=== PATIENT | female | born 1940 | race Caucasian/White ===

== ENCOUNTER → 2016-08-17 | Outpatient (REF) | payer MEDICARE, MEDICAID ==
[~2016-08-17] MED LIST: /ADVA50050 IN; /CLON1TA PO; /MOM400 PO; /PANT40TA PO; /PROC10TA PO; /WARF25TA PO; /WARF5TA PO; ACET500T37 PO; ACET65TA PO; ADV250INH INH; ALAV10TA PO; ALBU83IN INH; ALEN10TA2 PO; ALLO300T PO; AMLO10TA2 PO; AMLO5TAB2 PO; ANALCR EXT; ARTIOIN OU; ASPI81TA45 PO; ATOR1TAB21 PO; BACT800T OR; BACT800T5 PO; BACTROBAN TOP; BISA10SU30 PR; BISAC5TA PO; CELE20TA OR; CLAR5CHW PO; CLOBETASOL TOP; COLA100C2 OR; COUM6TAB PO; CYMB1CAP PO; D-10TAB PO; D31000TA PO; DICL13PA TD; DICL500C PO; Deltasone PO; ECONAZOLE NITRATE TOP; ENEMENE6 PR; EXEMESTANE PO; FLAG500T OR; FLEXERIL PO; FLUC10TA OR; FOLI1TAB PO; GLIM2TAB PO; GLUC1000 PO; HUMA100I SC; HYDR1CR EXT; ICYCRE TOP; INSULANT SC; KEFL500C7 PO; LASI40TA PO; LEVA500T OR; LEVA500T PO; LEVO500T PO; LIQUSOL OU; LISI40TA PO; LOPR50TA PO; MAALSUS PO; MECL25TA2 PO; METF500T4 OR; METO25TAB PO; MICONAZOLE TOP; MILKSUS OR; MINOCIN PO; MIRA255PW PO; MIRA3350 PO; MORP-38 PO; MORP30TA4 PO; MS C200T PO; MUPI2OI TOP; MYLASSUD PO; NEUR300C PO; NEUR800T PO; NORC5TAB PO; NYAM10003 EXT; NYAM10003 TOP; OMEG100011 PO; OMEP20CA3 PO; OXYC10TA57 PO; OXYC30TA4 PO; OYST500T50 PO; OYST500T58 PO; OYST500T76 OR; PAIN325T OR; PARO10TA10 PO; PERC5TAB6 PO; PERC5TAB8 OR; PERC7.5T8 OR; PERCOCET PO; POTA20TA PO; PRED10TA2 OR; PRED10TA2 PO; PRED20TA PO; PRED5TAB PO; PRESCAP6 PO; REST0.05 OU; ROBISYP3 PO; SENO8.6T10 PO; SIMV40TA2 OR; SOMA350T PO; SYSTANE OU; THERA GESIC TOP; TRIA0.1C60 TOP; TUSS100S3 PO; ULTR50TA PO; VENTOLIN NEB INH; VIST25CA PO; VITA-121 PO; VITAMIN D50000 UNT PO; VOLT1GEL2 TD; XANA0.25 PO; XANA0.5T PO; ZANT150T PO; ZOCO40TA PO; [UNRECOGNIZED DRUG - OTHER] PO; [UNRECOGNIZED DRUG - OTHER] TOP; [UNRECOGNIZED DRUG - OTHER] TOP; immodium PO; oxygen INH; robitussin dm PO
== END ==
PROVIDERS: ATTEND Internal Medicine
DX: M35.3 Polymyalgia rheumatica (principal)

== ENCOUNTER → 2016-08-30 | Outpatient (CLI) | payer MEDICARE, MEDICAID ==
--- NOTE | 2016-08-30 14:31 | REP ---
LEFT LOWER EXTREMITY VENOUS DOPPLER: 08/30/2016 INDICATION: Left leg pain and swelling, possible DVT. COMPARISON: Left lower extremity venous Doppler 02/13/2015. TECHNIQUE: Color-flow Doppler spectral wave and mercado-scale imaging were used to evaluate the deep lower extremity veins at common femoral, superficial femoral, and popliteal venous levels. FINDINGS: There is normal compressibility of veins at the above-stated levels. There is normal response to augmentation of flow. The profunda femoris vein is also patent. IMPRESSION: No evidence of DVT in the left lower extremity. MTDD
== END ==
LOC: M RAD 13:17
PROVIDERS: ATTEND Nurse Practitioner Adult Health
DX: M79.89 Other specified soft tissue disorders (principal)

== ENCOUNTER → 2016-09-01 | Outpatient (REF) | payer MEDICARE, MEDICAID | LOC: M LAB REF 15:34 | PROVIDERS: ATTEND Nurse Practitioner Family | DX: L08.9 Local infection of the skin and subcutaneous tissue, unspecified (principal) ==

== ENCOUNTER → 2016-09-02 | Outpatient (CLI) | payer MEDICARE, MEDICAID ==
--- NOTE | 2016-09-02 12:43 | REPMRS ---
Patient History The patient states she had a clinical breast exam in 06/2016. Patient is postmenopausal, has history of cancer in the right breast at age 68, had previous chest radiation therapy at age 68, and had previous chemotherapy at age 68. Family history of colorectal cancer in brother. Malignant lumpectomy of the right breast, 2008. Chemotherapy, 2008. Radiation therapy of the right breast, 2008. Digital Woman Screen Mammo: September 02, 2016 - Exam #: [id number] Bilateral CC and MLO view(s) were taken. Technologist: Lyn Parekh, Technologist Prior study comparison: August 31, 2015, digital woman screen mammo performed at [facility]. August 28, 2014, digital woman screen mammo performed at [facility]. February 26, 2013, digital woman screen mammo performed at [facility]. FINDINGS: There are scattered fibroglandular densities. There has been no change in the appearance of the mammogram from the prior studies. There are stable post treatment changes in the right breast. There is a mild amount of scattered fibroglandular density which is fairly symmetric. There is no interval development of dominant mass, architectural distortion, or clustered microcalcification suggestive of malignancy. ASSESSMENT: BI-RADS/ACR category 1 mammogram. Negative. Recommendation Routine screening mammogram in 1 year (for women over age 40). This mammogram was interpreted with the aid of an FDA-approved computer-aided dectection system. Electronically Signed By: Gordy Ward MD 09/02/16 [id number]
== END ==
LOC: M WHC 10:41
PROVIDERS: ATTEND Nurse Practitioner Family
DX: Z12.31 Encounter for screening mammogram for malignant neoplasm of breast (principal); Z85.3 Personal history of malignant neoplasm of breast

== ENCOUNTER → 2016-09-07 | Outpatient (REF) | payer MEDICARE, MEDICAID | PROVIDERS: ATTEND Internal Medicine | DX: E03.9 Hypothyroidism, unspecified (principal) ==

== ENCOUNTER → 2016-09-16 | Outpatient (REF) | payer MEDICARE, MEDICAID ==
[2016-09-16 08:33] LABS: BASO % 0.2 % (0.0-1.0); EOS % 0.4 % (0.0-3.0); LARGE UNSTAINED CELL # 0.2 K/mm3 (0.0-0.4); LARGE UNSTAINED CELL % 2.3 % (0.0-4.0); LYMPH # 1.6 K/mm3 (1.5-4.5); LYMPH % 14.6 % (24.0-44.0); MEAN CORPUSCULAR HEMOGLOBIN 28.4 pg (27.0-33.0); MEAN CORPUSCULAR HGB CONC 31.8 g/dl (32.0-36.5); MEAN CORPUSCULAR VOLUME 89.4 fl (80.0-96.0); MONO # 0.4 K/mm3 (0.0-0.8); NEUTROPHILS # 8.3 K/mm3 (1.8-7.7); NEUTROPHILS % 78.4 % (36.0-66.0); PLATELET COUNT, AUTOMATED 283 k/mm3 (150-450); RED CELL DISTRIBUTION WIDTH 14.8 % (11.5-14.5); WHITE BLOOD COUNT 10.6 K/mm3 (4.0-10.0)
[2016-09-16 08:40] LABS: ANION GAP 9 MEQ/L (8-16); BLOOD UREA NITROGEN 10 MG/DL (7-18); CALCIUM LEVEL 8.5 MG/DL (8.8-10.2); CARBON DIOXIDE LEVEL 29 MEQ/L (21-32); CHLORIDE LEVEL 100 MEQ/L (98-107); CREATININE FOR GFR 0.86 MG/DL (0.55-1.02); GLOMERULAR FILTRATION RATE > 60.0 (>39); GLUCOSE, FASTING 175 MG/DL (83-110); POTASSIUM SERUM 4.3 MEQ/L (3.5-5.1); SODIUM LEVEL 138 MEQ/L (136-145)
== END ==
PROVIDERS: ATTEND Internal Medicine
DX: R50.9 Fever, unspecified (principal)

== ENCOUNTER → 2016-09-23 | Outpatient (REF) | payer MEDICARE, MEDICAID ==
[2016-09-23 12:07] LABS: ANION GAP 13 MEQ/L (8-16); BLOOD UREA NITROGEN 13 MG/DL (7-18); CALCIUM LEVEL 8.6 MG/DL (8.8-10.2); CARBON DIOXIDE LEVEL 31 MEQ/L (21-32); CHLORIDE LEVEL 92 MEQ/L (98-107); CREATININE FOR GFR 0.83 MG/DL (0.55-1.02); GLOMERULAR FILTRATION RATE > 60.0 (>39); GLUCOSE, FASTING 278 MG/DL (83-110); POTASSIUM SERUM 3.7 MEQ/L (3.5-5.1); SODIUM LEVEL 136 MEQ/L (136-145)
== END ==
PROVIDERS: ATTEND Internal Medicine
DX: I50.9 Heart failure, unspecified (principal)

== ENCOUNTER → 2016-10-05 | Outpatient (REF) | payer MEDICARE, MEDICAID ==
--- NOTE | 2016-10-05 11:43 | REP ---
Clinical: Pain. Technique: AP and frog lateral views of the right hip. Findings: Age-related degenerative changes include joint space narrowing with subtle spurring along the acetabular roof. No acute fracture dislocation. Impression: Age-related degenerative changes. Signed by Drew Cunha MD 10/05/2016 11:35 A
--- NOTE | 2016-10-05 11:45 | REP ---
Clinical: Pain. Technique: AP, lateral, bilateral oblique and sunrise views. Comparison: 05/18/2012. Findings: Marked, advanced and progressive tricompartmental osteoarthritic degenerative changes are appreciated. Findings include diffuse osteophytosis, significant joint space narrowing and chondrocalcinosis as well as subchondral heterogeneity and cystic changes and suspected small loose bodies. No obvious effusion. No acute fracture or dislocation. Impression: Marked advanced tricompartmental degenerative changes. Signed by Drew Cunha MD 10/05/2016 11:37 A
== END ==
PROVIDERS: ATTEND Internal Medicine
DX: M25.551 Pain in right hip (principal)

== ENCOUNTER → 2016-10-20 | Outpatient (REF) | payer MEDICARE, MEDICAID | LOC: M LAB REF 15:13 | PROVIDERS: ATTEND Nurse Practitioner Family | DX: L08.9 Local infection of the skin and subcutaneous tissue, unspecified (principal) ==

== ENCOUNTER → 2016-12-13 | Outpatient (REF) | payer MEDICARE, MEDICAID | LOC: M LAB REF 11:08 | PROVIDERS: ATTEND Nurse Practitioner Family | DX: L08.9 Local infection of the skin and subcutaneous tissue, unspecified (principal) ==

== ENCOUNTER → 2016-12-29 | Outpatient (CLI) | payer MEDICARE ==
--- NOTE | 2016-12-29 12:59 | REP ---
Clinical: Left upper extremity mass. Technique: Real time mercado scale and color evaluation using linear high frequency transducer. Findings: Directed ultrasound examination at the site of mass lesion demonstrates a 5.7 x 2.1 x 4.8 cm benign appearing lipoma. Surrounding soft tissues are unremarkable. Impression: Mass by physical examination corresponds to lipoma. Signed by Drew Cunha MD 12/29/2016 12:50 P
== END ==
LOC: M RAD 10:49
PROVIDERS: ATTEND Nurse Practitioner Adult Health
DX: D17.22 Benign lipomatous neoplasm of skin and subcutaneous tissue of left arm (principal)

== ENCOUNTER → 2017-01-03 | Outpatient (REF) | payer MEDICARE ==
[2017-01-03 10:12] LABS: MEAN CORPUSCULAR HEMOGLOBIN 26.8 pg (27.0-33.0); MEAN CORPUSCULAR VOLUME 83.7 fl (80.0-96.0); RED CELL DISTRIBUTION WIDTH 14.7 % (11.5-14.5); WHITE BLOOD COUNT 7.9 K/mm3 (4.0-10.0)
== END ==
PROVIDERS: ATTEND Internal Medicine
DX: M81.0 Age-related osteoporosis without current pathological fracture (principal); Z79.899 Other long term (current) drug therapy

== ENCOUNTER → 2017-01-06 | Outpatient (CLI) | payer MEDICARE ==
[~2017-01-06] MED LIST changes: +ARTI99.0 OU; +ASPI1TAB PO; +BISA10SU4 PR; +CYMB1CAP5 PO; +DUONSOL INH; +FENT100D25 TD; +FURO40TA2 PO; +GABA800T PO; +GLUC1INJ11 IM; +INSUDET SC; +INSUHUMDS SC; +LIDO1OIN2 TOP; +LISI40TAB PO; +METO37.5 PO; +MILKSUS PO; +MILKSUS5 PO; +MOM30SS PO; +PROT20TA11 PO; +SYMB16INH INH; +TUSSLIQ3 PO; +TYLE325T5 PO
--- NOTE | 2017-01-06 12:38 | REP ---
Clinical: Right lower extremity pain and edema . Technique: Aggarwal scale and color Doppler evaluation using linear high frequency transducer. Findings: Ultrasound examination of the right lower extremity deep venous structures from the common femoral vein to the popliteal vein demonstrates normal compressibility flow and wave patterns in response to respiration and augmentation. There is no evidence for deep venous thrombosis. Impression: No evidence for deep venous thrombosis. Signed by Drew Cunha MD 01/06/2017 12:30 P
== END ==
LOC: M RAD 11:39
PROVIDERS: ATTEND Internal Medicine
DX: M79.604 Pain in right leg (principal); R50.9 Fever, unspecified

== ENCOUNTER → 2017-01-11 | Outpatient (REF) | payer MEDICARE ==
[2017-01-11 10:46] LABS: BASO % 0.7 % (0.0-1.0); EOS # 0.2 K/mm3 (0.0-0.50); EOS % 4.2 % (0.0-3.0); LARGE UNSTAINED CELL # 0.1 K/mm3 (0.0-0.4); LARGE UNSTAINED CELL % 1.1 % (0.0-4.0); LYMPH # 1.3 K/mm3 (1.5-4.5); LYMPH % 23.5 % (24.0-44.0); MEAN CORPUSCULAR HEMOGLOBIN 27.1 pg (27.0-33.0); MEAN CORPUSCULAR HGB CONC 32.3 g/dl (32.0-36.5); MEAN CORPUSCULAR VOLUME 83.8 fl (80.0-96.0); MONO # 0.4 K/mm3 (0.0-0.8); MONO % 6.3 % (0.0-5.0); NEUTROPHILS # 3.6 K/mm3 (1.8-7.7); NEUTROPHILS % 64.2 % (36.0-66.0); PLATELET COUNT, AUTOMATED 223 k/mm3 (150-450); RED CELL DISTRIBUTION WIDTH 14.6 % (11.5-14.5); WHITE BLOOD COUNT 5.6 K/mm3 (4.0-10.0)
[2017-01-11 10:56] LABS: INR 1.02
[2017-01-11 11:03] LABS: ALBUMIN 3.1 GM/DL (3.2-5.2); ALBUMIN/GLOBULIN RATIO 0.79 (1.00-1.93); ALKALINE PHOSPHATASE 131 U/L (45-117); ALT/SGPT 13 U/L (12-78); ANION GAP 8 MEQ/L (8-16); AST/SGOT 9 U/L (15-37); BILIRUBIN,TOTAL 0.5 MG/DL (0.2-1.0); BLOOD UREA NITROGEN 11 MG/DL (7-18); CALCIUM LEVEL 8.6 MG/DL (8.8-10.2); CARBON DIOXIDE LEVEL 32 MEQ/L (21-32); CHLORIDE LEVEL 98 MEQ/L (98-107); CREATININE FOR GFR 0.59 MG/DL (0.55-1.02); GLOMERULAR FILTRATION RATE > 60.0 (>39); GLUCOSE, FASTING 193 MG/DL (83-110); POTASSIUM SERUM 3.7 MEQ/L (3.5-5.1); SODIUM LEVEL 138 MEQ/L (136-145)
== END ==
PROVIDERS: ATTEND Internal Medicine
DX: Z01.818 Encounter for other preprocedural examination (principal)

== ENCOUNTER → 2017-01-27 | Outpatient (CLI) | payer MEDICARE ==
--- NOTE | 2017-01-27 23:52 | ECWPNPC ---
PATIENT NAME: SARIKA SALAZAR : 1940 GENDER: FEMALE VISIT DATE: 01/27/2017 DISCHARGE DATE: 01/27/17 1335 VISIT LOCKED DATE TIME: PHYSICIAN: PORFIRIO HERRERA RESOURCE: PORFIRIO HERRERA REASON FOR APPOINTMENT 1. CHRONIC PAIN HISTORY OF PRESENT ILLNESS NEW PATIENT CONSULT: WHEN DID YOUR PAIN FIRST START? . BRIEFLY DESCRIBE HOW YOUR PAIN STARTED? . HOW DOES YOUR PAIN CHANGE WITH TIME? . DOES YOUR PAIN AWAKEN YOU FROM SLEEP? . HOW MANY HOURS OF SLEEP DO YOU NORMALLY GET? . ANY DIAGNOSTIC TESTING? . FACILITY WHERE TESTS WERE DONE? ____. PAIN TREATMENT TREATMENT YES CANCER HAVE YOU EVER HAD ANY TYPE OF CANCER?NO NO. PAIN SCREENING: PATIENT HAS A COMPLAINT OF ACUTE OR CHRONIC PAIN :YES FALL RISK SCREENING: SCREENING :NO FALLS IN THE PAST YEAR NAVA INVENTORY: QUESTIONNAIRE ASSESSEDYES SCORE VALUE CALCULATED NO PT WAS ASSISTED BY TRANSPORT AID TO COMPLETE THE PACKET AND THE QUESTIONAIRE - NOT ALL QUESTIONS WERE ANSWERED. DENIES SUICIDAL OR HOMICAIDAL IDEATION. QUESTIONARE INDICATED WORRY REGARDING PAIN TODAY'S VISIT: NOTES: REFERRED BY [facility] FOR CHRONIC GENERALIZED PAIN. PREVIOUSLY WAS A RESIDENT AT [facility] AND IS NOW A RESIDENT AT [facility] UNDER THE CARE OF THE [facility] PROVIDER GROUP. PT HAS LONG STANDING HISTORY OF PAIN AND MANY DIAGNOSIS INCLUDING POLYMYALGIA RHEUMATICA , FIBROMYALGIA, DIABETIC PERIPHERAL NEUROPATHY. . STATES SHE GOING TO THE HOSPITAL 02/08 FOR SURGERY TO LEFT DELTOID AREA. HAS BEEN ON PAIN MEDS FOR MANY YEARS. REPORTS TODAY PAIN IS CONCENTRATED IN LEGS AND IN BOTH KNEES. HAS ALSO COMPLAINTS OF PAIN IN LOW BACK. HAS SORES ON ABDOMEN AND ARMS WHICH ARE BEING TREATED BY THE [facility] IN [facility]. APPARENTLY HAS MEDICAL ORDERS THAT SHE IS TO BE SEATED WITH LEGS ELEVATED DUE TO LOWER EXTREMITY EDEMA.- DOES VERY LIMITED WALKING. CHART AND ISOP REVIEWD HAS BEEN ON MANY DIFFERENT PAIN MEDS AND REPORTS SHE HAS NOT HAD SIGNIFICANT RELIEF WITH ANYTHING INCLUDING HER CURRENT FENTANYL PATCH - IS ASKING IF THE DOSE CAN BE RAISED. DOES NOT RECALL IF SHE HAS HAD ANY RECENT PHYSICAL THERAPY.. CURRENT MEDICATIONS TAKING ASPIRIN EC 81 MG TABLET DELAYED RELEASE 1 TABLET ORALLY ONCE A DAY TAKING MILK OF MAGNESIA 400 MG/5ML SUSPENSION 15 ML AT BEDTIME NEEDED FOR CONSTIPATION ORALLY ONCE A DAY TAKING HUMALOG 100 UNIT/ML SOLUTION 6 UNITS SUBCUTANEOUS DAILY TAKING ACETAMINOPHEN 650 MG TABLET 1 SUPPOSITORY NEEDED ORALLY EVERY 6 HRS TAKING ARTIFICIAL TEAR SOLUTION 0.1 SOLUTION 1 DROP PER EYE OPHTHALMIC QID TAKING SYMBICORT 160-4.5 MCG/ACT AEROSOL 2 PUFFS INHALATION TWICE A DAY TAKING OYSTER SHELL CALCIUM + D 500-400 MG-UNIT TABLET ORALLY TAKING DULCOLAX 10 MG SUPPOSITORY 1 SUPPOSITORY NEEDED RECTAL ONCE A DAY TAKING ENEMA 7-19 GM/118ML ENEMA 1 ENEMA RECTAL PRN TAKING TUSSIN DM 100-10 MG/5ML SYRUP 10 ML NEEDED ORALLY EVERY 4 HRS TAKING ACETAMINOPHEN EXTRA STRENGTH 500 MG TABLET 1 TABLET NEEDED ORALLY EVERY 8 HRS TAKING ICY HOT NATURALS 7.5 % CREAM APPLY MODESTA. KNEE EXTERNALLY BID PRN TAKING ATORVASTATIN CALCIUM 20 MG TABLET 1 TABLET ORALLY ONCE A DAY TAKING ALBUTEROL SULFATE (2.5 MG/3ML) 0.083% NEBULIZATION SOLUTION 3 ML INHALATION EVERY 2 HOURS NEEDED TAKING MYLANTA 400 MG SUSPENSION 10 ML NEEDED ORALLY TID TAKING NORVASC 10 MG TABLET 1 TABLET ORALLY ONCE A DAY TAKING METOPROLOL TARTRATE 37.5 MG TABLET 1 TABLET ORALLY TWICE A DAY TAKING LANTUS 100 UNIT/ML SOLUTION 18 UNITS SUBCUTANEOUS DAILY TAKING LISINOPRIL 40 MG TABLET 1 TABLET ORALLY ONCE A DAY TAKING VITAMIN D 1000 UNIT TABLET 1 TABLET ORALLY ONCE A DAY TAKING NEURONTIN 800 MG TABLET 1 TABLET ORALLY TWO TIMES A DAY TAKING OMEGA-3 1000 MG CAPSULE 1 CAPSULE ORALLY ONCE A DAY TAKING POTASSIUM CHLORIDE 20 MEQ TABLET EXTENDED RELEASE 1 TAB(S) ORALLY TWICE A DAY TAKING PRESERVISION AREDS 2 CAPSULE 1 CAP(S) ORALLY BID TAKING RESTASIS 0.05 % EMULSION 1 INTO AFFECTED EYE OPHTHALMIC TWICE A DAY TAKING SYSTANE 0.4-0.3 % GEL 1 APPLICATION NEEDED OPHTHALMIC TWICE A DAY TAKING AQUAPHOR OINTMENT APPLY FOR CRACKED LIPS EXTERNALLY QID PRN TAKING HYDROXYZINE HCL 10 MG TABLET ORALLY DAILY TAKING LEVEMIR FLEXPEN 100 UNIT/ML SOLUTION 24 UNITS SUBCUTANEOUS TWICE DAILY TAKING FUROSEMIDE 40 MG TABLET 60 MG ORALLY ONCE A DAY TAKING CYMBALTA 30 MG CAPSULE DELAYED RELEASE PARTICLES 1 CAPSULE ORALLY TWICE A DAY TAKING FENTANYL 100 MCG/HR PATCH 72 HOUR 1 PATCH TO SKIN TRANSDERMAL TAKING PROTONIX 20 MG TABLET DELAYED RELEASE 2 TABLETS ORALLY ONCE A DAY TAKING TRAMADOL HCL 50 MG TABLET 1 TAB ORALLY EVERY 6 HOURS NEEDED/MMD#4 TAKING LIDOCAINE 5 % OINTMENT 1 APPLICATION TO AFFECTED AREA NEEDED EXTERNALLY THREE TIMES A DAY TAKING LIPITOR 10 MG TABLET 1 TABLET ORALLY ONCE A DAY DISCONTINUED MORPHINE SULFATE 15 MG TABLET 1 TABLET NEEDED ORALLY BID DISCONTINUED PERCOCET 5-325 MG TABLET 1 TABLET ORALLY TWICE A DAY NEEDED DISCONTINUED XANAX 0.125 MG TABLET 1 TABLET ORALLY BID PRN DISCONTINUED MINOCIN 100 MG CAPSULE 1 CAP(S) ORALLY BID DISCONTINUED VOLTAREN 1 % GEL APPLY TO MODESTA KNEES TRANSDERMAL QID PRN DISCONTINUED CYMBALTA 60 MG CAPSULE DELAYED RELEASE PARTICLES 1 CAPSULE ORALLY ONCE A DAY DISCONTINUED LASIX 40 MG TABLET 1 TABLET ORALLY ONCE A DAY MEDICATION LIST REVIEWED AND RECONCILED WITH THE PATIENT PAST MEDICAL HISTORY HYPERTENSION HYPERLIPIDEMIA DIABETES WITH DIABETIC NEUROPATHY COPD HISTORY OF CORONARY ARTERY DISEASE/ANGINA HISTORY OF RIGHT BREAST CANCER IN 2008 GOUT OSTEOPOROSIS PSORIASIS PSORIATIC ARTHRITIS NEURODERMATITIS OBSTRUCTIVE SLEEP APNEA BILATERAL KIDNEY ATROPHY CYST ON KIDNEY HYPOTONIC BLADDER ALLERGIES N.K.D.A. SURGICAL HISTORY RIGHT BREAST LUMPECTOMY WITH SENTINEL NODE BIOPSY IN RIGHT AXILLA 2008 HYSTERECTOMY ANKLE FX/REPAIR MODESTA. KNEE ARTHROSCOPY I&D LEFT KNEE DUE TO INFECTION BLADDER MESH D&C FAMILY HISTORY FATHER: 95 YRS, OLD AGE MOTHER: 80 YRS, OLD AGE 2 BROTHER(S) , 1 SISTER(S) . 4 SON(S) , 3 DAUGHTER(S) . SISTER OF STOKEBROTHER OF COLON CANCEROLDEST SON HAS CANCER, DOESN'T REMEMBER KIND PASSED AWAY1 SON HAS CONVULSIONS1 DAUGHTER CANCER OVARIAN. SOCIAL HISTORY GENERAL: TOBACCO USE ARE YOU A:NEVER SMOKER ALCOHOL SCREENING DID YOU HAVE A DRINK CONTAINING ALCOHOL IN THE PAST YEAR?NO POINTS0 INTERPRETATIONNEGATIVE RECREATIONAL DRUG USE DENIES. CAFFEINE 1 CUP COFFEE. DIET: LOW FAT, LOW CHOLESTEROL. EXERCISE: UNABLE. MARITAL STATUS: . PETS: NONE. TAOIST NO YARSANI BELIEFS THAT WOULD IMPACT HEALTH CARE. LANGUAGE GREENLANDIC. LEARNING BARRIERS / SPECIAL NEEDS BARRIERS TO LEARNING?NO HEARING IMPAIRED?NO VISION IMPAIRED?YES :CORRECTIVE LENSES LEARNING PREFERENCES?NO SPECIAL DEVICES?YES :WALKER, WHEELCHAIR IS IN A WHEEL CHAIR MOST OF THE TIME, BUT CAN AMBULATE NEEDED TO . PAIN CLINIC PFS, CLERGY, PUBLIC HEALTH REFERRALS CLERGY REFERRAL NEEDED?NO WAS THE PROVIDER NOTIFIED OF ANY PERTINENT INFO?NO PFS REFERRAL NEEDED?NO PUBLIC HEALTH REFERRAL NEEDED?NO PATIENT: ____. ADVANCE DIRECTIVES HEALTH CARE PROXY?YES NAME OF HCP SONYA GONZALES CONTACT # FOR HCP [phone] DO YOU HAVE A COPY WITH YOU?NO POWER OF CAST IRON DIPPER?YES NAME OF POA? SONYA GONZALES DO YOU HAVE A COPY WITH YOU?NO RETIRED: YES. HOUSING: ADULT HOME. HOSPITALIZATION/MAJOR DIAGNOSTIC PROCEDURE SURGERY ABOVE 2008 METABOLIC ENCEPHALOPATHY, ASPIRATION PNEUMONIA, PAIN MANAGEMENT February, RELATED TO SURGERY REVIEW OF SYSTEMS CONSTITUTIONAL: ANY CHANGE IN YOUR MEDICAL CONDITION? NO . CHILLS NO . FEVER NO . INFECTION: DO YOU HAVE NEW INFECTIONS? NO . DO YOU HAVE HISTORY OF MRSA? YES ON HER STOMACH SEES DR MADRID . MUSCULOSKELETAL: ANY NEW PATTERNS OF PAIN OR NUMBNESS? YES HURTS ALL OVER. . SYTEMIC LUPUS NO . GASTROENTEROLOGY: ANY NEW CHANGE IN BOWEL CONTROL? NO . BARRETTS ESOPHAGUS NO . CIRRHOSIS NO . HEPATITIS NO . LIVER FAILURE NO . PATIENT COMPLAINING OF FREQUENT LOOSE BOWEL MOVEMNTS -5-7 TIMES PER DAY . ACID REFLUX NO . UNEXPLAINED WEIGHT LOSS NO . GENITOURINARY: ANY NEW CHANGE IN BLADDER CONTROL? NO . IS THERE A CHANCE YOU COULD BE ? NO . HEMATOLOGY/LYMPH: DO YOU TAKE ANY BLOOD THINNERS? (FOR EXAMPLE- COUMADIN, PLAVIX, AGGRENOX, PLATEL, PRADAXA, OR XARELTO) NO . WHEN WAS YOUR LAST DOSE? DATE: TIME: . LOW PLATELET COUNT NO . SICKLE CELL DISEASE NO . VON WILLIEBRANDS NO . FACTOR V LEIDEN NO . THALLASEMIA NO . ANEMIA NO . EASY BRUISING NO . NEUROLOGY: HAVE YOU FALLEN IN THE PAST 6 MONTHS? NO . ANY NEW EXTREMITY NUMBNESS OR WEAKNESS? NO . HEAD INJURY NO . DEMENTIA NO . CEREBRAL PALSY NO . MULTIPLE SCLEROSIS NO . DIZZINESS NO . HEADACHE NO . STROKES NO . VERTIGO NO . CARDIOLOGY: DO YOU HAVE A PACEMAKER OR DEFIBRILLATOR? NO . ANGINA YES - PER PATIENT . HEART ATTACK NO . HEART SURGERY NO . CONGESTIVE HEART FAILURE/FLUID OVERLOAD NO . CHEST PAIN NO . HIGH BLOOD PRESSURE ON MEDICATION(S) . IRREGULAR HEART BEAT NO . RESPIRATORY: HAVE YOU BEEN SICK IN THE PAST WEEK? NO . FEVER NO . FLU LIKE SYMPTOMS? NO . CPAP NO HAS JOHN BUT DOES NOT WEAR HER CPAP . BYPAP NO . ASTHMA NO . EMPHYSEMA YES, . CHRONIC LUNG DISEASES NO . SHORTNESS OF BREATH ON EXERTION NO . DO YOU USE ANY TYPE OF TOBACCO (SMOKE, SMOKELESS, CHEW)? NO . COUGH NO . SNORING NO . INTEGUMENTARY: DO YOU HAVE ANY RASHES OR OPEN SORES? YES, STOMACH, ARMS . ALLERGIC/IMMUNO: ARE YOU ALLERGIC TO SHELLFISH OR IV DYE? NO . ANY NEW ALLERGIES? NO . PSYCHIATRIC: DO YOU HAVE THOUGHTS OF HURTING YOURSELF OR SOMEONE ELSE? NO . ARE YOU ABUSED, NEGLECTED, OR IN AN UNSAFE ENVIRONMENT? NO . ENDOCRINOLOGY: ARE YOU DIABETIC? YES ON INSULIN . THYROID DISORDER NO . OTHER: DO YOU NEED ANY PRESCRIPTIONS? NO . IF YES, PLEASE LIST: ____ . ANY NEW PROBLEMS WITH YOUR MEDICATIONS? NO . WHEN DID YOU LAST EAT? ____ . WHEN DID YOU LAST DRINK? ____ . WHAT DID YOU LAST DRINK? ____ . NAME OF PERSON DRIVING YOU HOME? ____ . DO YOU HAVE ANY OTHER QUESTIONS OR CONCERNS NO . UROLOGY: [facility] STATES HAS USED DEPEND FOR URIANY LEAKAGE FOR YEARS . REVIEWED BY: PROVIDER: PORFIRIO TRAN . VITAL SIGNS WT 220 LBS, HT 67 IN, BMI 34.45 INDEX, BP 152/88 MM HG, HR 70 /MIN, RR 18 /MIN, TEMP 97.0 F, OXYGEN SAT % 95, NA INITIALS AW 1208, REVIEWED BY: CM. EXAMINATION GENERAL EXAMINATION: GENERAL APPEARANCE:COLOR PALE TALKATIVE. PSYCHALERT , ORIENTED X 3 , APPROPRIATE MOOD AND AFFECT , FAIR HISTORIAN, COOPERATIVE AND PLEASANT TO INTERACT WITH. HEENT:WRITING MOVEMENTS NOTED OF FACE/MOUTH AREA, NORMOCEPHALIC, NO LYMPHADENOPATHY, NO THYROMEGLY. LUNGS:CLEAR TO AUSCULTATION BILATERALLY, NO RALES, NO RHOCHI - FEW SCATTERED WHEEZES. HEART:HEART RATE IR-REGULAR, NORMAL S1S2, NO MURMURS, CLICK OR RUBS. ABDOMEN:SOFT, ROUNDD, BOWEL SOUNDS ACTIVE. MULTIPLE OPEN RED DRAINING LESIONS OVER ABDOMENAL SURFACE. . MUSCULOSKELETAL:SIGNIFICANT WEAKNESS NOT WITH BILATERAL QUADRICEPS. , MUSCLE STRENGTH TESTING 5/5 UPPER EXTREMITIES AND DISTAL LOWER EXTREMITIES. TENDER POINTS ABOVE AND BELOW THE WAIST PALPATED AND ONLY AREAS AT THE NEES ARE NOTED TO BE TENDER TO THE TOUCH. , TRIGGER POINTS: AND TIGHT FIBROUS BANDS ARE IDENTIIFED OVER THE LUMBOSACRAL AXIS. ABLE TO PUSH SELF TO STANDING POSITION NOT SEVERE PAIN AT MEDIAL RIGHT KNEE AREA. POSTURE STOOPED. GAIT SLOW/SHUFFLING. EXTREMITIES:LARGE 4 CM X 2 CM FIRM LESION WITH OPEN WOUND IN CENTER NOTED OVER LEFT DELTOID. DELTOID TENDER TO LIGHT TOUCH. NO UPPER EXTREMITY EDEMA. FREDERICK WRAPS TO BILATERAL LOWER EXTREMITIES. 1+ EDEMA NOTED TO LOWER EXTREMITIES. . JOINTS:BILATERAL, PAIN , SWELLING AT RIGHT> LEFT DIP AND MIP JOINTS BOTH HANDS. SIGNIFICANT LOSS OF RANGE OF MOTION IN FEXION /EXTENSION AND GRASP. NEUROLOGIC EXAM:DECREASED SENSATION NOTED IN STOCKING/GLOVE FASHION OVER BILATERAL LOWER EXTREMITIES TO THE MID CALF. DTR'S TRACE TO ABSENT IN BILATERAL LOWER EXTREMITIES.. ASSESSMENTS ARTHRALGIA, UNSPECIFIED JOINT - M25.50 CHRONIC PAIN DISORDER - G89.4 TREATMENT ARTHRALGIA, UNSPECIFIED JOINT NOTES: FALLS CARE PLAN: 1. RECOMMEND REMOVING ALL THROW RUGS. 2. RECOMMEND NIGHT LIGHTS 3. RECOMMEND WEARING RUBBER SOLED SHOES AND TO NOT GO BAREFOOT. 4.. ADVISED TO CHANGE POSITION SLOWLY FROM SUPINE TO STANDING TO AVOID DIZZINESS. 5. ADVISED TO USE ASSISTIVE DEVICE SUCH CANE OR WALKER 6. NEED SPHYSICAL THERAPY TO IMPROVE BALANCE AND STRENGTH, #128 - SCREENING BMI AND F/U PLAN IN : BMI ABOVE NORMAL TODAY. DISCUSSED WITH PATIENT NUTRITIONAL FOOD CHOICES TO ASSIST WITH WEIGHT LOSS. RECCOMMENDED REDUCING SALT, SUGAR, SODA INTAKE. RECOMMEND INCREASE ACTIVITY TO INCLUDE WALKING ON A REGULAR BASIS. PROFESSIONAL NUTRITIONAL NUTRITIONAL GUIDANCE IS PART OF SERVICE AT [facility] AND WEIGHT IS BEING CLOSELY MONITOERED. CLINICAL NOTES: TENDER POINTS WHICH PRODUCE PAIN IN FIBROMYALGIA WERE ASSESSED - SARIKA ASKED ME TO "TOUCH THAT AGAIN - NOT SURE" ONLY PALPATED AREAS WHICH PRODUCED PAIN WERE AT THE KNEES, LEFT GREATER THAN RIGHT. I CAN NOT IDENTIFY FIBROMYALGIA AN ETIOLOGY FOR HER PAIN TODAY. ON REVIEW OF THE RECORDS I SEE A DIAGNOSIS OF PSORIATIC ARTHRITIS. SHE HAS JOINT PAIN AND SWELLING AT HER HANDS AT THE DIP AND PIP JOINTS BILATERALLY, WELL AT THE LEFT WRIST AND BOTH KNEES. SHE GUPTA ALSO BEEN DEALING WITH SKIN LESIONS WHICH HAVE DEVELOPED MRSA. SHE HAS BEEN ON NARCOTICS FOR MANY YEARS. I HAVE SEEN SIMILIAR LESIONS WITH ALLERGY TO OPIATES. HER PAIN HAS NOT IMPROVED WITH VERY HIGH DOSE FENTANYL. RECOMMENDATIOS JACKIE BE: 1. REFER TO RHEUMATOLOGY FOR COORDINATED PLQN TO DEAL WITH PSORIATIC ARTHRITS/DEGENERATIVE JOINT DISEASE2. REFER TO ORTHOPEDICS REGARDING RIGHT KNEE SWELLING AND PAIN3. WEAN FENTANYL - USE CLONIDINE 0.1 MG PRN FOR WITHDRAWAL SYMPTOMS - I SUSPECT SHE WILL HAVE LITTLE PROBLEMS WITH THIS4. TRIAL OF NUCYNTA 50 MG IR Q 4-6 HRS PRN PAIN NOT CONTROLLED BY TYLENOL AND DISTRACTION TECHNIQUES - HAS DIFFERENT BIOCHEMISRTY AND FREQUENTLY WORKS WELL WITH NEUROPATHIC PAIN5. EXERCISE/WALKING PROGRAM TO BUILD STAMINA AND STRENGTHEN QUADRICEP MUSCLES AND ASSIST WITH KNEE AND BACK PAIN6. WOULD CONSIDER LOW BACK INJECTINS HERE AT THE PAIN CLINIC IN SEVERAL MONTHS AFTER SKIN LESIONS HEAL. OTHERS NOTES: SEE WRITTEN NOTES. PROCEDURE CODES FA211 ESTABILISHED PATIENT [facility] FACILITY CHARGE G8783 BP SCR PRFRM RCMDD DEFIND SCR INTVL G8730 PAIN ASSESS POS TOOL F/U PLAN DOC 3016F PT SCRND [place]HL[place] USE 1123F ACP DISCUSS/DSCN MKR DOCD 1036F TOBACCO NON-USER 0518F FALL PLAN OF CARE DOCD G8427 DOC MEDS VERIFIED W/PT OR RE G8417 BMI >=30 CALCUATE W/FOLLOWUP 3288F FALL RISK ASSESSMENT DOCD DISPOSITION & COMMUNICATION FOLLOW UP 3 MONTHS (REASON: CHRONIC GENERIZED PAIN/JOINT PAIN) ELECTRONICALLY SIGNED BY PAM SOLORIO ON 01/27/2017 AT 07:09 PM EDT DISCLAIMER : THIS IS A VISIT SUMMARY EXTRACTED FROM THE [employer] CHART. IT IS NOT A COPY OF THE [employer] PROGRESS NOTE. MTDD
== END ==
LOC: M PAIN 11:20
PROVIDERS: ATTEND Nurse Practitioner Family
DX: M25.50 Pain in unspecified joint (principal); G89.4 Chronic pain syndrome; Z79.82 Long term (current) use of aspirin; Z79.4 Long term (current) use of insulin; Z79.891 Long term (current) use of opiate analgesic; Z79.899 Other long term (current) drug therapy

== ENCOUNTER → 2017-01-30 | Outpatient (REF) | payer MEDICARE ==
--- NOTE | 2017-01-30 16:47 | REP ---
HISTORY: Preoperative. COMPARISON: 07/19/2016 Only a frontal view is obtained. There is cardiomegaly. There is mild interstitial fibrotic change, status quo. No acute patchy parenchymal opacities or pleural effusions seem to have developed in this limited single view exam when compared to the prior exam. There is no significant change in the appearance of the osseous structures. IMPRESSION: Cardiomegaly and mild chronic change without plain radiographic evidence of acute cardiopulmonary disease on this limited exam. Signed by Kaden Wellington DO 01/30/2017 05:04 P
== END ==
PROVIDERS: ATTEND Internal Medicine
DX: Z01.818 Encounter for other preprocedural examination (principal)

== ENCOUNTER → 2017-01-31 | Day surgery (SDC) | payer MEDICARE, MEDICAID ==
[~2017-01-31] VITALS: Ht 162.6 cm; Wt 101.2 kg
[~2017-01-31] MED LIST changes: +BUPIVACAINE/EPIN 0.25% 30 ML VIAL As Ordered ONE; +LIDOCAINE 1% SDV INJ 30 ML VIAL As Ordered ONE; +LIDOCAINE 2% INJ 100 MG/5 ML SDV (FOR ANES.) As Ordered ONE; +LR 1,000 ML IV SCH; +MIDAZOLAM INJ 2 MG/2 ML VIAL (J2250) As Ordered ONE; +ONDANSETRON 4MG/2ML VIAL (J2405) As Ordered ONE; +PROPOFOL 200 MG/20 ML VIAL As Ordered ONE; +fentaNYL 100 MCG/2 ML INJECTION (J3010) As Ordered ONE
--- NOTE | 2017-01-31 08:38 | RO ---
DATE OF PROCEDURE: 01/31/2017 PREOPERATIVE DIAGNOSIS: Left arm lipoma. POSTOPERATIVE DIAGNOSIS: Left arm lipoma, 4 x 6 cm. PROCEDURE: Excision of left upper arm lipoma. SURGEON: Dean Tapia MD COMPUTER TYPESETTER: ANESTHESIA: IV sedation, plus local. ESTIMATED BLOOD LOSS: Minimal. FLUIDS: Crystalloid. DESCRIPTION OF PROCEDURE: The patient was brought to the operating room, was given IV sedation, was prepped and draped in the usual sterile fashion. Local lidocaine mixed with epinephrine was infiltrated into skin, subcutaneous tissue and the area of the lipoma in the upper arm after this had been previously marked and identified. The transverse incision was made over the site of the lipoma and a combination of blunt and sharp dissection was used to remove the lipoma in its entirety. Hemostasis was achieved with electrocautery. There was some minimal oozing along the dermis, but otherwise the skin was approximated with #2-0 Vicryl deep layer, #3-0 Vicryl subcuticular. Steri-Strips and dry sterile dressing was applied. The patient was awakened from her anesthesia/sedation and brought to the recovery room awake, alert and hemodynamically stable.
== END | disposition home or self-care (01) ==
LOC: M SDC 05:53
PROVIDERS: ATTEND Surgery
DX: D17.22 Benign lipomatous neoplasm of skin and subcutaneous tissue of left arm (principal); I12.9 Hypertensive chronic kidney disease with stage 1 through stage 4 chronic kidney disease, or unspecified chronic kidney disease; E78.00 Pure hypercholesterolemia, unspecified; R13.10 Dysphagia, unspecified; J44.9 Chronic obstructive pulmonary disease, unspecified; F41.9 Anxiety disorder, unspecified; I50.9 Heart failure, unspecified; I73.9 Peripheral vascular disease, unspecified; K21.9 Gastro-esophageal reflux disease without esophagitis; D64.9 Anemia, unspecified; Z86.14 Personal history of Methicillin resistant Staphylococcus aureus infection; R29.898 Other symptoms and signs involving the musculoskeletal system; M12.9 Arthropathy, unspecified; M54.2 Cervicalgia; Z87.81 Personal history of (healed) traumatic fracture; L40.9 Psoriasis, unspecified; F32.9 Major depressive disorder, single episode, unspecified; E11.40 Type 2 diabetes mellitus with diabetic neuropathy, unspecified; R41.0 Disorientation, unspecified; R41.3 Other amnesia; Z86.73 Personal history of transient ischemic attack (TIA), and cerebral infarction without residual deficits; Z90.710 Acquired absence of both cervix and uterus; Z96.1 Presence of intraocular lens; Z79.899 Other long term (current) drug therapy; Z79.82 Long term (current) use of aspirin; R06.02 Shortness of breath; G47.33 Obstructive sleep apnea (adult) (pediatric); Z85.3 Personal history of malignant neoplasm of breast; N18.3 Chronic kidney disease, stage 3 (moderate); R32 Unspecified urinary incontinence; Z79.3 Long term (current) use of hormonal contraceptives
CPT/HCPCS: 24071; 88304; J2250; J3010

== ENCOUNTER → 2017-02-07 | Outpatient (REF) ==
[~2017-02-07] MED LIST changes: -BUPIVACAINE/EPIN 0.25% 30 ML VIAL As Ordered ONE; -LIDOCAINE 1% SDV INJ 30 ML VIAL As Ordered ONE; -LIDOCAINE 2% INJ 100 MG/5 ML SDV (FOR ANES.) As Ordered ONE; -LR 1,000 ML IV SCH; -MIDAZOLAM INJ 2 MG/2 ML VIAL (J2250) As Ordered ONE; -ONDANSETRON 4MG/2ML VIAL (J2405) As Ordered ONE; -PROPOFOL 200 MG/20 ML VIAL As Ordered ONE; -fentaNYL 100 MCG/2 ML INJECTION (J3010) As Ordered ONE
[2017-02-07 11:03] LABS: ALBUMIN 3.5 GM/DL (3.2-5.2); ALKALINE PHOSPHATASE 145 U/L (45-117); ALT/SGPT 17 U/L (12-78); ANION GAP 6 MEQ/L (8-16); AST/SGOT 9 U/L (15-37); BILIRUBIN,TOTAL 0.4 MG/DL (0.2-1.0); BLOOD UREA NITROGEN 10 MG/DL (7-18); CALCIUM LEVEL 8.7 MG/DL (8.8-10.2); CARBON DIOXIDE LEVEL 34 MEQ/L (21-32); CHLORIDE LEVEL 96 MEQ/L (98-107); CREATININE FOR GFR 0.61 MG/DL (0.55-1.02); GLOMERULAR FILTRATION RATE > 60.0 (>39); GLUCOSE, FASTING 130 MG/DL (83-110); POTASSIUM SERUM 3.8 MEQ/L (3.5-5.1); SODIUM LEVEL 136 MEQ/L (136-145); TOTAL PROTEIN 7.4 GM/DL (6.4-8.2)
== END ==
PROVIDERS: ATTEND Internal Medicine
DX: I10 Essential (primary) hypertension (principal); E11.21 Type 2 diabetes mellitus with diabetic nephropathy; D55.9 Anemia due to enzyme disorder, unspecified

== ENCOUNTER → 2017-03-08 | Outpatient (REF) | payer MEDICARE, MEDICAID ==
[~2017-03-08] MED LIST changes: +ACET-683 PO; -ACET500T37 PO; +KEFL500C17 PO; -KEFL500C7 PO; +PERC5TAB12 PO; -PERC5TAB6 PO
== END ==
PROVIDERS: ATTEND Internal Medicine
DX: E78.5 Hyperlipidemia, unspecified (principal)

== ENCOUNTER → 2017-05-02 | Outpatient (CLI) | payer MEDICARE, MEDICAID ==
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
== END ==
LOC: M PAIN 09:45
PROVIDERS: ATTEND Nurse Practitioner Family
DX: M25.561 Pain in right knee (principal); G89.4 Chronic pain syndrome; G89.29 Other chronic pain; I10 Essential (primary) hypertension; E78.5 Hyperlipidemia, unspecified; E11.9 Type 2 diabetes mellitus without complications; Z79.82 Long term (current) use of aspirin; Z79.4 Long term (current) use of insulin; Z79.891 Long term (current) use of opiate analgesic; Z79.899 Other long term (current) drug therapy

== ENCOUNTER → 2017-07-18 | Outpatient (REF) | payer MEDICARE, MEDICAID, OTHER | LOC: M LAB REF 14:04 | PROVIDERS: ATTEND Internal Medicine Medical Oncology | DX: C50.919 Malignant neoplasm of unspecified site of unspecified female breast (principal) ==

== ENCOUNTER → 2017-08-09 | Outpatient (REF) | payer MEDICARE, MEDICAID, OTHER ==
[2017-08-09 10:34] LABS: MEAN CORPUSCULAR HEMOGLOBIN 28.3 pg (27.0-33.0); MEAN CORPUSCULAR HGB CONC 32.8 g/dl (32.0-36.5); MEAN CORPUSCULAR VOLUME 86.3 fl (80.0-96.0); PLATELET COUNT, AUTOMATED 231 10^3/uL (150-450); RED CELL DISTRIBUTION WIDTH 13.3 % (11.5-14.5); WHITE BLOOD COUNT 7.1 10^3/uL (4.0-10.0)
[2017-08-09 11:18] LABS: ALBUMIN 3.5 GM/DL (3.2-5.2); ALBUMIN/GLOBULIN RATIO 1.06 (1.00-1.93); ALKALINE PHOSPHATASE 89 U/L (45-117); ALT/SGPT 16 U/L (12-78); ANION GAP 7 MEQ/L (8-16); AST/SGOT 8 U/L (7-37); BILIRUBIN,TOTAL 0.3 MG/DL (0.2-1.0); BLOOD UREA NITROGEN 11 MG/DL (7-18); CALCIUM LEVEL 8.2 MG/DL (8.8-10.2); CARBON DIOXIDE LEVEL 33 MEQ/L (21-32); CHLORIDE LEVEL 100 MEQ/L (98-107); CREATININE FOR GFR 0.61 MG/DL (0.55-1.02); GLOMERULAR FILTRATION RATE > 60.0 (>39); GLUCOSE, FASTING 217 MG/DL (83-110); POTASSIUM SERUM 3.8 MEQ/L (3.5-5.1); SODIUM LEVEL 140 MEQ/L (136-145); TOTAL PROTEIN 6.8 GM/DL (6.4-8.2)
[2017-08-09 11:20] LABS: CHOLESTEROL LEVEL 138 MG/DL (<200); TRIGLYCERIDES LEVEL 345 MG/DL (<150)
[2017-08-09 13:16] LABS: ESTIMATED AVERAGE GLUCOSE 157 MG/DL (60-110)
== END ==
DX: E11.9 Type 2 diabetes mellitus without complications (principal); E78.5 Hyperlipidemia, unspecified; E55.9 Vitamin D deficiency, unspecified
CPT/HCPCS: 80053

== ENCOUNTER → 2017-09-07 | Outpatient (CLI) | payer MEDICARE, MEDICAID | LOC: M RAD 10:53 | DX: Z12.31 Encounter for screening mammogram for malignant neoplasm of breast (principal); R92.8 Other abnormal and inconclusive findings on diagnostic imaging of breast; Z85.3 Personal history of malignant neoplasm of breast | CPT/HCPCS: 77067 ==

== ENCOUNTER → 2017-09-28 | Outpatient (REF) | payer MEDICARE, MEDICAID | DX: J84.9 Interstitial pulmonary disease, unspecified (principal); I51.7 Cardiomegaly; R07.9 Chest pain, unspecified | CPT/HCPCS: 71046 ==

== ENCOUNTER → 2017-09-28 | Outpatient (CLI) | payer MEDICARE, MEDICAID | LOC: M RAD 11:36 | DX: R10.11 Right upper quadrant pain (principal); R07.81 Pleurodynia ==

== ENCOUNTER → 2018-01-23 | Outpatient (CLI) | payer MEDICARE, MEDICAID | LOC: M SLEEP 19:51 | DX: G47.30 Sleep apnea, unspecified (principal) | CPT/HCPCS: 95810 ==

== ENCOUNTER → 2018-01-26 | Outpatient (REF) | payer MEDICARE, MEDICAID ==
[2018-01-26 14:37] LABS: CA15-3 ANTIGEN 19.5 U/ML (<32.4)
== END ==
LOC: M LAB REF 13:06
DX: Z85.3 Personal history of malignant neoplasm of breast (principal)
CPT/HCPCS: 86300

== ENCOUNTER → 2018-02-01 | Outpatient (REF) | payer MEDICARE, MEDICAID | DX: R07.81 Pleurodynia (principal) | CPT/HCPCS: 71046 ==

== ENCOUNTER → 2018-02-01 | Outpatient (CLI) | payer MEDICARE, MEDICAID | LOC: M RAD 10:21 | DX: R05 Cough (principal) ==

== ENCOUNTER → 2018-02-06 | Outpatient (REF) ==
[2018-02-06 12:06] LABS: HEMATOCRIT 40.1 % (36.0-47.0); MEAN CORPUSCULAR HEMOGLOBIN 28.1 pg (27.0-33.0); MEAN CORPUSCULAR HGB CONC 32.4 g/dl (32.0-36.5); MEAN CORPUSCULAR VOLUME 86.6 fl (80.0-96.0); PLATELET COUNT, AUTOMATED 195 10^3/uL (150-450); RED BLOOD COUNT 4.63 10^6/uL (4.00-5.40); RED CELL DISTRIBUTION WIDTH 13.6 % (11.5-14.5); WHITE BLOOD COUNT 8.8 10^3/uL (4.0-10.0)
[2018-02-06 12:38] LABS: ESTIMATED AVERAGE GLUCOSE 171 MG/DL (60-110); HEMOGLOBIN A1c 7.6 %
[2018-02-06 12:39] LABS: TOTAL 25(OH) VITAMIN D 46.5 NG/ML (30.0-100.0)
[2018-02-06 12:52] LABS: ALBUMIN 3.4 GM/DL (3.2-5.2); ALBUMIN/GLOBULIN RATIO 0.89 (1.00-1.93); ALKALINE PHOSPHATASE 86 U/L (45-117); ALT/SGPT 16 U/L (12-78); ANION GAP 9 MEQ/L (8-16); AST/SGOT 8 U/L (7-37); BILIRUBIN,TOTAL 0.4 MG/DL (0.2-1.0); BLOOD UREA NITROGEN 13 MG/DL (7-18); CALCIUM LEVEL 8.2 MG/DL (8.8-10.2); CARBON DIOXIDE LEVEL 30 MEQ/L (21-32); CHLORIDE LEVEL 101 MEQ/L (98-107); CHOLESTEROL LEVEL 149 MG/DL (<200); CHOLESTEROL RISK RATIO 3.239 (<5); CREATININE FOR GFR 0.77 MG/DL (0.55-1.30); GLOMERULAR FILTRATION RATE > 60.0 (>39); GLUCOSE, FASTING 239 MG/DL (70-100); HDL CHOLESTEROL 46 MG/DL (>40); LDL CHOLESTEROL 70.4 MG/DL (<100); NON-HDL-C 103 MG/DL; POTASSIUM SERUM 4.3 MEQ/L (3.5-5.1); SODIUM LEVEL 140 MEQ/L (136-145); TOTAL PROTEIN 7.2 GM/DL (6.4-8.2); TRIGLYCERIDES LEVEL 163 MG/DL (<150)
[2018-02-06 13:08] LABS: CA 125 8.5 U/ML (<30.2)
== END ==
DX: E78.5 Hyperlipidemia, unspecified (principal); E11.9 Type 2 diabetes mellitus without complications; E55.9 Vitamin D deficiency, unspecified; Z85.3 Personal history of malignant neoplasm of breast

== ENCOUNTER → 2018-02-20 | Outpatient (CLI) | payer MEDICARE, MEDICAID | LOC: M SLEEP 19:40 | DX: G47.33 Obstructive sleep apnea (adult) (pediatric) (principal) | CPT/HCPCS: 95811 ==

== ENCOUNTER → 2018-03-23 | Outpatient (REF) | payer MEDICARE, MEDICAID ==
[2018-03-23 09:44] LABS: BASO % 0.4 % (0.0-1.0); EOS # 0.2 10^3/uL (0.0-0.50); EOS % 2.3 % (0.0-3.0); HEMATOCRIT 40.8 % (36.0-47.0); HEMOGLOBIN 12.9 g/dl (12.0-15.5); IMMATURE GRANULOCYTE % 0.6 % (0-3.0); LYMPH # 2.4 10^3/uL (1.5-4.5); LYMPH % 32.6 % (24.0-44.0); MEAN CORPUSCULAR HEMOGLOBIN 27.9 pg (27.0-33.0); MEAN CORPUSCULAR HGB CONC 31.6 g/dl (32.0-36.5); MEAN CORPUSCULAR VOLUME 88.3 fl (80.0-96.0); MONO # 0.6 10^3/uL (0.0-0.8); MONO % 8.1 % (0.0-5.0); NEUTROPHILS # 4.1 10^3/uL (1.8-7.7); PLATELET COUNT, AUTOMATED 225 10^3/uL (150-450); RED BLOOD COUNT 4.62 10^6/uL (4.00-5.40); RED CELL DISTRIBUTION WIDTH 13.6 % (11.5-14.5); WHITE BLOOD COUNT 7.3 10^3/uL (4.0-10.0)
[2018-03-23 10:10] LABS: ALBUMIN 3.3 GM/DL (3.2-5.2); ALT/SGPT 18 U/L (12-78); C REACTIVE PROTEIN QUANTITATIV < 0.30 MG/DL (0.00-0.30)
[2018-03-23 10:10] LABS: AST/SGOT 9 U/L (7-37)
[2018-03-23 10:23] LABS: ERYTHROCYTE SEDIMENTATION RATE 16 mm/hr (0-30)
== END ==
DX: M79.7 Fibromyalgia (principal)
CPT/HCPCS: 84460

== ENCOUNTER → 2018-04-27 | Outpatient (REF) | payer MEDICARE, MEDICAID ==
[2018-04-27 11:05] LABS: ANION GAP 10 MEQ/L (8-16); BLOOD UREA NITROGEN 10 MG/DL (7-18); CALCIUM LEVEL 8.7 MG/DL (8.8-10.2); CARBON DIOXIDE LEVEL 26 MEQ/L (21-32); CHLORIDE LEVEL 94 MEQ/L (98-107); CREATININE FOR GFR 0.67 MG/DL (0.55-1.30); GLOMERULAR FILTRATION RATE > 60.0 (>39); GLUCOSE, FASTING 196 MG/DL (70-100); POTASSIUM SERUM 3.9 MEQ/L (3.5-5.1); SODIUM LEVEL 130 MEQ/L (136-145)
[2018-04-27 15:17] LABS: BASO % 0.3 % (0.0-1.0); EOS % 0.3 % (0.0-3.0); HEMATOCRIT 40.9 % (36.0-47.0); HEMOGLOBIN 13.8 g/dl (12.0-15.5); IMMATURE GRANULOCYTE % 0.4 % (0-3.0); LYMPH # 2.3 10^3/uL (1.5-4.5); LYMPH % 22.7 % (24.0-44.0); MEAN CORPUSCULAR HEMOGLOBIN 28.5 pg (27.0-33.0); MEAN CORPUSCULAR HGB CONC 33.7 g/dl (32.0-36.5); MEAN CORPUSCULAR VOLUME 84.3 fl (80.0-96.0); MONO # 1.1 10^3/uL (0.0-0.8); MONO % 10.7 % (0.0-5.0); NEUTROPHILS # 6.6 10^3/uL (1.8-7.7); NEUTROPHILS % 65.6 % (36.0-66.0); PLATELET COUNT, AUTOMATED 221 10^3/uL (150-450); RED BLOOD COUNT 4.85 10^6/uL (4.00-5.40); RED CELL DISTRIBUTION WIDTH 13.6 % (11.5-14.5); WHITE BLOOD COUNT 10.1 10^3/uL (4.0-10.0)
== END ==
DX: I50.9 Heart failure, unspecified (principal); I11.0 Hypertensive heart disease with heart failure
CPT/HCPCS: 80048

== ENCOUNTER 2018-05-02 22:57 | Inpatient (IN) | payer MEDICARE, MEDICAID ==
[2018-05-02] MEDS: NS 500 ML IV (23:45)
[2018-05-02 23:52] LABS: INR 0.93; PARTIAL THROMBOPLASTIN TIME 28.7 SECONDS (25.4-37.6); PROTHROMBIN TIME 12.6 SECONDS (12.1-14.4)
[2018-05-03 00:10] LABS: BASO % 0.5 % (0.0-1.0); EOS # 0.2 10^3/uL (0.0-0.50); EOS % 2.5 % (0.0-3.0); HEMATOCRIT 38.9 % (36.0-47.0); HEMOGLOBIN 12.7 g/dl (12.0-15.5); IMMATURE GRANULOCYTE % 0.5 % (0-3.0); LYMPH % 23.2 % (24.0-44.0); MEAN CORPUSCULAR HEMOGLOBIN 28.2 pg (27.0-33.0); MEAN CORPUSCULAR HGB CONC 32.6 g/dl (32.0-36.5); MEAN CORPUSCULAR VOLUME 86.4 fl (80.0-96.0); MONO # 0.8 10^3/uL (0.0-0.8); MONO % 9.3 % (0.0-5.0); NEUTROPHILS # 5.4 10^3/uL (1.8-7.7); PLATELET COUNT, AUTOMATED 215 10^3/uL (150-450); RED CELL DISTRIBUTION WIDTH 13.9 % (11.5-14.5); WHITE BLOOD COUNT 8.5 10^3/uL (4.0-10.0)
[2018-05-03 00:57] LABS: ALBUMIN 2.6 GM/DL (3.2-5.2); ALKALINE PHOSPHATASE 90 U/L (45-117); ALT/SGPT 15 U/L (12-78); ANION GAP 9 MEQ/L (8-16); AST/SGOT 9 U/L (7-37); BILIRUBIN,DIRECT < 0.1 MG/DL (0.0-0.2); BILIRUBIN,TOTAL 0.2 MG/DL (0.2-1.0); BLOOD UREA NITROGEN 30 MG/DL (7-18); CALCIUM LEVEL 6.7 MG/DL (8.8-10.2); CARBON DIOXIDE LEVEL 22 MEQ/L (21-32); CHLORIDE LEVEL 105 MEQ/L (98-107); CPK CREATINE PHOSPHOKINASE 77 U/L (26-192); CREATININE FOR GFR 1.07 MG/DL (0.55-1.30); FREE T4 1.23 NG/DL (0.76-1.46); GLOMERULAR FILTRATION RATE 52.7 (>39); GLUCOSE, FASTING 145 MG/DL (70-100); MAGNESIUM LEVEL 1.6 MG/DL (1.8-2.4); MB/CK RELATIVE INDEX 3.38 (< OR =4); PHOSPHORUS LEVEL 4.7 MG/DL (2.5-4.9); POTASSIUM SERUM 4.7 MEQ/L (3.5-5.1); SODIUM LEVEL 136 MEQ/L (136-145); TOTAL PROTEIN 6.9 GM/DL (6.4-8.2); TROPONIN I < 0.02 NG/ML (< 0.10)
[2018-05-03] MEDS ORDERED: NS 1,000 ML IV (03:05)
[2018-05-03] MEDS: MAG SULF 1GM/100ML (MAG RUN) 1 GM in APPROPRIATE DILUENT 1 EA IV (03:15)
[2018-05-03] MEDS ORDERED: BISACODYL 10 MG SUPP PR (04:00)
[2018-05-03] MEDS ORDERED: GLUCOSE 4 GM CHEW TABLET PO (04:15)
[2018-05-03] MEDS ORDERED: DEXTROSE 50% 50 ML SYRINGE IV (04:15)
[2018-05-03] MEDS ORDERED: GLUCAGON FOR INJ 1 MG VIAL (J1610) SC (04:15)
[2018-05-03] MEDS: NS 1,000 ML IV ×2 (05:10→14:15)
[2018-05-03] MEDS: ALBUTEROL SULFATE 2.5 MG/0.5 ML INH NEB SOLN NEB (05:27)
[2018-05-03] MEDS: GABAPENTIN 300 MG CAP PO ×3 (05:48→20:32)
[2018-05-03] MEDS: ACETAMINOPHEN TAB 650MG DOSE (2X325MG) PO (05:48)
[2018-05-03] MEDS: SYMBICORT 160/4.5MCG INHALER 6GM INH ×2 (07:21→21:49)
[2018-05-03] MEDS: TIOTROPIUM INHALER/CAPSULE (SPIRIVA) INH (07:21)
[2018-05-03 07:30] LABS: BEDSIDE GLUCOSE 170 MG/DL (83-110)
[2018-05-03] MEDS: ERYTHROMYCIN OPHTH OINT OS ×3 (08:16→22:37)
[2018-05-03] MEDS: ACETAMINOPHEN 650MG ER TAB (TYLENOL ARTHRITIS) PO ×3 (08:16→22:37)
[2018-05-03] MEDS: POLYVINYL ALCOHOL OPHTH SOLN 15 ML(LIQUITEARS) OU ×4 (08:16→20:32)
[2018-05-03] MEDS: guaiFENesin ER 600 MG TAB PO ×2 (08:16→20:32)
[2018-05-03] MEDS: DULoxetine 30 MG CAP (CYMBALTA) PO ×2 (08:16→20:32)
[2018-05-03] MEDS: CALCIUM/VITAMIN D 500 MG TAB PO ×4 (08:17→20:31)
[2018-05-03] MEDS: HYDROXYCHLOROQUINE 200 MG TAB PO ×2 (08:17→22:37)
[2018-05-03] MEDS: HumaLOG INSULIN (NovoLOG) PER UNIT SC ×3 (08:18→18:25)
[2018-05-03] MEDS: LEVEMIR (INSULIN DETEMIR) 1 UNITS/0.01ML SC ×2 (08:18→20:33)
[2018-05-03] MEDS: fentaNYL 50 MCG/HR PATCH TOP (10:54)
[2018-05-03 13:28] LABS: BEDSIDE GLUCOSE 119 MG/DL (83-110)
[2018-05-03 18:25] LABS: BEDSIDE GLUCOSE 107 MG/DL (83-110)
[2018-05-03] MEDS: ATORVASTATIN 10 MG TAB PO (20:31)
[2018-05-03 20:32] LABS: BEDSIDE GLUCOSE 157 MG/DL (83-110)
[2018-05-03] MEDS ORDERED: LEVEMIR (INSULIN DETEMIR) 1 UNITS/0.01ML SC (21:00)
[2018-05-03] MEDS: AMITRIPTYLINE 25 MG TAB PO (22:37)
[2018-05-04] MEDS: NS 1,000 ML IV ×2 (00:15→08:04)
[2018-05-04 05:23] LABS: BASO % 0.6 % (0.0-1.0); EOS # 0.1 10^3/uL (0.0-0.50); EOS % 1.1 % (0.0-3.0); HEMATOCRIT 38.5 % (36.0-47.0); HEMOGLOBIN 12.6 g/dl (12.0-15.5); IMMATURE GRANULOCYTE % 0.3 % (0-3.0); LYMPH # 1.6 10^3/uL (1.5-4.5); LYMPH % 24.5 % (24.0-44.0); MEAN CORPUSCULAR HEMOGLOBIN 28.1 pg (27.0-33.0); MEAN CORPUSCULAR HGB CONC 32.7 g/dl (32.0-36.5); MEAN CORPUSCULAR VOLUME 85.7 fl (80.0-96.0); MONO # 0.6 10^3/uL (0.0-0.8); MONO % 8.7 % (0.0-5.0); NEUTROPHILS # 4.2 10^3/uL (1.8-7.7); NEUTROPHILS % 64.8 % (36.0-66.0); PLATELET COUNT, AUTOMATED 191 10^3/uL (150-450); RED BLOOD COUNT 4.49 10^6/uL (4.00-5.40); RED CELL DISTRIBUTION WIDTH 13.8 % (11.5-14.5); WHITE BLOOD COUNT 6.5 10^3/uL (4.0-10.0)
[2018-05-04 05:50] LABS: ANION GAP 8 MEQ/L (8-16); BLOOD UREA NITROGEN 14 MG/DL (7-18); CALCIUM LEVEL 8.2 MG/DL (8.8-10.2); CARBON DIOXIDE LEVEL 26 MEQ/L (21-32); CHLORIDE LEVEL 104 MEQ/L (98-107); CREATININE FOR GFR 0.52 MG/DL (0.55-1.30); GLOMERULAR FILTRATION RATE > 60.0 (>39); GLUCOSE, FASTING 134 MG/DL (70-100); POTASSIUM SERUM 4.6 MEQ/L (3.5-5.1); SODIUM LEVEL 138 MEQ/L (136-145)
[2018-05-04] MEDS: GABAPENTIN 300 MG CAP PO ×3 (06:33→21:44)
[2018-05-04] MEDS: TIOTROPIUM INHALER/CAPSULE (SPIRIVA) INH (07:41)
[2018-05-04] MEDS: SYMBICORT 160/4.5MCG INHALER 6GM INH ×2 (07:41→19:47)
[2018-05-04] MEDS: INFLUENZA VIRUS VACCINE HIGH DOSE 0.5 ML SYRINGE (90662) IM (09:00)
[2018-05-04] MEDS: LISINOPRIL 40 MG TAB PO (09:11)
[2018-05-04] MEDS: LEVEMIR (INSULIN DETEMIR) 1 UNITS/0.01ML SC ×2 (09:11→21:47)
[2018-05-04] MEDS: DULoxetine 30 MG CAP (CYMBALTA) PO ×2 (09:11→21:45)
[2018-05-04] MEDS: guaiFENesin ER 600 MG TAB PO ×2 (09:11→21:45)
[2018-05-04] MEDS: HumaLOG INSULIN (NovoLOG) PER UNIT SC ×3 (09:11→18:39)
[2018-05-04] MEDS: ERYTHROMYCIN OPHTH OINT OS ×3 (09:12→21:46)
[2018-05-04] MEDS: POLYVINYL ALCOHOL OPHTH SOLN 15 ML(LIQUITEARS) OU ×4 (09:12→21:45)
[2018-05-04] MEDS: ACETAMINOPHEN 650MG ER TAB (TYLENOL ARTHRITIS) PO ×3 (10:13→21:45)
[2018-05-04] MEDS: HYDROXYCHLOROQUINE 200 MG TAB PO ×2 (10:14→21:45)
[2018-05-04 11:28] LABS: BEDSIDE GLUCOSE 184 MG/DL (83-110)
[2018-05-04] MEDS: CALCIUM/VITAMIN D 500 MG TAB PO ×2 (12:10→18:39)
[2018-05-04] MEDS ORDERED: METOPROLOL TART 25 MG TABLET PO (12:30)
[2018-05-04] MEDS: METOPROLOL TART 25 MG TABLET PO ×2 (13:44→21:45)
[2018-05-04] MEDS: SLF 3 ML SYR IV ×2 (14:00→22:00)
[2018-05-04] MEDS ORDERED: SLF 3 ML SYR IV (14:00)
[2018-05-04 16:33] LABS: BEDSIDE GLUCOSE 121 MG/DL (83-110)
[2018-05-04 21:43] LABS: BEDSIDE GLUCOSE 168 MG/DL (83-110)
[2018-05-04] MEDS: ATORVASTATIN 10 MG TAB PO (21:44)
[2018-05-04] MEDS: AMITRIPTYLINE 25 MG TAB PO (21:44)
[2018-05-05] MEDS: ACETAMINOPHEN TAB 650MG DOSE (2X325MG) PO (01:08)
[2018-05-05 05:31] LABS: BASO % 0.3 % (0.0-1.0); EOS # 0.1 10^3/uL (0.0-0.50); EOS % 1.6 % (0.0-3.0); HEMATOCRIT 38.5 % (36.0-47.0); HEMOGLOBIN 12.4 g/dl (12.0-15.5); IMMATURE GRANULOCYTE % 0.3 % (0-3.0); LYMPH # 1.6 10^3/uL (1.5-4.5); LYMPH % 26.5 % (24.0-44.0); MEAN CORPUSCULAR HEMOGLOBIN 28.2 pg (27.0-33.0); MEAN CORPUSCULAR HGB CONC 32.2 g/dl (32.0-36.5); MEAN CORPUSCULAR VOLUME 87.5 fl (80.0-96.0); MONO # 0.6 10^3/uL (0.0-0.8); MONO % 9.8 % (0.0-5.0); NEUTROPHILS # 3.8 10^3/uL (1.8-7.7); NEUTROPHILS % 61.5 % (36.0-66.0); PLATELET COUNT, AUTOMATED 189 10^3/uL (150-450); RED CELL DISTRIBUTION WIDTH 13.6 % (11.5-14.5); WHITE BLOOD COUNT 6.1 10^3/uL (4.0-10.0)
[2018-05-05 05:49] LABS: ANION GAP 6 MEQ/L (8-16); BLOOD UREA NITROGEN 9 MG/DL (7-18); CALCIUM LEVEL 8.5 MG/DL (8.8-10.2); CARBON DIOXIDE LEVEL 29 MEQ/L (21-32); CHLORIDE LEVEL 100 MEQ/L (98-107); CREATININE FOR GFR 0.55 MG/DL (0.55-1.30); GLOMERULAR FILTRATION RATE > 60.0 (>39); GLUCOSE, FASTING 133 MG/DL (70-100); MAGNESIUM LEVEL 1.9 MG/DL (1.8-2.4); POTASSIUM SERUM 4.5 MEQ/L (3.5-5.1); SODIUM LEVEL 135 MEQ/L (136-145)
[2018-05-05] MEDS: GABAPENTIN 300 MG CAP PO ×3 (06:27→21:25)
[2018-05-05] MEDS: SLF 3 ML SYR IV ×3 (06:27→21:26)
[2018-05-05] MEDS: TIOTROPIUM INHALER/CAPSULE (SPIRIVA) INH (07:41)
[2018-05-05] MEDS: SYMBICORT 160/4.5MCG INHALER 6GM INH ×2 (07:41→19:57)
[2018-05-05] MEDS: HumaLOG INSULIN (NovoLOG) PER UNIT SC ×3 (08:59→18:20)
[2018-05-05] MEDS: LEVEMIR (INSULIN DETEMIR) 1 UNITS/0.01ML SC ×2 (09:02→20:43)
[2018-05-05] MEDS: FUROSEMIDE 20 MG TAB PO (09:03)
[2018-05-05] MEDS: CALCIUM/VITAMIN D 500 MG TAB PO ×3 (09:03→18:20)
[2018-05-05] MEDS: HYDROXYCHLOROQUINE 200 MG TAB PO ×2 (09:03→20:43)
[2018-05-05] MEDS: DULoxetine 30 MG CAP (CYMBALTA) PO ×2 (09:03→21:25)
[2018-05-05] MEDS: ACETAMINOPHEN 650MG ER TAB (TYLENOL ARTHRITIS) PO ×3 (09:03→20:43)
[2018-05-05] MEDS: guaiFENesin ER 600 MG TAB PO ×2 (09:03→20:43)
[2018-05-05] MEDS: LISINOPRIL 40 MG TAB PO (09:03)
[2018-05-05] MEDS: POLYVINYL ALCOHOL OPHTH SOLN 15 ML(LIQUITEARS) OU ×4 (09:04→21:25)
[2018-05-05] MEDS: ERYTHROMYCIN OPHTH OINT OS ×3 (09:04→21:25)
[2018-05-05] MEDS: METOPROLOL TART 25 MG TABLET PO ×2 (09:04→20:43)
[2018-05-05 11:29] LABS: BEDSIDE GLUCOSE 248 MG/DL (83-110)
[2018-05-05] MEDS: NS 1,000 ML IV (14:51)
[2018-05-05 16:54] LABS: BEDSIDE GLUCOSE 109 MG/DL (83-110)
[2018-05-05] MEDS: ATORVASTATIN 10 MG TAB PO (20:43)
[2018-05-05] MEDS: AMITRIPTYLINE 25 MG TAB PO (20:43)
[2018-05-05 21:45] LABS: BEDSIDE GLUCOSE 207 MG/DL (83-110)
[2018-05-06] MEDS: NS 1,000 ML IV (03:33)
[2018-05-06] MEDS: ACETAMINOPHEN TAB 650MG DOSE (2X325MG) PO ×2 (04:04→13:17)
[2018-05-06] MEDS: GABAPENTIN 300 MG CAP PO ×3 (05:30→21:02)
[2018-05-06] MEDS: SLF 3 ML SYR IV ×3 (06:00→21:02)
[2018-05-06 06:44] LABS: BASO % 0.5 % (0.0-1.0); EOS # 0.1 10^3/uL (0.0-0.50); EOS % 1.8 % (0.0-3.0); HEMATOCRIT 37.1 % (36.0-47.0); HEMOGLOBIN 12.2 g/dl (12.0-15.5); IMMATURE GRANULOCYTE % 0.2 % (0-3.0); LYMPH # 1.7 10^3/uL (1.5-4.5); LYMPH % 30.2 % (24.0-44.0); MEAN CORPUSCULAR HEMOGLOBIN 28.2 pg (27.0-33.0); MEAN CORPUSCULAR HGB CONC 32.9 g/dl (32.0-36.5); MEAN CORPUSCULAR VOLUME 85.7 fl (80.0-96.0); MONO # 0.5 10^3/uL (0.0-0.8); NEUTROPHILS # 3.3 10^3/uL (1.8-7.7); NEUTROPHILS % 58.3 % (36.0-66.0); PLATELET COUNT, AUTOMATED 193 10^3/uL (150-450); RED BLOOD COUNT 4.33 10^6/uL (4.00-5.40); RED CELL DISTRIBUTION WIDTH 13.5 % (11.5-14.5); WHITE BLOOD COUNT 5.7 10^3/uL (4.0-10.0)
[2018-05-06 07:01] LABS: ANION GAP 9 MEQ/L (8-16); BLOOD UREA NITROGEN 9 MG/DL (7-18); CALCIUM LEVEL 8.6 MG/DL (8.8-10.2); CARBON DIOXIDE LEVEL 29 MEQ/L (21-32); CHLORIDE LEVEL 100 MEQ/L (98-107); CREATININE FOR GFR 0.61 MG/DL (0.55-1.30); GLOMERULAR FILTRATION RATE > 60.0 (>39); GLUCOSE, FASTING 98 MG/DL (70-100); MAGNESIUM LEVEL 1.6 MG/DL (1.8-2.4); POTASSIUM SERUM 3.7 MEQ/L (3.5-5.1); SODIUM LEVEL 138 MEQ/L (136-145)
[2018-05-06] MEDS: TIOTROPIUM INHALER/CAPSULE (SPIRIVA) INH (07:10)
[2018-05-06] MEDS: SYMBICORT 160/4.5MCG INHALER 6GM INH ×2 (07:11→21:15)
[2018-05-06] MEDS: HumaLOG INSULIN (NovoLOG) PER UNIT SC ×3 (07:26→17:39)
[2018-05-06] MEDS: MAG SULF 1GM/100ML (MAG RUN) 1 GM in APPROPRIATE DILUENT 1 EA IV ×2 (07:53→09:14)
[2018-05-06] MEDS: fentaNYL 50 MCG/HR PATCH TOP (07:54)
[2018-05-06] MEDS: FENTANYL REMOVAL DOCUMENTATION MISC XX (07:54)
[2018-05-06] MEDS: DULoxetine 30 MG CAP (CYMBALTA) PO ×2 (07:55→21:02)
[2018-05-06] MEDS: LISINOPRIL 40 MG TAB PO (07:55)
[2018-05-06] MEDS: guaiFENesin ER 600 MG TAB PO ×2 (07:55→21:03)
[2018-05-06] MEDS: METOPROLOL TART 25 MG TABLET PO ×2 (07:55→21:02)
[2018-05-06] MEDS: HYDROXYCHLOROQUINE 200 MG TAB PO ×2 (07:55→21:03)
[2018-05-06] MEDS: CALCIUM/VITAMIN D 500 MG TAB PO ×3 (07:55→17:38)
[2018-05-06] MEDS: ERYTHROMYCIN OPHTH OINT OS ×3 (07:55→23:03)
[2018-05-06] MEDS: ACETAMINOPHEN 650MG ER TAB (TYLENOL ARTHRITIS) PO ×3 (07:55→21:02)
[2018-05-06] MEDS: LEVEMIR (INSULIN DETEMIR) 1 UNITS/0.01ML SC ×2 (07:56→21:03)
[2018-05-06] MEDS: FUROSEMIDE 20 MG TAB PO (07:56)
[2018-05-06] MEDS: POLYVINYL ALCOHOL OPHTH SOLN 15 ML(LIQUITEARS) OU ×4 (09:14→21:01)
[2018-05-06 11:57] LABS: BEDSIDE GLUCOSE 201 MG/DL (83-110)
[2018-05-06] MEDS: ONDANSETRON 4 MG TAB (S0181) PO (14:11)
[2018-05-06] MEDS: MECLIZINE 12.5 MG TAB PO (15:14)
[2018-05-06 17:23] LABS: BEDSIDE GLUCOSE 141 MG/DL (83-110)
[2018-05-06 20:36] LABS: BEDSIDE GLUCOSE 188 MG/DL (83-110)
[2018-05-06] MEDS: ATORVASTATIN 10 MG TAB PO (21:02)
[2018-05-06] MEDS: AMITRIPTYLINE 25 MG TAB PO (21:03)
[2018-05-07] MEDS: MECLIZINE 12.5 MG TAB PO (00:09)
[2018-05-07] MEDS: GABAPENTIN 300 MG CAP PO (05:50)
[2018-05-07] MEDS: SLF 3 ML SYR IV (05:50)
[2018-05-07 06:23] LABS: BASO % 0.5 % (0.0-1.0); EOS # 0.4 10^3/uL (0.0-0.50); EOS % 4.7 % (0.0-3.0); HEMATOCRIT 37.7 % (36.0-47.0); HEMOGLOBIN 12.4 g/dl (12.0-15.5); IMMATURE GRANULOCYTE % 0.4 % (0-3.0); LYMPH # 1.9 10^3/uL (1.5-4.5); LYMPH % 23.1 % (24.0-44.0); MEAN CORPUSCULAR HEMOGLOBIN 28.4 pg (27.0-33.0); MEAN CORPUSCULAR HGB CONC 32.9 g/dl (32.0-36.5); MEAN CORPUSCULAR VOLUME 86.5 fl (80.0-96.0); MONO # 0.6 10^3/uL (0.0-0.8); MONO % 7.5 % (0.0-5.0); NEUTROPHILS # 5.2 10^3/uL (1.8-7.7); NEUTROPHILS % 63.8 % (36.0-66.0); PLATELET COUNT, AUTOMATED 209 10^3/uL (150-450); RED BLOOD COUNT 4.36 10^6/uL (4.00-5.40); RED CELL DISTRIBUTION WIDTH 13.6 % (11.5-14.5); WHITE BLOOD COUNT 8.1 10^3/uL (4.0-10.0)
[2018-05-07 06:43] LABS: ANION GAP 8 MEQ/L (8-16); BLOOD UREA NITROGEN 11 MG/DL (7-18); CALCIUM LEVEL 8.7 MG/DL (8.8-10.2); CARBON DIOXIDE LEVEL 30 MEQ/L (21-32); CHLORIDE LEVEL 98 MEQ/L (98-107); CREATININE FOR GFR 0.63 MG/DL (0.55-1.30); GLOMERULAR FILTRATION RATE > 60.0 (>39); GLUCOSE, FASTING 138 MG/DL (70-100); SODIUM LEVEL 136 MEQ/L (136-145)
[2018-05-07] MEDS: TIOTROPIUM INHALER/CAPSULE (SPIRIVA) INH (07:50)
[2018-05-07] MEDS: SYMBICORT 160/4.5MCG INHALER 6GM INH (07:50)
[2018-05-07] MEDS: guaiFENesin ER 600 MG TAB PO (08:21)
[2018-05-07] MEDS: CALCIUM/VITAMIN D 500 MG TAB PO (08:21)
[2018-05-07] MEDS: DULoxetine 30 MG CAP (CYMBALTA) PO (08:21)
[2018-05-07] MEDS: METOPROLOL TART 25 MG TABLET PO (08:21)
[2018-05-07] MEDS: HYDROXYCHLOROQUINE 200 MG TAB PO (08:22)
[2018-05-07] MEDS: ACETAMINOPHEN 650MG ER TAB (TYLENOL ARTHRITIS) PO (08:22)
[2018-05-07] MEDS: FUROSEMIDE 20 MG TAB PO (08:22)
[2018-05-07] MEDS: LISINOPRIL 40 MG TAB PO (08:22)
[2018-05-07] MEDS: ERYTHROMYCIN OPHTH OINT OS (08:23)
[2018-05-07] MEDS: HumaLOG INSULIN (NovoLOG) PER UNIT SC (08:23)
[2018-05-07] MEDS: LEVEMIR (INSULIN DETEMIR) 1 UNITS/0.01ML SC (08:23)
[2018-05-07] MEDS: POLYVINYL ALCOHOL OPHTH SOLN 15 ML(LIQUITEARS) OU (08:24)
[2018-05-07] MEDS: INFLUENZA VIRUS VACCINE HIGH DOSE 0.5 ML SYRINGE (90662) IM (11:02)
[2018-05-07 11:37] LABS: BEDSIDE GLUCOSE 162 MG/DL (83-110)
== END 2018-05-07 11:27 | DRG 641 ==
LOC: M ED 22:57 → M MSPAV 05-05 12:28 → M ED INP 05-03 03:05 → M PCU 05-03 17:45
DX: E86.0 Dehydration (principal); R00.1 Bradycardia, unspecified; I95.9 Hypotension, unspecified; Z66 Do not resuscitate; B02.9 Zoster without complications; I12.9 Hypertensive chronic kidney disease with stage 1 through stage 4 chronic kidney disease, or unspecified chronic kidney disease; G89.29 Other chronic pain; F41.9 Anxiety disorder, unspecified; E78.5 Hyperlipidemia, unspecified; E11.22 Type 2 diabetes mellitus with diabetic chronic kidney disease; M06.9 Rheumatoid arthritis, unspecified; N18.3 Chronic kidney disease, stage 3 (moderate); L40.50 Arthropathic psoriasis, unspecified; E11.40 Type 2 diabetes mellitus with diabetic neuropathy, unspecified; L28.0 Lichen simplex chronicus; J44.9 Chronic obstructive pulmonary disease, unspecified; I25.10 Atherosclerotic heart disease of native coronary artery without angina pectoris; M10.9 Gout, unspecified; M81.0 Age-related osteoporosis without current pathological fracture; G47.33 Obstructive sleep apnea (adult) (pediatric); Z90.710 Acquired absence of both cervix and uterus; Z90.49 Acquired absence of other specified parts of digestive tract; Z79.4 Long term (current) use of insulin; Z79.51 Long term (current) use of inhaled steroids; Z86.14 Personal history of Methicillin resistant Staphylococcus aureus infection; Z85.3 Personal history of malignant neoplasm of breast; Z79.891 Long term (current) use of opiate analgesic; Z79.899 Other long term (current) drug therapy

== ENCOUNTER → 2018-05-10 | Outpatient (REF) ==
[2018-05-10 12:54] LABS: HEMATOCRIT 37.1 % (36.0-47.0); HEMOGLOBIN 12.1 g/dl (12.0-15.5); MEAN CORPUSCULAR HEMOGLOBIN 28.4 pg (27.0-33.0); MEAN CORPUSCULAR HGB CONC 32.6 g/dl (32.0-36.5); MEAN CORPUSCULAR VOLUME 87.1 fl (80.0-96.0); PLATELET COUNT, AUTOMATED 226 10^3/uL (150-450); RED BLOOD COUNT 4.26 10^6/uL (4.00-5.40); RED CELL DISTRIBUTION WIDTH 14.1 % (11.5-14.5); WHITE BLOOD COUNT 9.3 10^3/uL (4.0-10.0)
[2018-05-10 13:22] LABS: ANION GAP 10 MEQ/L (8-16); BLOOD UREA NITROGEN 13 MG/DL (7-18); CALCIUM LEVEL 8.5 MG/DL (8.8-10.2); CARBON DIOXIDE LEVEL 30 MEQ/L (21-32); CHLORIDE LEVEL 97 MEQ/L (98-107); CREATININE FOR GFR 0.61 MG/DL (0.55-1.30); GLOMERULAR FILTRATION RATE > 60.0 (>39); GLUCOSE, FASTING 143 MG/DL (70-100); POTASSIUM SERUM 4.3 MEQ/L (3.5-5.1); SODIUM LEVEL 137 MEQ/L (136-145)
== END ==
DX: I10 Essential (primary) hypertension (principal); E11.9 Type 2 diabetes mellitus without complications

== ENCOUNTER → 2018-05-16 | Outpatient (REF) | payer MEDICARE, MEDICAID | LOC: M SFHCLERA 13:02 | DX: R23.4 Changes in skin texture (principal); L83 Acanthosis nigricans; L56.8 Other specified acute skin changes due to ultraviolet radiation | CPT/HCPCS: 88305 ==

== ENCOUNTER → 2018-05-16 | Outpatient (REF) | payer MEDICARE, MEDICAID ==
[2018-05-16 10:25] LABS: HEMATOCRIT 37.4 % (36.0-47.0); HEMOGLOBIN 11.9 g/dl (12.0-15.5); MEAN CORPUSCULAR HEMOGLOBIN 28.6 pg (27.0-33.0); MEAN CORPUSCULAR HGB CONC 31.8 g/dl (32.0-36.5); MEAN CORPUSCULAR VOLUME 89.9 fl (80.0-96.0); PLATELET COUNT, AUTOMATED 155 10^3/uL (150-450); RED BLOOD COUNT 4.16 10^6/uL (4.00-5.40); RED CELL DISTRIBUTION WIDTH 14.1 % (11.5-14.5); WHITE BLOOD COUNT 7.3 10^3/uL (4.0-10.0)
[2018-05-16 11:42] LABS: ANION GAP 8 MEQ/L (8-16); BLOOD UREA NITROGEN 11 MG/DL (7-18); CARBON DIOXIDE LEVEL 31 MEQ/L (21-32); CHLORIDE LEVEL 98 MEQ/L (98-107); CREATININE FOR GFR 0.54 MG/DL (0.55-1.30); GLOMERULAR FILTRATION RATE > 60.0 (>39); GLUCOSE, FASTING 157 MG/DL (70-100); POTASSIUM SERUM 4.7 MEQ/L (3.5-5.1); SODIUM LEVEL 137 MEQ/L (136-145)
== END ==
DX: I10 Essential (primary) hypertension (principal); E11.9 Type 2 diabetes mellitus without complications
CPT/HCPCS: 80048

== ENCOUNTER → 2018-05-29 | Outpatient (REF) | payer MEDICARE, MEDICAID ==
[2018-05-30 02:50] LABS: APPEARANCE, URINE CLOUDY (CLEAR); BACTERIA, URINE AUTO 3+ (NEGATIVE); BILIRUBIN, URINE AUTO NEGATIVE (NEGATIVE); BLOOD, URINE BLOOD 1+ (NEGATIVE); COLOR, URINE YELLOW (YELLOW); GLUCOSE, URINE (UA) AUTO NEGATIVE (NEGATIVE); KETONE, URINE AUTO NEGATIVE (NEGATIVE); LEUKOCYTE ESTERASE, URINE AUTO 3+ (NEGATIVE); MUCUS, URINE SMALL (NEGATIVE); NITRITE, URINE AUTO POSITIVE (NEGATIVE); PROTEIN, URINE AUTO NEGATIVE (NEGATIVE); RBC, URINE AUTO 8 /HPF (0-3); SPECIFIC GRAVITY URINE AUTO 1.012 (1.002-1.035); SQUAMOUS EPITHELIAL CELL UR AU 1 /HPF (0-6); UROBILINOGEN, URINE AUTO 0.2 mg/dL (0.0-2.0); WBC, URINE AUTO TNTC /HPF (0-3)
== END ==
DX: N39.0 Urinary tract infection, site not specified (principal)
CPT/HCPCS: 81001

== ENCOUNTER → 2018-06-05 | Outpatient (REF) | payer MEDICARE, MEDICAID ==
[2018-06-05 10:23] LABS: HEMATOCRIT 42.5 % (36.0-47.0); HEMOGLOBIN 13.6 g/dl (12.0-15.5); MEAN CORPUSCULAR HEMOGLOBIN 28.2 pg (27.0-33.0); MEAN CORPUSCULAR VOLUME 88.2 fl (80.0-96.0); PLATELET COUNT, AUTOMATED 241 10^3/uL (150-450); RED BLOOD COUNT 4.82 10^6/uL (4.00-5.40); RED CELL DISTRIBUTION WIDTH 13.7 % (11.5-14.5)
[2018-06-05 10:30] LABS: ESTIMATED AVERAGE GLUCOSE 163 MG/DL (60-110); HEMOGLOBIN A1c 7.3 %
[2018-06-05 10:36] LABS: ALBUMIN 3.6 GM/DL (3.2-5.2); ALBUMIN/GLOBULIN RATIO 0.95 (1.00-1.93); ALKALINE PHOSPHATASE 88 U/L (45-117); ALT/SGPT 17 U/L (12-78); ANION GAP 9 MEQ/L (8-16); AST/SGOT 9 U/L (7-37); BILIRUBIN,TOTAL 0.4 MG/DL (0.2-1.0); BLOOD UREA NITROGEN 11 MG/DL (7-18); CALCIUM LEVEL 9.3 MG/DL (8.8-10.2); CARBON DIOXIDE LEVEL 29 MEQ/L (21-32); CHLORIDE LEVEL 101 MEQ/L (98-107); CHOLESTEROL LEVEL 155 MG/DL (<200); CREATININE FOR GFR 0.61 MG/DL (0.55-1.30); GLOMERULAR FILTRATION RATE > 60.0 (>39); GLUCOSE, FASTING 104 MG/DL (70-100); HDL CHOLESTEROL 52 MG/DL (>40); LDL CHOLESTEROL 68 MG/DL (<100); NON-HDL-C 103 MG/DL; POTASSIUM SERUM 3.9 MEQ/L (3.5-5.1); SODIUM LEVEL 139 MEQ/L (136-145); TOTAL PROTEIN 7.4 GM/DL (6.4-8.2); TRIGLYCERIDES LEVEL 176 MG/DL (<150)
== END ==
DX: E11.9 Type 2 diabetes mellitus without complications (principal); I10 Essential (primary) hypertension
CPT/HCPCS: 80053

== ENCOUNTER → 2018-06-12 | Outpatient (REF) | payer MEDICARE, MEDICAID ==
[2018-06-12 10:44] LABS: HEMATOCRIT 42.6 % (36.0-47.0); HEMOGLOBIN 13.7 g/dl (12.0-15.5); MEAN CORPUSCULAR HEMOGLOBIN 28.4 pg (27.0-33.0); MEAN CORPUSCULAR HGB CONC 32.2 g/dl (32.0-36.5); MEAN CORPUSCULAR VOLUME 88.2 fl (80.0-96.0); PLATELET COUNT, AUTOMATED 197 10^3/uL (150-450); RED BLOOD COUNT 4.83 10^6/uL (4.00-5.40); RED CELL DISTRIBUTION WIDTH 13.6 % (11.5-14.5); WHITE BLOOD COUNT 9.2 10^3/uL (4.0-10.0)
[2018-06-12 11:06] LABS: ALBUMIN 3.4 GM/DL (3.2-5.2); ALBUMIN/GLOBULIN RATIO 0.94 (1.00-1.93); ALKALINE PHOSPHATASE 87 U/L (45-117); ALT/SGPT 16 U/L (12-78); ANION GAP 8 MEQ/L (8-16); AST/SGOT 7 U/L (7-37); BILIRUBIN,TOTAL 0.4 MG/DL (0.2-1.0); BLOOD UREA NITROGEN 13 MG/DL (7-18); CALCIUM LEVEL 8.5 MG/DL (8.8-10.2); CARBON DIOXIDE LEVEL 29 MEQ/L (21-32); CHLORIDE LEVEL 100 MEQ/L (98-107); CHOLESTEROL LEVEL 181 MG/DL (<200); CHOLESTEROL RISK RATIO 3.549 (<5); CREATININE FOR GFR 0.63 MG/DL (0.55-1.30); GLOMERULAR FILTRATION RATE > 60.0 (>39); GLUCOSE, FASTING 229 MG/DL (70-100); HDL CHOLESTEROL 51 MG/DL (>40); LDL CHOLESTEROL 95 MG/DL (<100); NON-HDL-C 130 MG/DL; POTASSIUM SERUM 3.7 MEQ/L (3.5-5.1); SODIUM LEVEL 137 MEQ/L (136-145); TRIGLYCERIDES LEVEL 177 MG/DL (<150)
[2018-06-12 11:41] LABS: ESTIMATED AVERAGE GLUCOSE 166 MG/DL (60-110); HEMOGLOBIN A1c 7.4 %
== END ==
DX: I10 Essential (primary) hypertension (principal); E11.9 Type 2 diabetes mellitus without complications
CPT/HCPCS: 80053

== ENCOUNTER → 2018-09-10 | Outpatient (CLI) | payer MEDICARE, MEDICAID ==
[~2018-09-10] MED LIST changes: +ACE65ERTAB PO; +ACEP650S PR; +ALBU83IN NEB; +AMIT25TA PO; -AMLO10TA2 PO; +AMLO10TA5 PO; -AMLO5TAB2 PO; +AMLO5TAB6 PO; +BACT2CRE TOP; +BIOTLIQ9 PO; +CLON-412 PO; +CUTI0.053 TOP; +DULC10SU2 PR; +DURA50DI2 TOP; +ENEMENE4 PR; +ERYTOIN8 OS; +GABA600T4 PO; -GABA800T PO; +GABA800T4 PO; +HUMA100I5 SC; +HYDR200T3 PO; +KLOR20TA42 PO; +LEVE1INJ5 SC; +LIDO1CRE2 TOP; +LIDO5CRE6 TOP; +LIPI10TA PO; -LISI40TAB PO; +MECL12.575 PO; +METO1TAB87 PO; +MILK120011 PO; -MILKSUS PO; +MUCI600T31 PO; +SARN1LOT3 TOP; +SPIR-10 PO; +TIOT18INH INH; +VALT1TAB PO; +VITA100066 PO
--- NOTE | 2018-09-10 12:50 | REPMRS ---
Patient History The patient states she has not had a clinical breast exam in over a year. Family history of colorectal cancer in brother. Malignant lumpectomy of the right breast, 2009. Chemotherapy, 2009. Radiation therapy of the right breast, 2008. Digital Woman Screen Mammo: September 10, 2018 - Exam #: [id number] Bilateral CC and MLO view(s) were taken. Technologist: Evelia Jain Technologist Prior study comparison: September 07, 2017, bilateral digital mammo screening bilat, performed at [facility]. September 02, 2016, digital woman screen mammo performed at [facility]. FINDINGS: There are scattered fibroglandular densities. There is a fairly symmetric fibroglandular pattern in both breasts. There has been no interval development of masses, areas of architectural distortion or clusters of microcalcifications typical of malignancy. Assessment: BI-RADS/ACR category 2 mammogram. Benign Findings. Recommendation Routine screening mammogram of both breasts in 1 year (for women over age 40). This mammogram was interpreted with the aid of an FDA-approved computer-aided dectection system. Electronically Signed By: Fuad Aggarwal MD 09/10/18 0642
== END ==
LOC: M WHC 10:58
PROVIDERS: ATTEND Nurse Practitioner Adult Health
DX: Z12.31 Encounter for screening mammogram for malignant neoplasm of breast (principal); Z80.0 Family history of malignant neoplasm of digestive organs; Z85.3 Personal history of malignant neoplasm of breast; Z92.3 Personal history of irradiation; Z92.21 Personal history of antineoplastic chemotherapy

== ENCOUNTER → 2018-09-11 | Outpatient (REF) | payer MEDICARE, MEDICAID ==
--- NOTE | 2018-09-11 12:48 | REP ---
Clinical: Neck pain Technique: AP, lateral, flexion/extension, swimmer's, open-mouth, and bilateral oblique views. Findings: Advanced multilevel degenerative changes include osteopenia, osteophytosis, endplate sclerosis with disc space narrowing and uncovertebral hypertrophy. Alignment is maintained. There is no evidence for acute fracture / compression injury or subluxation. C1-C2 articulation and odontoid process appear normal. Oblique views suggest narrowing to the left neural foramen and correlation is recommended. Impression: Advanced multilevel degenerative spondylosis. Electronically Signed by Drew Cunha MD 09/11/2018 12:40 P
== END ==
PROVIDERS: ATTEND Internal Medicine
DX: M54.2 Cervicalgia (principal)

== ENCOUNTER → 2018-10-05 | Outpatient (REF) | payer MEDICARE, MEDICAID ==
[2018-10-05 14:35] LABS: HEMATOCRIT 40.5 % (36.0-47.0); HEMOGLOBIN 12.9 g/dl (12.0-15.5); MEAN CORPUSCULAR HEMOGLOBIN 28.2 pg (27.0-33.0); MEAN CORPUSCULAR HGB CONC 31.9 g/dl (32.0-36.5); MEAN CORPUSCULAR VOLUME 88.6 fl (80.0-96.0); PLATELET COUNT, AUTOMATED 239 10^3/uL (150-450); RED BLOOD COUNT 4.57 10^6/uL (4.00-5.40); WHITE BLOOD COUNT 7.1 10^3/uL (4.0-10.0)
[2018-10-05 14:52] LABS: HEMOGLOBIN A1c 8.4 %
[2018-10-05 15:06] LABS: ALBUMIN 3.3 GM/DL (3.2-5.2); ALT/SGPT 16 U/L (12-78); BILIRUBIN,TOTAL 0.3 MG/DL (0.2-1.0); BLOOD UREA NITROGEN 8 MG/DL (7-18); C REACTIVE PROTEIN QUANTITATIV 1.33 MG/DL (0.00-0.30); CALCIUM LEVEL 8.5 MG/DL (8.8-10.2); CARBON DIOXIDE LEVEL 31 MEQ/L (21-32); CHLORIDE LEVEL 102 MEQ/L (98-107); CREATININE FOR GFR 0.59 MG/DL (0.55-1.30); GLOMERULAR FILTRATION RATE > 60.0 (>39); GLUCOSE, FASTING 110 MG/DL (70-100); NT-PRO BNP 313 PG/ML (<450); POTASSIUM SERUM 3.8 MEQ/L (3.5-5.1); SODIUM LEVEL 141 MEQ/L (136-145)
[2018-10-05 15:18] LABS: ERYTHROCYTE SEDIMENTATION RATE 37 mm/hr (0-30)
== END ==
PROVIDERS: ATTEND Internal Medicine
DX: M79.2 Neuralgia and neuritis, unspecified (principal); M19.90 Unspecified osteoarthritis, unspecified site; Z79.899 Other long term (current) drug therapy

== ENCOUNTER → 2018-10-16 | Outpatient (REF) | payer MEDICARE, MEDICAID ==
[2018-10-16 11:22] LABS: BLOOD UREA NITROGEN 13 MG/DL (7-18); C REACTIVE PROTEIN QUANTITATIV 0.47 MG/DL (0.00-0.30); CALCIUM LEVEL 9.1 MG/DL (8.8-10.2); CARBON DIOXIDE LEVEL 29 MEQ/L (21-32); CHLORIDE LEVEL 96 MEQ/L (98-107); CREATININE FOR GFR 0.65 MG/DL (0.55-1.30); GLOMERULAR FILTRATION RATE > 60.0 (>39); GLUCOSE, FASTING 258 MG/DL (70-100); POTASSIUM SERUM 4.5 MEQ/L (3.5-5.1); SODIUM LEVEL 136 MEQ/L (136-145)
== END ==
PROVIDERS: ATTEND Nurse Practitioner Adult Health
DX: L29.8 Other pruritus (principal)

== ENCOUNTER → 2018-10-18 | Outpatient (REF) | payer MEDICARE, MEDICAID | PROVIDERS: ATTEND Internal Medicine | DX: R05 Cough (principal) ==

== ENCOUNTER → 2018-10-18 | Outpatient (CLI) | payer MEDICARE, MEDICAID ==
--- NOTE | 2018-10-18 12:11 | REP ---
CT brain without contrast: History: Slurred speech with headache. Question TIA. Comparison head CT study is from August 18, 2014. 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 The patient is edentulous. Bone window settings demonstrate an intact bony calvarium. Visualized paranasal sinuses are clear. There is heavy vascular calcification involving the distal vertebral and distal carotid arteries as before. No intraorbital abnormality is seen. On soft tissue window settings, there is moderate to advanced diffuse cerebral and some cerebellar atrophy. There is concordant ventriculomegaly. There are small vessel atherosclerotic changes. There is no evidence of intracranial hemorrhage. No mass, extra-axial fluid collection or midline shift is seen. Impression: Moderate to marked diffuse atrophy. Small vessel changes. Vascular calcification. No acute intracranial abnormality. Electronically Signed by Olaf Ward MD 10/18/2018 12:02 P
--- NOTE | 2018-10-18 12:12 | REP ---
CHEST X-RAY: Two views. HISTORY: Dizziness. Comparison study May 02, 2018. FINDINGS: Moderate cardiomegaly is observed. Cardiothoracic ratio today measures 58.1%. Pulmonary vasculature is slightly cephalized. No pleural effusion or pulmonary edema seen. No focal infiltrate. There are degenerative changes in the thoracic spine. IMPRESSION: Cardiomegaly and cephalization. No focal infiltrate. Electronically Signed by Olaf Ward MD 10/18/2018 01:39 P
== END ==
LOC: M RAD 10:01
PROVIDERS: ATTEND Nurse Practitioner Adult Health
DX: R51 Headache (principal); R47.81 Slurred speech; G31.9 Degenerative disease of nervous system, unspecified; I67.2 Cerebral atherosclerosis; I51.7 Cardiomegaly; M51.34 Other intervertebral disc degeneration, thoracic region

== ENCOUNTER → 2018-10-30 | Outpatient (REF) | payer MEDICARE, MEDICAID | PROVIDERS: ATTEND Nurse Practitioner Adult Health | DX: M19.90 Unspecified osteoarthritis, unspecified site (principal) ==

== ENCOUNTER → 2018-12-05 | Outpatient (REF) | payer MEDICARE, MEDICAID ==
[~2018-12-05] MED LIST changes: -/ADVA50050 IN; -/CLON1TA PO; -/MOM400 PO; -/PANT40TA PO; -/PROC10TA PO; -/WARF25TA PO; -/WARF5TA PO; +ADVA1AER2 IN; -ASPI1TAB PO; +ASPI81TA26 PO; +COUM1TAB17 PO; +COUM1TAB18 PO; -HYDR1CR EXT; +HYDR1CRE93 EXT; +METO1TAB63 PO; -METO25TAB PO; +MILK10SU PO; -MIRA255PW PO; +MUPI1OIN2 TOP; -MUPI2OI TOP; +OXYC1TAB23 PO; -PERCOCET PO; +POLY1POW4 PO; +PROC1TAB3 PO; +PROT1TAB2 PO
[2018-12-05 10:40] LABS: HEMATOCRIT 38.9 % (36.0-47.0); HEMOGLOBIN 12.6 g/dl (12.0-15.5); MEAN CORPUSCULAR HEMOGLOBIN 28.1 pg (27.0-33.0); MEAN CORPUSCULAR HGB CONC 32.4 g/dl (32.0-36.5); MEAN CORPUSCULAR VOLUME 86.6 fl (80.0-96.0); PLATELET COUNT, AUTOMATED 234 10^3/uL (150-450); RED BLOOD COUNT 4.49 10^6/uL (4.00-5.40); WHITE BLOOD COUNT 9.5 10^3/uL (4.0-10.0)
[2018-12-05 11:02] LABS: HEMOGLOBIN A1c 8.4 %
[2018-12-05 11:12] LABS: ALBUMIN 3.6 GM/DL (3.2-5.2); ALT/SGPT 16 U/L (12-78); BILIRUBIN,TOTAL 0.3 MG/DL (0.2-1.0); BLOOD UREA NITROGEN 11 MG/DL (7-18); CALCIUM LEVEL 8.8 MG/DL (8.8-10.2); CARBON DIOXIDE LEVEL 29 MEQ/L (21-32); CHLORIDE LEVEL 98 MEQ/L (98-107); CHOLESTEROL LEVEL 170 MG/DL (<200); CHOLESTEROL RISK RATIO 3.617 (<5); CREATININE FOR GFR 0.76 MG/DL (0.55-1.30); GLOMERULAR FILTRATION RATE > 60.0 (>39); GLUCOSE, FASTING 278 MG/DL (70-100); HDL CHOLESTEROL 47 MG/DL (>40); LDL CHOLESTEROL 64 MG/DL (<100); NON-HDL-C 123 MG/DL; SODIUM LEVEL 136 MEQ/L (136-145); TOTAL PROTEIN 6.9 GM/DL (6.4-8.2); TRIGLYCERIDES LEVEL 293 MG/DL (<150)
== END ==
PROVIDERS: ATTEND Nurse Practitioner Adult Health
DX: E11.9 Type 2 diabetes mellitus without complications (principal); I10 Essential (primary) hypertension

== ENCOUNTER → 2019-01-10 | Outpatient (CLI) | payer MEDICARE, MEDICAID ==
[~2019-01-10] MED LIST changes: +E-Z-GAS II EFFERVESCENT PACKET (SODIUM BICARB./CITRIC ACID/SIMETHICONE) As Ordered ONE; +E-Z-HD 98% w/w 340GM SUSP BTL As Ordered ONE; +E-Z-PAQUE 96% w/w SUSP 176GM BTL As Ordered ONE
--- NOTE | 2019-01-10 17:00 | REP ---
Examination Requested: Esophagram Barium Swallow Reason For Exam/Comment: Dysphasia, vomiting Esophagram: The procedure was performed DANNY Frederick, under the direct supervision of Dr. Aggarwal. The images were reviewed with Dr. Aggarwal. A single PA chest x-ray is submitted as a director of income tax film. The superior mediastinal structures are midline. The heart size is within normal limits. The lungs are clear. Liquid barium was given in the prone oblique position, in order to perform a single contrast esophagram examination, due to the patient's limited mobility. Flash penetration was noted, otherwise the oral and pharyngeal stages of the examination were unremarkable. Esophageal transport is efficient and there is no esophagitis, stricture, or mucosal ring noted. Tertiary contractions were noted during the course of the examination. There is a hiatal hernia noted. Gastroesophageal reflux was not appreciated throughout the course of the exam. Impression: 1. Flash penetration. 2. Tertiary contractions. 3. Hiatal hernia. 0.6 minutes of fluoroscopy time was utilized for this procedure. Reviewed by DANNY Cartagena 01/10/2019 04:36 P Electronically Signed by Fuad Aggarwal MD 01/10/2019 04:52 P
== END ==
LOC: M RAD 10:36
PROVIDERS: ATTEND Nurse Practitioner Adult Health
DX: R11.10 Vomiting, unspecified (principal); K44.9 Diaphragmatic hernia without obstruction or gangrene

== ENCOUNTER → 2019-02-01 | Outpatient (REF) | payer MEDICARE, MEDICAID ==
[~2019-02-01] MED LIST changes: -E-Z-GAS II EFFERVESCENT PACKET (SODIUM BICARB./CITRIC ACID/SIMETHICONE) As Ordered ONE; -E-Z-HD 98% w/w 340GM SUSP BTL As Ordered ONE; -E-Z-PAQUE 96% w/w SUSP 176GM BTL As Ordered ONE
== END ==
PROVIDERS: ATTEND Internal Medicine
DX: Z11.2 Encounter for screening for other bacterial diseases (principal)

== ENCOUNTER → 2019-02-08 | Outpatient (REF) | payer MEDICARE, MEDICAID | PROVIDERS: ATTEND Internal Medicine | DX: M12.9 Arthropathy, unspecified (principal) ==

== ENCOUNTER → 2019-02-08 | Outpatient (REF) | payer MEDICARE, MEDICAID | PROVIDERS: ATTEND Internal Medicine | DX: Z09 Encounter for follow-up examination after completed treatment for conditions other than malignant neoplasm (principal); Z86.14 Personal history of Methicillin resistant Staphylococcus aureus infection ==

== ENCOUNTER → 2019-02-15 | Outpatient (REF) | payer MEDICARE, MEDICAID | PROVIDERS: ATTEND Nurse Practitioner Adult Health | DX: Z22.322 Carrier or suspected carrier of Methicillin resistant Staphylococcus aureus (principal) ==

== ENCOUNTER → 2019-04-25 | Outpatient (CLI) | payer MEDICARE, MEDICAID ==
[~2019-04-25] MED LIST changes: -ARTI99.0 OU; +ARTIDRO2 OU; +ASPI81TA85 PO; -MORP-38 PO; +MORP-69 PO; +QC A650T3 PO; +[UNRECOGNIZED DRUG - CODE] TP
--- NOTE | 2019-04-25 13:49 | REP ---
LEFT SHOULDER: Three views. HISTORY: Trauma. FINDINGS: The left glenohumeral and acromioclavicular joints are normally aligned. There is mild diffuse osteopenia. There is narrowing and hypertrophy at the AC joint consistent with osteoarthritis. Periarticular soft tissues are unremarkable. IMPRESSION: Diffuse osteopenia. AC joint osteoarthritis. No acute bony abnormality. Electronically Signed by Olaf Ward MD 04/25/2019 03:13 P
--- NOTE | 2019-04-25 13:50 | REP ---
LEFT CLAVICLE: Two views. HISTORY: Trauma. FINDINGS: There is mild AC joint hypertrophy consistent with osteoarthritis. Two views of the left clavicle are otherwise unremarkable. No fracture or subluxation seen. No bony destructive lesion. IMPRESSION: Mild osteoarthritis of the AC joint. Otherwise negative left clavicle radiographs. Electronically Signed by Olaf Ward MD 04/25/2019 03:13 P
== END ==
LOC: M RAD 10:15
PROVIDERS: ATTEND Internal Medicine Hematology & Oncology
DX: M25.512 Pain in left shoulder (principal)

== ENCOUNTER → 2019-05-17 | Outpatient (REF) | payer MEDICARE, MEDICAID ==
[~2019-05-17] MED LIST changes: +ACET-908 PO; +ACET650S3 PR; +ANEC4CRE3 TOP; +APAP325T4 PO; +ARTIDRO OU; +CLONI1TA PO; +D-101000 PO; +EQ M1TAB4 PO; +FENT50DI5 TD; +GLUC1KIT IM; -MECL12.575 PO; +MECL12.589 PO; +METO25TA4 PO; +MILKSUS3 PO; +NEUR100C PO; +POTA20TA6 PO; +PRED25TA PO; +TRAM50TA2 PO
== END ==
PROVIDERS: ATTEND Nurse Practitioner Adult Health
DX: M12.9 Arthropathy, unspecified (principal)

== ENCOUNTER → 2019-05-21 | Outpatient (REF) | payer MEDICARE, MEDICAID ==
[~2019-05-21] MED LIST changes: -ACET-908 PO; -ACET650S3 PR; -ANEC4CRE3 TOP; -APAP325T4 PO; -ARTIDRO OU; -CLONI1TA PO; -D-101000 PO; -EQ M1TAB4 PO; -FENT50DI5 TD; -GLUC1KIT IM; +MECL12.575 PO; -MECL12.589 PO; -METO25TA4 PO; -MILKSUS3 PO; -NEUR100C PO; -POTA20TA6 PO; -PRED25TA PO; -TRAM50TA2 PO
--- NOTE | 2019-05-21 16:22 | REP ---
Portable chest, 03:29 p.m., single AP view with the patient sitting: Comparison is 10/18/2018. The patient's chin obscures the lung apices. Remainder the lung gonzalez are clear. Cardiac size is mildly enlarged, unchanged. There is chronic deformity of the right humeral neck, unchanged from the 02/01/2018 representing an old fracture. Impression: No acute cardiopulmonary findings. Electronically Signed by Fuad Thompson MD 05/21/2019 04:14 P
== END ==
PROVIDERS: ATTEND Internal Medicine
DX: S20.219A Contusion of unspecified front wall of thorax, initial encounter (principal); W19.XXXA Unspecified fall, initial encounter; Y92.89 Other specified places as the place of occurrence of the external cause; Y93.89 Activity, other specified; Y99.8 Other external cause status

== ENCOUNTER → 2019-05-24 | Outpatient (REF) | payer MEDICARE, MEDICAID ==
--- NOTE | 2019-05-24 13:28 | REP ---
Right foot: Three views. History: Pain after a fall. Findings: Three views of the right foot demonstrate diffuse osteopenia. Extensive vascular calcifications noted. Plantar calcaneal spurring is visible. There is an intra-articular fracture visible at the base of the proximal phalanx of the great toe with associated soft-tissue swelling. No other fractures seen. There is old post-traumatic change in the distal fifth metatarsal unchanged from March 07, 2016 prior study. Impression: Acute nondisplaced intra-articular fracture at the base of the proximal phalanx of the great toe. Diffuse osteoporosis and vascular calcification noted. Heel spurring. Electronically Signed by Olaf Ward MD 05/24/2019 01:20 P
== END ==
LOC: M RAD 08:56
PROVIDERS: ATTEND Internal Medicine
DX: M77.31 Calcaneal spur, right foot (principal); S92.424A Nondisplaced fracture of distal phalanx of right great toe, initial encounter for closed fracture; M81.6 Localized osteoporosis [Lequesne]

== ENCOUNTER → 2019-05-30 | Outpatient (CLI) | payer MEDICARE, MEDICAID ==
--- NOTE | 2019-05-30 11:33 | REP ---
MRI right hip without contrast: History: Possible fracture. Frequent falls. No comparison radiographs or other hip imaging. Technique: Coronal T1 and T2-weighted scans of both hips are acquired. In addition, smaller field of view high resolution images were attempted of the right hip in all three planes using fat sat T2-weighted sequences. There is considerable motion artifact however which significantly limits image quality. Findings: There is considerable motion artifact. Magnetic field susceptibility artifact is observed emanating from the orthopedic hardware in the left proximal femur. Cortical and medullary bone signal intensity are normal in the proximal femurs however there is no evidence of avascular necrosis. There is no evidence of edema on either side to suggest a hip fracture or pelvic fracture. Urinary bladder appears intact. There is some mild spurring at the symphysis pubis. There is no evidence of significant hip joint effusion. There is some edema in the peritrochanteric subcutaneous fat on the right. No bursal fluid collection is appreciated. Impression: Image quality is inhibited by patient motion artifact. There is no evidence of recent fracture. The patient is status post orthopedic pinning left hip. There is subcutaneous edema lateral to the right greater trochanter. Electronically Signed by Olaf Ward MD 05/30/2019 06:22 P
== END ==
LOC: M RAD 09:00
PROVIDERS: ATTEND Nurse Practitioner Adult Health
DX: M25.751 Osteophyte, right hip (principal); R60.0 Localized edema

== ENCOUNTER → 2019-06-04 | Outpatient (REF) | payer MEDICARE, MEDICAID ==
[2019-06-04 10:23] LABS: HEMATOCRIT 43.4 % (36.0-47.0); MEAN CORPUSCULAR HEMOGLOBIN 29.4 pg (27.0-33.0); MEAN CORPUSCULAR HGB CONC 32.3 g/dl (32.0-36.5); MEAN CORPUSCULAR VOLUME 91.2 fl (80.0-96.0); PLATELET COUNT, AUTOMATED 112 10^3/uL (150-450); RED BLOOD COUNT 4.76 10^6/uL (4.00-5.40); WHITE BLOOD COUNT 12.2 10^3/uL (4.0-10.0)
[2019-06-04 10:45] LABS: ERYTHROCYTE SEDIMENTATION RATE 2 mm/hr (0-30)
[2019-06-04 11:04] LABS: ALBUMIN 3.5 GM/DL (3.2-5.2); ALT/SGPT 19 U/L (12-78); BILIRUBIN,TOTAL 0.4 MG/DL (0.2-1.0); BLOOD UREA NITROGEN 11 MG/DL (7-18); C REACTIVE PROTEIN QUANTITATIV 1.22 MG/DL (0.00-0.30); CALCIUM LEVEL 9.1 MG/DL (8.8-10.2); CARBON DIOXIDE LEVEL 28 MEQ/L (21-32); CHLORIDE LEVEL 97 MEQ/L (98-107); CHOLESTEROL LEVEL 168 MG/DL (<200); CREATININE FOR GFR 0.75 MG/DL (0.55-1.30); GLOMERULAR FILTRATION RATE > 60.0 (>32); GLUCOSE, FASTING 269 MG/DL (70-100); HDL CHOLESTEROL 50 MG/DL (>40); LDL CHOLESTEROL 76 MG/DL (<100); NON-HDL-C 118 MG/DL; POTASSIUM SERUM 3.8 MEQ/L (3.5-5.1); SODIUM LEVEL 135 MEQ/L (136-145); TOTAL PROTEIN 7.6 GM/DL (6.4-8.2); TRIGLYCERIDES LEVEL 212 MG/DL (<150)
[2019-06-04 14:20] LABS: HEMOGLOBIN A1c 9.3 %
== END ==
PROVIDERS: ATTEND Nurse Practitioner Adult Health
DX: M12.9 Arthropathy, unspecified (principal); Z79.899 Other long term (current) drug therapy

== ENCOUNTER 2019-07-18 07:05 | Inpatient (IN) | payer MEDICARE, MEDICAID ==
[2019-07-18] VITALS (12 sets, daily range): BP systolic 107–168; BP diastolic 51–73
[~2019-07-18] VITALS: Ht 162.6 cm; Wt 112.0 kg
[2019-07-18] MEDS ORDERED: IPRATROPIUM 0.5MG/ALBUTEROL 2.5MG INH SOL UD 3ML (DUONEB)(J7620) NEB ONE (07:30)
[2019-07-18 07:58] LABS: BASO # 0.1 10^3/uL (0.0-0.2); BASO % 0.2 % (0.0-1.0); HEMATOCRIT 44.3 % (36.0-47.0); HEMOGLOBIN 13.7 g/dl (12.0-15.5); LYMPH # 1.5 10^3/uL (1.5-5.0); MEAN CORPUSCULAR HEMOGLOBIN 28.8 pg (27.0-33.0); MEAN CORPUSCULAR HGB CONC 30.9 g/dl (32.0-36.5); MEAN CORPUSCULAR VOLUME 93.1 fl (80.0-96.0); MONO # 1.1 10^3/uL (0.0-0.8); MONO % 5.4 % (0.0-5.0); NEUTROPHILS # 18.3 10^3/uL (1.5-8.5); NEUTROPHILS % 86.8 % (36.0-66.0); PLATELET COUNT, AUTOMATED 321 10^3/uL (150-450); RED BLOOD COUNT 4.76 10^6/uL (4.00-5.40); WHITE BLOOD COUNT 21.1 10^3/uL (4.0-10.0)
[2019-07-18] MEDS: TIOTROPIUM INHALER/CAPSULE (SPIRIVA) INH SCH (08:00)
[2019-07-18] MEDS ORDERED: ACETAMINOPHEN 650 MG SUPP PR ONE (08:00)
[2019-07-18 08:12] LABS: INR 1.16; PROTHROMBIN TIME 14.5 SECONDS (11.8-14.0)
--- NOTE | 2019-07-18 08:25 | REP ---
Single view chest: 07/18/2019. Indications dyspnea. Comparison: 05/21/2019. Findings: Poor inspiratory result and suboptimal positioning are present. There is elevation of the right hemidiaphragm. No definite air space consolidation, pleural effusion or pneumothorax are detected. Impression: No definite acute cardiopulmonary process. Electronically Signed by Hebert Henriquez DO 07/18/2019 08:17 A
[2019-07-18 08:36] LABS: ALBUMIN 3.1 GM/DL (3.2-5.2); BILIRUBIN,DIRECT 0.2 MG/DL (0.0-0.2); BILIRUBIN,TOTAL 0.5 MG/DL (0.2-1.0); CALCIUM LEVEL 9.1 MG/DL (8.8-10.2); CK-MB VALUE MASS 1.1 NG/ML (<3.6); CREATININE FOR GFR 1.52 MG/DL (0.55-1.30); MB/CK RELATIVE INDEX 1.55 (< OR =4); POTASSIUM SERUM 4.6 MEQ/L (3.5-5.1); THYROID STIMULATING HORMONE 0.562 uIU/ML (0.358-3.740); THYROXINE (T4) 6.9 UG/DL (4.5-12.0); TOTAL PROTEIN 7.6 GM/DL (6.4-8.2); TROPONIN I 0.03 NG/ML (< 0.10)
[2019-07-18] MEDS ORDERED: NS 500 ML IV ONE ×2 (08:45→09:45)
[2019-07-18] MEDS ORDERED: PIPERACILLIN/TAZOBACTAM SOD 3.375 GM in D5W MINI-BAG PLUS 50 ML IV ONE (08:45)
--- NOTE | 2019-07-18 08:54 | REP ---
Clinical: Hypoxia and fever. Technique: Axial noncontrast images from the thoracic inlet to the upper abdomen with coronal and sagittal re-formations. Comparison: 07/18/2019. Findings: Evaluation is somewhat limited due to significant respiratory motion artifact. Bilateral perihilar to lower lobe consolidations/atelectasis with air bronchograms (left greater than right). Small left pleural effusion identified. No pneumothorax. Reactive mediastinal lymph nodes noted. Cardiomegaly and element of pulmonary vascular congestion is suggested. Impression: 1. Cardiomegaly with element of possibly chronic pulmonary vascular congestion. 2. Lower lobe consolidations (left greater than right) and small left pleural effusion consistent with pneumonia. Electronically Signed by Drew Cunha MD 07/18/2019 08:45 A
[2019-07-18 08:57] LABS: ABG BASE EXCESS -1.3 (-2.0-2.0); ABG HCO3 23.6 MEQ/L (22.0-26.0); ABG O2 SATURATION 96.2 % (95.0-99.0); ABG PARTIAL PRESSURE CO2 40.8 mmHg (35.0-45.0); ABG STANDARD HCO3 23.3 MEQ/L (22.0-26.0); ABG TOTAL CO2 24.9 MEQ/L (23.0-31.0); ABG pH (ARTERIAL) 7.381 UNITS (7.350-7.450)
--- NOTE | 2019-07-18 08:57 | REP ---
Clinical: Altered mental status. Found unresponsive. Comparison: 10/18/2018 Findings: Atrophy with periventricular leukomalacia and microvascular ischemic changes are appreciated. The ventricles and sulci are symmetric. Aggarwal-white differentiation is maintained. There is no evidence for acute intracranial hemorrhage, mass/mass effect, pathology or infarction. No extra-axial fluid collection. Calvarium is intact. Paranasal sinuses and mastoid air cells are clear. Impression: Atrophy and microvascular ischemic changes. No acute intracranial hemorrhage, infarction, or mass/mass effect. Electronically Signed by Drew Cunha MD 07/18/2019 08:48 A
[2019-07-18] MEDS: HEPARIN SOD (PORCINE) 5000 UNITS/ML VIAL SC SCH ×2 (09:00→22:36)
[2019-07-18] MEDS: SYMBICORT 160/4.5MCG INHALER 6GM INH SCH ×2 (09:00→19:43)
[2019-07-18] MEDS ORDERED: ASPI81TA26 PO (09:31)
[2019-07-18] MEDS ORDERED: FENT50DI5 TD (09:31)
[2019-07-18] MEDS ORDERED: CLONI1TA PO (09:31)
[2019-07-18] MEDS ORDERED: METO25TA4 PO (09:31)
[2019-07-18] MEDS ORDERED: PRED25TA PO (09:31)
[2019-07-18] MEDS ORDERED: GABA800T4 PO (09:31)
[2019-07-18] MEDS ORDERED: HUMA100I5 SC (09:31)
[2019-07-18] MEDS ORDERED: SENO8.6T10 PO (09:31)
[2019-07-18] MEDS ORDERED: TRAM50TA2 PO (09:31)
[2019-07-18] MEDS ORDERED: MILKSUS3 PO (09:31)
[2019-07-18] MEDS ORDERED: APAP325T4 PO (09:31)
[2019-07-18] MEDS ORDERED: ANEC4CRE3 TOP (09:31)
[2019-07-18] MEDS ORDERED: INSUDET SC ×2 (09:31)
[2019-07-18] MEDS ORDERED: ARTIDRO OU (09:31)
[2019-07-18] MEDS ORDERED: ATOR1TAB21 PO (09:31)
[2019-07-18] MEDS ORDERED: NEUR100C PO (09:31)
[2019-07-18] MEDS ORDERED: LISI40TA PO (09:32)
[2019-07-18] MEDS ORDERED: SYMB16INH INH (09:32)
[2019-07-18] MEDS ORDERED: GABA600T4 PO (09:32)
[2019-07-18] MEDS ORDERED: FURO40TA2 PO (09:32)
[2019-07-18] MEDS ORDERED: GLUC1KIT IM (09:32)
[2019-07-18] MEDS ORDERED: EQ M1TAB4 PO (09:32)
[2019-07-18] MEDS ORDERED: CYMB1CAP5 PO (09:32)
[2019-07-18] MEDS ORDERED: ACET650S3 PR (09:32)
[2019-07-18] MEDS ORDERED: ALBU83IN INH (09:32)
[2019-07-18] MEDS ORDERED: ACET-908 PO (09:32)
[2019-07-18] MEDS ORDERED: POTA20TA6 PO (09:32)
[2019-07-18] MEDS ORDERED: TIOT18INH INH (09:32)
[2019-07-18] MEDS ORDERED: D-101000 PO (09:32)
[2019-07-18] MEDS ORDERED: DULC10SU2 PR (09:32)
[2019-07-18] MEDS ORDERED: PIPERACILLIN/TAZOBACTAM SOD 4.5 GM in D5W MINI-BAG PLUS 100 ML IV SCH (10:00)
[2019-07-18] MEDS ORDERED: traMADol 50 MG TAB PO PRN (10:45)
[2019-07-18] MEDS ORDERED: ALBUTEROL SULFATE 2.5 MG/0.5 ML INH NEB SOLN INH PRN (10:45)
[2019-07-18] MEDS ORDERED: BISACODYL 10 MG SUPP PR PRN (10:45)
--- NOTE | 2019-07-18 10:59 | REP ---
Clinical: Abdominal pain. Technique: Axial noncontrast images from the lung bases to the pubic symphysis with coronal and sagittal re-formations. Findings: Lung bases demonstrate bilateral consolidations (left greater than right) suggesting acute pneumonia along with small left pleural effusion. Liver, spleen, atrophic pancreas, bilateral adrenal glands and kidneys are stable. Cystic peripelvic changes to the left kidney versus hydronephrosis remains unchanged along with smaller cortical hypodensities suggesting cysts. Evidence for prior cholecystectomy. The enteric system suggests mild - moderate fecal stasis without obstruction or acute inflammatory process. Hudson catheter identified in collapsed bladder. Evidence for prior hysterectomy. No ascites. No free air. Atherosclerotic changes to the aorta and vasculature noted. Musculoskeletal structures demonstrate degenerative changes without focal abnormality. Impression: 1. Mild/moderate fecal stasis. 2. Stable prominent left renal peripelvic cystic change versus chronic hydronephrosis. 3. Bibasilar consolidations consistent with pneumonia. 4. Further chronic changes as above. Electronically Signed by Drew Cunha MD 07/18/2019 10:50 A
[2019-07-18] MEDS ORDERED: GLUCAGON FOR INJ 1 MG VIAL (J1610) SC PRN ×2 (11:00→14:15)
[2019-07-18] MEDS ORDERED: GLUCOSE 4 GM CHEW TABLET PO PRN ×2 (11:00→14:15)
[2019-07-18] MEDS ORDERED: DEXTROSE 50% 50 ML SYRINGE IV PRN ×2 (11:00→14:15)
[2019-07-18] MEDS ORDERED: FUROSEMIDE 40 MG/4 ML VIAL (J1940) IV ONE (11:00)
--- NOTE | 2019-07-18 11:13 | HPEPDOC ---
General Date of Admission Jul 18, 2019 at 09:59 Date of Service: Jul 18, 2019 Chief Complaint The patient is a 79-year-old female admitted with a reason for visit of Metabolic Encephalopathy. Source: Patient, Old records Exam Limitations: Clinical conditions Timing/Duration: 4-6 hours Severity: Severe Associated Symptoms: Cough, Fever, Chills, Malaise, Shortness of breath History of Present Illness Patient is 79 years old female with past medical history of hypertension, hyperlipidemia, diabetes, COPD, right breast cancer, psoriasis presented hospital with altered mental status. Patient was found to have unresponsive in the bed in the custodial facility and brought to the hospital. In emergency room patient was found to have fever of 100.5, leukocytosis of 21.1, lactic acid 5.6, glucose level 323, BMP 1033. Patient is very lethargic and can't provide detailed history. She complains of diffuse abdominal pain. CT chest shows cardiomegaly with element of possibly chronic pulmonary vascular congestion, lower lobe consolidations (left greater than right) and small left pleural effusion consistent with pneumonia. IV fluids were given. Home Medications Scheduled Acetaminophen (Acetaminophen) 325 Mg Tablet, 650 MG PO TID, (Reported) 0800/1200/1900 Aspirin (Aspirin EC) 81 Mg Tablet.dr, 162 MG PO DAILY, (Reported) Atorvastatin Calcium (Atorvastatin Calcium) 20 Mg Tablet, 20 MG PO QPM, (Reported) Budesonide/Formoterol (Symbicort 160-4.5 Mcg Inhaler) 6 Gm Hfa.aer.ad, 2 PUFF INH BID, (Reported) Cholecalciferol (Vitamin D3) (Vitamin D3) 1,000 Unit Capsule, 7,000 UNIT PO DAILY, (Reported) Duloxetine Hcl (Cymbalta) 30 Mg Capsule.dr, 30 MG PO BID, (Reported) Furosemide (Furosemide) 40 Mg Tablet, 60 MG PO DAILY, (Reported) Gabapentin (Gabapentin) 800 Mg Tablet, 800 MG PO DAILY, (Reported) TAKES AT NOON Gabapentin (Neurontin) 100 Mg Capsule, 1,000 MG PO QPM, (Reported) Gabapentin (Gabapentin) 600 Mg Tablet, 1,200 MG PO QAM, (Reported) Glycerin/Propylene Glycol (Artificial Tears Drops) 15 Ml Drops, 1 DROP OU QID, (Reported) Guaifenesin (Mucus ER) 600 Mg Tab.er.12h, 600 MG PO BID, (Reported) Insulin Detemir (Levemir) 100 Unit/1 Ml Vial, 22 UNITS SC QAM, (Reported) Insulin Detemir (Levemir) 100 Unit/1 Ml Vial, 15 UNITS SC QPM, (Reported) Insulin Lispro (Humalog Kwikpen U-100) 100 Unit/1 Ml Insuln.pen, 1 DOSE SC TID, (Reported) PER SLIDING SCALE Lisinopril (Lisinopril) 40 Mg Tablet, 40 MG PO DAILY, (Reported) Metoprolol Tartrate (Metoprolol Tartrate) 25 Mg Tablet, 25 MG PO BID, (Reported) HOLD FOR SBP<130 OR PULSE <60 Potassium Chloride (Potassium Chloride) 20 Meq Tab.er.prt, 20 MEQ PO DAILY, (Reported) Prednisone (Prednisone) 2.5 Mg Tablet, 2.5 MG PO Q2D, (Reported) Sennosides/Docusate Sodium (Senokot-S Tablet) 1 Each Tablet, 1 TAB PO BID, (Reported) Tiotropium [place] Monohydrate (Spiriva) 18 Mcg Cap.w.dev, 18 MCG INH DAILY, (Reported) fentaNYL (fentaNYL) 50 Mcg Patch.td72, 50 MCG TD Q3D, (Reported) APPLIED TO LEFT SHOULDER Scheduled PRN Acetaminophen (Acetaminophen) 325 Mg Tablet, 650 MG PO Q4H PRN for PAIN, (Reported) Acetaminophen (Acetaminophen) 650 Mg Supp.rect, 650 MG ND Q4H PRN for PAIN / FEVER, (Reported) Albuterol Sulf (Albuterol Sulfate) 2.5 Mg/3 Ml Vial.neb, 2.5 MG INH Q2H PRN for SOB/WHEEZING, (Reported) Bisacodyl (Dulcolax) 10 Mg Supp.rect, 10 MG ND DAILY PRN for CONSTIPATION, (Reported) Clonidine Hcl (Clonidine HCl) 0.1 Mg Tablet, 0.1 MG PO DAILY PRN for HYPERTENSION, (Reported) Glucagon,Human Recombinant (Glucagon Emergency Kit) 1 Mg Vial, 1 MG IM ASDIRECTED PRN for LOW BLOOD SUGAR, (Reported) Lidocaine (Anecream) 4% Cream..g., 1 APLCT TOP Q2H PRN for PAIN, (Reported) APPLY TO PAINFUL JOINTS Magnesium Hydroxide (Milk of Magnesia) 400 Mg/5 Ml Oral.susp, 30 ML PO DAILY PRN for CONSTIPATION, (Reported) Tramadol HCl (Tramadol HCl) 50 Mg Tablet, 25 MG PO Q8H PRN for PAIN, (Reported) Allergies Coded Allergies: hydroxyzine (Verified Allergy, Unknown, 07/18/19) Past Medical History Medical History Shingles around her left eye. History of Methicillin-resistant Staphylococcus aureus (MRSA) from a wound in her left ear, left toe and left thigh in 2011. History of hypertension. Hyperlipidemia. Insulin-dependent diabetes with diabetic neuropathy. Chronic obstructive pulmonary disease (COPD). Coronary artery disease. Right breast cancer 2008. Gout. Osteoporosis. Psoriatic arthritis. Neurodermatitis. Obstructive sleep apnea (JOHN) on continuous positive airway pressure (CPAP). Bilateral kidney atrophy. Hypotonic bladder. Surgical History Right breast lumpectomy with sentinel node biopsy in the right axilla in 2008. Hysterectomy. Repair of ankle fracture. Bilateral knee arthroscopy. Incision and drainage left knee due to infection. Bladder mesh. Dilatation and curettage. Hysterectomy in 1958. Cholecystectomy in 1968. Family History Father at age 96 of old age. Mother at age 80 of old age. She has a sister who of a stroke and a brother who of colon cancer. Social History * Smoker: Denies Alcohol: Denies Drugs: denies A-FIB/CHADSVASC A-FIB History Current/History of A-Fib/PAF?: No Current PO Anticoag Therapy: No Review of Systems Constitutional: Reports: Chills, Fever, Weakness Eyes: Denies: Pain ENT: Denies: Head Aches Skin: Reports: Rash, Lesions, Breakdown Pulmonary: Reports: Dyspnea, Cough Cardiovascular: Denies: Chest Pain, Palpitations Gastrointestinal: Denies: Nausea, Vomiting Genitourinary: Denies: Dysuria, Frequency Hematologic: Denies: Bruising, Bleeding Excessively Endocrine: Denies: Polydipsia Musculoskeletal: Denies: Neck Pain, Back Pain Neurological: Denies: Weakness Physical Examination General Exam: Positive: Other (patient somnolent) Eye Exam: Positive: PERRLA ENT Exam: Positive: Atraumatic Neck Exam: Positive: Supple, JVD Chest Exam: Positive: Rales, Rhonchi, Other (severe bilateral crackles) Heart Exam: Positive: Tachycardic Telemetry: Positive: Tachycardia Abdomen Exam: Positive: BS Hypoactive, Tenderness (diffuse tenderness, no rebound, no rigidity) Extremity Exam: Negative: Clubbing, Cyanosis Skin Exam: Positive: Breakdown, Lesion (multiple maceration on the legs bilaterally, left distal leg superficial wound around 5 cm with redness consistent with cellulitis) Neuro Exam: Positive: Cranial Nerves 3-12 NL Psych Exam: Positive: Other (somnolent) Vital Signs Vital Signs Date Time Temp Pulse Resp B/P (MAP) Pulse Ox O2 Delivery O2 Flow Rate FiO2 07/18/19 10:16 116 138/63 (88) 87 Nasal Cannula 4.0 07/18/19 09:21 100.5 07/18/19 09:00 20 Laboratory Data Labs 24H Laboratory Tests 2 07/18/19 07:44: Immature Granulocyte % (Auto) 0.6, Neutrophils (%) (Auto) 86.8H, Lymphocytes (%) (Auto) 7.0L, Monocytes (%) (Auto) 5.4H, Eosinophils (%) (Auto) 0.0, Basophils (%) (Auto) 0.2, Neutrophils # (Auto) 18.3H, Lymphocytes # (Auto) 1.5, Monocytes # (Auto) 1.1H, Eosinophils # (Auto) 0.0, Basophils # (Auto) 0.1, Nucleated Red Blood Cells % (auto) 0.2H, Prothrombin Time 14.5H, Prothromb Time International Ratio 1.16, Anion Gap 8, Glomerular Filtration Rate 35.0, Lactic Acid Level 5.6*H, Calcium Level 9.1, Total Bilirubin 0.5, Direct Bilirubin 0.2, Aspartate Amino Transf (AST/SGOT) 9, Alanine Aminotransferase (ALT/SGPT) 18, Alkaline Phosphatase 85, Total Creatine Kinase 71, Creatine Kinase MB 1.1, Creatine Kinase MB Relative Index 1.55, Troponin I 0.03, NW-Phm-L-Type Natriuretic Peptide 1033H, Total Protein 7.6, Albumin 3.1L, Albumin/Globulin Ratio 0.69L, Thyroid Stimulating Hormone (TSH) 0.562, Thyroxine (T4) 6.9 07/18/19 07:49: Urine Color YELLOW, Urine Appearance CLEAR, Urine pH 6.0, Urine Specific [place] 1.009, Urine Protein NEGATIVE, Urine Glucose (UA) 3+H, Urine Ketones NEGATIVE, Urine Blood NEGATIVE, Urine Nitrite NEGATIVE, Urine Bilirubin NEGATIVE, Urine Urobilinogen 0.2, Urine Leukocyte Esterase NEGATIVE, Urine WBC (Auto) 0, Urine RBC (Auto) 1, Urine Hyaline Casts (Auto) 8, Urine Bacteria (Auto) NEGATIVE, Uri ne Squamous Epithelial Cells 0, Urine Mucus (Auto) SMALL, Urine Sperm (Auto) 07/18/19 08:47: Blood Gas Bicarbonate Standard 23.3, Arterial Blood pH 7.381, Arterial Blood Partial Pressure CO2 40.8, Arterial Blood Partial Pressure O2 83.0, Arterial Blood Total CO2 24.9, Arterial Blood HCO3 23.6, Arterial Blood Base Excess -1.3, Arterial Blood Oxygen Saturation 96.2 CBC/BMP Laboratory Tests 07/18/19 07:44 Microbiology Microbiology 07/18/19 Blood Culture, Received Pending 07/18/19 Respiratory Virus Panel (PCR) (JACINDA) - Final, Complete 07/18/19 Blood Culture, Received Pending Assessment/Plan Patient is 79 years old female with past medical history of hypertension, hyperlipidemia, diabetes, COPD, right breast cancer, psoriasis presented hospital with altered mental status. Patient was found to have unresponsive in the bed in the custodial facility and brought to the hospital. In emergency room patient was found to have fever of 100.5, leukocytosis of 21.1, lactic acid 5.6, glucose level 323, BMP 1033. CT chest shows cardiomegaly with element of possibly chronic pulmonary vascular congestion, lower lobe consolidations (left greater than right) and small left pleural effusion consistent with pneumonia. Problems (1) Sepsis Status: Acute Problem Text: Most likely secondary to pneumonia Patient febrile has leukocytosis, elevated lactic acid, bilateral infiltrates on the CT chest Patient received 1 L bolus in the emergency room. Gentle Iv fluid BNP around 1000 Vancomycin IV, Zosyn IV Blood culture, sputum culture Continue to monitor lactic case (2) Pneumonia Status: Acute Problem Text: Bilateral pneumonia most likely, could be secondary to aspiration Incentive spirometry Vancomycin IV, Zosyn IV (3) Metabolic encephalopathy Status: Acute Problem Text: Secondary to sepsis due to pneumonia See above Blood gas within normal limit (4) Diabetes mellitus Status: Chronic Problem Text: Insulin sliding scale, detemir twice a day (5) Lactic acidosis Status: Acute Problem Text: Secondary to sepsis Continue to monitor (6) Abdominal pain Status: Acute Problem Text: Unclear etiology Patient complains of diffuse tenderness CT abdomen and pelvis ordered Plan / VTE VTE Prophylaxis Ordered?: Yes MERI CESAR DO Jul 18, 2019 11:13
[2019-07-18] MEDS ORDERED: MIRALAX *UNIT DOSE* 17GM PACKET PO PRN (11:15)
--- NOTE | 2019-07-18 11:16 | PHACANCOPD ---
PHARMACY VANCOMYCIN DOSING Pt Demographics Demographics Patient Age:79 , Weight:114.300 , Gender: female Adjusted Body Weight Date: 07/18/19, Adjusted Body Weight: Kg Events Past 24 Hours Events Past 24 Hours: YES: Change in CrCl, Fever, Elevation in WBC; NO: Dialysis, Diuretic Therapy, Pending Diagnostics, Pending Procedures, Other Vancomycin Vancomycin Target Ranges: 15-20 mcg/ml Vancomycin Load Y/N: Yes Load Dose Date Time Vancomycin Load Dose: 2G Date: 07/18/19 Time: 1200 Vancomycin Dose Date: 07/18/19. Current Vancomycin Dose: Intermittent Dosing?: No Labs Labs Item Value Date Time White Blood Count 21.1 10^3/uL H 07/18/19 0744 Creatinine 1.52 MG/DL H 07/18/19 0744 Lactic Acid Level 5.6 MMOL/L *H 07/18/19 0744 VN-Ilf-A-Type Natriuretic Peptide 1033 PG/ML H 07/18/19 0744 Oxygen Flow Rate 4.0 L/min 07/18/19 1045 Oxygen Delivery Method Nasal Cannula 07/18/19 1045 Vital Signs Label Value Date Time Patient Temperature 100.5 degrees F 07/18/19 0921 Temperature Source Rectal 07/18/19 0921 Patient Temperature 103.5 degrees F 07/18/19 0722 Temperature Source Rectal 07/18/19 0722 Blood Pressure Assessment 133/54 (80) 07/18/19 1045 Location Left Arm Source Automatic Cuff (NIBP) Position Supine Micro Microbiology 07/18/19 Blood Culture, Received Pending 07/18/19 Respiratory Virus Panel (PCR) (JACINDA) - Final, Complete 07/18/19 Blood Culture, Received Pending Creatinine Clearance Date:07/18/19. Creatinine Clearance: . Assessment and Plan Maintaining Current Dose?: Yes Reason for dose change: No Dose Change Pharmacist Note Pharmacist Note Date: 07/18/19. Pharmacist note: Pt. is an 79 year old female keep home patient who was found unresponsive. WBC elevated and fever on arrival of 103 F. Pt was started on Vanco/Zosyn for CAP. I have loaded the patient with Vanco 2G followed by 1G IV Q24H. I have also ordered a MRSA PCR to aid in de-escalation. We will continue to monitor and adjust dose as needed. LESLIE DE [facility] Jul 18, 2019 11:16
[2019-07-18] MEDS: predniSONE 2.5 MG TAB PO SCH (11:43)
[2019-07-18] MEDS: VITAMIN D 1,000 INTERNATIONAL UNITS TABLET PO SCH (11:43)
[2019-07-18] MEDS: POTASSIUM CHLORIDE 10 MEQ SR TABLET PO SCH (11:43)
[2019-07-18] MEDS: METOPROLOL TART 25 MG TABLET PO SCH ×2 (11:43→21:00)
[2019-07-18] MEDS: DULoxetine 30 MG CAP (CYMBALTA) PO SCH ×2 (11:43→21:00)
[2019-07-18] MEDS: ASPIRIN 81 MG ENTERIC TAB PO SCH (11:43)
[2019-07-18] MEDS: SENOKOT S TAB PO SCH ×2 (11:43→21:00)
[2019-07-18] MEDS ORDERED: LEVEMIR (INSULIN DETEMIR) 1 UNITS/0.01ML SC ONE (11:45)
[2019-07-18] MEDS ORDERED: HumaLOG INSULIN (NovoLOG) PER UNIT SC SCH ×2 (12:00→21:00)
[2019-07-18] MEDS ORDERED: VANCOMYCIN HCL 1,000 MG, VIAL MATE ADAPTER 1 EACH in D5W 250 ML IV ONE (12:00)
[2019-07-18] MEDS: VANCOMYCIN HCL 1,000 MG, VIAL MATE ADAPTER 1 EACH in D5W 250 ML IV SCH (13:30)
[2019-07-18 14:50] LABS: BASO # 0.1 10^3/uL (0.0-0.2); BASO % 0.2 % (0.0-1.0); HEMATOCRIT 41.4 % (36.0-47.0); HEMOGLOBIN 12.8 g/dl (12.0-15.5); LYMPH # 1.5 10^3/uL (1.5-5.0); LYMPH % 5.7 % (24.0-44.0); MEAN CORPUSCULAR HEMOGLOBIN 28.6 pg (27.0-33.0); MEAN CORPUSCULAR HGB CONC 30.9 g/dl (32.0-36.5); MEAN CORPUSCULAR VOLUME 92.6 fl (80.0-96.0); MONO # 1.2 10^3/uL (0.0-0.8); MONO % 4.6 % (0.0-5.0); NEUTROPHILS # 23.3 10^3/uL (1.5-8.5); NEUTROPHILS % 88.4 % (36.0-66.0); PLATELET COUNT, AUTOMATED 265 10^3/uL (150-450); RED BLOOD COUNT 4.47 10^6/uL (4.00-5.40); WHITE BLOOD COUNT 26.4 10^3/uL (4.0-10.0)
[2019-07-18] MEDS: ACETAMINOPHEN 650 MG SUPP PR PRN (14:50)
[2019-07-18] MEDS: NS 1,000 ML IV SCH (14:54)
[2019-07-18 15:07] LABS: CREATININE FOR GFR 1.61 MG/DL (0.55-1.30)
[2019-07-18 15:08] LABS: CALCIUM LEVEL 8.4 MG/DL (8.8-10.2); GLOMERULAR FILTRATION RATE 32.8 (>32); POTASSIUM SERUM 4.3 MEQ/L (3.5-5.1)
[2019-07-18] MEDS: PIPERACILLIN/TAZOBACTAM SOD 3.375 GM in D5W MINI-BAG PLUS 50 ML IV SCH ×2 (16:27→23:01)
--- NOTE | 2019-07-18 18:03 | ECGEPIP ---
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
[2019-07-18] MEDS: HumaLOG INSULIN (NovoLOG) PER UNIT SC SCH (18:06)
--- NOTE | 2019-07-18 19:34 | ECHO ---
DATE OF PROCEDURE: 07/18/2019 REFERRING PHYSICIAN: Dr. aHm INDICATION: Edema. HEIGHT: 163 cm WEIGHT: 114 kg FINDINGS The study is of extremely limited technical quality. There are no parasternal views, limited apical views and very limited subcostal views. Left ventricle appears to have grossly preserved systolic function. Same applies for the right ventricle. I cannot comment on size of the atria. Limited views of aortic and mitral valve exhibit mild degenerative abnormalities. I cannot comment much more on structure of the valves. Right-sided heart valves were not visualized at all. Pericardial fat pad is noted. Inferior vena cava is normal size. Limited Doppler interrogation reveals no significant aortic and mitral valvular disease. CONCLUSION 1. Study is of markedly limited technical quality. 2. Grossly preserved left ventricle (LV) and right ventricle (RV) systolic function. 3. No hemodynamically significant aortic and mitral valvular disease. 4. Right-sided heart valves were not evaluated. 5. Probably normal central venous pressure. 6. Grade 1 diastolic dysfunction. COMMENT Subacute bacterial endocarditis (SBE) prophylaxis is not recommended.
[2019-07-18] MEDS ORDERED: FUROSEMIDE 40 MG/4 ML VIAL (J1940) IV SCH (20:00)
[2019-07-18] MEDS ORDERED: LEVEMIR (INSULIN DETEMIR) 1 UNITS/0.01ML SC SCH (21:00)
[2019-07-18] MEDS: ATORVASTATIN 20 MG TAB PO SCH (21:00)
[2019-07-18] MEDS ORDERED: NS 1,000 ML IV ONE (21:45)
[2019-07-18 21:59] LABS: ABG BASE EXCESS 2.9 (-2.0-2.0); ABG HCO3 28.9 MEQ/L (22.0-26.0); ABG O2 SATURATION 93.5 % (95.0-99.0); ABG PARTIAL PRESSURE O2 67.5 mmHg (75.0-100.0); ABG TOTAL CO2 30.4 MEQ/L (23.0-31.0)
[2019-07-19] VITALS (24 sets, daily range): BP systolic 133–220; BP diastolic 62–100
[2019-07-19] MEDS: ACETAMINOPHEN 650 MG SUPP PR PRN ×3 (00:13→16:27)
[2019-07-19] MEDS: HumaLOG INSULIN (NovoLOG) PER UNIT SC SCH ×4 (00:55→18:00)
[2019-07-19] MEDS: PIPERACILLIN/TAZOBACTAM SOD 3.375 GM in D5W MINI-BAG PLUS 50 ML IV SCH ×4 (03:38→22:53)
[2019-07-19] MEDS: NS 1,000 ML IV SCH ×2 (05:00→10:39)
[2019-07-19 05:18] LABS: HEMATOCRIT 41.2 % (36.0-47.0); HEMOGLOBIN 12.5 g/dl (12.0-15.5); MEAN CORPUSCULAR HEMOGLOBIN 28.3 pg (27.0-33.0); MEAN CORPUSCULAR HGB CONC 30.3 g/dl (32.0-36.5); MEAN CORPUSCULAR VOLUME 93.2 fl (80.0-96.0); PLATELET COUNT, AUTOMATED 211 10^3/uL (150-450); RED BLOOD COUNT 4.42 10^6/uL (4.00-5.40); WHITE BLOOD COUNT 16.7 10^3/uL (4.0-10.0)
[2019-07-19 05:32] LABS: INR 1.38; PROTHROMBIN TIME 16.7 SECONDS (11.8-14.0)
[2019-07-19 05:46] LABS: ALBUMIN 2.5 GM/DL (3.2-5.2); ALT/SGPT 21 U/L (12-78); BILIRUBIN,TOTAL 0.7 MG/DL (0.2-1.0); BLOOD UREA NITROGEN 21 MG/DL (7-18); CALCIUM LEVEL 8.1 MG/DL (8.8-10.2); CARBON DIOXIDE LEVEL 30 MEQ/L (21-32); CHLORIDE LEVEL 104 MEQ/L (98-107); CREATININE FOR GFR 0.91 MG/DL (0.55-1.30); GLOMERULAR FILTRATION RATE > 60.0 (>32); GLUCOSE, FASTING 216 MG/DL (70-100); MAGNESIUM LEVEL 1.7 MG/DL (1.8-2.4); POTASSIUM SERUM 3.6 MEQ/L (3.5-5.1); SODIUM LEVEL 140 MEQ/L (136-145)
[2019-07-19] MEDS: TIOTROPIUM INHALER/CAPSULE (SPIRIVA) INH SCH (08:11)
[2019-07-19] MEDS: SYMBICORT 160/4.5MCG INHALER 6GM INH SCH ×2 (08:11→20:54)
[2019-07-19] MEDS ORDERED: MORPHINE 2 MG/ML 1ML VIAL (J2270) IV PRN (08:15)
[2019-07-19] MEDS: HEPARIN SOD (PORCINE) 5000 UNITS/ML VIAL SC SCH ×2 (08:23→22:17)
[2019-07-19] MEDS: METOPROLOL 5 MG/5 ML VIAL IV PRN ×3 (08:24→20:41)
[2019-07-19] MEDS: LEVEMIR (INSULIN DETEMIR) 1 UNITS/0.01ML SC SCH ×2 (08:27→22:18)
[2019-07-19] MEDS: POTASSIUM CHLORIDE 10 MEQ SR TABLET PO SCH (09:00)
[2019-07-19] MEDS: SENOKOT S TAB PO SCH ×2 (09:00→20:59)
[2019-07-19] MEDS ORDERED: GABAPENTIN 300 MG CAP PO SCH (09:00)
[2019-07-19] MEDS: METOPROLOL TART 25 MG TABLET PO SCH ×2 (09:00→20:59)
[2019-07-19] MEDS ORDERED: LEVEMIR (INSULIN DETEMIR) 1 UNITS/0.01ML SC SCH (09:00)
[2019-07-19] MEDS: VITAMIN D 1,000 INTERNATIONAL UNITS TABLET PO SCH (09:00)
[2019-07-19] MEDS ORDERED: FUROSEMIDE 20 MG TAB PO SCH (09:00)
[2019-07-19] MEDS: ASPIRIN 81 MG ENTERIC TAB PO SCH (09:00)
[2019-07-19] MEDS: DULoxetine 30 MG CAP (CYMBALTA) PO SCH ×2 (09:00→20:59)
[2019-07-19] MEDS: fentaNYL 50 MCG/HR PATCH TD SCH (10:27)
--- NOTE | 2019-07-19 10:46 | IPNPDOC ---
Text Note Date of Service The patient was seen on 07/19/19. NOTE Subjective: Patient is lethargic today, moaning, not oriented. Patient is sep with fever 100.4. No any acute events overnight. 2 large bowel movements overnight Objective: VITAL SIGNS: Please see below. GENERAL APPEARANCE: Somnolent, lethargic female, follows simple command HEENT: Normocephalic, atraumatic. Mucous members moist and pink CARDIOVASCULAR: Tachycardic. No murmurs, rubs or gallops. Radial pulses are intact. There is no lower extremity edema LUNGS: Scattered rhonchi bilaterally ABDOMEN: Bowel sounds are hypoactive. Abdomen is soft and nontender. MUSCULOSKELETAL: Range of motion is intact in all 4 extremities NEUROLOGICAL: No nuchal rigidity, moves all limbs, nonfocal Echocardiogram The study is of extremely limited technical quality. There are no parasternal views, limited apical views and very limited subcostal views. Left ventricle appears to have grossly preserved systolic function. Same applies for the right ventricle. I cannot comment on size of the atria. Limited views of aortic and mitral valve exhibit mild degenerative abnormalities. I cannot comment much more on structure of the valves. Right-sided heart valves were not visualized at all. Pericardial fat pad is noted. Inferior vena cava is normal size. Limited Doppler interrogation reveals no significant aortic and mitral valvular disease. CONCLUSION 1. Study is of markedly limited technical quality. 2. Grossly preserved left ventricle (LV) and right ventricle (RV) systolic function. 3. No hemodynamically significant aortic and mitral valvular disease. 4. Right-sided heart valves were not evaluated. 5. Probably normal central venous pressure. 6. Grade 1 diastolic dysfunction. Patient is 79 years old female with past medical history of hypertension, hyperlipidemia, diabetes, COPD, right breast cancer, psoriasis presented hospital with altered mental status. Patient was found to have unresponsive in the bed in the [facility] facility and brought to the hospital. In emergency room patient was found to have fever of 100.5, leukocytosis of 21.1, lactic acid 5.6, glucose level 323, BMP 1033. CT chest shows cardiomegaly with element of possibly chronic pulmonary vascular congestion, lower lobe consolidations (left greater than right) and small left pleural effusion consistent with pneumonia. Problems (1) Sepsis Most likely secondary to pneumonia Patient febrile has leukocytosis which is improved today, bilateral infiltrates on the CT chest Continue gentle Iv fluid due to elevated BNP Vancomycin IV, Zosyn IV Blood culture, sputum culture (2) Pneumonia Acute Bilateral pneumonia most likely, could be secondary to aspiration Incentive spirometry Vancomycin IV, Zosyn IV (3) Metabolic encephalopathy Secondary to sepsis due to pneumonia See above Blood gas within normal limit (4) Diabetes mellitus Insulin sliding scale, detemir twice a day. Hyperglycemia improved today. I increased the dose of Levemir (5) Lactic acidosis Secondary to sepsis Continue to monitor (6) Abdominal pain Unclear etiology Patient complains of diffuse tenderness CT abdomen on 07/19/19 showed no acute pathology CHF diastolic We'll resume diuresis after sepsis resolution VS,Fishbone, I+O VS, Fishbone, I+O Laboratory Tests 07/18/19 14:26 07/19/19 04:45 Vital Signs Date Time Temp Pulse Resp B/P (MAP) Pulse Ox O2 Delivery O2 Flow Rate FiO2 07/19/19 10:27 23 07/19/19 08:51 100.6 90 133/89 (104) 93 Nasal Cannula 1.0 I&O- Last 24 Hours up to 6 AM 07/19/19 06:00 Intake Total 3140 ml Output Total 2350 ml Balance 790 ml MERI CESAR DO Jul 19, 2019 10:46
[2019-07-19] MEDS ORDERED: METOPROLOL 5 MG/5 ML VIAL IV STA (12:33)
[2019-07-19] MEDS: MORPHINE 2 MG/ML 1ML VIAL (J2270) IV PRN (12:54)
[2019-07-19] MEDS: VANCOMYCIN HCL 1,000 MG, VIAL MATE ADAPTER 1 EACH in D5W 250 ML IV SCH (13:00)
[2019-07-19] MEDS ORDERED: hydrALAZINE INJ 20 MG/ML VIAL IV STA (13:07)
[2019-07-19] MEDS ORDERED: hydrALAZINE INJ 20 MG/ML VIAL IV PRN (13:15)
[2019-07-19] MEDS: KCL 40MEQ in NS 1000ML 1,000 ML IV SCH (13:32)
[2019-07-19] MEDS ORDERED: MAG SULF 1GM/100ML (MAG RUN) 1 GM in IV 1 EA IV ONE (14:00)
[2019-07-19 14:03] LABS: BASO % 0.2 % (0.0-1.0); HEMATOCRIT 40.6 % (36.0-47.0); HEMOGLOBIN 12.7 g/dl (12.0-15.5); LYMPH % 7.2 % (24.0-44.0); MEAN CORPUSCULAR HEMOGLOBIN 28.8 pg (27.0-33.0); MEAN CORPUSCULAR HGB CONC 31.3 g/dl (32.0-36.5); MEAN CORPUSCULAR VOLUME 92.1 fl (80.0-96.0); MONO # 0.9 10^3/uL (0.0-0.8); MONO % 6.6 % (0.0-5.0); NEUTROPHILS % 85.3 % (36.0-66.0); PLATELET COUNT, AUTOMATED 195 10^3/uL (150-450); RED BLOOD COUNT 4.41 10^6/uL (4.00-5.40); WHITE BLOOD COUNT 14.1 10^3/uL (4.0-10.0)
[2019-07-19 14:25] LABS: ALBUMIN 2.5 GM/DL (3.2-5.2); ALT/SGPT 26 U/L (12-78); BILIRUBIN,TOTAL 0.7 MG/DL (0.2-1.0); BLOOD UREA NITROGEN 17 MG/DL (7-18); CALCIUM LEVEL 8.4 MG/DL (8.8-10.2); CARBON DIOXIDE LEVEL 30 MEQ/L (21-32); CHLORIDE LEVEL 106 MEQ/L (98-107); CREATININE FOR GFR 0.71 MG/DL (0.55-1.30); GLOMERULAR FILTRATION RATE > 60.0 (>32); GLUCOSE, FASTING 218 MG/DL (70-100); POTASSIUM SERUM 3.5 MEQ/L (3.5-5.1); SODIUM LEVEL 141 MEQ/L (136-145); TOTAL PROTEIN 6.9 GM/DL (6.4-8.2)
[2019-07-19] MEDS ORDERED: LORazepam 2 MG/ML VIAL (J2060) IM STA ×2 (14:58→15:05)
--- NOTE | 2019-07-19 16:26 | REP ---
Clinical: Central line placement. Comparison: 07/18/2019. Findings: Right central venous catheter with tip in the SVC. No obvious pneumothorax. Mediastinum, cardiac silhouette, and lung gonzalez are unchanged. Impression: Central venous catheter with tip in the SVC. No obvious pneumothorax. Electronically Signed by Drew Cunha MD 07/19/2019 04:18 P
[2019-07-19 17:06] LABS: VANCOMYCIN LEVEL TROUGH 5.6 UG/ML (10.0-20.0)
[2019-07-19] MEDS ORDERED: SODIUM CHLORIDE 0.9% INJ 10 ML SYR IV PRN (17:15)
[2019-07-19] MEDS: DOXYCYCLINE HYCLATE 100 MG in D5W MINI-BAG PLUS 100 ML IV SCH (18:43)
[2019-07-19] MEDS: KETOROLAC 30 MG/ML VIAL (J1885) IV PRN (18:58)
[2019-07-19] MEDS ORDERED: ACETAMINOPHEN *IV* 1,000 MG in IV 1 EA IV ONE (20:45)
[2019-07-19] MEDS: ATORVASTATIN 20 MG TAB PO SCH (20:59)
[2019-07-19] MEDS ORDERED: hydrALAZINE INJ 20 MG/ML VIAL IV ONE (22:30)
[2019-07-19] MEDS ORDERED: hydrALAZINE INJ 20 MG/ML VIAL As Ordered ONE (22:33)
--- NOTE | 2019-07-19 23:02 | ECGEPIP ---
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
[2019-07-20] VITALS (58 sets, daily range): BP systolic 133–216; BP diastolic 63–89
[2019-07-20] MEDS: HumaLOG INSULIN (NovoLOG) PER UNIT SC SCH ×4 (00:21→18:26)
[2019-07-20] MEDS: SODIUM CHLORIDE 0.9% INJ 10 ML SYR IV SCH ×4 (00:22→21:17)
[2019-07-20] MEDS: KCL 40MEQ in NS 1000ML 1,000 ML IV SCH ×3 (00:23→08:12)
[2019-07-20] MEDS: MORPHINE 2 MG/ML 1ML VIAL (J2270) IV PRN ×4 (00:30→17:00)
[2019-07-20] MEDS: METOPROLOL 5 MG/5 ML VIAL IV PRN ×3 (01:03→10:49)
[2019-07-20] MEDS: PIPERACILLIN/TAZOBACTAM SOD 3.375 GM in D5W MINI-BAG PLUS 50 ML IV SCH ×4 (04:15→21:45)
[2019-07-20] MEDS: DOXYCYCLINE HYCLATE 100 MG in D5W MINI-BAG PLUS 100 ML IV SCH ×2 (05:07→19:35)
[2019-07-20 05:27] LABS: BASO % 0.2 % (0.0-1.0); EOS % 0.1 % (0.0-3.0); HEMATOCRIT 39.8 % (36.0-47.0); HEMOGLOBIN 11.9 g/dl (12.0-15.5); LYMPH # 1.2 10^3/uL (1.5-5.0); LYMPH % 8.8 % (24.0-44.0); MEAN CORPUSCULAR HEMOGLOBIN 28.3 pg (27.0-33.0); MEAN CORPUSCULAR HGB CONC 29.9 g/dl (32.0-36.5); MEAN CORPUSCULAR VOLUME 94.5 fl (80.0-96.0); MONO # 1.1 10^3/uL (0.0-0.8); MONO % 7.9 % (0.0-5.0); NEUTROPHILS # 11.1 10^3/uL (1.5-8.5); PLATELET COUNT, AUTOMATED 179 10^3/uL (150-450); RED BLOOD COUNT 4.21 10^6/uL (4.00-5.40); WHITE BLOOD COUNT 13.5 10^3/uL (4.0-10.0)
[2019-07-20 05:39] LABS: INR 1.29; PROTHROMBIN TIME 15.8 SECONDS (11.8-14.0)
[2019-07-20 05:58] LABS: BLOOD UREA NITROGEN 15 MG/DL (7-18); CALCIUM LEVEL 7.8 MG/DL (8.8-10.2); CARBON DIOXIDE LEVEL 30 MEQ/L (21-32); CHLORIDE LEVEL 111 MEQ/L (98-107); CREATININE FOR GFR 0.63 MG/DL (0.55-1.30); GLOMERULAR FILTRATION RATE > 60.0 (>32); GLUCOSE, FASTING 167 MG/DL (70-100); MAGNESIUM LEVEL 2.1 MG/DL (1.8-2.4); POTASSIUM SERUM 3.8 MEQ/L (3.5-5.1); SODIUM LEVEL 146 MEQ/L (136-145)
[2019-07-20] MEDS: hydrALAZINE INJ 20 MG/ML VIAL IV PRN (06:34)
[2019-07-20] MEDS ORDERED: hydrALAZINE INJ 20 MG/ML VIAL IV ONE ×3 (08:00→13:45)
[2019-07-20] MEDS: TIOTROPIUM INHALER/CAPSULE (SPIRIVA) INH SCH (08:00)
[2019-07-20] MEDS: HEPARIN SOD (PORCINE) 5000 UNITS/ML VIAL SC SCH ×2 (08:11→21:17)
[2019-07-20] MEDS: LEVEMIR (INSULIN DETEMIR) 1 UNITS/0.01ML SC SCH ×2 (08:11→21:17)
[2019-07-20] MEDS: ACETAMINOPHEN 650 MG SUPP PR PRN (08:19)
[2019-07-20] MEDS: DULoxetine 30 MG CAP (CYMBALTA) PO SCH ×2 (09:00→21:00)
[2019-07-20] MEDS: POTASSIUM CHLORIDE 10 MEQ SR TABLET PO SCH (09:00)
[2019-07-20] MEDS: VITAMIN D 1,000 INTERNATIONAL UNITS TABLET PO SCH (09:00)
[2019-07-20] MEDS: ASPIRIN 81 MG ENTERIC TAB PO SCH (09:00)
[2019-07-20] MEDS: METOPROLOL TART 25 MG TABLET PO SCH ×2 (09:00→21:00)
[2019-07-20] MEDS: predniSONE 2.5 MG TAB PO SCH (09:00)
[2019-07-20] MEDS: SENOKOT S TAB PO SCH ×2 (09:00→21:00)
[2019-07-20] MEDS: SYMBICORT 160/4.5MCG INHALER 6GM INH SCH ×2 (09:00→21:00)
[2019-07-20] MEDS ORDERED: hydrALAZINE INJ 20 MG/ML VIAL IV PRN (09:15)
[2019-07-20] MEDS: KETOROLAC 30 MG/ML VIAL (J1885) IV PRN ×2 (10:14→18:27)
--- NOTE | 2019-07-20 11:17 | IPNPDOC ---
Text Note Date of Service The patient was seen on 07/20/19. NOTE Subjective: Patient continues be lethargic today, moaning, not oriented. Patient is afebrile in the morning. Patient had few episodes of hypertensive urgency overnight. Objective: VITAL SIGNS: Please see below. GENERAL APPEARANCE: Somnolent, lethargic female, consistently moaning, follows simple command HEENT: Normocephalic, atraumatic. Mucous members moist and pink CARDIOVASCULAR: Tachycardic. No murmurs, rubs or gallops. Radial pulses are intact. There is no lower extremity edema LUNGS: Scattered rhonchi bilaterally ABDOMEN: Bowel sounds are hypoactive. Abdomen is soft and nontender. MUSCULOSKELETAL: Range of motion is intact in all 4 extremities NEUROLOGICAL: No nuchal rigidity, moves all limbs, nonfocal Patient is 79 years old female with past medical history of hypertension, hyperlipidemia, diabetes, COPD, right breast cancer, psoriasis presented hospital with altered mental status. Patient was found to have unresponsive in the bed in the alf facility and brought to the hospital. In emergency room patient was found to have fever of 100.5, leukocytosis of 21.1, lactic acid 5.6, glucose level 323, BMP 1033. CT chest shows cardiomegaly with element of possibly chronic pulmonary vascular congestion, lower lobe consolidations (left greater than right) and small left pleural effusion consistent with pneumonia. Problems (1) Sepsis Most likely secondary to pneumonia Patient afebrile in the morning continues to have some leukocytosis which is improved today, bilateral infiltrates on the CT chest Continue gentle Iv fluid due to elevated BNP Vancomycin IV, Zosyn IV Doxycycline IV was added yesterday by Dr. Mahoney Blood culture no growth for 48 hours (2) Pneumonia Acute Bilateral pneumonia most likely, could be secondary to aspiration Incentive spirometry Continue antibiotics treatment (3) Metabolic encephalopathy Secondary to sepsis due to pneumonia See above Previous blood gas within normal limit (4) Diabetes mellitus Insulin sliding scale, detemir twice a day. Hyperglycemia improved today. (5) Lactic acidosis Secondary to sepsis Continue to monitor (6) Abdominal pain Resolved Unclear etiology Patient complains of diffuse tenderness CT abdomen on 07/19/19 showed no acute pathology CHF diastolic Non in acute exacerbation We'll resume diuresis after sepsis resolution Hypertensive urgency Metoprolol IV when necessary Hydralazine IV when necessary I decreased IV fluid rate to 90 cc per h VS,[place]+O VS, Fishbone, I+O Laboratory Tests 07/19/19 13:29 07/20/19 05:14 Vital Signs Date Time Temp Pulse Resp B/P (MAP) Pulse Ox O2 Delivery O2 Flow Rate FiO2 07/20/19 10:49 120 194/82 07/20/19 10:35 22 07/20/19 10:15 Nasal Cannula 1.0 07/20/19 10:01 99.3 07/20/19 09:53 95 I&O- Last 24 Hours up to 6 AM 07/20/19 06:00 Intake Total 860 ml Output Total 1675 ml Balance -815 ml MERI CESAR DO Jul 20, 2019 11:17
[2019-07-20] MEDS ORDERED: LABETALOL HCL 100 MG/20 ML VIAL IV STA (15:15)
[2019-07-20] MEDS ORDERED: NS 1,000 ML IV SCH (16:30)
[2019-07-20] MEDS ORDERED: LABETALOL HCL 200 MG in D5W 160 ML IV SCH (16:30)
[2019-07-20] MEDS: LABETALOL HCL 200 MG in D5W 160 ML IV SCH (18:26)
--- NOTE | 2019-07-20 19:43 | REPVR ---
PROCEDURE INFORMATION: Exam: CT Head Without Contrast Exam date and time: 07/20/2019 6:52 PM Age: 79 years old Clinical history: Altered mental status/memory loss; Additional info: AMS TECHNIQUE: Imaging protocol: Computed tomography of the head without contrast. Radiation optimization: All CT scans at this facility use at least one of these dose optimization techniques: automated exposure control; mA and/or kV adjustment per patient size (includes targeted exams where dose is matched to clinical indication); or iterative reconstruction. COMPARISON: CT Head without contrast 07/18/2019 8:23 AM FINDINGS: Brain: There is no evidence of intracranial bleed. Aggarwal-white differentiation appears preserved. There is no evidence of mass effect. There is prominence of the ventricles and cerebral sulci probably the result of moderate atrophy. Bones/joints: There is no evidence of fracture. Sinuses: Clear paranasal sinuses. IMPRESSION: Moderate atrophy. Electronically signed by: Aníbal Mcfarland On 07/20/2019 19:42:55 PM
[2019-07-20] MEDS: ATORVASTATIN 20 MG TAB PO SCH (21:00)
[2019-07-21] VITALS (74 sets, daily range): BP systolic 122–195; BP diastolic 60–82
[2019-07-21] MEDS: MORPHINE 2 MG/ML 1ML VIAL (J2270) IV PRN (00:34)
[2019-07-21] MEDS: HumaLOG INSULIN (NovoLOG) PER UNIT SC SCH ×5 (00:35→23:26)
[2019-07-21] MEDS: KETOROLAC 30 MG/ML VIAL (J1885) IV PRN (00:52)
[2019-07-21] MEDS ORDERED: diphenhydrAMINE INJ 50MG/ML VIAL (J1200) IV ONE (01:30)
[2019-07-21] MEDS: LABETALOL HCL 200 MG in D5W 160 ML IV SCH (03:00)
[2019-07-21] MEDS: niCARdipine IV 40 MG in IV 1 EA IV SCH ×9 (04:51→23:27)
[2019-07-21] MEDS: PIPERACILLIN/TAZOBACTAM SOD 3.375 GM in D5W MINI-BAG PLUS 50 ML IV SCH ×4 (04:51→21:06)
[2019-07-21 05:01] LABS: BASO % 0.3 % (0.0-1.0); EOS # 0.2 10^3/uL (0.0-0.5); EOS % 1.7 % (0.0-3.0); HEMOGLOBIN 10.9 g/dl (12.0-15.5); LYMPH # 1.3 10^3/uL (1.5-5.0); LYMPH % 14.8 % (24.0-44.0); MEAN CORPUSCULAR HEMOGLOBIN 28.3 pg (27.0-33.0); MEAN CORPUSCULAR HGB CONC 30.3 g/dl (32.0-36.5); MEAN CORPUSCULAR VOLUME 93.5 fl (80.0-96.0); MONO # 0.5 10^3/uL (0.0-0.8); MONO % 5.8 % (0.0-5.0); NEUTROPHILS # 6.9 10^3/uL (1.5-8.5); NEUTROPHILS % 76.7 % (36.0-66.0); PLATELET COUNT, AUTOMATED 167 10^3/uL (150-450); RED BLOOD COUNT 3.85 10^6/uL (4.00-5.40)
[2019-07-21 05:12] LABS: INR 1.26; PROTHROMBIN TIME 15.5 SECONDS (11.8-14.0)
[2019-07-21 05:29] LABS: BLOOD UREA NITROGEN 15 MG/DL (7-18); CALCIUM LEVEL 7.3 MG/DL (8.8-10.2); CARBON DIOXIDE LEVEL 30 MEQ/L (21-32); CHLORIDE LEVEL 113 MEQ/L (98-107); CREATININE FOR GFR 0.58 MG/DL (0.55-1.30); GLOMERULAR FILTRATION RATE > 60.0 (>32); GLUCOSE, FASTING 108 MG/DL (70-100); MAGNESIUM LEVEL 1.9 MG/DL (1.8-2.4); POTASSIUM SERUM 3.5 MEQ/L (3.5-5.1); SODIUM LEVEL 149 MEQ/L (136-145)
[2019-07-21] MEDS: DOXYCYCLINE HYCLATE 100 MG in D5W MINI-BAG PLUS 100 ML IV SCH ×2 (06:23→17:35)
[2019-07-21] MEDS: SODIUM CHLORIDE 0.9% INJ 10 ML SYR IV SCH ×3 (06:23→21:00)
--- NOTE | 2019-07-21 07:12 | CR ---
INFECTIOUS DISEASE CONSULTATION DATE OF CONSULTATION: 07/19/2019 TIME: 5:00 p.m. REASON FOR CONSULTATION: I was asked to consult by hospitalist for evaluation of fever, pneumonia and metabolic encephalopathy. HISTORY OF PRESENT ILLNESS: Mrs. Kennedy is a 79-year-old female fpc resident at [facility] who is usually pretty independent, walks with a walker and has normal mental status. The patient had spent Thanksgiving with her family. She was found to be poorly responsive at the fpc with fever of 100.5. On admission, her white count was 21,000. The patient had a mild cough and chest x-ray done in the emergency room was consistent with lower lobe consolidation and pleural effusion. The patient was given IV fluid, broad-spectrum antibiotics with vancomycin and Zosyn. The patient has remained febrile for the past 36 hours, very lethargic, poorly responsive. She opens her eyes and moans and groans, but is not able to verbalize. PAST MEDICAL HISTORY: Significant for: Hypertension. Hyperlipidemia. Diabetes. Chronic obstructive pulmonary disease (COPD). Right breast cancer. Psoriasis. MEDICATIONS: - Tylenol as needed - aspirin 81 mg daily - atorvastatin 20 mg daily - Symbicort 160/4.5 two puffs twice a day - vitamin D 3000 units daily - duloxetine 30 mg twice a day - furosemide 40 mg daily - gabapentin 800 mg by mouth daily, 1200 mg at noon and 1000 mg at bedtime - artificial appears four times a day - guaifenesin - Levemir 100 units/mL 22 units in the morning, 15 units at night - sliding scale Humalog - lisinopril 40 mg by mouth daily - potassium chloride 20 mEq daily - prednisone 2.5 mg every other day - Senokot-S 1 tablet by mouth twice a day - Spiriva 18 mcg daily - fentanyl patch to the left shoulder every 3 days - vancomycin 1 gram IV every 24 hours - Zosyn 4.5 grams IV every 6 hours ALLERGIES: 1. HYDROXYZINE. LABORATORY DATA White count 14.1 down from a 21.1, hemoglobin 12.7, hematocrit 40.6, platelets 195, 85% neutrophils, 8% lymphocytes, 6% monocytes. Sodium 141, potassium 3.5, chloride 106, bicarb 30, BUN 17, creatinine 0.71, glucose 218, calcium 8.4, bilirubin 0.7, AST 23, ALT 26, alkaline phosphatase 67, albumin 2.5. Vancomycin trough was 5.6. Serology: Methicillin-resistant Staphylococcus aureus (MRSA) screen was not detected. Urine Legionella antigen and pneumococcal antigen was sent but the results are not available. Urinalysis had 0 white cells, 1 red cell. Blood cultures were no growth after 24 hours and respiratory panel was negative. IMAGING: CT abdomen and pelvis done on 07/19 showed mild fecal stasis. Left renal parapelvic cystic changes with chronic hydronephrosis. Basilar consolidation consistent with pneumonia. CT chest also showed basilar consolidation consistent with pneumonia. Head CT showed atrophy and microvascular ischemic changes. No acute intracranial hemorrhage. PHYSICAL EXAMINATION: On physical exam she is a lethargic, elderly female in no acute distress. There are six family members visiting in the room. VITAL SIGNS: Temperature 102.2, pulse 103, respirations 28, O2 sat 93% on 1 liter nasal cannula. HEART: Normal S1-S2 tachycardic. No murmurs appreciated. LUNGS: Decreased breath sounds at the bases. Few expiratory rhonchi. ABDOMEN: Soft, mildly tender in the left lower quadrant. The patient moans whenever her abdomen is pressed there, but there is no guarding. Bowel sounds are present. EXTREMITIES: No clubbing, cyanosis or edema. +2 dorsalis pedis pulses. She has prominent varicose veins in her feet. SKIN: No rash. No lesions. NECK: Is supple. No stiffness. Opens her eyes whenever her neck is bent, she does not seem to be in any pain with that movement. Her lips are very dry. No oral lesions. Edentulous. No adenopathy. Echocardiogram extremely limited due to technical quality. Preserved left ventricular function and right ventricular function. Grade 1 diastolic dysfunction. IMPRESSION: This is an 79-year-old female who was admitted with fever, leukocytosis, lactic acidosis, and sepsis with by basilar pneumonia. The patient has been on IV vancomycin and Zosyn and has had persistent fever and lethargy for the past 36 hours. Her MRSA screen was negative. The patient is on chronic steroids probably related to her COPD, even though at low-dose she is at risk of having also Legionnaire's disease and this is not being covered with current antibiotic choices. Legionella antigen has been ordered but is still pending. I doubt she has meningitis or encephalitis. The patient does not seem to have a headache. No seizures. I suspect her sepsis is only related to pneumonia. PLAN: Discontinue IV vancomycin and switch to IV doxycycline, that would cover for MRSA, even though my suspicion that this is MRSA is very low, as well as for atypical and Legionnaire's disease. I will order a procalcitonin baseline. Discontinue IV vancomycin. Continue Zosyn at current dose 4.5 grams every 6 hours. If the patient continues to be lethargic or febrile, I would suggest obtaining a lumbar puncture, although my suspicion for meningitis is low. Thank you for the consultation.
[2019-07-21] MEDS: KCL 40MEQ in NS 1000ML 1,000 ML IV SCH ×2 (07:59→20:30)
[2019-07-21] MEDS: HEPARIN SOD (PORCINE) 5000 UNITS/ML VIAL SC SCH ×2 (08:00→20:30)
[2019-07-21] MEDS: LEVEMIR (INSULIN DETEMIR) 1 UNITS/0.01ML SC SCH ×2 (08:01→20:31)
[2019-07-21] MEDS: VITAMIN D 1,000 INTERNATIONAL UNITS TABLET PO SCH (09:00)
[2019-07-21] MEDS ORDERED: POTASSIUM CHLORIDE 10 MEQ SR TABLET PO SCH (09:00)
[2019-07-21] MEDS: ASPIRIN 81 MG ENTERIC TAB PO SCH (09:00)
[2019-07-21] MEDS: SENOKOT S TAB PO SCH ×2 (09:00→20:23)
[2019-07-21] MEDS: DULoxetine 30 MG CAP (CYMBALTA) PO SCH ×2 (09:00→20:22)
[2019-07-21] MEDS: METOPROLOL TART 25 MG TABLET PO SCH ×2 (09:00→20:22)
--- NOTE | 2019-07-21 11:00 | IPNPDOC ---
Text Note Date of Service The patient was seen on 07/21/19. NOTE Subjective: Patient improved today in mental status, patient oriented in place, she was able to recognize persons. Patient continues to have elevated blood pressure currently she is on Nicardipine drip Objective: VITAL SIGNS: Please see below. GENERAL APPEARANCE: Somnolent, lethargic female, consistently moaning, follows simple command HEENT: Normocephalic, atraumatic. Mucous members moist and pink CARDIOVASCULAR: Tachycardic. No murmurs, rubs or gallops. Radial pulses are intact. There is no lower extremity edema LUNGS: Scattered rhonchi bilaterally ABDOMEN: Bowel sounds are hypoactive. Abdomen is soft and nontender. MUSCULOSKELETAL: Range of motion is intact in all 4 extremities NEUROLOGICAL: No nuchal rigidity, moves all limbs, nonfocal Patient is 79 years old female with past medical history of hypertension, hyperlipidemia, diabetes, COPD, right breast cancer, psoriasis presented hospital with altered mental status. Patient was [facility] to [facility] the hospital. In emergency room patient was found to have fever of 100.5, leukocytosis of 21.1, lactic acid 5.6, glucose level 323, BMP 1033. CT chest shows cardiomegaly with element of possibly chronic pulmonary vascular congestion, lower lobe consolidations (left greater than right) and small left pleural effusion consistent with pneumonia. Problems (1) Sepsis Most likely secondary to pneumonia, bilateral infiltrates on the CT chest Patient afebrile, leukocytes count improved Continue gentle Iv fluid due to elevated blood pressure Vancomycin IV DC, continue Zosyn IV, Doxycycline IV Blood culture no growth for 72 hours (2) Pneumonia Acute Bilateral pneumonia most likely, could be secondary to aspiration Incentive spirometry Continue antibiotics treatment Aspiration precaution (3) Metabolic encephalopathy Secondary to sepsis due to pneumonia. Significantly improved today, patient is able to recognize persons and she is oriented to place See above Previous blood gas within normal limit (4) Diabetes mellitus Insulin sliding scale, detemir twice a day. Glucose levels under control (5) Lactic acidosis Secondary to sepsis Continue to monitor (6) Abdominal pain Resolved CT abdomen on 07/19/19 showed no acute pathology CHF diastolic Non in acute exacerbation We'll resume diuresis after sepsis resolution Hypertensive urgency Nicardipine drip with parameters VS,Fishbone, I+O VS, Fishbone, I+O Laboratory Tests 07/21/19 04:45 Vital Signs Date Time Temp Pulse Resp B/P (MAP) Pulse Ox O2 Delivery O2 Flow Rate FiO2 07/21/19 10:15 91 154/67 (96) 90 Room Air 07/21/19 08:15 97.8 87 07/21/19 08:00 2.0 I&O- Last 24 Hours up to 6 AM0 07/21/19 06:00 Intake Total 1472.5 ml Output Total 475 ml Balance 997.5 ml MERI CESAR DO Jul 21, 2019 11:00
[2019-07-21] MEDS: SYMBICORT 160/4.5MCG INHALER 6GM INH SCH ×2 (12:23→20:47)
[2019-07-21] MEDS: TIOTROPIUM INHALER/CAPSULE (SPIRIVA) INH SCH (12:23)
[2019-07-21] MEDS: NYSTATIN 500,000 U/5 ML SUSP UDC PO SCH ×2 (16:54→20:30)
[2019-07-21] MEDS: ACETAMINOPHEN 650 MG SUPP PR PRN (18:14)
[2019-07-21] MEDS: ATORVASTATIN 20 MG TAB PO SCH (20:22)
[2019-07-22] VITALS (67 sets, daily range): BP systolic 129–177; BP diastolic 55–73
[2019-07-22] MEDS ORDERED: diphenhydrAMINE 25 MG CAP PO ONE (02:30)
[2019-07-22] MEDS: niCARdipine IV 40 MG in IV 1 EA IV SCH ×6 (02:36→22:30)
[2019-07-22] MEDS ORDERED: diphenhydrAMINE INJ 50MG/ML VIAL (J1200) IV ONE (02:45)
[2019-07-22] MEDS: PIPERACILLIN/TAZOBACTAM SOD 3.375 GM in D5W MINI-BAG PLUS 50 ML IV SCH ×4 (03:40→22:17)
[2019-07-22] MEDS: HumaLOG INSULIN (NovoLOG) PER UNIT SC SCH ×4 (06:19→23:57)
[2019-07-22] MEDS: SODIUM CHLORIDE 0.9% INJ 10 ML SYR IV SCH ×3 (06:19→22:18)
[2019-07-22] MEDS: DOXYCYCLINE HYCLATE 100 MG in D5W MINI-BAG PLUS 100 ML IV SCH ×2 (06:20→17:43)
[2019-07-22 06:24] LABS: BASO % 0.4 % (0.0-1.0); EOS # 0.2 10^3/uL (0.0-0.5); EOS % 1.7 % (0.0-3.0); HEMATOCRIT 36.7 % (36.0-47.0); HEMOGLOBIN 11.3 g/dl (12.0-15.5); LYMPH # 1.5 10^3/uL (1.5-5.0); LYMPH % 15.5 % (24.0-44.0); MEAN CORPUSCULAR HEMOGLOBIN 28.5 pg (27.0-33.0); MEAN CORPUSCULAR HGB CONC 30.8 g/dl (32.0-36.5); MEAN CORPUSCULAR VOLUME 92.4 fl (80.0-96.0); MONO # 0.7 10^3/uL (0.0-0.8); MONO % 7.5 % (0.0-5.0); NEUTROPHILS # 6.8 10^3/uL (1.5-8.5); NEUTROPHILS % 73.1 % (36.0-66.0); PLATELET COUNT, AUTOMATED 190 10^3/uL (150-450); RED BLOOD COUNT 3.97 10^6/uL (4.00-5.40); WHITE BLOOD COUNT 9.3 10^3/uL (4.0-10.0)
[2019-07-22 06:39] LABS: INR 1.24; PROTHROMBIN TIME 15.3 SECONDS (11.8-14.0)
[2019-07-22 06:54] LABS: BLOOD UREA NITROGEN 9 MG/DL (7-18); CALCIUM LEVEL 8.2 MG/DL (8.8-10.2); CARBON DIOXIDE LEVEL 27 MEQ/L (21-32); CHLORIDE LEVEL 112 MEQ/L (98-107); CREATININE FOR GFR 0.58 MG/DL (0.55-1.30); GLOMERULAR FILTRATION RATE > 60.0 (>32); GLUCOSE, FASTING 149 MG/DL (70-100); MAGNESIUM LEVEL 1.8 MG/DL (1.8-2.4); POTASSIUM SERUM 3.3 MEQ/L (3.5-5.1); SODIUM LEVEL 145 MEQ/L (136-145)
[2019-07-22] MEDS: SYMBICORT 160/4.5MCG INHALER 6GM INH SCH ×2 (08:16→20:14)
[2019-07-22] MEDS: TIOTROPIUM INHALER/CAPSULE (SPIRIVA) INH SCH (08:16)
[2019-07-22] MEDS: VITAMIN D 1,000 INTERNATIONAL UNITS TABLET PO SCH (08:42)
[2019-07-22] MEDS: predniSONE 2.5 MG TAB PO SCH (08:42)
[2019-07-22] MEDS: METOPROLOL TART 25 MG TABLET PO SCH ×3 (08:42→21:02)
[2019-07-22] MEDS: DULoxetine 30 MG CAP (CYMBALTA) PO SCH ×2 (08:42→21:01)
[2019-07-22] MEDS: ASPIRIN 81 MG ENTERIC TAB PO SCH (08:42)
[2019-07-22] MEDS: SENOKOT S TAB PO SCH ×2 (08:42→21:02)
[2019-07-22] MEDS: NYSTATIN 500,000 U/5 ML SUSP UDC PO SCH ×4 (09:54→20:59)
[2019-07-22] MEDS: LEVEMIR (INSULIN DETEMIR) 1 UNITS/0.01ML SC SCH ×2 (09:54→21:00)
[2019-07-22] MEDS: HEPARIN SOD (PORCINE) 5000 UNITS/ML VIAL SC SCH ×2 (09:55→21:00)
[2019-07-22] MEDS: KCL 40MEQ in NS 1000ML 1,000 ML IV SCH ×2 (11:54→17:43)
[2019-07-22] MEDS: fentaNYL 50 MCG/HR PATCH TD SCH (11:55)
[2019-07-22] MEDS: FENTANYL REMOVAL DOCUMENTATION MISC XX SCH (12:13)
--- NOTE | 2019-07-22 13:12 | IPNPDOC ---
Text Note Date of Service The patient was seen on 07/22/19. NOTE Subjective: Patient doing significantly better today, she was smiling to me. Patient was awake, alert in the morning. No any acute events overnight. Objective: VITAL SIGNS: Please see below. GENERAL APPEARANCE: Somnolent, lethargic female, consistently moaning, follows simple command HEENT: Normocephalic, atraumatic. Mucous members moist and pink CARDIOVASCULAR: Tachycardic. No murmurs, rubs or gallops. Radial pulses are intact. There is no lower extremity edema LUNGS: Scattered rhonchi bilaterally ABDOMEN: Bowel sounds are hypoactive. Abdomen is soft and nontender. MUSCULOSKELETAL: Range of motion is intact in all 4 extremities NEUROLOGICAL: No nuchal rigidity, moves all limbs, nonfocal Patient is 79 years old female with past medical history of hypertension, h yperlipidemia, diabetes, COPD, right breast cancer, psoriasis presented hospital with altered mental status. Patient was found to have unresponsive in the bed in the [facility] and brought to the hospital. In emergency room patient was found to have fever of 100.5, leukocytosis of 21.1, lactic acid 5.6, glucose level 323, BMP 1033. CT chest shows cardiomegaly with element of possibly ch ronic pulmonary vascular congestion, lower lobe consolidations (left greater than right) and small left pleural effusion consistent with pneumonia. Treatment with broad-spectrum antibiotics started, subsequently patient developed metabolic encephalopathy with slow improvement. Problems (1) Sepsis Most likely secondary to pneumonia, bilateral infiltrates on the CT chest Patient afebrile, leukocytes count improved Continue gentle Iv fluid due to elevated blood pressure Vancomycin IV DC, continue Zosyn IV, Doxycycline IV Blood culture no growth (2) Pneumonia Acute Bilateral pneumonia most likely, could be secondary to aspiration Incentive spirometry Continue antibiotics treatment Aspiration precaution (3) Metabolic encephalopathy Secondary to sepsis due to pneumonia. Significant improvement See above Previous blood gas within normal limit (4) Diabetes mellitus Insulin sliding scale, detemir twice a day. Glucose levels under control (5) Lactic acidosis Secondary to sepsis Continue to monitor (6) Abdominal pain Resolved CT abdomen on 07/19/19 showed no acute pathology CHF diastolic Non in acute exacerbation We'll resume diuresis after sepsis resolution Hypertensive urgency Nicardipine drip with parameters Oral thrush Continue nystatin VS,Fishbone, I+O VS, Fishbone, I+O Laboratory Tests 07/22/19 06:00 Vital Signs Date Time Temp Pulse Resp B/P (MAP) Pulse Ox O2 Delivery O2 Flow Rate FiO2 07/22/19 12:25 22 94 Nasal Cannula 1.0 07/22/19 12:22 105 150/94 07/22/19 09:00 100.1 I&O- Last 24 Hours up to 6 AM 07/22/19 06:00 Intake Total 2072 ml Output Total 3100 ml Balance -1028 ml MERI CESAR DO Jul 22, 2019 13:12
[2019-07-22] MEDS: ATORVASTATIN 20 MG TAB PO SCH (21:01)
--- NOTE | 2019-07-22 22:23 | IPN ---
DATE: 07/22/2019 INFECTIOUS DISEASE PROGRESS NOTE The patient was seen in the intensive care unit (ICU). She is more alert. She was transferred because of severe hypertension, needed intravenous (IV) blood pressure medication as she was not tolerating oral food. Today she is more awake. She has been afebrile. No fever or chills. No nausea, vomiting or diarrhea. No abdominal pain. She has a mild cough. Review of record. Labs - patient had methicillin-resistant Staphylococcus aureus (MRSA) screens done on 02/01/2019, 02/08/2019 and 02/15/2019; all were negative. Blood cultures times two sets on 07/18/2019 and 07/19/2019 were negative. Respiratory panel was negative. She remains afebrile. Heart: Normal S1, S2. No murmurs appreciated. Lungs: Diminished breath sounds at the bases with few crackles bilaterally. No wheezes or rhonchi. Abdomen: Soft, nontender. No hepatosplenomegaly. Extremities: No clubbing, cyanosis or edema. She has varicose veins in both feet. She is awake, does not respond to questions but has eyes open and follows commands. She sits up in bed when asked to. LABS: White count is 9.3 down from 16.7 three days ago, hemoglobin 11.3, hematocrit 36.7, platelets 190. . IMPRESSION: 1. Bilateral pneumonia. On IV Zosyn to cover possible aspiration and doxycycline for atypical coverage, especially Legionnaire's disease. Doing much better, afebrile. 2. Severe hypertension, much better controlled. The patient has been switched to oral medications and doing better. 3. Metabolic encephalopathy, doing better. 4. Incontinence of urine and stool. LABS: Sodium 145, potassium 3.3, chloride 112, bicarb 27, BUN 9, creatinine 0.58, glucose 149, calcium 8.2, magnesium 1.8. Procalcitonin was 1.79. PLAN: Discontinue Hudson catheter. There is no indication for Hudson catheter. Discontinue isolation. Patient had MRSA screens since February, four of which have been negative, and the patient does not need isolation. Continue current antibiotics. Urine Legionnaire and pneumococcal antigen are still pending. [facility]
[2019-07-23] VITALS (24 sets, daily range): BP systolic 128–190; BP diastolic 60–81
[2019-07-23] MEDS: ACETAMINOPHEN 650 MG SUPP PR PRN ×2 (00:22→04:18)
[2019-07-23] MEDS ORDERED: diphenhydrAMINE INJ 50MG/ML VIAL (J1200) IV ONE (00:45)
[2019-07-23] MEDS ORDERED: diphenhydrAMINE INJ 50MG/ML VIAL (J1200) As Ordered ONE (00:48)
[2019-07-23] MEDS: KCL 40MEQ in NS 1000ML 1,000 ML IV SCH ×2 (03:01→20:26)
[2019-07-23] MEDS: PIPERACILLIN/TAZOBACTAM SOD 3.375 GM in D5W MINI-BAG PLUS 50 ML IV SCH ×4 (04:10→20:26)
[2019-07-23] MEDS: HumaLOG INSULIN (NovoLOG) PER UNIT SC SCH ×3 (05:56→18:09)
[2019-07-23] MEDS: DOXYCYCLINE HYCLATE 100 MG in D5W MINI-BAG PLUS 100 ML IV SCH ×2 (05:56→18:09)
[2019-07-23] MEDS: METOPROLOL 5 MG/5 ML VIAL IV PRN ×2 (05:57→16:21)
[2019-07-23] MEDS: SODIUM CHLORIDE 0.9% INJ 10 ML SYR IV SCH ×3 (05:58→20:26)
[2019-07-23 05:59] LABS: BASO # 0.1 10^3/uL (0.0-0.2); BASO % 0.7 % (0.0-1.0); EOS # 0.1 10^3/uL (0.0-0.5); EOS % 0.6 % (0.0-3.0); HEMATOCRIT 39.7 % (36.0-47.0); HEMOGLOBIN 11.6 g/dl (12.0-15.5); LYMPH # 1.6 10^3/uL (1.5-5.0); LYMPH % 13.6 % (24.0-44.0); MEAN CORPUSCULAR HGB CONC 29.2 g/dl (32.0-36.5); MEAN CORPUSCULAR VOLUME 95.7 fl (80.0-96.0); MONO # 0.9 10^3/uL (0.0-0.8); MONO % 7.9 % (0.0-5.0); NEUTROPHILS # 8.8 10^3/uL (1.5-8.5); NEUTROPHILS % 73.6 % (36.0-66.0); PLATELET COUNT, AUTOMATED 200 10^3/uL (150-450); RED BLOOD COUNT 4.15 10^6/uL (4.00-5.40); WHITE BLOOD COUNT 11.9 10^3/uL (4.0-10.0)
[2019-07-23 06:07] LABS: INR 1.21
[2019-07-23 06:17] LABS: BLOOD UREA NITROGEN 9 MG/DL (7-18); CALCIUM LEVEL 8.1 MG/DL (8.8-10.2); CARBON DIOXIDE LEVEL 26 MEQ/L (21-32); CHLORIDE LEVEL 116 MEQ/L (98-107); CREATININE FOR GFR 0.65 MG/DL (0.55-1.30); GLOMERULAR FILTRATION RATE > 60.0 (>32); GLUCOSE, FASTING 184 MG/DL (70-100); POTASSIUM SERUM 3.4 MEQ/L (3.5-5.1); SODIUM LEVEL 147 MEQ/L (136-145)
[2019-07-23] MEDS: SYMBICORT 160/4.5MCG INHALER 6GM INH SCH ×2 (07:57→21:00)
[2019-07-23] MEDS: TIOTROPIUM INHALER/CAPSULE (SPIRIVA) INH SCH (07:57)
[2019-07-23] MEDS: LEVEMIR (INSULIN DETEMIR) 1 UNITS/0.01ML SC SCH ×2 (08:09→20:36)
[2019-07-23] MEDS: NYSTATIN 500,000 U/5 ML SUSP UDC PO SCH ×4 (08:09→20:24)
[2019-07-23] MEDS: DULoxetine 30 MG CAP (CYMBALTA) PO SCH ×2 (08:10→20:24)
[2019-07-23] MEDS: ASPIRIN 81 MG ENTERIC TAB PO SCH (08:10)
[2019-07-23] MEDS: VITAMIN D 1,000 INTERNATIONAL UNITS TABLET PO SCH (08:10)
[2019-07-23] MEDS: METOPROLOL TART 25 MG TABLET PO SCH ×2 (08:10→20:24)
[2019-07-23] MEDS: SENOKOT S TAB PO SCH ×2 (08:11→20:25)
[2019-07-23] MEDS: HEPARIN SOD (PORCINE) 5000 UNITS/ML VIAL SC SCH ×2 (08:11→20:25)
[2019-07-23] MEDS: ACETAMINOPHEN TAB 650MG DOSE (2X325MG) PO PRN ×3 (10:03→20:23)
--- NOTE | 2019-07-23 11:19 | IPNPDOC ---
Text Note Date of Service The patient was seen on 07/23/19. NOTE Subjective: Delirious, AOx0 Restless Moaning occasionally Objective: VITAL SIGNS: Please see below. GENERAL APPEARANCE: Somnolent, lethargic female, consistently moaning, follows simple command HEENT: Normocephalic, atraumatic. dry MM, white substance on tongue c/w thrush CARDIOVASCULAR: Regular rhythm, tachycardic, no noted murmurs, rubs or gallops LUNGS: Moving air well but with transmitted upper airway sounds and rhonchi ABDOMEN: Normoactive bowel sounds, obese, abdomen is soft and nontender MUSCULOSKELETAL: Moving all 4 extremities spontaneously, AOx0 NEUROLOGICAL: AOx0, not coherently asking questions, no nuchal rigidity, negative Brudzinsky and Kernig, moves all limbs as noted above, no facial droops Labs: Reviewed WBC 11.9 Hgb 11.6 Hct 39.7 Platelets 200 Na 147 K 3.4 Cr 0.65 mag 2 79 years old W with a history of HTN, hyperlipidemia, DM COPD, right breast cancer, psoriasis who presented hospital with altered mental status, and found to have bilateral left greater than right pneumonia and started on vanc/zosyn, however course c/b persistent fevers with ID now on board and vanc stopped and now on piptazo/doxy to cover atypicals as well, and also severe delirium and transient hypertensive urgency. Plan: Community acquired pneumonia with sepsis: Febrile, with leukocytosis and bilateral infiltrates on the CT chest -Continue Zosyn IV, Doxycycline IV -Blood culture no growth -No sputum sent as she has not produced any -MRSA negative -Respiratory viral panel negative -Follow up pending legionella and strep antigens -Incentive spirometry -Aspiration precaution, and request repeat swallow eval as the was cleared from nectar thick liquids and pureed diet but nursing reporting persistent coughing with PO especially of the liquids. -ID onboard, appreciate recs Hypertensive urgency: -Had transient hypertensive urgency and given labetalol c/b hives so DC'd, maintaining normotension with PRN hydralazine -Continue IV hydral PRN for now until swallow evaluation establishes PO status Metabolic encephalopathy: 2/2 Acute pneumonia with sepsis as well as ICU delirium -Monitor for now -No changes in oxygenation status Diabetes mellitus: -SSI -continue home detemir twice a day -FSBG AC/HS -Follow up speech eval and status of PO to change insulin plan Lactic acidosis: 2/2 sepsis, improved. Continue to monitor Abdominal pain: Resolved -CT abdomen on 07/19/19 showed no acute pathology CHF diastolic: Compensated at this time, no evidence of acute exacerbation -Will resume diuresis after sepsis resolution Oral thrush -continue nystatin DVT appx: heparin 5000 Q12H Dispo: PCU VS,Fishbone, I+O VS, Fishbone, I+O Laboratory Tests 07/23/19 05:28 Vital Signs Date Time Temp Pulse Resp B/P (MAP) Pulse Ox O2 Delivery O2 Flow Rate FiO2 07/23/19 09:43 88 128/62 (84) 93 Nasal Cannula 1.0 07/23/19 08:00 101.5 24 I&O- Last 24 Hours up to 6 AM 07/23/19 06:00 Intake Total 3870 ml Output Total 2700 ml Balance 1170 ml OZHREH HAYWARD MD Jul 23, 2019 11:19
[2019-07-23] MEDS: hydrALAZINE INJ 20 MG/ML VIAL IV PRN ×2 (11:38→21:22)
[2019-07-23] MEDS: KETOROLAC 30 MG/ML VIAL (J1885) IV PRN ×2 (11:39→20:25)
[2019-07-23] MEDS: HYDROCORTISONE 1% CREAM 30 GM TOP PRN (20:23)
[2019-07-23] MEDS: ATORVASTATIN 20 MG TAB PO SCH (20:24)
[2019-07-23] MEDS: MORPHINE 2 MG/ML 1ML VIAL (J2270) IV PRN (21:22)
[2019-07-23] MEDS ORDERED: diphenhydrAMINE CREAM 30GM TOP PRN (21:30)
[2019-07-24] VITALS (9 sets, daily range): BP systolic 149–198; BP diastolic 74–86
[2019-07-24] MEDS: PIPERACILLIN/TAZOBACTAM SOD 3.375 GM in D5W MINI-BAG PLUS 50 ML IV SCH ×4 (04:19→21:40)
[2019-07-24] MEDS: MORPHINE 2 MG/ML 1ML VIAL (J2270) IV PRN (05:13)
[2019-07-24] MEDS: hydrALAZINE INJ 20 MG/ML VIAL IV PRN ×2 (05:13→12:01)
[2019-07-24] MEDS: SODIUM CHLORIDE 0.9% INJ 10 ML SYR IV SCH ×3 (05:14→21:45)
[2019-07-24] MEDS: DOXYCYCLINE HYCLATE 100 MG in D5W MINI-BAG PLUS 100 ML IV SCH ×2 (05:14→17:31)
[2019-07-24 05:15] LABS: BASO # 0.1 10^3/uL (0.0-0.2); BASO % 0.7 % (0.0-1.0); EOS # 0.3 10^3/uL (0.0-0.5); EOS % 2.9 % (0.0-3.0); HEMATOCRIT 43.2 % (36.0-47.0); HEMOGLOBIN 12.9 g/dl (12.0-15.5); LYMPH # 1.7 10^3/uL (1.5-5.0); LYMPH % 18.5 % (24.0-44.0); MEAN CORPUSCULAR HEMOGLOBIN 28.2 pg (27.0-33.0); MEAN CORPUSCULAR HGB CONC 29.9 g/dl (32.0-36.5); MEAN CORPUSCULAR VOLUME 94.5 fl (80.0-96.0); MONO # 0.7 10^3/uL (0.0-0.8); MONO % 7.3 % (0.0-5.0); NEUTROPHILS % 66.2 % (36.0-66.0); PLATELET COUNT, AUTOMATED 201 10^3/uL (150-450); RED BLOOD COUNT 4.57 10^6/uL (4.00-5.40); WHITE BLOOD COUNT 9.1 10^3/uL (4.0-10.0)
[2019-07-24] MEDS: HumaLOG INSULIN (NovoLOG) PER UNIT SC SCH ×5 (05:15→23:36)
[2019-07-24 05:25] LABS: INR 1.24; PROTHROMBIN TIME 15.3 SECONDS (11.8-14.0)
[2019-07-24 05:38] LABS: BLOOD UREA NITROGEN 8 MG/DL (7-18); CALCIUM LEVEL 7.9 MG/DL (8.8-10.2); CARBON DIOXIDE LEVEL 28 MEQ/L (21-32); CHLORIDE LEVEL 114 MEQ/L (98-107); CREATININE FOR GFR 0.56 MG/DL (0.55-1.30); GLOMERULAR FILTRATION RATE > 60.0 (>32); GLUCOSE, FASTING 178 MG/DL (70-100); POTASSIUM SERUM 3.8 MEQ/L (3.5-5.1); SODIUM LEVEL 148 MEQ/L (136-145)
[2019-07-24] MEDS: FORMOTEROL FUMARATE 20 MCG/2 ML INHALATION SOLUTION (PERFOROMIST) INH SCH ×2 (06:42→20:00)
[2019-07-24] MEDS: KCL 40MEQ IN D5/0.45NS 1000ML 1,000 ML IV SCH ×2 (07:00→12:00)
[2019-07-24] MEDS ORDERED: predniSONE 2.5 MG TAB PO SCH (07:00)
[2019-07-24] MEDS: NYSTATIN 500,000 U/5 ML SUSP UDC PO SCH ×4 (08:27→20:30)
[2019-07-24] MEDS: HEPARIN SOD (PORCINE) 5000 UNITS/ML VIAL SC SCH ×2 (08:27→20:32)
[2019-07-24] MEDS: VITAMIN D 1,000 INTERNATIONAL UNITS TABLET PO SCH (08:28)
[2019-07-24] MEDS: METOPROLOL TART 25 MG TABLET PO SCH ×2 (08:28→20:31)
[2019-07-24] MEDS: DULoxetine 30 MG CAP (CYMBALTA) PO SCH ×2 (08:28→20:31)
[2019-07-24] MEDS: ASPIRIN 81 MG ENTERIC TAB PO SCH (08:28)
[2019-07-24] MEDS: predniSONE 2.5 MG TAB PO SCH (08:29)
[2019-07-24] MEDS: SENOKOT S TAB PO SCH ×2 (09:00→21:00)
[2019-07-24] MEDS: LEVEMIR (INSULIN DETEMIR) 1 UNITS/0.01ML SC SCH ×2 (09:32→20:32)
[2019-07-24] MEDS: BUDESONIDE 0.5 MG/2 ML INHALATION SUSPENSION INH SCH ×2 (11:24→20:00)
[2019-07-24] MEDS ORDERED: cloNIDine 0.1 MG TAB PO PRN (13:45)
--- NOTE | 2019-07-24 14:49 | IPNPDOC ---
Text Note Date of Service The patient was seen on 07/24/19. NOTE Subjective: -Much better mentation today, verbal, following commands, says "I have been better" Interim events: -Seen by speech, OK for pureed and nectar thick liquids Objective: VITAL SIGNS: Please see below. GENERAL APPEARANCE: Somnolent, lethargic female, consistently moaning, follows simple command HEENT: Normocephalic, atraumatic. dry MM, white substance on tongue c/w thrush CARDIOVASCULAR: Regular rhythm, tachycardic, no noted murmurs, rubs or gallops LUNGS: Moving air well but with transmitted upper airway sounds and rhonchi ABDOMEN: Normoactive bowel sounds, obese, abdomen is soft and nontender MUSCULOSKELETAL: Moving all 4 extremities spontaneously, AOx0 NEUROLOGICAL: AOx0, moving all extremities, no facial droops Labs: Reviewed WBC 9.1 Hgb 12.9 Hct 43.2 Platelets 201 Na 148 K 3.8 Cr 0.56 Mag 2 79 years old W with a history of HTN, hyperlipidemia, DM COPD, right breast cancer, psoriasis who presented hospital with altered mental status, and found t o have bilateral left greater than right pneumonia and started on vanc/zosyn, however course c/b persistent fevers with ID now on board and vanc stopped and now on piptazo/doxy to cover atypicals as well, and also severe delirium and transient hypertensive urgency. Plan: Community acquired pneumonia with sepsis: Febrile, with leukocytosis and bilateral infiltrates on the CT chest -Continue Zosyn IV day 7, Doxycycline IV day 4 -Blood culture no growth -No sputum sent as she has not produced any -MRSA negative -Respiratory viral panel negative -Follow up pending legionella and strep antigens, lab cancelled them in the last 24h and reports because nursing never collected the sample? Will have it sent -Incentive spirometry -Aspiration precautions, and pending swallow re-eval because she appears to be aspirating with the approved nectar thick liquids and pureed diet -ID onboard, appreciate recs Hypertensive urgency: -has been managed by PRN hydralazine while functionally NPO, now restarted home clonidine (changed from PRN on home script to daily) and lisinopril Metabolic encephalopathy: 2/2 Acute pneumonia with sepsis as well as ICU delirium -Monitor for now -Stable oxygenation status Urticuria: Initially presumed to have been 2/2 labetalol but seems to be episodic without a clear precipitant: -changing her pred 2.5 Q2D to daily -benadryl cream as ordered Diabetes mellitus: -SSI -continue home detemir twice a day -FSBG AC/HS -Follow up speech eval and status of PO to change insulin plan Lactic acidosis: 2/2 sepsis, improved. Continue to monitor Abdominal pain: Resolved -CT abdomen on 07/19/19 showed no acute pathology CHF diastolic: Compensated at this time, no evidence of acute exacerbation -Will resume diuresis after sepsis resolution Oral thrush -continue nystatin DVT appx: heparin 5000 Q12H Dispo: PCU boarding in ICU VS,Cj, I+O VS, Cj, I+O Laboratory Tests 07/24/19 05:10 Vital Signs Date Time Temp Pulse Resp B/P (MAP) Pulse Ox O2 Delivery O2 Flow Rate FiO2 07/24/19 05:42 20 07/24/19 05:13 167/79 07/24/19 04:00 98.3 105 94 Nasal Cannula 0.5 I&O- Last 24 Hours up to 6 AM 07/24/19 06:00 Intake Total 1800 ml Output Total 1350 ml Balance 450 ml ZOHREH HAYWARD MD Jul 24, 2019 07:11
[2019-07-24] MEDS: cloNIDine 0.1 MG TAB PO SCH (15:35)
[2019-07-24] MEDS: lisinopriL 40 MG TAB PO SCH (15:35)
[2019-07-24] MEDS: ATORVASTATIN 20 MG TAB PO SCH (20:31)
[2019-07-24] MEDS: METOPROLOL 5 MG/5 ML VIAL IV PRN (21:40)
[2019-07-25] VITALS (10 sets, daily range): BP systolic 142–220; BP diastolic 64–100
[2019-07-25] MEDS ORDERED: METOPROLOL TART 25 MG TABLET PO ONE (01:00)
[2019-07-25] MEDS: KCL 40MEQ IN D5/0.45NS 1000ML 1,000 ML IV SCH (02:40)
[2019-07-25] MEDS: METOPROLOL 5 MG/5 ML VIAL IV PRN ×2 (03:07→15:23)
[2019-07-25] MEDS: PIPERACILLIN/TAZOBACTAM SOD 3.375 GM in D5W MINI-BAG PLUS 50 ML IV SCH ×4 (04:18→21:19)
[2019-07-25] MEDS: DOXYCYCLINE HYCLATE 100 MG in D5W MINI-BAG PLUS 100 ML IV SCH ×2 (06:02→18:08)
[2019-07-25] MEDS: HumaLOG INSULIN (NovoLOG) PER UNIT SC SCH ×4 (06:02→21:00)
[2019-07-25 06:13] LABS: BASO % 0.5 % (0.0-1.0); EOS # 0.3 10^3/uL (0.0-0.5); HEMATOCRIT 40.9 % (36.0-47.0); LYMPH # 1.3 10^3/uL (1.5-5.0); LYMPH % 19.4 % (24.0-44.0); MEAN CORPUSCULAR HEMOGLOBIN 27.9 pg (27.0-33.0); MEAN CORPUSCULAR HGB CONC 29.3 g/dl (32.0-36.5); MEAN CORPUSCULAR VOLUME 95.1 fl (80.0-96.0); MONO # 0.5 10^3/uL (0.0-0.8); NEUTROPHILS # 4.3 10^3/uL (1.5-8.5); PLATELET COUNT, AUTOMATED 208 10^3/uL (150-450); WHITE BLOOD COUNT 6.6 10^3/uL (4.0-10.0)
[2019-07-25 06:25] LABS: INR 1.26; PROTHROMBIN TIME 15.5 SECONDS (11.8-14.0)
[2019-07-25] MEDS: SODIUM CHLORIDE 0.9% INJ 10 ML SYR IV SCH ×2 (06:45→14:00)
[2019-07-25 06:48] LABS: BLOOD UREA NITROGEN 11 MG/DL (7-18); CALCIUM LEVEL 8.2 MG/DL (8.8-10.2); CARBON DIOXIDE LEVEL 29 MEQ/L (21-32); CHLORIDE LEVEL 113 MEQ/L (98-107); CREATININE FOR GFR 0.61 MG/DL (0.55-1.30); GLOMERULAR FILTRATION RATE > 60.0 (>32); GLUCOSE, FASTING 164 MG/DL (70-100); MAGNESIUM LEVEL 2.1 MG/DL (1.8-2.4); POTASSIUM SERUM 3.9 MEQ/L (3.5-5.1); SODIUM LEVEL 148 MEQ/L (136-145)
[2019-07-25] MEDS: BUDESONIDE 0.5 MG/2 ML INHALATION SUSPENSION INH SCH ×2 (07:59→20:04)
[2019-07-25] MEDS: FORMOTEROL FUMARATE 20 MCG/2 ML INHALATION SOLUTION (PERFOROMIST) INH SCH ×2 (07:59→20:04)
[2019-07-25] MEDS: HYDROCORTISONE 1% CREAM 30 GM TOP PRN ×2 (08:15→09:53)
[2019-07-25] MEDS: VITAMIN D 1,000 INTERNATIONAL UNITS TABLET PO SCH (08:16)
[2019-07-25] MEDS: fentaNYL 50 MCG/HR PATCH TD SCH (08:16)
[2019-07-25] MEDS: NYSTATIN 500,000 U/5 ML SUSP UDC PO SCH ×4 (08:16→21:20)
[2019-07-25] MEDS: SENOKOT S TAB PO SCH ×2 (08:17→21:20)
[2019-07-25] MEDS: lisinopriL 40 MG TAB PO SCH (08:17)
[2019-07-25] MEDS: ASPIRIN 81 MG ENTERIC TAB PO SCH (08:17)
[2019-07-25] MEDS: DULoxetine 30 MG CAP (CYMBALTA) PO SCH ×2 (08:17→21:20)
[2019-07-25] MEDS: METOPROLOL TART 25 MG TABLET PO SCH ×2 (08:17→21:25)
[2019-07-25] MEDS: HEPARIN SOD (PORCINE) 5000 UNITS/ML VIAL SC SCH ×2 (08:18→21:20)
[2019-07-25] MEDS: cloNIDine 0.1 MG TAB PO SCH (08:18)
[2019-07-25] MEDS: FENTANYL REMOVAL DOCUMENTATION MISC XX SCH (08:30)
[2019-07-25] MEDS: predniSONE 2.5 MG TAB PO SCH (09:51)
[2019-07-25] MEDS: LEVEMIR (INSULIN DETEMIR) 1 UNITS/0.01ML SC SCH ×2 (09:52→21:19)
[2019-07-25] MEDS ORDERED: QUEtiapine FUMARATE 50 MG TAB PO ONE (14:00)
--- NOTE | 2019-07-25 15:22 | IPNPDOC ---
Text Note Date of Service The patient was seen on 07/25/19. NOTE Subjective: -continues to have improved mental status, was able to have a conversation this morning Objective: VITAL SIGNS: Please see below. GENERAL APPEARANCE: Somnolent, lethargic female, consistently moaning, follows simple command HEENT: Normocephalic, atraumatic. dry MM, white substance on tongue c/w thrush CARDIOVASCULAR: Regular rhythm, tachycardic, no noted murmurs, rubs or gallops LUNGS: Moving air well but with transmitted upper airway sounds and rhonchi ABDOMEN: Normoactive bowel sounds, obese, abdomen is soft and nontender MUSCULOSKELETAL: Moving all 4 extremities spontaneously, AOx0 NEUROLOGICAL: AOx0, moving all extremities, no facial droops Labs: Reviewed WBC 6.6 Hgb 12 Hct 40.9 Platelets 208 Na 148 K 3.9 Cr 0.61 Mag 21 79 years old W with a history of HTN, hyperlipidemia, DM COPD, right breast cancer, psoriasis who presented hospital with altered mental status, and found to have bilateral left greater than right pneumonia and started on vanc/zosyn, however course c/b persistent fevers with ID now on board and vanc stopped and now on piptazo/doxy to cover atypicals as well, and also severe delirium and transient hypertensive urgency. Plan: Community acquired pneumonia with sepsis: Febrile, with leukocytosis and bilateral infiltrates on the CT chest -Continue Zosyn IV day 8, Doxycycline IV day 5. Continuing both antibiotics for now for severe PNA -Blood culture no growth -No sputum sent as she has not produced any -MRSA negative -Respiratory viral panel negative -Unfortunately legionella and strep antigens were not sent in the designated container pre abx, so will treat empirically for 7d with doxy -Incentive spirometry -Aspiration precautions, speech approved nectar thick liquids and pureed diet -ID onboard, appreciate recs Hypertensive urgency: -continue home clonidine (changed from PRN on home script to daily) and lisinopril Metabolic encephalopathy: 2/2 Acute pneumonia with sepsis as well as ICU delirium -Monitor for now -Stable oxygenation status Urticuria: Initially presumed to have been 2/2 labetalol but seems to be episodic without a clear precipitant: -changing her pred 2.5 Q2D to daily -benadryl cream as ordered Diabetes mellitus: -SSI -continue home detemir twice a day -FSBG AC/HS -Follow up speech eval and status of PO to change insulin plan Lactic acidosis: 2/2 sepsis, resolved. Abdominal pain: Resolved -CT abdomen on 07/19/19 showed no acute pathology CHF diastolic: Compensated at this time, no evidence of acute exacerbation -Will resume diuresis after sepsis resolution Oral thrush -continue nystatin DVT appx: heparin 5000 Q12H Dispo: PCU VS,Fishbone, I+O VS, Fishbone, I+O Laboratory Tests 07/25/19 05:42 07/25/19 05:43 Vital Signs Date Time Temp Pulse Resp B/P (MAP) Pulse Ox O2 Delivery O2 Flow Rate FiO2 07/25/19 08:18 200/98 07/25/19 08:17 69 07/25/19 08:16 20 07/25/19 07:29 97.8 07/25/19 04:00 0.5 07/25/19 04:00 95 Nasal Cannula I&O- Last 24 Hours up to 6 AM 07/25/19 06:00 Intake Total 2000 ml Output Total 1075 ml Balance 925 ml ZOHREH HAYWARD MD Jul 25, 2019 09:26
[2019-07-25] MEDS ORDERED: cloNIDine 0.1 MG TAB PO ONE (17:30)
[2019-07-25] MEDS: ATORVASTATIN 20 MG TAB PO SCH (21:20)
[2019-07-26 04:00] VITALS: BP 182/82
[2019-07-26] MEDS: PIPERACILLIN/TAZOBACTAM SOD 3.375 GM in D5W MINI-BAG PLUS 50 ML IV SCH ×2 (04:26→09:37)
[2019-07-26 05:45] LABS: BASO % 0.4 % (0.0-1.0); EOS # 0.4 10^3/uL (0.0-0.5); EOS % 5.1 % (0.0-3.0); HEMATOCRIT 38.9 % (36.0-47.0); HEMOGLOBIN 11.8 g/dl (12.0-15.5); LYMPH % 27.4 % (24.0-44.0); MEAN CORPUSCULAR HEMOGLOBIN 28.8 pg (27.0-33.0); MEAN CORPUSCULAR HGB CONC 30.3 g/dl (32.0-36.5); MEAN CORPUSCULAR VOLUME 94.9 fl (80.0-96.0); MONO # 0.6 10^3/uL (0.0-0.8); MONO % 7.4 % (0.0-5.0); NEUTROPHILS # 4.3 10^3/uL (1.5-8.5); NEUTROPHILS % 58.4 % (36.0-66.0); PLATELET COUNT, AUTOMATED 187 10^3/uL (150-450); WHITE BLOOD COUNT 7.4 10^3/uL (4.0-10.0)
[2019-07-26 06:12] LABS: BLOOD UREA NITROGEN 14 MG/DL (7-18); CALCIUM LEVEL 8.6 MG/DL (8.8-10.2); CARBON DIOXIDE LEVEL 25 MEQ/L (21-32); CHLORIDE LEVEL 110 MEQ/L (98-107); CREATININE FOR GFR 0.73 MG/DL (0.55-1.30); GLOMERULAR FILTRATION RATE > 60.0 (>32); GLUCOSE, FASTING 85 MG/DL (70-100); MAGNESIUM LEVEL 1.9 MG/DL (1.8-2.4); POTASSIUM SERUM 3.5 MEQ/L (3.5-5.1); SODIUM LEVEL 142 MEQ/L (136-145)
[2019-07-26] MEDS: DOXYCYCLINE HYCLATE 100 MG in D5W MINI-BAG PLUS 100 ML IV SCH (06:31)
[2019-07-26] MEDS: HumaLOG INSULIN (NovoLOG) PER UNIT SC SCH ×4 (07:28→20:17)
[2019-07-26] MEDS: FORMOTEROL FUMARATE 20 MCG/2 ML INHALATION SOLUTION (PERFOROMIST) INH SCH ×2 (07:50→20:36)
[2019-07-26] MEDS: BUDESONIDE 0.5 MG/2 ML INHALATION SUSPENSION INH SCH ×2 (07:50→20:36)
[2019-07-26 08:00] VITALS: BP 168/98
[2019-07-26] MEDS: DULoxetine 30 MG CAP (CYMBALTA) PO SCH ×2 (08:19→20:29)
[2019-07-26] MEDS: VITAMIN D 1,000 INTERNATIONAL UNITS TABLET PO SCH (08:20)
[2019-07-26] MEDS: predniSONE 2.5 MG TAB PO SCH (08:20)
[2019-07-26] MEDS: NYSTATIN 500,000 U/5 ML SUSP UDC PO SCH (08:20)
[2019-07-26] MEDS: HEPARIN SOD (PORCINE) 5000 UNITS/ML VIAL SC SCH ×2 (08:20→20:28)
[2019-07-26] MEDS: SENOKOT S TAB PO SCH (08:20)
[2019-07-26] MEDS: ASPIRIN 81 MG ENTERIC TAB PO SCH (08:20)
[2019-07-26] MEDS: METOPROLOL TART 25 MG TABLET PO SCH ×2 (08:21→20:29)
[2019-07-26] MEDS: cloNIDine 0.1 MG TAB PO SCH ×2 (08:21→20:29)
[2019-07-26] MEDS: lisinopriL 40 MG TAB PO SCH (08:22)
[2019-07-26] MEDS ORDERED: POTASSIUM CHLORIDE 10 MEQ SR TABLET PO ONE (08:30)
[2019-07-26] MEDS: LEVEMIR (INSULIN DETEMIR) 1 UNITS/0.01ML SC SCH ×2 (09:36→20:28)
[2019-07-26] MEDS: ACETAMINOPHEN TAB 650MG DOSE (2X325MG) PO PRN ×3 (09:37→21:35)
[2019-07-26 12:00] VITALS: BP 128/76
--- NOTE | 2019-07-26 13:42 | IPNPDOC ---
Text Note Date of Service The patient was seen on 07/26/19. NOTE Subjective: -Much better this morning, was very sleepy yesterday evening after she got seroquel 50mg after some restlessness during this she pulled out her IJ TLC -No complaints, afebrile Objective: VITAL SIGNS: Please see below. GENERAL APPEARANCE: Somnolent, lethargic female, consistently moaning, follows simple command HEENT: Normocephalic, atraumatic, PERRLA, EOMI, MMM, resolved thrush CARDIOVASCULAR: Regular rhythm, tachycardic, no noted murmurs, rubs or gallops LUNGS: Moving air well, much improved scattered rhonchi ABDOMEN: Normoactive bowel sounds, obese, abdomen is soft and nontender MUSCULOSKELETAL: Moving all 4 extremities spontaneously, AOx0 NEUROLOGICAL: AOx0, moving all extremities, no facial droops Labs: Reviewed WBC 7.4 Hgb 11.8 Hct 38.9 Platelets 187 Na 142 K 3.5 Cr 0.73 79 years old W with a history of HTN, hyperlipidemia, DM COPD, right breast cancer, psoriasis who presented hospital with altered mental status, and found to have bilateral left greater than right pneumonia and started on vanc/zosyn, however course c/b persistent fevers with ID now on board and vanc stopped and now on piptazo/doxy to cover atypicals as well, and also severe delirium and transient hypertensive urgency. Plan: Community acquired pneumonia with sepsis: Febrile, with leukocytosis and bilateral infiltrates on the CT chest -Dc'd Zosyn IV and Doxycycline IV today per ID. -Blood culture no growth -No sputum sent as she has not produced any -MRSA negative -Respiratory viral panel negative -Unfortunately legionella and strep antigens were not sent in the designated container pre abx, so will treat empirically for 10d with doxy -Incentive spirometry -Aspiration precautions, speech approved mechanical soft and thin liquids with no straws -ID consulted , appreciate recs Hypertensive urgency: -continue home clonidine switched to BID and lisinopril Metabolic encephalopathy: 2/2 Acute pneumonia with sepsis as well as ICU d elirium -Monitor for now -Stable oxygenation status Urticuria: Initially presumed to have been 2/2 labetalol but seems to be episodic without a clear precipitant: -pred 2.5 daily -benadryl cream as ordered Diabetes mellitus: -SSI -continue home detemir twice a day -FSBG AC/HS -consistent carb mechanical soft Lactic acidosis: 2/2 sepsis, resolved. Abdominal pain: Resolved -CT abdomen on 07/19/19 showed no acute pathology CHF diastolic: Compensated at this time, no evidence of acute exacerbation --No diuretics at this time, and stopped fluids Oral thrush: resolved DVT appx: heparin 5000 Q12H Dispo: de-escalating to medsurg VS,Fishbone, I+O VS, Fishbone, I+O Laboratory Tests 07/26/19 05:31 Vital Signs Date Time Temp Pulse Resp B/P (MAP) Pulse Ox O2 Delivery O2 Flow Rate FiO2 07/26/19 08:21 168/98 07/26/19 08:21 76 07/26/19 04:00 96.8 20 94 Room Air 07/25/19 16:00 0.0 I&O- Last 24 Hours up to 6 AM 07/26/19 06:00 Intake Total 1090 ml Output Total 200 ml Balance 890 ml ZOHREH HAYWARD MD Jul 26, 2019 08:41
--- NOTE | 2019-07-26 14:40 | IPN ---
DATE: 07/26/2019 Mona is doing better. She is having some loose stools but otherwise denies any nausea or vomiting. She is off oxygen. She was able to get out of bed and walk to the bathroom on her own. She has some leakage of stools in her Depends. PHYSICAL EXAMINATION: Temperature is 97.1, pulse 76, respirations 20, blood pressure 168/98, oxygen saturation 100%. Heart: Normal S1, S2. No murmurs detected. Lungs: Crackles at both bases about a quarter way up bilaterally. No wheezes or rhonchi. Abdomen: Soft, nontender. No hepatosplenomegaly. EXTREMITIES: No clubbing, cyanosis or edema. Some varicose veins. She has multiple skin lesions on her upper thighs, which some are scabbed over and others are open and ulcerated. There are no lesions on her arms or her back. LABORATORY DATA White count 7.4, hemoglobin 11.8, hematocrit 38.9, platelets 187, 58% neutrophils, 27% lymphocytes, 7% monocytes. Sodium 142, potassium 3.5, chloride 110, bicarbonate 25, BUN 14, creatinine 0.73, glucose 85, calcium 8.6, magnesium 1.9. Urine legionnaire antigen, pneumococcal antigen were never sent. Methicillin resistant Staphylococcus aureus (MRSA) screen was negative. Respiratory panel was negative. Blood cultures are negative. IMPRESSION: 1. Bilateral lower lobe pneumonia, markedly improved with resolution of hypoxia. White count is normal. She is currently on the number day #8 of IV antibiotics with Zosyn and doxycycline. We will send urine legionnaire antigen. PLAN: Discontinue IV Zosyn and continue by mouth doxycycline 100 mg by mouth twice a day for another 72 hours to finish a 10-day course. Discontinue Senokot, the patient is having loose stools.
[2019-07-26 16:00] VITALS: BP 168/74
[2019-07-26 20:00] VITALS: BP 199/82
[2019-07-26] MEDS: DOXYCYCLINE HYCLATE 100 MG TAB PO SCH (20:28)
[2019-07-26] MEDS: ATORVASTATIN 20 MG TAB PO SCH (20:29)
[2019-07-26 21:00] VITALS: BP 148/82
[2019-07-27] VITALS (7 sets, daily range): BP systolic 130–179; BP diastolic 67–88
[2019-07-27 05:34] LABS: HEMATOCRIT 40.6 % (36.0-47.0); HEMOGLOBIN 12.4 g/dl (12.0-15.5); MEAN CORPUSCULAR HEMOGLOBIN 28.3 pg (27.0-33.0); MEAN CORPUSCULAR HGB CONC 30.5 g/dl (32.0-36.5); MEAN CORPUSCULAR VOLUME 92.7 fl (80.0-96.0); PLATELET COUNT, AUTOMATED 214 10^3/uL (150-450); RED BLOOD COUNT 4.38 10^6/uL (4.00-5.40); WHITE BLOOD COUNT 7.6 10^3/uL (4.0-10.0)
[2019-07-27 05:59] LABS: BLOOD UREA NITROGEN 13 MG/DL (7-18); CREATININE FOR GFR 0.55 MG/DL (0.55-1.30); GLUCOSE, FASTING 71 MG/DL (70-100)
[2019-07-27 06:00] LABS: ALBUMIN 2.6 GM/DL (3.2-5.2); ALT/SGPT 39 U/L (12-78); BILIRUBIN,TOTAL 0.7 MG/DL (0.2-1.0); CALCIUM LEVEL 8.8 MG/DL (8.8-10.2); CARBON DIOXIDE LEVEL 25 MEQ/L (21-32); CHLORIDE LEVEL 108 MEQ/L (98-107); GLOMERULAR FILTRATION RATE > 60.0 (>32); MAGNESIUM LEVEL 1.7 MG/DL (1.8-2.4); POTASSIUM SERUM 3.3 MEQ/L (3.5-5.1); SODIUM LEVEL 144 MEQ/L (136-145); TOTAL PROTEIN 6.6 GM/DL (6.4-8.2)
[2019-07-27] MEDS: HumaLOG INSULIN (NovoLOG) PER UNIT SC SCH ×4 (07:11→21:00)
[2019-07-27] MEDS: FORMOTEROL FUMARATE 20 MCG/2 ML INHALATION SOLUTION (PERFOROMIST) INH SCH ×2 (07:59→20:49)
[2019-07-27] MEDS: BUDESONIDE 0.5 MG/2 ML INHALATION SUSPENSION INH SCH ×2 (07:59→20:49)
[2019-07-27] MEDS: LEVEMIR (INSULIN DETEMIR) 1 UNITS/0.01ML SC SCH ×2 (08:48→20:14)
[2019-07-27] MEDS: HEPARIN SOD (PORCINE) 5000 UNITS/ML VIAL SC SCH ×2 (08:48→20:13)
[2019-07-27] MEDS: ASPIRIN 81 MG ENTERIC TAB PO SCH (08:48)
[2019-07-27] MEDS: predniSONE 2.5 MG TAB PO SCH (08:48)
[2019-07-27] MEDS: lisinopriL 40 MG TAB PO SCH (08:49)
[2019-07-27] MEDS: DOXYCYCLINE HYCLATE 100 MG TAB PO SCH ×2 (08:49→20:13)
[2019-07-27] MEDS: DULoxetine 30 MG CAP (CYMBALTA) PO SCH ×2 (08:49→20:13)
[2019-07-27] MEDS: VITAMIN D 1,000 INTERNATIONAL UNITS TABLET PO SCH (08:49)
[2019-07-27] MEDS: cloNIDine 0.1 MG TAB PO SCH ×2 (08:49→20:13)
[2019-07-27] MEDS: ACETAMINOPHEN TAB 650MG DOSE (2X325MG) PO PRN (08:50)
[2019-07-27] MEDS: METOPROLOL TART 25 MG TABLET PO SCH ×2 (08:50→20:13)
[2019-07-27] MEDS ORDERED: MAG SULF 1GM/100ML (MAG RUN) 1 GM in IV 1 EA IV ONE (10:00)
[2019-07-27] MEDS ORDERED: POTASSIUM CHLORIDE 10 MEQ SR TABLET PO ONE (10:00)
--- NOTE | 2019-07-27 14:34 | IPNPDOC ---
Text Note Date of Service The patient was seen on 07/27/19. NOTE Subjective: -No complaints, afebrile Interim events: -De-escalated to medsurg -Antibiotics discontinued after completing course Objective: VITAL SIGNS: Please see below. GENERAL APPEARANCE: Somnolent, lethargic female, consistently moaning, follows simple command HEENT: Normocephalic, atraumatic, PERRLA, EOMI, MMM, resolved thrush CARDIOVASCULAR: Regular rhythm, tachycardic, no noted murmurs, rubs or gallops LUNGS: Moving air well, much improved scattered rhonchi ABDOMEN: Normoactive bowel sounds, obese, abdomen is soft and nontender MUSCULOSKELETAL: Moving all 4 extremities spontaneously, AOx0 NEUROLOGICAL: AOx0, moving all extremities, no facial droops Labs: Reviewed WBC 7.6 Hgb 12.4 Hct 40.6 K 3.3 (repleted) mag 1.6 (repleted) Cr 0.55 79 years old W with a history of HTN, hyperlipidemia, DM COPD, right breast cancer, psoriasis who presented hospital with altered mental status, and found to have bilateral left greater than right pneumonia and started on vanc/zosyn, however course c/b persistent fevers with ID consulted and switched to piptazo/doxy now completed her course, and course was also c/b severe delirium that is now resolved. Plan: Community acquired pneumonia with sepsis: Febrile, with leukocytosis and bilateral infiltrates on the CT chest -s/p Zosyn/Doxycycline course -Blood culture no growth -No sputum sent as she has not produced any -MRSA negative -Respiratory viral panel negative -Unfortunately legionella and strep antigens were not sent in the designated container pre abx, so was treated empirically to completion -Incentive spirometry -Aspiration precautions, speech approved mechanical soft and thin liquids with no straws -ID consulted , appreciate recs Hypertensive urgency: -continue home clonidine switched to BID and lisinopril Metabolic encephalopathy: 2/2 Acute pneumonia with sepsis as well as ICU delirium, now resolved -Resolved Urticuria: Initially presumed to have been 2/2 labetalol but seems to be episod ic without a clear precipitant: -pred 2.5 daily -benadryl cream as ordered Diabetes mellitus: -SSI -continue home detemir twice a day -FSBG AC/HS -consistent carb mechanical soft Lactic acidosis: 2/2 sepsis, resolved. Abdominal pain: Resolved -CT abdomen on 07/19/19 showed no acute pathology CHF diastolic: Compensated at this time, no evidence of acute exacerbation --No diuretics at this time, and stopped fluids Oral thrush: resolved DVT appx: heparin 5000 Q12H Dispo: med surg with ongoing PT, likely to discharge on monday back to SNF VS,Fishbone, I+O VS, Fishbone, I+O Laboratory Tests 07/27/19 05:23 Vital Signs Date Time Temp Pulse Resp B/P (MAP) Pulse Ox O2 Delivery O2 Flow Rate FiO2 07/27/19 08:50 70 131/80 07/27/19 04:00 97.3 18 96 Room Air 07/25/19 16:00 0.0 I&O- Last 24 Hours up to 6 AM 07/27/19 06:00 Intake Total 1220 ml Output Total 800 ml Balance 420 ml ZOHREH HAYWARD MD Jul 27, 2019 09:23
[2019-07-27] MEDS: ATORVASTATIN 20 MG TAB PO SCH (20:13)
[2019-07-28] MEDS: ACETAMINOPHEN TAB 650MG DOSE (2X325MG) PO PRN ×3 (01:25→17:31)
[2019-07-28 06:00] VITALS: BP 177/88
[2019-07-28] MEDS: HumaLOG INSULIN (NovoLOG) PER UNIT SC SCH ×4 (07:30→21:00)
[2019-07-28 08:00] VITALS: BP 177/88
[2019-07-28] MEDS: BUDESONIDE 0.5 MG/2 ML INHALATION SUSPENSION INH SCH ×2 (08:12→19:39)
[2019-07-28] MEDS: FORMOTEROL FUMARATE 20 MCG/2 ML INHALATION SOLUTION (PERFOROMIST) INH SCH ×2 (08:12→19:39)
[2019-07-28] MEDS: LEVEMIR (INSULIN DETEMIR) 1 UNITS/0.01ML SC SCH ×2 (09:11→21:01)
[2019-07-28] MEDS: HEPARIN SOD (PORCINE) 5000 UNITS/ML VIAL SC SCH ×2 (09:11→20:59)
[2019-07-28] MEDS: VITAMIN D 1,000 INTERNATIONAL UNITS TABLET PO SCH (09:12)
[2019-07-28] MEDS: ASPIRIN 81 MG ENTERIC TAB PO SCH (09:12)
[2019-07-28] MEDS: METOPROLOL TART 25 MG TABLET PO SCH ×2 (09:12→21:00)
[2019-07-28] MEDS: DULoxetine 30 MG CAP (CYMBALTA) PO SCH ×2 (09:13→20:59)
[2019-07-28] MEDS: cloNIDine 0.1 MG TAB PO SCH ×2 (09:13→20:59)
[2019-07-28] MEDS: lisinopriL 40 MG TAB PO SCH (09:13)
[2019-07-28] MEDS: predniSONE 2.5 MG TAB PO SCH (09:13)
[2019-07-28] MEDS: DOXYCYCLINE HYCLATE 100 MG TAB PO SCH ×2 (09:13→21:01)
--- NOTE | 2019-07-28 11:09 | IPNPDOC ---
Text Note Date of Service The patient was seen on 07/28/19. NOTE Subjective: -No complaints, afebrile -Doing very well this morning, chatty and pleasant, looking forward to discharge back to the [facility] Objective: VITAL SIGNS: Please see below. GENERAL APPEARANCE: Somnolent, lethargic female, consistently moaning, follows simple command HEENT: Normocephalic, atraumatic, PERRLA, EOMI, MMM, resolved thrush CARDIOVASCULAR: Regular rhythm, tachycardic, no noted murmurs, rubs or gallops LUNGS: Moving air well, much improved scattered rhonchi ABDOMEN: Normoactive bowel sounds, obese, abdomen is soft and nontender MUSCULOSKELETAL: Moving all 4 extremities spontaneously, AOx0 NEUROLOGICAL: AOx0, moving all extremities, no facial droops Labs: AM labs pending 79 years old W with a history of HTN, hyperlipidemia, DM COPD, right breast cancer, psoriasis who presented hospital with altered mental status, and found to have bilateral left greater than right pneumonia and started on vanc/zosyn, however course c/b persistent fevers with ID consulted and switched to piptazo/doxy now completed her course, and course was also c/b severe delirium that has now resolved. Plan: Community acquired pneumonia with sepsis: Febrile, with leukocytosis and bilateral infiltrates on the CT chest -s/p Zosyn/Doxycycline course -Blood culture no growth -No sputum sent as she has not produced any -MRSA negative -Respiratory viral panel negative -Unfortunately legionella and strep antigens were not sent in the designated container pre abx, so was treated empirically to completion -Incentive spirometry -Aspiration precautions, speech approved mechanical soft and thin liquids with no straws -ID consulted , appreciate recs Hypertensive urgency: -continue home clonidine switched to BID and lisinopril Metabolic encephalopathy: 2/2 Acute pneumonia with sepsis as well as ICU delirium, now resolved -Resolved Urticuria: Initially presumed to have been 2/2 labetalol but seems to be episodic without a clear precipitant: -pred 2.5 daily -benadryl cream as ordered Diabetes mellitus: -SSI -continue home detemir twice a day -FSBG AC/HS -consistent carb mechanical soft Lactic acidosis: 2/2 sepsis, resolved. Abdominal pain: Resolved -CT abdomen on 07/19/19 showed no acute pathology CHF diastolic: Compensated at this time, no evidence of acute exacerbation --No diuretics at this time, and stopped fluids Oral thrush: resolved DVT appx: heparin 5000 Q12H Dispo: med surg with ongoing PT, likely to discharge on monday back to SNF VS,Fishbone, I+O VS, Fishbone, I+O Vital Signs Date Time Temp Pulse Resp B/P (MAP) Pulse Ox O2 Delivery O2 Flow Rate FiO2 07/28/19 06:00 98.1 76 18 177/88 (117) 95 Room Air 07/25/19 16:00 0.0 I&O- Last 24 Hours up to 6 AM 07/28/19 06:00 Intake Total 1820 ml Output Total 300 ml Balance 1520 ml ZOHREH HAYWARD MD Jul 28, 2019 08:38
[2019-07-28] MEDS: fentaNYL 50 MCG/HR PATCH TD SCH (13:47)
[2019-07-28] MEDS: FENTANYL REMOVAL DOCUMENTATION MISC XX SCH (13:50)
[2019-07-28] MEDS: ATORVASTATIN 20 MG TAB PO SCH (20:59)
[2019-07-28 22:00] VITALS: BP 160/82
[2019-07-29] MEDS: ACETAMINOPHEN TAB 650MG DOSE (2X325MG) PO PRN (01:26)
[2019-07-29] MEDS ORDERED: GABAPENTIN 400 MG CAP PO ONE (02:45)
[2019-07-29 06:00] VITALS: BP 166/88
[2019-07-29 06:21] LABS: HEMATOCRIT 39.7 % (36.0-47.0); HEMOGLOBIN 12.7 g/dl (12.0-15.5); MEAN CORPUSCULAR HEMOGLOBIN 28.5 pg (27.0-33.0); PLATELET COUNT, AUTOMATED 265 10^3/uL (150-450); RED BLOOD COUNT 4.46 10^6/uL (4.00-5.40)
[2019-07-29 06:38] LABS: BLOOD UREA NITROGEN 10 MG/DL (7-18); CALCIUM LEVEL 9.2 MG/DL (8.8-10.2); CARBON DIOXIDE LEVEL 28 MEQ/L (21-32); CHLORIDE LEVEL 102 MEQ/L (98-107); CREATININE FOR GFR 0.62 MG/DL (0.55-1.30); GLOMERULAR FILTRATION RATE > 60.0 (>32); GLUCOSE, FASTING 110 MG/DL (70-100); MAGNESIUM LEVEL 1.9 MG/DL (1.8-2.4); POTASSIUM SERUM 3.8 MEQ/L (3.5-5.1); SODIUM LEVEL 137 MEQ/L (136-145)
[2019-07-29] MEDS: FORMOTEROL FUMARATE 20 MCG/2 ML INHALATION SOLUTION (PERFOROMIST) INH SCH (07:54)
[2019-07-29] MEDS: BUDESONIDE 0.5 MG/2 ML INHALATION SUSPENSION INH SCH (07:54)
[2019-07-29] MEDS: METOPROLOL TART 25 MG TABLET PO SCH (08:59)
[2019-07-29] MEDS: DOXYCYCLINE HYCLATE 100 MG TAB PO SCH (08:59)
[2019-07-29] MEDS: ASPIRIN 81 MG ENTERIC TAB PO SCH (08:59)
[2019-07-29] MEDS: VITAMIN D 1,000 INTERNATIONAL UNITS TABLET PO SCH (08:59)
[2019-07-29 09:00] VITALS: BP 177/88
[2019-07-29] MEDS: cloNIDine 0.1 MG TAB PO SCH (09:00)
[2019-07-29] MEDS: DULoxetine 30 MG CAP (CYMBALTA) PO SCH (09:00)
[2019-07-29] MEDS: predniSONE 2.5 MG TAB PO SCH (09:00)
[2019-07-29] MEDS: lisinopriL 40 MG TAB PO SCH (09:00)
[2019-07-29] MEDS: HEPARIN SOD (PORCINE) 5000 UNITS/ML VIAL SC SCH (09:01)
[2019-07-29] MEDS: LEVEMIR (INSULIN DETEMIR) 1 UNITS/0.01ML SC SCH (09:01)
[2019-07-29] MEDS: HumaLOG INSULIN (NovoLOG) PER UNIT SC SCH ×2 (09:02→12:25)
--- NOTE | 2019-07-29 11:58 | DS.PDOC ---
Discharge Summary General Date of Admission Jul 18, 2019 at 09:59 Date of Discharge 07/29/2019 Attending Physician: ZOHREH HAYWARD MD Discharge Summary PROCEDURES PERFORMED DURING STAY: None ADMITTING DIAGNOSES: 1. Pneumonia DISCHARGE DIAGNOSES: 1. Community acquired pneumonia with septic shock 2. Hypoxemic respiratory failure 3. Hypertensive urgency 4. Metabolic encephalopathy 5. Diabetes mellitus 6. CHF diastolic 7. Oral candidiasis 8. COPD COMPLICATIONS/CHIEF COMPLAINT: Metabolic Encephalopathy. HISTORY OF PRESENT ILLNESS: 79 years old W with past medical history of hypertension, hyperlipidemia, diabetes, COPD, right breast cancer, psoriasis presented hospital with altered mental status. She was found unresponsive in the bed in the snf facility and brought to the hospital. HOSPITAL COURSE: In emergency room patient was found to have fever of 100.5, leukocytosis of 21.1, lactic acid 5.6, glucose level 323, BMP 1033. Patient is very lethargic and can't provide detailed history. She complains of diffuse abdominal pain. CT chest showed cardiomegaly with element of possibly chronic pulmonary vascular congestion, lower lobe consolidations (left greater than right) and small left pleural effusion consistent with pneumonia. She was ultimately found to have bilateral left greater than right bilateral pneumonia with septic shock and hypoxemic respiratory failure, requiring a central line and ICU stay and pressors and was initially started on vanc/zosyn, with negative blood cultures and unrevealing sputum culture. Her course was c/b persistent fevers and was ID consulted and switched her to piptazo/doxy to cover atypical bacteria since the source was unclear, with resolution of her fevers, shock, hypoxemia and she completed a full course. Her course was further c/b severe delirium that eventually resolved will clinical improvement as well as hypertension that resolved with restarting and titrating her baseline medications. She worked with physical therapy and did well and is now being discharged back to the [facility] where she permanently resides. DISCHARGE MEDICATIONS: Please see below. ALLERGIES: Please see below. PHYSICAL EXAMINATION ON DISCHARGE: VITAL SIGNS: Please see below. GENERAL APPEARANCE: Somnolent, lethargic female, consistently moaning, follows simple command HEENT: Normocephalic, atraumatic, PERRLA, EOMI, MMM, resolved thrush CARDIOVASCULAR: Regular rhythm, tachycardic, no noted murmurs, rubs or gallops LUNGS: Moving air well, much improved scattered rhonchi ABDOMEN: Normoactive bowel sounds, obese, abdomen is soft and nontender MUSCULOSKELETAL: Moving all 4 extremities spontaneously, AOx0 NEUROLOGICAL: AOx0, moving all extremities, no facial droops LABORATORY DATA: Please see below. IMAGIN/5 CXR: No definite acute cardiopulmonary process 07/18: head CT: Atrophy and microvascular ischemic changes. No acute intracranial hemorrhage, infarction, or mass/mass effect. 07/18: Chest CT: 1. Cardiomegaly with element of possibly chronic pulmonary vascular congestion. 2. Lower lobe consolidations (left greater than right) and small left pleural effusion consistent with pneumonia 07/18: 1. Mild/moderate fecal stasis. 2. Stable prominent left renal peripelvic cystic change versus chronic hydronephrosis. 3. Bibasilar consolidations consistent with pneumonia. 4. Further chronic changes as above. 07/19: CXR: Central venous catheter with tip in the SVC. No obvious pneumothorax. 07/20: head CT: Moderate atrophy, otherwise no acute changes PROGNOSIS: Good ACTIVITY: As tolerated DIET: consistent carb, 2g sodium DISCHARGE PLAN: Back to [facility] DISPOSITION: SS DISCHARGE INSTRUCTIONS: 1. To see PCP within 1-2 weeks for post discharge follow up ITEMS TO FOLLOWUP ON ON OUTPATIENT: 1. Deconditioning after acute prolonged illness DISCHARGE CONDITION: Stable TIME SPENT ON DISCHARGE: 42 minutes. Vital Signs/I&Os Vital Signs Date Time Temp Pulse Resp B/P (MAP) Pulse Ox O2 Delivery O2 Flow Rate FiO2 07/29/19 09:00 177/88 07/29/19 08:59 68 07/29/19 06:00 96.7 19 95 07/28/19 22:00 Room Air 07/25/19 16:00 0.0 I&O- Last 24 Hours up to 6 AM 07/29/19 06:00 Intake Total 2040 ml Output Total 0 ml Balance 2040 ml Laboratory Data Labs 24H Laboratory Tests 2 07/28/19 16:21: Bedside Glucose (Misc Panel) 197H 07/28/19 20:43: Bedside Glucose (Misc Panel) 173H 07/29/19 05:59: Nucleated Red Blood Cells % (auto) 0.0, Anion Gap 7L, Glomerular Filtration Rate > 60.0, Calcium Level 9.2, Magnesium Level 1.9 CBC/BMP Laboratory Tests 07/29/19 05:59 FSBS Laboratory Tests Test 07/28/19 16:21 07/28/19 20:43 Range/Units Bedside Glucose (Misc Panel) 197 173 83-110 MG/DL Microbiology Microbiology 07/19/19 Blood Culture - Final, Complete NO GROWTH AFTER 5 DAYS Discharge Medications Scheduled Acetaminophen (Acetaminophen) 325 Mg Tablet, 650 MG PO TID, (Reported) 0800/1200/1900 Aspirin (Aspirin EC) 81 Mg Tablet.dr, 162 MG PO DAILY, (Reported) Atorvastatin Calcium (Atorvastatin Calcium) 20 Mg Tablet, 20 MG PO QPM, (Reported) Budesonide/Formoterol (Symbicort 160-4.5 Mcg Inhaler) 6 Gm Hfa.aer.ad, 2 PUFF INH BID, (Reported) Cholecalciferol (Vitamin D3) (Vitamin D3) 1,000 Unit Capsule, 7,000 UNIT PO DAILY, (Reported) Duloxetine Hcl (Cymbalta) 30 Mg Capsule.dr, 30 MG PO BID, (Reported) Furosemide (Furosemide) 40 Mg Tablet, 60 MG PO DAILY, (Reported) Gabapentin (Gabapentin) 800 Mg Tablet, 800 MG PO DAILY, (Reported) TAKES AT NOON Gabapentin (Neurontin) 100 Mg Capsule, 1,000 MG PO QPM, (Reported) Gabapentin (Gabapentin) 600 Mg Tablet, 1,200 MG PO QAM, (Reported) Glycerin/Propylene Glycol (Artificial Tears Drops) 15 Ml Drops, 1 DROP OU QID, (Reported) Guaifenesin (Mucus ER) 600 Mg Tab.er.12h, 600 MG PO BID, (Reported) Insulin Detemir (Levemir) 100 Unit/1 Ml Vial, 22 UNITS SC QAM, (Reported) Insulin Detemir (Levemir) 100 Unit/1 Ml Vial, 15 UNITS SC QPM, (Reported) Insulin Lispro (Humalog Kwikpen U-100) 100 Unit/1 Ml Insuln.pen, 1 DOSE SC TID, (Reported) PER SLIDING SCALE Lisinopril (Lisinopril) 40 Mg Tablet, 40 MG PO DAILY, (Reported) Metoprolol Tartrate (Metoprolol Tartrate) 25 Mg Tablet, 25 MG PO BID, (Reported) HOLD FOR SBP<130 OR PULSE <60 Potassium Chloride (Potassium Chloride) 20 Meq Tab.er.prt, 20 MEQ PO DAILY, (Reported) Prednisone (Prednisone) 2.5 Mg Tablet, 2.5 MG PO Q2D, (Reported) Sennosides/Docusate Sodium (Senokot-S Tablet) 1 Each Tablet, 1 TAB PO BID, (Reported) Tiotropium [place] Monohydrate (Spiriva) 18 Mcg Cap.w.dev, 18 MCG INH DAILY, (Reported) fentaNYL (fentaNYL) 50 Mcg Patch.td72, 50 MCG TD Q3D, (Reported) APPLIED TO LEFT SHOULDER Scheduled PRN Acetaminophen (Acetaminophen) 325 Mg Tablet, 650 MG PO Q4H PRN for PAIN, (Reported) Acetaminophen (Acetaminophen) 650 Mg Supp.rect, 650 MG FL Q4H PRN for PAIN / FEVER, (Reported) Albuterol Sulf (Albuterol Sulfate) 2.5 Mg/3 Ml Vial.neb, 2.5 MG INH Q2H PRN for SOB/WHEEZING, (Reported) Bisacodyl (Dulcolax) 10 Mg Supp.rect, 10 MG FL DAILY PRN for CONSTIPATION, (Reported) Clonidine Hcl (Clonidine HCl) 0.1 Mg Tablet, 0.1 MG PO DAILY PRN for HYPERTENSION, (Reported) Glucagon,Human Recombinant (Glucagon Emergency Kit) 1 Mg Vial, 1 MG IM ASDIRECTED PRN for LOW BLOOD SUGAR, (Reported) Lidocaine (Anecream) 4% Cream..g., 1 APLCT TOP Q2H PRN for PAIN, (Reported) APPLY TO PAINFUL JOINTS Magnesium Hydroxide (Milk of Magnesia) 400 Mg/5 Ml Oral.susp, 30 ML PO DAILY PRN for CONSTIPATION, (Reported) Tramadol HCl (Tramadol HCl) 50 Mg Tablet, 25 MG PO Q8H PRN for PAIN, (Reported) Allergies Coded Allergies: hydroxyzine (Verified Allergy, Unknown, 07/18/19) ZOHREH HAYWARD MD Jul 29, 2019 11:58
--- NOTE | 2019-07-29 12:00 | IPNPDOC ---
Text Note Date of Service The patient was seen on 07/29/19. NOTE Subjective: -No complaints, afebrile, doing well Objective: VITAL SIGNS: Please see below. GENERAL APPEARANCE: Somnolent, lethargic female, consistently moaning, follows simple command HEENT: Normocephalic, atraumatic, PERRLA, EOMI, MMM, resolved thrush CARDIOVASCULAR: Regular rhythm, tachycardic, no noted murmurs, rubs or gallops LUNGS: Moving air well, much improved scattered rhonchi ABDOMEN: Normoactive bowel sounds, obese, abdomen is soft and nontender MUSCULOSKELETAL: Moving all 4 extremities spontaneously, AOx0 NEUROLOGICAL: AOx0, moving all extremities, no facial droops Labs: Reviewed. Stable 79 years old W with a history of HTN, hyperlipidemia, DM COPD, right breast cancer, psoriasis who presented hospital with altered mental status, and found to have bilateral left greater than right pneumonia and started on vanc/zosyn, however course c/b persistent fevers with ID consulted and switched to piptazo/doxy now completed her course, and course was also c/b severe delirium that has now resolved. Plan: Medically stable at this time, discharging her to the [facility]. For details, see the discharge summary. VS,Fishbone, I+O VS, Fishbone, I+O Laboratory Tests 07/29/19 05:59 Vital Signs Date Time Temp Pulse Resp B/P (MAP) Pulse Ox O2 Delivery O2 Flow Rate FiO2 07/29/19 06:00 96.7 68 19 166/88 (114) 95 07/28/19 22:00 Room Air 07/25/19 16:00 0.0 I&O- Last 24 Hours up to 6 AM 07/29/19 06:00 Intake Total 2040 ml Output Total 0 ml Balance 2040 ml ZOHREH HAYWARD MD Jul 29, 2019 09:03
== END 2019-07-29 12:40 | DRG 871 ==
LOC: M ED 07:05 → M ED INP 09:59 → EEVIPCON 09:59 → M ICU 10:53 → M PCU 07-19 09:45 → M ICU 07-20 15:47 → M PCU 07-24 12:37 → M ICU 07-24 12:49 → M PCU 07-25 07:16 → M MS5PR 07-27 16:05
PROVIDERS: ADMIT Internal Medicine; ATTEND Internal Medicine
PROC: 02HV33Z Insertion of Infusion Device into Superior Vena Cava, Percutaneous Approach (ICD-10-PCS; principal; 2019-07-19)
DX: A41.9 Sepsis, unspecified organism (principal); J18.9 Pneumonia, unspecified organism; G93.41 Metabolic encephalopathy; R65.21 Severe sepsis with septic shock; J96.91 Respiratory failure, unspecified with hypoxia; E87.2 Acidosis; I50.32 Chronic diastolic (congestive) heart failure; B37.0 Candidal stomatitis; I11.0 Hypertensive heart disease with heart failure; E78.5 Hyperlipidemia, unspecified; E11.9 Type 2 diabetes mellitus without complications; J44.9 Chronic obstructive pulmonary disease, unspecified; L40.50 Arthropathic psoriasis, unspecified; I25.10 Atherosclerotic heart disease of native coronary artery without angina pectoris; M10.9 Gout, unspecified; M81.0 Age-related osteoporosis without current pathological fracture; G47.33 Obstructive sleep apnea (adult) (pediatric); N26.1 Atrophy of kidney (terminal); Z86.14 Personal history of Methicillin resistant Staphylococcus aureus infection; Z85.3 Personal history of malignant neoplasm of breast; Z79.82 Long term (current) use of aspirin; Z79.4 Long term (current) use of insulin; Z79.52 Long term (current) use of systemic steroids; Z88.8 Allergy status to other drugs, medicaments and biological substances; Z79.899 Other long term (current) drug therapy; I16.0 Hypertensive urgency; R32 Unspecified urinary incontinence; R15.9 Full incontinence of feces

== ENCOUNTER → 2019-08-09 | Outpatient (REF) ==
[~2019-08-09] MED LIST changes: +ACET-908 PO; +ACET650S3 PR; +ANEC4CRE3 TOP; +APAP325T4 PO; +ARTIDRO OU; +CLONI1TA PO; +D-101000 PO; +EQ M1TAB4 PO; +FENT50DI5 TD; +GLUC1KIT IM; +METO25TA4 PO; +MILKSUS3 PO; +NEUR100C PO; +POTA20TA6 PO; +PRED25TA PO; +TRAM50TA2 PO
[2019-08-09 13:03] LABS: HEMATOCRIT 39.6 % (36.0-47.0); HEMOGLOBIN 12.2 g/dl (12.0-15.5); MEAN CORPUSCULAR HEMOGLOBIN 28.8 pg (27.0-33.0); MEAN CORPUSCULAR HGB CONC 30.8 g/dl (32.0-36.5); MEAN CORPUSCULAR VOLUME 93.4 fl (80.0-96.0); PLATELET COUNT, AUTOMATED 245 10^3/uL (150-450); RED BLOOD COUNT 4.24 10^6/uL (4.00-5.40); WHITE BLOOD COUNT 8.4 10^3/uL (4.0-10.0)
[2019-08-09 13:34] LABS: ALBUMIN 3.2 GM/DL (3.2-5.2); ALT/SGPT 18 U/L (12-78); BILIRUBIN,TOTAL 0.4 MG/DL (0.2-1.0); BLOOD UREA NITROGEN 11 MG/DL (7-18); CALCIUM LEVEL 8.6 MG/DL (8.8-10.2); CARBON DIOXIDE LEVEL 31 MEQ/L (21-32); CHLORIDE LEVEL 98 MEQ/L (98-107); CREATININE FOR GFR 0.69 MG/DL (0.55-1.30); GLOMERULAR FILTRATION RATE > 60.0 (>32); GLUCOSE, FASTING 192 MG/DL (70-100); NT-PRO BNP 172 PG/ML (<450); POTASSIUM SERUM 4.1 MEQ/L (3.5-5.1); SODIUM LEVEL 136 MEQ/L (136-145)
--- NOTE | 2019-08-09 15:00 | REPPI ---
Clinical: Fever . Comparison: 07/18/2019 . Findings: Examination is limited by underpenetration. Mediastinum and cardiac silhouette are stable. No obvious focal consolidation. No definite effusion. No pneumothorax. Skeletal structures stable. Impression: Limited examination. No definite acute process. Electronically Signed by Drew Cunha MD 08/09/2019 02:52 P
== END ==
PROVIDERS: ATTEND Nurse Practitioner Adult Health
DX: J06.9 Acute upper respiratory infection, unspecified (principal)

== ENCOUNTER → 2019-08-19 | Outpatient (REF) | payer MEDICARE, MEDICAID ==
[2019-08-19 12:44] LABS: BASO # 0.1 10^3/uL (0.0-0.2); BASO % 0.4 % (0.0-1.0); EOS # 0.3 10^3/uL (0.0-0.5); EOS % 2.4 % (0.0-3.0); HEMATOCRIT 41.7 % (36.0-47.0); HEMOGLOBIN 12.8 g/dl (12.0-15.5); LYMPH # 1.8 10^3/uL (1.5-5.0); LYMPH % 14.2 % (24.0-44.0); MEAN CORPUSCULAR HEMOGLOBIN 28.3 pg (27.0-33.0); MEAN CORPUSCULAR HGB CONC 30.7 g/dl (32.0-36.5); MEAN CORPUSCULAR VOLUME 92.3 fl (80.0-96.0); MONO # 0.8 10^3/uL (0.0-0.8); MONO % 6.2 % (0.0-5.0); NEUTROPHILS # 9.7 10^3/uL (1.5-8.5); NEUTROPHILS % 76.3 % (36.0-66.0); PLATELET COUNT, AUTOMATED 242 10^3/uL (150-450); RED BLOOD COUNT 4.52 10^6/uL (4.00-5.40); WHITE BLOOD COUNT 12.8 10^3/uL (4.0-10.0)
[2019-08-19 13:10] LABS: ALBUMIN 3.1 GM/DL (3.2-5.2); BILIRUBIN,TOTAL 0.7 MG/DL (0.2-1.0); CREATININE FOR GFR 0.98 MG/DL (0.55-1.30); GLOMERULAR FILTRATION RATE 58.1 (>32); POTASSIUM SERUM 4.3 MEQ/L (3.5-5.1); TOTAL PROTEIN 7.2 GM/DL (6.4-8.2)
--- NOTE | 2019-08-19 13:22 | REPPI ---
Portable chest x-ray: Three views presented. Repeat dictation. History: Cough. Findings: Cardiomegaly is observed. Pulmonary vascular congestion is seen. The findings are unchanged from comparison study July 19, 2019. The central line has been removed in the interval since that prior study. No infiltrate is seen. No pleural effusion noted. Impression: Cardiomegaly and vascular congestion again noted. No acute infiltrate. Electronically Signed by Olaf Ward MD 08/19/2019 01:13 P
== END ==
PROVIDERS: ATTEND Internal Medicine
DX: I51.7 Cardiomegaly (principal); R91.8 Other nonspecific abnormal finding of lung field; R05 Cough; R06.2 Wheezing

== ENCOUNTER → 2019-09-23 | Outpatient (CLI) | payer MEDICARE, MEDICAID ==
[~2019-09-23] MED LIST changes: -ARTIDRO2 OU; -MECL12.575 PO; +MECL12.589 PO; +POLYOPD OU
--- NOTE | 2019-09-23 14:35 | REPMRS ---
Patient History The patient states she has not had a clinical breast exam in over a year. Family history of colorectal cancer in brother. Malignant lumpectomy of the right breast, 2009. Chemotherapy, 2009. Radiation therapy of the right breast, 2008. Digital Woman Screen Mammo: September 23, 2019 - Exam #: [id number] Bilateral CC and MLO view(s) were taken. Technologist: Kiki Hay, Technologist Prior study comparison: September 10, 2018, bilateral digital woman screen mammo performed at [facility]. September 07, 2017, bilateral digital mammo screening bilat, performed at [facility]. September 02, 2016, digital woman screen mammo performed at [facility]. FINDINGS: There are scattered fibroglandular densities. Positioning is somewhat less than optimal due to this patient's immobility and wheelchair status. There are stable post-treatment changes again noted in the right breast. There has been no change in the appearance of the mammogram from the prior studies. There is a mild amount of scattered fibroglandular density which is fairly symmetric. There is no interval development of dominant mass, architectural distortion, or grouped microcalcification suggestive of malignancy. Assessment: BI-RADS/ACR category 2 mammogram. Benign Findings. Recommendation Routine screening mammogram of both breasts in 1 year (for women over age 40). This patient's Lifetime Breast Cancer Risk is estimated at %. This mammogram was interpreted with the aid of an FDA-approved computer-aided dectection system. Electronically Signed By: Gordy Ward MD 09/23/19 [id number]
== END ==
LOC: M WHC 12:09
PROVIDERS: ATTEND Internal Medicine
DX: Z12.31 Encounter for screening mammogram for malignant neoplasm of breast (principal); Z80.0 Family history of malignant neoplasm of digestive organs; Z85.3 Personal history of malignant neoplasm of breast; Z92.21 Personal history of antineoplastic chemotherapy; Z92.3 Personal history of irradiation

== ENCOUNTER → 2019-09-24 | Outpatient (REF) | payer MEDICARE, MEDICAID ==
--- NOTE | 2019-09-24 11:36 | REPPI ---
Clinical: Pain. Fall. Comparison: 08/09/2019 . Findings: The mediastinum and cardiac silhouette are stable and within normal limits for portable technique. The lung gonzalez are clear without acute consolidation, effusion, or pneumothorax. Skeletal structures are intact. Impression: No acute cardiopulmonary process appreciated. Electronically Signed by Drew Cunha MD 09/24/2019 11:27 A
[2019-09-24 11:58] LABS: HEMATOCRIT 40.2 % (36.0-47.0); HEMOGLOBIN 12.7 g/dl (12.0-15.5); MEAN CORPUSCULAR HEMOGLOBIN 28.5 pg (27.0-33.0); MEAN CORPUSCULAR HGB CONC 31.6 g/dl (32.0-36.5); MEAN CORPUSCULAR VOLUME 90.3 fl (80.0-96.0); PLATELET COUNT, AUTOMATED 270 10^3/uL (150-450); RED BLOOD COUNT 4.45 10^6/uL (4.00-5.40); WHITE BLOOD COUNT 8.3 10^3/uL (4.0-10.0)
[2019-09-24 12:26] LABS: ALBUMIN 3.2 GM/DL (3.2-5.2); ALT/SGPT 19 U/L (12-78); BILIRUBIN,TOTAL 0.4 MG/DL (0.2-1.0); BLOOD UREA NITROGEN 9 MG/DL (7-18); CALCIUM LEVEL 8.7 MG/DL (8.8-10.2); CARBON DIOXIDE LEVEL 33 MEQ/L (21-32); CHLORIDE LEVEL 96 MEQ/L (98-107); CREATININE FOR GFR 0.76 MG/DL (0.55-1.30); GLOMERULAR FILTRATION RATE > 60.0 (>32); GLUCOSE, FASTING 213 MG/DL (70-100); NT-PRO BNP 205 PG/ML (<450); POTASSIUM SERUM 3.4 MEQ/L (3.5-5.1); SODIUM LEVEL 137 MEQ/L (136-145); TOTAL PROTEIN 6.6 GM/DL (6.4-8.2)
== END ==
PROVIDERS: ATTEND Internal Medicine
DX: E11.9 Type 2 diabetes mellitus without complications (principal); I10 Essential (primary) hypertension; R07.82 Intercostal pain

== ENCOUNTER → 2019-09-28 | Outpatient (REF) | payer MEDICARE, MEDICAID ==
[~2019-09-28] MED LIST changes: +CEFT1INJ5 ID; +ENEMENE PR; +EUCECRE8 TOP; +IPRA0.00 INH; +PLAQ200T4 PO; +PRED5TA PO; +VITAD1000T PO
[2019-09-28 22:50] LABS: HEMATOCRIT 39.4 % (36.0-47.0); HEMOGLOBIN 12.5 g/dl (12.0-15.5); MEAN CORPUSCULAR HEMOGLOBIN 28.3 pg (27.0-33.0); MEAN CORPUSCULAR HGB CONC 31.7 g/dl (32.0-36.5); MEAN CORPUSCULAR VOLUME 89.1 fl (80.0-96.0); PLATELET COUNT, AUTOMATED 247 10^3/uL (150-450); RED BLOOD COUNT 4.42 10^6/uL (4.00-5.40)
[2019-09-28 22:52] LABS: ALBUMIN 3.3 GM/DL (3.2-5.2); ALT/SGPT 23 U/L (12-78); BILIRUBIN,TOTAL 0.4 MG/DL (0.2-1.0); BLOOD UREA NITROGEN 11 MG/DL (7-18); CALCIUM LEVEL 8.7 MG/DL (8.8-10.2); CARBON DIOXIDE LEVEL 32 MEQ/L (21-32); CHLORIDE LEVEL 96 MEQ/L (98-107); CREATININE FOR GFR 0.85 MG/DL (0.55-1.30); GLOMERULAR FILTRATION RATE > 60.0 (>32); GLUCOSE, FASTING 214 MG/DL (70-100); POTASSIUM SERUM 4.2 MEQ/L (3.5-5.1); SODIUM LEVEL 136 MEQ/L (136-145); TOTAL PROTEIN 6.9 GM/DL (6.4-8.2)
== END ==
PROVIDERS: ATTEND Internal Medicine
DX: R07.81 Pleurodynia (principal); W19.XXXA Unspecified fall, initial encounter

== ENCOUNTER 2019-09-29 12:15 | Inpatient (IN) | payer MEDICARE, MEDICAID ==
[~2019-09-29] VITALS: Ht 162.6 cm; Wt 109.4 kg
[~2019-09-29 12:15] MED LIST changes: -CEFT1INJ5 ID; -ENEMENE PR; -EUCECRE8 TOP; -IPRA0.00 INH; -PLAQ200T4 PO; -PRED5TA PO; -VITAD1000T PO
[2019-09-29] MEDS ORDERED: ONDANSETRON 4MG/2ML VIAL (J2405) IV ONE (12:30)
[2019-09-29] MEDS ORDERED: NS 1,000 ML IV ONE (12:30)
[2019-09-29] MEDS ORDERED: ACETAMINOPHEN 650 MG SUPP PR ONE (12:45)
[2019-09-29] MEDS ORDERED: ACETAMINOPHEN 325 MG SUPP PR ONE (12:45)
[2019-09-29 12:54] LABS: BASO % 0.2 % (0.0-1.0); EOS % 0.1 % (0.0-3.0); HEMATOCRIT 38.2 % (36.0-47.0); HEMOGLOBIN 12.1 g/dl (12.0-15.5); LYMPH # 0.6 10^3/uL (1.5-5.0); LYMPH % 6.3 % (24.0-44.0); MEAN CORPUSCULAR HEMOGLOBIN 28.1 pg (27.0-33.0); MEAN CORPUSCULAR HGB CONC 31.7 g/dl (32.0-36.5); MEAN CORPUSCULAR VOLUME 88.8 fl (80.0-96.0); MONO # 0.1 10^3/uL (0.0-0.8); MONO % 0.5 % (0.0-5.0); NEUTROPHILS # 9.2 10^3/uL (1.5-8.5); PLATELET COUNT, AUTOMATED 223 10^3/uL (150-450)
--- NOTE | 2019-09-29 13:02 | REP ---
Clinical: Fever. Comparison: 09/24/2019. Findings: Stable cardiomegaly and chronic interstitial changes. No obvious focal consolidation or effusion. No pneumothorax. Skeletal structures intact. Impression: Chronic stable changes. No focal consolidation or effusion. Electronically Signed by Drew Cunha MD 09/29/2019 12:53 P
[2019-09-29] MEDS ORDERED: MORPHINE 2 MG/ML 1ML VIAL (J2270) IV ONE (13:15)
[2019-09-29] MEDS ORDERED: METOCLOPRAMIDE INJ 10MG/2ML VIAL (J2765) IV ONE (13:15)
[2019-09-29 13:21] LABS: ALBUMIN 3.1 GM/DL (3.2-5.2); BILIRUBIN,DIRECT 0.2 MG/DL (0.0-0.2); BILIRUBIN,TOTAL 0.6 MG/DL (0.2-1.0); CK-MB VALUE MASS 1.9 NG/ML (<3.6); MB/CK RELATIVE INDEX 1.07 (< OR =4); TOTAL PROTEIN 6.8 GM/DL (6.4-8.2); TROPONIN I 0.04 NG/ML (< 0.10)
[2019-09-29 13:23] LABS: INFLUENZA A AMPLIFICATION NEGATIVE (NEGATIVE); INFLUENZA B AMPLIFICATION NEGATIVE (NEGATIVE)
[2019-09-29] MEDS ORDERED: NS 3,150 ML in IV 1 EA IV ONE (13:30)
[2019-09-29] MEDS ORDERED: ISOVUE-370 76% 100ML VIAL (Q9967) As Ordered ONE (13:35)
[2019-09-29] MEDS ORDERED: VITAD1000T PO (13:55)
[2019-09-29] MEDS ORDERED: PRED5TA PO (13:55)
[2019-09-29] MEDS ORDERED: PLAQ200T4 PO (13:55)
[2019-09-29] MEDS ORDERED: CEFT1INJ5 ID (13:55)
[2019-09-29] MEDS ORDERED: PRED10TA2 PO (13:55)
[2019-09-29] MEDS ORDERED: ENEMENE PR (13:55)
[2019-09-29] MEDS ORDERED: EUCECRE8 TOP (13:55)
[2019-09-29] MEDS ORDERED: IPRA0.00 INH (13:55)
--- NOTE | 2019-09-29 14:35 | REP ---
Clinical: Severe pain radiating to the back. Technique: Axial contrast enhanced images using angiographic technique for maximal enhancement of the aorta with coronal and sagittal MIP re-formations using 100 ml Isovue 370 intravenous contrast material. Findings: Thoracic aorta and branch vessels through the aortic arch demonstrate atherosclerotic changes without aneurysm or dissection. Cardiomegaly suggested without pericardial effusion. Pulmonary vasculature is grossly normal. No adenopathy. Lung gonzalez demonstrate chronic interstitial changes and findings to suggest early pulmonary vascular congestion. No consolidation. No effusion. No pneumothorax. Musculoskeletal structures demonstrate degenerative changes without acute osseous abnormality. Incidental hiatal hernia at the gastroesophageal junction. Upper abdomen demonstrates normal bilateral adrenal glands and left renal cysts along with prior cholecystectomy. Impression: Significant atherosclerotic disease without aneurysm or dissection. Cardiomegaly and early pulmonary vascular congestion cannot be excluded. Electronically Signed by Drew Cunha MD 09/29/2019 02:26 P
--- NOTE | 2019-09-29 14:41 | REP ---
Clinical: Severe abdominal pain. Technique: Axial contrast enhanced images using angiographic technique for maximal enhancement of the aorta with coronal and sagittal MIP re-formations using 100 ml Isovue 370 intravenous contrast material. Findings: Significant atherosclerotic changes to the abdominal aorta and major branch vessels noted without aneurysm or dissection. No periaortic fluid or inflammatory changes noted. Enhancement to the major branch vessels including celiac axis, superior mesenteric artery, renal arteries, MELVI and iliac arteries is appreciated although levels of atheromatous plaquing and narrowing cannot be ascertained. Liver, spleen, pancreas, bilateral adrenal glands are normal. 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 The right kidney demonstrates a vague hypodensity which may represent complex cyst although mass cannot be excluded. The enteric system is without obstruction or acute inflammatory process. Pelvis demonstrates normal bladder and evidence for prior hysterectomy. No ascites. No free air. No adenopathy. Musculoskeletal structures demonstrate degenerative changes without acute focal abnormality. Impression: 1. Marked atherosclerotic changes to the abdominal aorta and branch vessels without evidence for aneurysm or dissection. 2. Chronic findings involving the bilateral kidneys. Complex cyst versus mass involving the right kidney cannot be properly evaluated and non emergent renal ultrasound may be considered. 3. No ascites. No free air. No adenopathy. No focal inflammatory changes. Electronically Signed by Drew Cunha MD 09/29/2019 02:33 P
[2019-09-29] MEDS ORDERED: cefTRIAXone SOD 2 GM in D5W MINI-BAG PLUS 50 ML IV ONE (14:45)
[2019-09-29] MEDS ORDERED: FENTANYL REMOVAL DOCUMENTATION MISC XX SCH (16:00)
[2019-09-29] MEDS ORDERED: DEXTROSE 50% 50 ML SYRINGE IV PRN (16:00)
[2019-09-29] MEDS ORDERED: BISACODYL 10 MG SUPP PR PRN (16:00)
[2019-09-29] MEDS ORDERED: GLUCAGON FOR INJ 1 MG VIAL (J1610) SC PRN (16:00)
[2019-09-29] MEDS ORDERED: GLUCOSE 4 GM CHEW TABLET PO PRN (16:00)
[2019-09-29] MEDS ORDERED: ONDANSETRON 4MG/2ML VIAL (J2405) IV PRN (16:15)
--- NOTE | 2019-09-29 17:14 | HPEPDOC ---
General Date of Admission 09/29/19 Date of Service: Sep 29, 2019 Chief Complaint The patient is a 79-year-old female admitted with a reason for visit of general illness. Source: Family, RN/MD, Old records History of Present Illness 79 year old female with dementia resident of [facility] facility with multiple medical problem has been having fever for 2 days. Yesterday her respiratory panel was checked which was negative and she was given a dose of ceftriaxone. SHe was ok this morning and had her breakfast then she spiked a fever at around 11 am with chills and cold sweats , she had also complained of chest pain and became confused so was sent to the ED for evaluation. In the ED she complained of upper abdominal and epigastric pain , severe 9/10 in intensity very sharp and she was writhing around in bed associated with vomiting and dry heaving. She was also febrile to 102. she was hypertensive and her lactate was elevated to 4.2. She had a CT angio or the chest and abdomen done which did not show any pneumonia or any aneurysm or any dissection or any signs of bowel ischemia. Her UA came back dirty. Patient herself is confused and lethargic due to fever, and possibly the morphine she got earlier. [facility] bed side [facility] and paperwork sent from [place]. She was admitted for Sepsis due to UTI with metabolic encephalopathy and lacticacidosis. Home Medications Scheduled Acetaminophen (Acetaminophen) 325 Mg Tablet, 650 MG PO TID, (Reported) 0800/1200/1900 Aspirin (Aspirin EC) 81 Mg Tablet.dr, 162 MG PO DAILY, (Reported) Atorvastatin Calcium (Atorvastatin Calcium) 20 Mg Tablet, 20 MG PO QPM, (R eported) Budesonide/Formoterol (Symbicort 160-4.5 Mcg Inhaler) 6 Gm Hfa.aer.ad, 2 PUFF INH BID, (Reported) Cholecalciferol (Vitamin D3) (Vitamin D3) 1,000 Unit Tablet, 7,000 UNITS PO DAILY, (Reported) TAKES AT NOON Duloxetine Hcl (Cymbalta) 30 Mg Capsule.dr, 30 MG PO BID, (Reported) Furosemide (Furosemide) 40 Mg Tablet, 40 MG PO BID, (Reported) Gabapentin (Gabapentin) 800 Mg Tablet, 800 MG PO DAILY, (Reported) TAKES AT NOON Gabapentin (Neurontin) 100 Mg Capsule, 1,000 MG PO QPM, (Reported) Gabapentin (Gabapentin) 600 Mg Tablet, 1,200 MG PO QAM, (Reported) Glycerin/Propylene Glycol (Artificial Tears Drops) 15 Ml Drops, 1 DROP OU QID, (Reported) Guaifenesin (Mucus ER) 600 Mg Tab.er.12h, 600 MG PO BID, (Reported) Hydroxychloroquine Sulfate (Plaquenil) 200 Mg Tablet, 200 MG PO BID, (Reported) Insulin Detemir (Levemir) 100 Unit/1 Ml Vial, 22 UNITS SC QAM, (Reported) Insulin Detemir (Levemir) 100 Unit/1 Ml Vial, 15 UNITS SC QPM, (Reported) Insulin Lispro (Humalog Kwikpen U-100) 100 Unit/1 Ml Insuln.pen, 1 DOSE SC AC, (Reported) PER SLIDING SCALE Ipratropium/Albuterol Sulfate (Iprat-Albut 0.5-3(2.5) mg/3 ml) 3 Ml Ampul.neb, 1 TONA INH Q6H, (Reported) FOR 3 DAYS STARTING 09/29/19 Lanolin Alcohol/Mo/W.pet/Chilcoot (Eucerin Creme) 454 Gm Cream..g., 1 DOSE TOP BID, (Reported) APPLY TO ENTIRE BODY Levofloxacin (Levaquin) 750 Mg Tablet, 750 MG PO DAILY@06 Lisinopril (Lisinopril) 40 Mg Tablet, 40 MG PO DAILY, (Reported) Metoprolol Tartrate (Metoprolol Tartrate) 25 Mg Tablet, 25 MG PO TID Potassium Chloride (Potassium Chloride) 20 Meq Tab.er.prt, 20 MEQ PO DAILY, (Reported) Prednisone (Prednisone) 5 Mg Tablet, 5 MG PO DAILY, (Reported) TAKES AT 1100 Prednisone (Prednisone) 10 Mg Tablet, 30 MG PO ONCE, (Reported) Sennosides/Docusate Sodium (Senokot-S Tablet) 1 Each Tablet, 1 TAB PO BID, (Reported) Tiotropium [place] Monohydrate (Spiriva) 18 Mcg Cap.w.dev, 18 MCG INH DAILY, (Reported) fentaNYL (fentaNYL) 50 Mcg Patch.td72, 50 MCG TD Q3D, (Reported) AT 1600 Scheduled PRN Acetaminophen (Acetaminophen) 325 Mg Tablet, 650 MG PO Q4H PRN for PAIN, (Reported) Albuterol Sulf (Albuterol Sulfate) 2.5 Mg/3 Ml Vial.neb, 2.5 MG INH Q2H PRN for SOB/WHEEZING, (Reported) Bisacodyl (Dulcolax) 10 Mg Supp.rect, 10 MG FL DAILY PRN for CONSTIPATION, (Reported) Clonidine Hcl (Clonidine HCl) 0.1 Mg Tablet, 0.1 MG PO DAILY PRN for HYPERTENSION, (Reported) GIVE IF SBP IS ABOVE 190 OR HR ABOVE 90 Glucagon,Human Recombinant (Glucagon Emergency Kit) 1 Mg Vial, 1 MG IM ASDIRECTED PRN for LOW BLOOD SUGAR, (Reported) Lidocaine (Anecream) 4% Cream..g., 1 APLCT TOP Q2H PRN for PAIN, (Reported) APPLY TO PAINFUL JOINTS Magnesium Hydroxide (Milk of Magnesia) 400 Mg/5 Ml Oral.susp, 30 ML PO DAILY PRN for CONSTIPATION, (Reported) Sodium Phosphate,[place]-Dibasic (Enema) 133 Ml Enema, 1 PRIMO FL DAILY PRN for CONSTIPATION, (Reported) Tramadol HCl (Tramadol HCl) 50 Mg Tablet, 25 MG PO Q8H PRN for PAIN, (Reported) Allergies Coded Allergies: hydroxyzine (Verified Allergy, Unknown, 07/18/19) Past Medical History Medical History Digna-orbicular shingles, MRSA left ear, left toe, left thigh, hypertension, diastolic CHF, dyslipidemia, insulin dependent diabetes, diabetic neuropathy, COPD with chronic respiratory failure with hypoxia, Coronary artery disease, right breast cancer 2008, gout, osteoporosis, psoriatic arthritis ,neurodermatitis, hypotonic bladder, Surgical History Breast surgery is 2008, right breast lumpectomy and sentinel lymph node biopsy right axillary area, hysterectomy, repair of ankle fracture, bilateral knee arthroscopy, incision and drainage of the left knee due to infection, bladder mesh, D C, cholecystectomy. Family History Significant Family History: Cancer (son and daughter both passed from cancer) Social History * Smoker: Denies Alcohol: Denies Drugs: denies A-FIB/CHADSVASC A-FIB History Current/History of A-Fib/PAF?: No Review of Systems Constitutional: Reports: Fever, Weakness, Lethargy Skin: Reports: Lesions (on bothe the legs maculo papular with breakdown), Breakdown Pulmonary: Denies: Dyspnea, Cough Cardiovascular: Denies: Chest Pain Gastrointestinal: Reports: Vomiting, Abdominal Pain Genitourinary: Reports: Incontinence Hematologic: Denies: Bruising, Bleeding Excessively Musculoskeletal: Reports: Back Pain, Shoulder Pain Neurological: Reports: Confusion Psych: Reports: Memory Issues Physical Examination General Exam: Positive: No Acute Distress, Other (lethargic but wakes up when called) Eye Exam: Positive: PERRLA, Conjunctiva & lids normal, EOMI; Negative: Sclera icteric ENT Exam: Positive: Atraumatic Neck Exam: Positive: Supple; Negative: JVD, thyromegaly Chest Exam: Positive: Normal air movement, Diminished (diminished overall breth sounds); Negative: Rales, Rhonchi, Wheezing Heart Exam: Positive: Tachycardic, Regular Rhythm, Normal S1, Normal S2; Negative: Gallops, Murmurs, Rubs Telemetry: Positive: Sinus, Tachycardia Abdomen Exam: Positive: BS Hypoactive, Soft, Tenderness (all over the abdomen) Extremity Exam: Negative: Clubbing, Cyanosis, Edema Skin Exam: Positive: Lesion (in both legs) Vital Signs Vital Signs Date Time Temp Pulse Resp B/P (MAP) Pulse Ox O2 Delivery O2 Flow Rate FiO2 09/29/19 14:16 102.6 09/29/19 14:15 104 93 Nasal Cannula 4.0 09/29/19 14:00 197/84 (121) 09/29/19 13:26 20 Laboratory Data Labs 24H Laboratory Tests 2 09/29/19 12:42: Immature Granulocyte % (Auto) 0.9, Neutrophils (%) (Auto) 92.0H, Lymphocytes (%) (Auto) 6.3L, Monocytes (%) (Auto) 0.5, Eosinophils (%) (Auto) 0.1, Basophils (%) (Auto) 0.2, Neutrophils # (Auto) 9.2H, Lymphocytes # (Auto) 0.6L, Monocytes # (Auto) 0.1, Eosinophils # (Auto) 0.0, Basophils # (Auto) 0.0, Nucleated Red Blood Cells % (auto) 0.3H, Lactic Acid Level 4.2*H, Total Bilirubin 0.6, Direct Bilirubin 0.2, Aspartate Amino Transf (AST/SGOT) 13, Alanine Aminotransferase (ALT/SGPT) 19, Alkaline Phosphatase 79, Total Creatine Kinase 177, Creatine Kinase MB 1.9, Creatine Kinase MB Relative Index 1.07, Troponin I 0.04, Total Protein 6.8, Albumin 3.1L, Albumin/Globulin Ratio 0.84L, Lipase 27L, Influenza Type A (RT-PCR) NEGATIVE, Influenza Type B (RT-PCR) NEGATIVE 09/29/19 12:52: POC Glucose (Misc Panel) 265H, POC Sodium (Misc Panel) 133L, POC Potassium (Misc Panel) 4.3, POC Chloride (Misc Panel) 91L, POC Total CO2 (Misc Panel) 31.0H, POC Blood Urea Nitrogen (Misc Panel 14, POC Ionized Calcium (Misc Panel) 4.3L, POC Creatinine (Misc Panel) 0.6, POC Hematocrit (Misc Panel) 39.0 09/29/19 13:06: Urine Color YELLOW, Urine Appearance CLOUDYH, Urine pH 6.0, Urine Specific Shirley 1.009, Urine Protein NEGATIVE, Urine Glucose (UA) 3+H, Urine Ketones NEGATIVE, Urine Blood NEGATIVE, Urine Nitrite NEGATIVE, Urine Bilirubin NEGATIVE, Urine Urobilinogen 0.2, Urine Leukocyte Esterase 3+H, Urine WBC (Auto) TNTCH, Urine RBC (Auto) 7H, Urine Hyaline Casts (Auto) 0, Urine Bacteria (Auto) NEGATIVE, Urine Squamous Epithelial Cells 1, Urine Sperm (Auto) CBC/BMP Laboratory Tests 09/29/19 12:42 Microbiology Microbiology 09/29/19 Blood Culture, Received Pending 09/29/19 Urine Culture, Received Pending 09/29/19 Blood Culture, Received Pending Assessment/Plan 79 year old female with dementia resident of [facility] facility with multiple medical problem has been having fever for 2 days. Yesterday her respiratory panel was checked which was negative and she was given a dose of ceftriaxone. SHe was ok this morning and had her breakfast then she spiked a fever at around 11 am with chills and cold sweats , she also complained of chest pain and became confused so was sent to the ED for evaluation. In the ED she complained of upper abdominal and epigastric pain , severe 9/10 in intensity very sharp and she was writhing around in bed associated with vomiting and dry heaving. She was also febrile to 102. she was hypertensive and her lactate was elevated to 4.2. She had a CT angio or the chest and abdomen done which did not show any pneumonia or any aneurysm or any dissection or any signs of bowel ischemia. Her UA came back dirty. She was admitted for Sepsis due to UTI with metabolic encephalopathy and lacticacidosis. Sepsis due to UTI cultures have been sent continue with ceftriaxone tylenol for fever Acute metabolic encephalopathy due to Fever and infection. now also under the effect of morphine which she got in the ED Lactiacidosis due to infection No intraabdominal ischemia getting sepsis protocol IVF in ED. recheck in 4 hours. will not give any further fluids due to her h/o CHF. COPD with chronic respiratory failure with hypoxia continue symbicort and spiriva, prednisone duonebs and albuterol prn Hypertension with hypertensive urgency on presentation probably due to distress, pain , fever vomiting. will continue lisinopril and metoprolol hold lasix give hydralazine IV if needed. will avoid clonidine as that can cause rebound hypertension and also confusion Chronic pain will continue gabapentin, fentanyl patch and cymbalta will hold them if patient is lethargic toradol ordered. Diabetes with neuropathy levemir reduced dosage and lispro gabapentin FS and hypoglycemic protocol. CAD continue statin, asa, metoprolol Diastolic CHF will hold any further fluids after the fluids given in ED. hold lasix also Psoriasis with psoriatic arthritis on HCQS Dementia at baseline poor short term memory but recognizes known people feeds herself she is stand to pivot only and WC bound. Code DNR/DNI Plan / VTE VTE Prophylaxis Ordered?: Yes LEIGHA BRITT MD Sep 29, 2019 15:34
[2019-09-29] MEDS ORDERED: ALBUTEROL SULFATE 2.5 MG/0.5 ML INH NEB SOLN NEB PRN (17:15)
[2019-09-29 17:32] VITALS: BP 130/72
[2019-09-29] MEDS: ACETAMINOPHEN 650 MG SUPP PR PRN (17:48)
[2019-09-29] MEDS: hydrALAZINE INJ 20 MG/ML VIAL IV SCH (18:00)
[2019-09-29] MEDS: GABAPENTIN 400 MG CAP PO SCH ×2 (18:30→22:43)
[2019-09-29] MEDS: ATORVASTATIN 20 MG TAB PO SCH (18:30)
[2019-09-29] MEDS: HumaLOG INSULIN (NovoLOG) PER UNIT SC SCH ×2 (18:31→22:47)
[2019-09-29] MEDS: KETOROLAC 30 MG/ML VIAL (J1885) IV PRN (18:32)
[2019-09-29] MEDS: IPRATROPIUM 0.5MG/ALBUTEROL 2.5MG INH SOL UD 3ML (DUONEB)(J7620) INH SCH (19:43)
[2019-09-29] MEDS: BUDESONIDE 0.5 MG/2 ML INHALATION SUSPENSION INH SCH (19:43)
[2019-09-29] MEDS: FORMOTEROL FUMARATE 20 MCG/2 ML INHALATION SOLUTION (PERFOROMIST) INH SCH (19:43)
[2019-09-29 20:00] VITALS: BP 129/60
[2019-09-29] MEDS ORDERED: SYMBICORT 160/4.5MCG INHALER 6GM INH SCH (21:00)
[2019-09-29 22:39] VITALS: BP 130/63
[2019-09-29] MEDS: ENOXAPARIN 40 MG/0.4 ML SYRINGE (J1650) SC SCH (22:42)
[2019-09-29] MEDS: METOPROLOL TART 25 MG TABLET PO SCH (22:43)
[2019-09-29] MEDS: guaiFENesin ER 600 MG TAB PO SCH (22:43)
[2019-09-29] MEDS: DOCUSATE SODIUM 100 MG CAP PO SCH (22:43)
[2019-09-29] MEDS: HYDROXYCHLOROQUINE 200 MG TAB PO SCH (22:43)
[2019-09-29] MEDS: SENOKOT S TAB PO SCH (22:44)
[2019-09-29] MEDS: DULoxetine 30 MG CAP (CYMBALTA) PO SCH (22:44)
[2019-09-30] VITALS (7 sets, daily range): BP systolic 104–150; BP diastolic 53–86
[2019-09-30] MEDS: IPRATROPIUM 0.5MG/ALBUTEROL 2.5MG INH SOL UD 3ML (DUONEB)(J7620) INH SCH ×4 (00:07→20:00)
--- NOTE | 2019-09-30 01:17 | REPVR ---
PROCEDURE INFORMATION: Exam: XR Chest, 1 View Exam date and time: 09/30/2019 1:04 AM Age: 79 years old Clinical indication: Shortness of breath; Additional info: SOB TECHNIQUE: Imaging protocol: XR of the chest Views: 1 view. COMPARISON: CR Chest, 1 view 2019-09-29 12:44 FINDINGS: Limitations: Limited by patient's body habitus. Lungs: Engorged vasculature suggesting mild pulmonary vascular congestion. Pleural space: Unremarkable. No pleural effusion. No pneumothorax. Heart/Mediastinum: Cardiac enlargement. Bones/joints: Unremarkable. IMPRESSION: Cardiac enlargement. Engorged vasculature suggesting mild pulmonary vascular congestion. Electronically signed by: Ayaz Sheppard On 09/30/2019 01:17:12 AM
[2019-09-30] MEDS: KETOROLAC 30 MG/ML VIAL (J1885) IV PRN ×3 (01:26→21:53)
[2019-09-30 01:38] LABS: CK-MB VALUE MASS 1.6 NG/ML (<3.6); MB/CK RELATIVE INDEX 0.73 (< OR =4); TROPONIN I 0.06 NG/ML (< 0.10)
[2019-09-30 05:44] LABS: BASO % 0.2 % (0.0-1.0); HEMOGLOBIN 11.1 g/dl (12.0-15.5); LYMPH # 0.5 10^3/uL (1.5-5.0); LYMPH % 3.8 % (24.0-44.0); MEAN CORPUSCULAR HEMOGLOBIN 28.1 pg (27.0-33.0); MEAN CORPUSCULAR HGB CONC 30.8 g/dl (32.0-36.5); MEAN CORPUSCULAR VOLUME 91.1 fl (80.0-96.0); MONO # 0.9 10^3/uL (0.0-0.8); MONO % 6.8 % (0.0-5.0); NEUTROPHILS # 11.4 10^3/uL (1.5-8.5); NEUTROPHILS % 88.3 % (36.0-66.0); PLATELET COUNT, AUTOMATED 189 10^3/uL (150-450); RED BLOOD COUNT 3.95 10^6/uL (4.00-5.40); WHITE BLOOD COUNT 12.9 10^3/uL (4.0-10.0)
[2019-09-30 06:00] LABS: CALCIUM LEVEL 7.5 MG/DL (8.8-10.2); CREATININE FOR GFR 1.32 MG/DL (0.55-1.30); GLOMERULAR FILTRATION RATE 41.2 (>32); MAGNESIUM LEVEL 1.6 MG/DL (1.8-2.4); POTASSIUM SERUM 3.5 MEQ/L (3.5-5.1)
[2019-09-30] MEDS: hydrALAZINE INJ 20 MG/ML VIAL IV SCH ×2 (06:00)
[2019-09-30] MEDS: BUDESONIDE 0.5 MG/2 ML INHALATION SUSPENSION INH SCH ×2 (08:00→20:25)
[2019-09-30] MEDS: FORMOTEROL FUMARATE 20 MCG/2 ML INHALATION SOLUTION (PERFOROMIST) INH SCH ×2 (08:00→20:25)
[2019-09-30] MEDS ORDERED: MAG SULF 1GM/100ML (MAG RUN) 1 GM in IV 1 EA IV ONE (08:00)
[2019-09-30] MEDS: TIOTROPIUM INHALER/CAPSULE (SPIRIVA) INH SCH (08:00)
--- NOTE | 2019-09-30 08:30 | ECGEPIP ---
[facility] - ED Test Date: 2019-09-29 Pat Name: SARIKA SALAZAR Department: Room: - Gender: Female Kier Boiler: : 1940 Requested By: CAROLYN TRAN Order Number: [id number] Reading MD: Tameka Tamayo Measurements Intervals [place] Rate: 100 P: 48 MO: 188 QRS: -33 QRSD: 102 T: 80 QT: 347 QTc: 449 Interpretive Statements SINUS TACHYCARDIA MARKED LEFT AXIS DEVIATION LEFT VENTRICULAR HYPERTROPHY AND ST-T CHANGE PRIOR ATRIAL FLUTTER 07/19/19 Electronically Signed on 09-30-2019 8:29:39 EST by Tameka Tamayo
[2019-09-30] MEDS: GABAPENTIN 400 MG CAP PO SCH ×3 (08:59→21:00)
[2019-09-30] MEDS: DULoxetine 30 MG CAP (CYMBALTA) PO SCH ×2 (09:00→21:00)
[2019-09-30] MEDS: lisinopriL 40 MG TAB PO SCH (09:00)
[2019-09-30] MEDS: METOPROLOL TART 25 MG TABLET PO SCH ×2 (09:00→21:53)
[2019-09-30] MEDS: guaiFENesin ER 600 MG TAB PO SCH ×2 (09:00→21:53)
[2019-09-30] MEDS: ASPIRIN 81 MG ENTERIC TAB PO SCH (09:00)
[2019-09-30] MEDS: DOCUSATE SODIUM 100 MG CAP PO SCH ×2 (09:00→21:52)
[2019-09-30] MEDS: HYDROXYCHLOROQUINE 200 MG TAB PO SCH ×2 (09:01→21:52)
[2019-09-30] MEDS: SENOKOT S TAB PO SCH ×2 (09:01→21:52)
[2019-09-30] MEDS: LEVEMIR (INSULIN DETEMIR) 1 UNITS/0.01ML SC SCH ×2 (09:01→21:54)
[2019-09-30] MEDS: HumaLOG INSULIN (NovoLOG) PER UNIT SC SCH ×5 (09:02→21:00)
[2019-09-30] MEDS: predniSONE 5 MG TAB PO SCH (12:04)
[2019-09-30] MEDS: cefTRIAXone SOD 2 GM in D5W MINI-BAG PLUS 50 ML IV SCH (15:22)
--- NOTE | 2019-09-30 16:46 | IPNPDOC ---
Subjective Date Seen The patient was seen on 09/30/19. Subjective Chief Complaint/HPI Pt is an 79 year old female who was transferred from [facility] to the [facility] ED with fever for 2 days. In the ED pt was febrile, hypertensive with lactic acidosis; she was reportedly lethargic with AMS in the ED. P is seen sitting up in her recliner this morning. She feels much better and appears much improved vs when in the ED per Dr. Echevarria. Pt stated she feels much better today. Her is bothering her and she is asking to have it moved. General: Reports: Normal Appetite; Denies: Chills, Night Sweats, Fatigue, Malaise Constitutional: Denies: Chills, Fever, Night Sweats Eyes: Denies: Pain ENT: Denies: Head Aches Skin: Denies: Rash Pulmonary: Denies: Dyspnea, Cough Cardiovascular: Denies: Chest Pain, Palpitations, Orthopnea, Paroxysmal Noc. Dyspnea, Lt Headedness Gastrointestinal: Denies: Nausea, Vomiting, Abdominal Pain, Diarrhea, Constipation Genitourinary: Denies: Dysuria Hematologic: Denies: Bruising Musculoskeletal: Denies: Neck Pain, Back Pain, Joint Pain, Muscle Pain, Spasms Neurological: Denies: Weakness, Numbness Psych: Reports: Mood Normal Objective Physical Examination General Exam: Positive: Alert, Cooperative, No Acute Distress Eye Exam: Positive: PERRLA, Conjunctiva & lids normal, EOMI; Negative: Sclera icteric ENT Exam: Positive: Atraumatic, Mucous membr. moist/pink, Pharynx Normal Neck Exam: Positive: Supple; Negative: JVD, thyromegaly Chest Exam: Positive: Clear to auscultation, Normal air movement; Negative: Rales, Rhonchi, Wheezing Heart Exam: Positive: Rate Normal, Regular Rhythm, Normal S1, Normal S2; Negative: Gallops, Murmurs, Rubs Telemetry: Positive: Sinus Abdomen Exam: Positive: BS Hypoactive, Soft; Negative: Tenderness Extremity Exam: Negative: Clubbing, Cyanosis, Edema Skin Exam: Positive: Nl turgor and temperature Neuro Exam: Positive: Normal Speech, Cranial Nerves 3-12 NL Psych Exam: Positive: Mood NL; Negative: Oriented x 3 (AO person and place ) Assessment /Plan Assessment "79 year old female with dementia resident of [facility] skilled facility with multiple medical problem has been having fever for 2 days. Yesterday her respiratory panel was checked which was negative and she was given a dose of ceftriaxone. SHe was ok this morning and had her breakfast then she spiked a fever at around 11 am with chills and cold sweats , she also complained of chest pain and became confused so was sent to the ED for evaluation. In the ED she complained of upper abdominal and epigastric pain , severe 9/10 in intensity very sharp and she was writhing around in bed associated with vomiting and dry heaving. She was also febrile to 102. she was hypertensive and her lactate was elevated to 4.2. She had a CT angio or the chest and abdomen done which did not show any pneumonia or any aneurysm or any dissection or any signs of bowel ischemia. Her UA came back dirty. She was admitted for Sepsis due to UTI with metabolic encephalopathy and lactic acidosis." Sepsis due to UTI - blood cultures x 2 - no growth yet - urine culture - pending - continue Ceftriaxone and Tylenol prn fever Acute metabolic encephalopathy - present on admission, now resolved Lactic acidosis - present on admission, now resolved COPD with chronic respiratory failure with hypoxia - continue Symbicort and Spiriva and prednisone - add DuoNeb and Albuterol prn Hypertension with hypertensive urgency on presentation - probably due to distress, pain , fever vomiting - now resolved - continue Lisinopril and Metoprolol (with hold parameters) - prn Hydralazine d/c Chronic pain - continue gabapentin, fentanyl patch and Cymbalta - hold if patient is lethargic - Toradol prn ordered Diabetes with neuropathy - Levemir reduced dosage and lispro - continue Gabapentin - FBS and hypoglycemic protocol CAD - continue statin, asa, metoprolol Diastolic CHF - will hold any further fluids after the fluids given in ED. - hold lasix also Psoriasis with psoriatic arthritis - on HCQS Dementia - at baseline poor short term memory but recognizes known people - feeds herself - she is stand to pivot only and WC bound. Plan/VTE VTE Prophylaxis Ordered?: Yes Plan Clinically improved; step down to Med-Surg. today Disposition per CT - renal USG, may have outpt VS, I&O, 24H, Fishbone Vital Signs/I&O Vital Signs Date Time Temp Pulse Resp B/P (MAP) Pulse Ox O2 Delivery O2 Flow Rate FiO2 09/30/19 15:00 98.4 85 20 104/62 (76) 99 Nasal Cannula 2.0 l I&O- Last 24 Hours up to 6 AM 09/30/19 06:00 Intake Total 3470 ml Output Total 550 ml Balance 2920 ml Laboratory Data 24H LABS Laboratory Tests 2 09/29/19 17:12: Lactic Acid Followup at 4 Hours 2.7*H 09/29/19 17:42: Bedside Glucose (Misc Panel) 229H 09/29/19 22:37: Bedside Glucose (Misc Panel) 191H 09/30/19 00:55: Total Creatine Kinase 219H, Creatine Kinase MB 1.6, Creatine Kinase MB Relative Index 0.73, Troponin I 0.06# 09/30/19 05:26: Immature Granulocyte % (Auto) 0.9, Neutrophils (%) (Auto) 88.3H, Lymphocytes (%) (Auto) 3.8L, Monocytes (%) (Auto) 6.8H, Eosinophils (%) (Auto) 0.0, Basophils (%) (Auto) 0.2, Neutrophils # (Auto) 11.4H, Lymphocytes # (Auto) 0.5L, Monocytes # (Auto) 0.9H, Eosinophils # (Auto) 0.0, Basophils # (Auto) 0.0, Nucleated Red Blood Cells % (auto) 0.2H, Anion Gap 7L, Glomerular Filtration Rate 41.2, Lactic Acid Level 1.7, Calcium Level 7.5L, Magnesium Level 1.6L 09/30/19 11:35: Bedside Glucose (Misc Panel) 273H CBC/BMP Laboratory Tests 09/30/19 05:26 Microbiology Microbiology 09/29/19 Blood Culture - Preliminary, Resulted No growth after 24 hours . All specim... 09/29/19 Urine Culture, Received Pending 09/29/19 Blood Culture - Preliminary, Resulted No growth after 24 hours . All specim... GINA BAZAN PA-C Sep 30, 2019 16:46
[2019-09-30] MEDS: ACETAMINOPHEN 650 MG SUPP PR PRN (18:07)
[2019-09-30] MEDS: ATORVASTATIN 20 MG TAB PO SCH (18:07)
[2019-09-30] MEDS: ENOXAPARIN 40 MG/0.4 ML SYRINGE (J1650) SC SCH (21:54)
[2019-10-01] MEDS: IPRATROPIUM 0.5MG/ALBUTEROL 2.5MG INH SOL UD 3ML (DUONEB)(J7620) INH SCH ×5 (01:22→20:51)
[2019-10-01 05:57] VITALS: BP 189/73
[2019-10-01 06:49] LABS: HEMATOCRIT 36.9 % (36.0-47.0); HEMOGLOBIN 11.5 g/dl (12.0-15.5); MEAN CORPUSCULAR VOLUME 91.1 fl (80.0-96.0); RED BLOOD COUNT 4.05 10^6/uL (4.00-5.40); WHITE BLOOD COUNT 8.3 10^3/uL (4.0-10.0)
[2019-10-01 06:50] LABS: BASO % 0.4 % (0.0-1.0); EOS # 0.1 10^3/uL (0.0-0.5); EOS % 1.2 % (0.0-3.0); LYMPH % 12.2 % (24.0-44.0); MEAN CORPUSCULAR HEMOGLOBIN 28.4 pg (27.0-33.0); MEAN CORPUSCULAR HGB CONC 31.2 g/dl (32.0-36.5); MONO # 0.9 10^3/uL (0.0-0.8); MONO % 10.9 % (0.0-5.0); NEUTROPHILS # 6.2 10^3/uL (1.5-8.5); NEUTROPHILS % 74.3 % (36.0-66.0); PLATELET COUNT, AUTOMATED 131 10^3/uL (150-450)
[2019-10-01] MEDS: lisinopriL 40 MG TAB PO SCH (06:51)
[2019-10-01 07:08] LABS: BLOOD UREA NITROGEN 25 MG/DL (7-18); CALCIUM LEVEL 8.4 MG/DL (8.8-10.2); CARBON DIOXIDE LEVEL 27 MEQ/L (21-32); CHLORIDE LEVEL 102 MEQ/L (98-107); GLOMERULAR FILTRATION RATE > 60.0 (>32); GLUCOSE, FASTING 210 MG/DL (70-100); POTASSIUM SERUM 3.8 MEQ/L (3.5-5.1); SODIUM LEVEL 134 MEQ/L (136-145)
[2019-10-01] MEDS: TIOTROPIUM INHALER/CAPSULE (SPIRIVA) INH SCH (07:24)
[2019-10-01] MEDS: BUDESONIDE 0.5 MG/2 ML INHALATION SUSPENSION INH SCH ×3 (07:24→20:52)
[2019-10-01] MEDS: FORMOTEROL FUMARATE 20 MCG/2 ML INHALATION SOLUTION (PERFOROMIST) INH SCH ×2 (07:24→20:51)
--- NOTE | 2019-10-01 07:46 | ECGEPIP ---
[facility] Test Date: 2019-09-30 Pat Name: SARIKA SALAZAR Department: Room: G7483-67 Gender: Female Burglar Alarm Superintendent: MALENA : 1940 Requested By: Danyell Mallory [facility] Order Number: [id number] Reading MD: Bulmaro Stephens Measurements Intervals [place] Rate: 98 P: 23 [place]: 180 QRS: -27 QRSD: 82 T: 57 QT: 348 QTc: 445 Interpretive Statements normal sinus rhythm Left axis deviation with slow precordial R wave progression Left ventricular hypertrophy by Jamarcus criteria Less ST/T wave abnormality compared with 09/29/19. Electronically Signed on 10-01-2019 7:46:10 EST by Bulmaro Stephens
[2019-10-01] MEDS: DULoxetine 30 MG CAP (CYMBALTA) PO SCH ×2 (09:00→20:22)
[2019-10-01] MEDS: GABAPENTIN 400 MG CAP PO SCH ×3 (09:00→20:22)
[2019-10-01] MEDS: DOCUSATE SODIUM 100 MG CAP PO SCH ×2 (09:15→20:22)
[2019-10-01] MEDS: ASPIRIN 81 MG ENTERIC TAB PO SCH (09:15)
[2019-10-01] MEDS: SENOKOT S TAB PO SCH ×2 (09:15→20:22)
[2019-10-01] MEDS: guaiFENesin ER 600 MG TAB PO SCH ×2 (09:15→20:22)
[2019-10-01] MEDS: HYDROXYCHLOROQUINE 200 MG TAB PO SCH ×2 (09:15→20:22)
[2019-10-01] MEDS: HumaLOG INSULIN (NovoLOG) PER UNIT SC SCH ×4 (09:16→20:23)
[2019-10-01] MEDS: LEVEMIR (INSULIN DETEMIR) 1 UNITS/0.01ML SC SCH ×2 (09:16→20:21)
[2019-10-01] MEDS: METOPROLOL TART 25 MG TABLET PO SCH ×2 (09:17→20:23)
[2019-10-01 09:20] VITALS: BP 164/94
[2019-10-01] MEDS: predniSONE 5 MG TAB PO SCH (12:14)
[2019-10-01] MEDS: KETOROLAC 30 MG/ML VIAL (J1885) IV PRN (12:23)
[2019-10-01] MEDS: ACETAMINOPHEN 650 MG SUPP PR PRN (12:46)
[2019-10-01] MEDS ORDERED: LIDOCAINE 1% MDV 20ML VIAL As Ordered ONE (14:08)
[2019-10-01] MEDS: cefTRIAXone SOD 2 GM in D5W MINI-BAG PLUS 50 ML IV SCH (15:14)
[2019-10-01 15:15] VITALS: BP 176/73
[2019-10-01] MEDS ORDERED: SODIUM CHLORIDE 0.9% INJ 10 ML SYR IV PRN (15:30)
[2019-10-01] MEDS: fentaNYL 50 MCG/HR PATCH TD SCH (16:00)
[2019-10-01 16:15] VITALS: BP 169/71
--- NOTE | 2019-10-01 16:28 | IPNPDOC ---
Text Note Date of Service The patient was seen on 10/01/19. NOTE Subjective Chief Complaint/HPI Pt is an 79 year old female who was transferred from [facility] to the [facility] ED with fever for 2 days. In the ED pt was febrile, hypertensive with lactic acidosis; she was reportedly lethargic with AMS in the ED. Pt was seen and re-assessed several times throughout the day. Early on she was complaining of pain, nursing reported she was febrile to 102 degrees and she had reportedly de-satted top 80% requiring 4L NC. She gradually improved throughout the day and was able to sit up and talk with myself and her family this afternoon. Please see discussion below. Objective Physical Examination General Exam: Positive: Alert, Cooperative, No Acute Distress Eye Exam: Positive: PERRLA, Conjunctiva & lids normal, EOMI; Negative: Sclera icteric ENT Exam: Positive: Atraumatic, Mucous membr. moist/pink, Pharynx Normal Neck Exam: Positive: Supple; Negative: JVD, thyromegaly Chest Exam: Positive: a.m. effortful breathing; PM comfortable with 2L NC Heart Exam: Positive: sinus tach. Negative: Gallops, Murmurs, Rubs Telemetry: Positive: Sinus Abdomen Exam: Positive: BS Hypoactive, Soft; Negative: Tenderness Extremity Exam: Negative: Clubbing, Cyanosis, Edema Skin Exam: Positive: Nl turgor and temperature Neuro Exam: Positive: Normal Speech, Cranial Nerves 3-12 NL Psych Exam: Positive: Mood NL; Negative: Oriented x 3 (AO person and place ) Assessment /Plan Assessment "79 year old female with dementia resident of [facility] skilled facility with multiple medical problem has been having fever for 2 days. Yesterday her respiratory panel was checked which was negative and she was given a dose of ceftriaxone. SHe was ok this morning and had her breakfast then she spiked a fever at around 11 am with chills and cold sweats , she also complained of chest pain and became confused so was sent to the ED for evaluation. In the ED she complained of upper abdominal and epigastric pain , severe 9/10 in intensity very sharp and she was writhing around in bed associated with vomiting and dry heaving. She was also febrile to 102. she was hypertensive and her lactate was elevated to 4.2. She had a CT angio or the chest and abdomen done which did not show any pneumonia or any aneurysm or any dissection or any signs of bowel ischemia. Her UA came back dirty. She was admitted for Sepsis due to UTI with metabolic encephalopathy and lactic acidosis." Sepsis due to UTI - blood cultures x 2 - gram negative rods. Pt febrile/confused overnight so 1 set of blood cultures - pending - urine culture - E. coli - midline inserted as pt bacteremic and IV access difficult - continue Rocephin. Scheduled Tylenol 1,000mg for fever and pain Acute metabolic encephalopathy - returned due to fever this morning. Pt had not received any Tylenol since 09/30/19 - Tylenol suppository given; fever and AMS resolved - Fentanyl patch removed due to lethargy; May replace if pt complains of pain. Denied pain at the bedside 1600hrs. Lactic acidosis - 1.8 today COPD with chronic respiratory failure with hypoxia - continue Symbicort and Spiriva and prednisone - add DuoNeb and Albuterol prn Hypertension with hypertensive urgency on presentation - probably due to pain and fever - continue Lisinopril and Metoprolol (with hold parameters) Chronic pain - gabapentin, fentanyl patch and Cymbalta - on hold this am due to lethargy. R esume prn if pt complains of pain. - Toradol prn ordered and given today Diabetes with neuropathy - Levemir reduced dosage and lispro - Gabapentin on hold - FBS and hypoglycemic protocol CAD - continue statin, asa, metoprolol Diastolic CHF - will hold any further fluids after the fluids given in ED. - Lasix on hold Psoriasis with psoriatic arthritis - on HCQS Dementia - at baseline poor short term memory but recognizes known people - feeds herself - she is stand to pivot only and WC bound. Plan/VTE VTE Prophylaxis Ordered?: Yes Disposition return to NH when eventually d/c. per CT - needs renal USG (?mass vs complex cyst), may have outpt if pt/family choose to treat VS,Fishbone, I+O VS, Fishbone, I+O Laboratory Tests 10/01/19 06:35 Vital Signs Date Time Temp Pulse Resp B/P (MAP) Pulse Ox O2 Delivery O2 Flow Rate FiO2 10/01/19 15:15 98.9 85 17 176/73 (107) 94 Nasal Cannula 2.0 I&O- Last 24 Hours up to 6 AM 10/01/19 06:00 Intake Total 2310 ml Output Total 825 ml Balance 1485 ml GINA BAZAN PA-C Oct 01, 2019 16:28
--- NOTE | 2019-10-01 16:55 | REP ---
MIDLINE INSERTION WITH ULTRASOUND GUIDANCE: REASON FOR EXAM: Poor IV access PROCEDURE: Midline catheter insertion under ultrasound guidance. This procedure was performed by DANNY Frederick, under the direct supervision of Dr. Ward. The risks and benefits of the procedure were explained to the patient and informed consent was obtained prior to the procedure both verbally and written. Directly prior to the start of the procedure, a formal timeout was completed in the procedure room. The left basilic vein was localized using ultrasound guidance. The skin was prepped and draped in a sterile fashion. 1% lidocaine 10 mg/ml was used as a local anesthetic. Using ultrasound guidance the left basilic vein was cannulated and a 0.018 guidewire was inserted. The needle was removed and a 5.5 Green[place]ic dilator and a Peel-Away sheath was inserted over the guidewire. A 5.5 Green[place]ic dual lumen catheter was cut to the length of 9 cm. The dilator was removed and the catheter was inserted over the guidewire. The Peel-Away sheath was removed and the catheter was flushed with heparinized saline as per hospital protocol. The catheter was affixed to the skin and a sterile dressing was applied. The patient tolerated the procedure well and there were no immediate complications. Reviewed by DANNY Cartagena 10/01/2019 04:15 P Electronically Signed by Olaf Ward MD 10/01/2019 04:46 P
[2019-10-01] MEDS: ATORVASTATIN 20 MG TAB PO SCH (17:08)
[2019-10-01] MEDS: SODIUM CHLORIDE 0.9% INJ 10 ML SYR IV SCH (17:09)
[2019-10-01] MEDS: ACETAMINOPHEN 650 MG SUPP PR SCH ×2 (17:09→20:22)
[2019-10-01] MEDS: NS 1,000 ML IV SCH (19:05)
[2019-10-01 19:45] VITALS: BP 159/71
[2019-10-01] MEDS: ENOXAPARIN 40 MG/0.4 ML SYRINGE (J1650) SC SCH (20:21)
[2019-10-02] MEDS: IPRATROPIUM 0.5MG/ALBUTEROL 2.5MG INH SOL UD 3ML (DUONEB)(J7620) INH SCH ×4 (02:14→20:03)
[2019-10-02] MEDS: SODIUM CHLORIDE 0.9% INJ 10 ML SYR IV SCH ×2 (05:24→17:11)
[2019-10-02 06:23] VITALS: BP 173/79
[2019-10-02] MEDS: BUDESONIDE 0.5 MG/2 ML INHALATION SUSPENSION INH SCH ×2 (07:19→20:03)
[2019-10-02] MEDS: TIOTROPIUM INHALER/CAPSULE (SPIRIVA) INH SCH (07:20)
[2019-10-02] MEDS: FORMOTEROL FUMARATE 20 MCG/2 ML INHALATION SOLUTION (PERFOROMIST) INH SCH ×2 (07:21→20:03)
[2019-10-02 08:30] LABS: BASO % 0.4 % (0.0-1.0); EOS # 0.1 10^3/uL (0.0-0.5); EOS % 1.3 % (0.0-3.0); HEMATOCRIT 35.5 % (36.0-47.0); LYMPH # 0.8 10^3/uL (1.5-5.0); LYMPH % 11.7 % (24.0-44.0); MEAN CORPUSCULAR HEMOGLOBIN 28.1 pg (27.0-33.0); MEAN CORPUSCULAR VOLUME 90.6 fl (80.0-96.0); MONO # 0.7 10^3/uL (0.0-0.8); MONO % 10.1 % (0.0-5.0); NEUTROPHILS # 5.4 10^3/uL (1.5-8.5); NEUTROPHILS % 76.1 % (36.0-66.0); PLATELET COUNT, AUTOMATED 142 10^3/uL (150-450); RED BLOOD COUNT 3.92 10^6/uL (4.00-5.40); WHITE BLOOD COUNT 7.1 10^3/uL (4.0-10.0)
[2019-10-02] MEDS: NS 1,000 ML IV SCH (08:37)
[2019-10-02 09:01] LABS: BLOOD UREA NITROGEN 12 MG/DL (7-18); CALCIUM LEVEL 8.3 MG/DL (8.8-10.2); CARBON DIOXIDE LEVEL 29 MEQ/L (21-32); CHLORIDE LEVEL 105 MEQ/L (98-107); CREATININE FOR GFR 0.44 MG/DL (0.55-1.30); GLOMERULAR FILTRATION RATE > 60.0 (>32); GLUCOSE, FASTING 148 MG/DL (70-100); MAGNESIUM LEVEL 1.9 MG/DL (1.8-2.4); SODIUM LEVEL 139 MEQ/L (136-145)
[2019-10-02] MEDS: HumaLOG INSULIN (NovoLOG) PER UNIT SC SCH ×4 (09:26→20:46)
[2019-10-02] MEDS: HYDROXYCHLOROQUINE 200 MG TAB PO SCH (09:27)
[2019-10-02] MEDS: DOCUSATE SODIUM 100 MG CAP PO SCH ×2 (09:27→21:04)
[2019-10-02] MEDS: guaiFENesin ER 600 MG TAB PO SCH ×2 (09:27→21:04)
[2019-10-02] MEDS: DULoxetine 30 MG CAP (CYMBALTA) PO SCH ×2 (09:27→21:04)
[2019-10-02] MEDS: SENOKOT S TAB PO SCH ×2 (09:27→21:04)
[2019-10-02] MEDS: ASPIRIN 81 MG ENTERIC TAB PO SCH (09:28)
[2019-10-02] MEDS: GABAPENTIN 400 MG CAP PO SCH ×3 (09:28→21:04)
[2019-10-02] MEDS: predniSONE 5 MG TAB PO SCH (09:28)
[2019-10-02] MEDS: ACETAMINOPHEN 650 MG SUPP PR SCH ×2 (09:29→17:08)
[2019-10-02] MEDS: LEVEMIR (INSULIN DETEMIR) 1 UNITS/0.01ML SC SCH ×2 (09:29→21:03)
[2019-10-02] MEDS: fentaNYL 50 MCG/HR PATCH TD SCH (09:31)
[2019-10-02] MEDS: lisinopriL 40 MG TAB PO SCH (09:35)
[2019-10-02] MEDS: METOPROLOL TART 25 MG TABLET PO SCH ×3 (09:36→21:04)
--- NOTE | 2019-10-02 11:31 | IPNPDOC ---
Text Note Date of Service The patient was seen on 10/02/19. NOTE Subjective Chief Complaint/HPI Pt is an 79 year old female who was transferred from [facility] to the [facility] ED with fever for 2 days. In the ED pt was febrile, hypertensive with lactic acidosis; she was reportedly lethargic with AMS in the ED. Pt seen in bed this morning, very active and attempting to leave her bed. She is experiencing pain 'all over' this morning and wants to get out of bed. Objective Physical Examination General Exam: Positive: Alert, Cooperative, No Acute Distress Eye Exam: Positive: PERRLA, Conjunctiva & lids normal, EOMI; Negative: Sclera icteric ENT Exam: Positive: Atraumatic, Mucous membr. moist/pink, Pharynx Normal Neck Exam: Positive: Supple; Negative: JVD, thyromegaly Chest Exam: Positive: comfortable with 1.5L NC; wheezing b/l lungs Heart Exam: Positive: sinus tach. Negative: Gallops, Murmurs, Rubs Telemetry: Positive: Sinus Abdomen Exam: Positive: BS Hypoactive, Soft; Negative: Tenderness Extremity Exam: Negative: Clubbing, Cyanosis, Edema Skin Exam: Positive: Nl turgor and temperature Neuro Exam: Positive: Normal Speech, Cranial Nerves 3-12 NL Psych Exam: Positive: Mood NL; Negative: Oriented x 3 (AO person and place ) Assessment /Plan Assessment "79 year old female with dementia resident of [facility] skilled facility with multiple medical problem has been having fever for 2 days. Yesterday her respiratory pane l was checked which was negative and she was given a dose of ceftriaxone. SHe was ok this morning and had her breakfast then she spiked a fever at around 11 am with chills and cold sweats , she also complained of chest pain and became confused so was sent to the ED for evaluation. In the ED she complained of upper abdominal and epigastric pain , severe 9/10 in intensity very sharp and she was writhing around in bed associated with vomiting and dry heaving. She was also febrile to 102. she was hypertensive and her lactate was elevated to 4.2. She had a CT angio or the chest and abdomen done wh ich did not show any pneumonia or any aneurysm or any dissection or any signs of bowel ischemia. Her UA came back dirty. She was admitted for Sepsis due to UTI with metabolic encephalopathy and lactic acidosis." Sepsis due to UTI, E. coli - blood culture (09/29/19) positive for E. coli. However blood culture 10/01/19 - no growth so far, pt hemodynamically stable, afebrile this a.m, no lactic aci dosis. - urine culture - E. coli - midline inserted as pt bacteremic and IV access difficult - continue Rocephin (culture sensitive). Scheduled Tylenol 1,000mg for fever and pain - Temp noted at 85.9 deg this am; nursing reported this as an error and I have asked them to update/correct it Acute metabolic encephalopathy - lethargy resolved, pt now complaining of pain and wanting to leave - pain medications resumed - sitter ordered for pt safety - avoid benzos or further sedation at this time; monitor closely COPD with chronic respiratory failure with hypoxia - continue Symbicort and Spiriva and prednisone - add DuoNeb and Albuterol prn Hypertension with hypertensive urgency on presentation - probably due to pain and fever; now resolved - continue Lisinopril and Metoprolol (with hold parameters) Chronic pain - gabapentin, fentanyl patch and Cymbalta - on hold this am due to lethargy. Resume prn if pt complains of pain. - prn Toradol Diabetes with neuropathy - Levemir reduced dosage and lispro - Gabapentin on hold - FBS and hypoglycemic protocol CAD - continue statin, asa, metoprolol Diastolic CHF - will hold any further fluids after the fluids given in ED. - Lasix on hold Psoriasis with psoriatic arthritis - on HCQS Dementia - at baseline poor short term memory but recognizes known people - will need assistance with eating and drinking until returns to baseline - she is stand to pivot only and WC bound. Lactic acidosis - now resolved Plan/VTE VTE Prophylaxis Ordered?: Yes Disposition return to NH when eventually d/c. per CT - needs renal USG (?mass vs complex cyst), may have outpt if pt/family choose to treat I, Dirk Cesar, have independently examined this patient and performed my own physical exam, as well as reviewed the documentation and edited where necessary. I have discussed in detail with the nurse practitioner the findings and plan of treatment as documented by the nurse practitioner . I will continue to follow the patient during this hospital stay Today patient complains of the severe headache, patient was found to have hypertensive emergency, I increased the dose of metoprolol, I added Norvasc. I placed labetalol IV when necessary. Patient does not have any focal neurologic deficiency. Continuing treatment urosepsis with ceftriaxone. Patient transferred to PCU care. VS,Cj, I+O VS, Cj, I+O Laboratory Tests 10/02/19 08:04 Vital Signs Date Time Temp Pulse Resp B/P (MAP) Pulse Ox O2 Delivery O2 Flow Rate FiO2 10/02/19 10:01 22 10/02/19 09:36 110 180/90 10/02/19 06:23 85.9 98 Nasal Cannula 1.5 I&O- Last 24 Hours up to 6 AM 10/02/19 06:00 Intake Total 1030 ml Output Total 1125 ml Balance -95 ml GINA BAZAN PA-C Oct 02, 2019 11:31 DIRK CESAR DO Oct 02, 2019 19:13
[2019-10-02] MEDS ORDERED: amLODIPine 10 MG TAB PO ONE (14:00)
[2019-10-02 14:42] VITALS: BP 198/84
[2019-10-02] MEDS: cefTRIAXone SOD 2 GM in D5W MINI-BAG PLUS 50 ML IV SCH (15:24)
[2019-10-02] MEDS: ATORVASTATIN 20 MG TAB PO SCH (17:10)
[2019-10-02] MEDS ORDERED: LABETALOL HCL 100 MG/20 ML VIAL IV SCH (19:15)
[2019-10-02] MEDS ORDERED: LABETALOL HCL 100 MG/20 ML VIAL IV PRN (19:15)
[2019-10-02] MEDS: FUROSEMIDE 40 MG TAB PO SCH (20:02)
[2019-10-02 20:39] VITALS: BP 146/66
[2019-10-02] MEDS: ENOXAPARIN 40 MG/0.4 ML SYRINGE (J1650) SC SCH (21:04)
[2019-10-03] VITALS (8 sets, daily range): BP systolic 110–160; BP diastolic 58–80
[2019-10-03] MEDS: HYDROXYCHLOROQUINE 200 MG TAB PO SCH ×3 (00:35→20:17)
[2019-10-03] MEDS: ACETAMINOPHEN TAB 650MG DOSE (2X325MG) PO PRN ×2 (00:35→15:28)
[2019-10-03] MEDS: IPRATROPIUM 0.5MG/ALBUTEROL 2.5MG INH SOL UD 3ML (DUONEB)(J7620) INH SCH ×4 (02:11→20:00)
[2019-10-03] MEDS: SODIUM CHLORIDE 0.9% INJ 10 ML SYR IV SCH ×2 (05:34→16:52)
[2019-10-03 05:45] LABS: BASO % 0.3 % (0.0-1.0); EOS # 0.1 10^3/uL (0.0-0.5); EOS % 1.6 % (0.0-3.0); HEMATOCRIT 36.4 % (36.0-47.0); HEMOGLOBIN 11.3 g/dl (12.0-15.5); LYMPH # 1.2 10^3/uL (1.5-5.0); LYMPH % 18.9 % (24.0-44.0); MEAN CORPUSCULAR HEMOGLOBIN 27.5 pg (27.0-33.0); MEAN CORPUSCULAR VOLUME 88.6 fl (80.0-96.0); MONO # 0.9 10^3/uL (0.0-0.8); NEUTROPHILS # 4.1 10^3/uL (1.5-8.5); NEUTROPHILS % 64.6 % (36.0-66.0); PLATELET COUNT, AUTOMATED 139 10^3/uL (150-450); RED BLOOD COUNT 4.11 10^6/uL (4.00-5.40); WHITE BLOOD COUNT 6.3 10^3/uL (4.0-10.0)
[2019-10-03 06:01] LABS: BLOOD UREA NITROGEN 9 MG/DL (7-18); CALCIUM LEVEL 8.2 MG/DL (8.8-10.2); CARBON DIOXIDE LEVEL 34 MEQ/L (21-32); CHLORIDE LEVEL 104 MEQ/L (98-107); CREATININE FOR GFR 0.45 MG/DL (0.55-1.30); GLOMERULAR FILTRATION RATE > 60.0 (>32); GLUCOSE, FASTING 111 MG/DL (70-100); POTASSIUM SERUM 3.2 MEQ/L (3.5-5.1); SODIUM LEVEL 141 MEQ/L (136-145)
[2019-10-03] MEDS: FORMOTEROL FUMARATE 20 MCG/2 ML INHALATION SOLUTION (PERFOROMIST) INH SCH ×2 (07:20→19:18)
[2019-10-03] MEDS: BUDESONIDE 0.5 MG/2 ML INHALATION SUSPENSION INH SCH ×2 (07:20→19:18)
[2019-10-03] MEDS ORDERED: POTASSIUM CHLORIDE 10 MEQ SR TABLET PO ONE (08:00)
[2019-10-03] MEDS ORDERED: amLODIPine 10 MG TAB PO SCH (09:00)
[2019-10-03 09:01] LABS: ABG BASE EXCESS 6.5 (-2.0-2.0); ABG HCO3 31.6 MEQ/L (22.0-26.0); ABG O2 SATURATION 96.1 % (95.0-99.0); ABG PARTIAL PRESSURE CO2 46.8 mmHg (35.0-45.0); ABG PARTIAL PRESSURE O2 76.3 mmHg (75.0-100.0); ABG STANDARD HCO3 30.4 MEQ/L (22.0-26.0); ABG pH (ARTERIAL) 7.447 UNITS (7.350-7.450)
[2019-10-03] MEDS: guaiFENesin ER 600 MG TAB PO SCH ×2 (09:08→20:17)
[2019-10-03] MEDS: GABAPENTIN 400 MG CAP PO SCH ×3 (09:08→20:17)
[2019-10-03] MEDS: SENOKOT S TAB PO SCH ×2 (09:08→20:17)
[2019-10-03] MEDS: FUROSEMIDE 40 MG TAB PO SCH ×2 (09:08→16:52)
[2019-10-03] MEDS: DULoxetine 30 MG CAP (CYMBALTA) PO SCH ×2 (09:08→20:17)
[2019-10-03] MEDS: DOCUSATE SODIUM 100 MG CAP PO SCH ×2 (09:08→20:17)
[2019-10-03] MEDS: ASPIRIN 81 MG ENTERIC TAB PO SCH (09:08)
[2019-10-03] MEDS: METOPROLOL TART 25 MG TABLET PO SCH ×3 (09:09→20:18)
[2019-10-03] MEDS: lisinopriL 40 MG TAB PO SCH (09:09)
[2019-10-03] MEDS: LEVEMIR (INSULIN DETEMIR) 1 UNITS/0.01ML SC SCH ×2 (09:10→20:17)
[2019-10-03] MEDS: HumaLOG INSULIN (NovoLOG) PER UNIT SC SCH ×4 (09:10→20:19)
[2019-10-03] MEDS: LevoFLOXacin 750 MG TABLET PO SCH (12:16)
[2019-10-03] MEDS: predniSONE 5 MG TAB PO SCH (12:16)
--- NOTE | 2019-10-03 13:23 | IPNPDOC ---
Text Note Date of Service The patient was seen on 10/03/19. NOTE Subjective Chief Complaint/HPI Pt is an 79 year old female who was transferred from [facility] to the [facility] ED with fever for 2 days. In the ED pt was febrile, hypertensive with lactic acidosis; she was reportedly lethargic with AMS in the ED. Pt seen sitting up in her chair. She has had all of her medications as scheduled and she denies any pain or fever this a.m. She is able to tell me what she had for breakfast, is AOx3 and tells me how much she loves ice cream. She appears to be at her baseline as described by her family. Objective Physical Examination General Exam: Positive: Alert, Cooperative, No Acute Distress Eye Exam: Positive: PERRLA, Conjunctiva & lids normal, EOMI; Negative: Sclera icteric ENT Exam: Positive: Atraumatic, Mucous membr. moist/pink, Pharynx Normal Neck Exam: Positive: Supple; Negative: JVD, thyromegaly Chest Exam: Positive: comfortable with 2L NC; wheezing b/l lungs Heart Exam: Positive: sinus tach. Negative: Gallops, Murmurs, Rubs Telemetry: Positive: Sinus Abdomen Exam: Positive: BS Hypoactive, Soft; Negative: Tenderness Extremity Exam: Negative: Clubbing, Cyanosis, Edema Skin Exam: Positive: Nl turgor and temperature; possible drug reaction over thorax, b/l thighs - pt denied itching Neuro Exam: Positive: Normal Speech, Cranial Nerves 3-12 NL Psych Exam: Positive: Mood NL; Negative: Oriented x 3 Assessment /Plan Assessment "79 year old female with dementia resident of [facility] skilled facility with multiple medical problem has been having fever for 2 days. Yesterday her respiratory panel was checked which was negative and she was given a dose of ceftriaxone. SHe was ok this morning and had her breakfast then she spiked a fever at around 11 am with chills and cold sweats , she also complained of chest pain and became confused so was sent to the ED for evaluation. In the ED she complained of upper abdominal and epigastric pain , severe 9/10 in intensity very sharp and she was writhing around in bed associated with vomiting and dry heaving. She was also febrile to 102. she was hypertensive and her lactate was elevated to 4.2. She had a CT angio or the chest and abdomen done which did not show any pneumonia or any aneurysm or any dissection or any signs of bowel ischemia. Her UA came back dirty. She was admitted for Sepsis due to UTI with metabolic encephalopathy and lactic acidosis." Sepsis due to UTI, E. coli - blood culture (09/29/19) positive for E. coli. - urine culture - E. coli - Rocephin x 3d given; switched to Levaquin PO - Tylenol prn fever - repeat blood culture - no growth @48hrs - d/c midline on discharge Acute metabolic encephalopathy - resolved when seen this morning COPD with chronic respiratory failure with hypoxia - continue Symbicort and Spiriva and prednisone - add DuoNeb and Albuterol prn Hypertension with hypertensive urgency on presentation - probably due to pain and fever - continue Lisinopril - Metoprolol increased BID to TID - Pt was reassessed by myself last night following reports of uncontrolled HTN; her bp was checked manually - 150/80. She was talking on the phone with her brother and visiting with family at the time. - transferred to PCU overnight; IV labetalol prn, Norvasc started Drug eruption - coalescing rash over thorax and thighs - possibly 2/2 Norvasc or Labetalol which are new to the pt. Discontinued Chronic pain - continue gabapentin, fentanyl patch and cymbalta - prn Toradol Diabetes with neuropathy - Levemir reduced dosage and lispro - Continue gabapentin - FBS and hypoglycemic protocol CAD - continue statin, asa, metoprolol Diastolic CHF - resume Lasix PO Psoriasis with psoriatic arthritis - on HCQS Dementia - at baseline poor short term memory but recognizes known people - she is stand to pivot only and WC bound. Lactic acidosis - now resolved Plan/VTE VTE Prophylaxis Ordered?: Yes Disposition return to [place] when eventually d/c. per CT - needs renal USG (?mass vs complex cyst). d/c 24-48 hours with PT clearance Patient was afebrile for 24 hours, I switched IV antibiotics to by mouth. Patient's blood pressure improved. Her mental status significantly improved. Continue treatment with antibiotics, inhalers and blood pressure medications. Anticipated discharge in 48 hours I, Dirk Cesar, have independently examined this patient and performed my own physical exam, as well as reviewed the documentation. I have discussed in detail with the nurse practitioner the findings and plan of treatment as documented by the nurse practitioner . I will continue to follow the patient during this hospital stay. VS,Fishbone, I+O VS, Fishbone, I+O Laboratory Tests 10/03/19 05:22 Vital Signs Date Time Temp Pulse Resp B/P (MAP) Pulse Ox O2 Delivery O2 Flow Rate FiO2 10/03/19 09:09 95 150/80 10/03/19 08:00 2.0 10/03/19 08:00 97.6 12 96 Nasal Cannula I&O- Last 24 Hours up to 6 AM 10/03/19 06:00 Intake Total 1320 ml Output Total 2050 ml Balance -730 ml GINA BAZAN PA-C Oct 03, 2019 13:23 DIRK CESAR DO Oct 03, 2019 18:45
[2019-10-03] MEDS ORDERED: diphenhydrAMINE 25 MG CAP PO ONE (16:45)
[2019-10-03] MEDS: ATORVASTATIN 20 MG TAB PO SCH (17:14)
[2019-10-03] MEDS: ENOXAPARIN 40 MG/0.4 ML SYRINGE (J1650) SC SCH (20:17)
[2019-10-04] MEDS: IPRATROPIUM 0.5MG/ALBUTEROL 2.5MG INH SOL UD 3ML (DUONEB)(J7620) INH SCH ×2 (01:34→08:00)
[2019-10-04 04:00] VITALS: BP 140/62
[2019-10-04] MEDS: ACETAMINOPHEN TAB 650MG DOSE (2X325MG) PO PRN (04:13)
[2019-10-04 05:31] LABS: BASO % 0.4 % (0.0-1.0); EOS # 0.1 10^3/uL (0.0-0.5); EOS % 1.6 % (0.0-3.0); HEMATOCRIT 36.2 % (36.0-47.0); LYMPH # 1.5 10^3/uL (1.5-5.0); LYMPH % 22.1 % (24.0-44.0); MEAN CORPUSCULAR HEMOGLOBIN 27.3 pg (27.0-33.0); MEAN CORPUSCULAR HGB CONC 30.4 g/dl (32.0-36.5); MEAN CORPUSCULAR VOLUME 89.8 fl (80.0-96.0); MONO # 0.8 10^3/uL (0.0-0.8); MONO % 11.7 % (0.0-5.0); NEUTROPHILS # 4.4 10^3/uL (1.5-8.5); NEUTROPHILS % 63.5 % (36.0-66.0); PLATELET COUNT, AUTOMATED 176 10^3/uL (150-450); RED BLOOD COUNT 4.03 10^6/uL (4.00-5.40)
[2019-10-04] MEDS: SODIUM CHLORIDE 0.9% INJ 10 ML SYR IV SCH (05:37)
[2019-10-04] MEDS: LevoFLOXacin 750 MG TABLET PO SCH (05:37)
[2019-10-04 05:54] LABS: BLOOD UREA NITROGEN 14 MG/DL (7-18); CALCIUM LEVEL 8.8 MG/DL (8.8-10.2); CARBON DIOXIDE LEVEL 33 MEQ/L (21-32); CHLORIDE LEVEL 102 MEQ/L (98-107); CREATININE FOR GFR 0.62 MG/DL (0.55-1.30); GLOMERULAR FILTRATION RATE > 60.0 (>32); GLUCOSE, FASTING 170 MG/DL (70-100); POTASSIUM SERUM 3.5 MEQ/L (3.5-5.1); SODIUM LEVEL 138 MEQ/L (136-145)
[2019-10-04 07:58] VITALS: BP 126/58
[2019-10-04 08:16] VITALS: BP 126/58
[2019-10-04] MEDS: METOPROLOL TART 25 MG TABLET PO SCH (08:16)
[2019-10-04] MEDS: lisinopriL 40 MG TAB PO SCH (08:17)
[2019-10-04] MEDS: DULoxetine 30 MG CAP (CYMBALTA) PO SCH (08:25)
[2019-10-04] MEDS: ASPIRIN 81 MG ENTERIC TAB PO SCH (08:25)
[2019-10-04] MEDS: HYDROXYCHLOROQUINE 200 MG TAB PO SCH (08:26)
[2019-10-04] MEDS: guaiFENesin ER 600 MG TAB PO SCH (08:26)
[2019-10-04] MEDS: SENOKOT S TAB PO SCH (08:26)
[2019-10-04] MEDS: GABAPENTIN 400 MG CAP PO SCH (08:26)
[2019-10-04] MEDS: DOCUSATE SODIUM 100 MG CAP PO SCH (08:26)
[2019-10-04] MEDS: FUROSEMIDE 40 MG TAB PO SCH (08:26)
[2019-10-04] MEDS: HumaLOG INSULIN (NovoLOG) PER UNIT SC SCH ×2 (08:27→12:09)
[2019-10-04] MEDS: LEVEMIR (INSULIN DETEMIR) 1 UNITS/0.01ML SC SCH (08:27)
[2019-10-04] MEDS: BUDESONIDE 0.5 MG/2 ML INHALATION SUSPENSION INH SCH (08:44)
[2019-10-04] MEDS: FORMOTEROL FUMARATE 20 MCG/2 ML INHALATION SOLUTION (PERFOROMIST) INH SCH (08:44)
[2019-10-04] MEDS ORDERED: METO1TAB87 PO (09:21)
[2019-10-04] MEDS ORDERED: LEVA750T7 PO (09:21)
[2019-10-04] MEDS: predniSONE 5 MG TAB PO SCH (12:09)
--- NOTE | 2019-10-04 14:41 | DS.PDOC ---
Discharge Summary General Date of Admission Sep 29, 2019 at 15:50 Date of Discharge 10/04/2019 Discharge Summary PROCEDURES PERFORMED DURING STAY: [None]. ADMITTING DIAGNOSES: 1. Sepsis 2. UTI 3. Acute metabolic encephalopathy 4. Lactiacidosis 5. COPD with chronic respiratory failure with hypoxia 6. Hypertension with hypertensive urgency 7. Chronic pain 8. Diabetes with neuropathy 9. CAD 10. Diastolic CHF 11. Psoriasis with psoriatic arthritis 12. Dementia DISCHARGE DIAGNOSES: 1. UTI 2. COPD with chronic respiratory failure with hypoxia 3. Hypertension 4. Drug eruption 5. Chronic pain 6. Diabetes with peripheral neuropathy 7. CAD 8. Diastolic CHF 9. Psoriasis with psoriatic arthritis 10. Dementia COMPLICATIONS/CHIEF COMPLAINT: Sepsis Uti. HISTORY OF PRESENT ILLNESS: "79 year old female with dementia resident of [facility] with multiple medical problem has been having fever for 2 days. Yesterday her respiratory panel was checked which was negative and she was given a dose of ceftriaxone. SHe was ok this morning and had her breakfast then she spiked a fever at around 11 am with chills and cold sweats , she had also complained of chest pain and became confused so was sent to the ED for evaluation. In the ED she complained of upper abdominal and epigastric pain , severe 9/10 in intensity very sharp and she was writhing around in bed associated with vomiting and dry heaving. She was also febrile to 102. she was hypertensive and her lactate was elevated to 4.2. She had a CT angio or the chest and abdomen done which did not show any pneumonia or any aneurysm or any dissection or any signs of bowel ischemia. Her UA came back dirty. Patient herself is confused and lethargic due to fever, and possibly the morphine she got earlier. Daughter at bed side [facility] and paperwork sent from [place]. She was admitted for Sepsis due to UTI with metabolic encephalopathy and lacticacidosis." HOSPITAL COURSE: Pt was admitted as noted above. Blood cultures x 2 and urine culture collected. IV fluid bolus given in the ED and started on Rocephin IV, Tylenol prn for fever. Lasix and Clonidine held. Pt did very well overnight and care was stepped down from PCU to Med-Surg. Lab cultures x2 and urine cultures positive for E. Coli. Repeat blood cultures drawn; pt continued on Rocephin based on culture results, resolved lactic acidosis. Several reports of patient being febrile, hypertensive and de-saturating to 80% on O2 NC. Fever resolved with timed Tylenol, manual BP checks were WNL and pt had returned to 92% on 2L when reassessed by me. Pt was eventually returned to PCU due to hypertension; given IV labetalol and started on Norvasc 10/03/19; BP returned to baseline overnight. Pt noted to have what appeared to be a drug eruption rash over her thorax and thighs, thought 2/2 Norvasc, less likely Labetalol. Both medications discontinued. Benadryl 25mg given PO late in the day due to pt reporting itching; rash improved and eventually resolved when seen again by me this morning. Repeat blood cultures - no growth. Pt was switched to PO Levaquin to complete x 7 days therapy. She was medically optimized and was looking for henry to returning to [facility] today. DISCHARGE MEDICATIONS: Please see below. ALLERGIES: Please see below. PHYSICAL EXAMINATION ON DISCHARGE: VITAL SIGNS: Please see below. General Exam: Positive: Alert, Cooperative, No Acute Distress Eye Exam: Positive: PERRLA, Conjunctiva & lids normal, EOMI; Negative: Sclera icteric ENT Exam: Positive: Atraumatic, Mucous membr. moist/pink, Pharynx Normal Neck Exam: Positive: Supple; Negative: JVD, thyromegaly Chest Exam: Positive: comfortable with 2L NC; clear to auscultation Heart Exam: Positive: sinus tach. Negative: Gallops, Murmurs, Rubs Telemetry: Positive: Sinus Abdomen Exam: Positive: BS Hypoactive, Soft; Negative: Tenderness Extremity Exam: Negative: Clubbing, Cyanosis, Edema Skin Exam: Positive: Nl turgor and temperature; possible drug reaction over thorax, b/l thighs - now resolved Neuro Exam: Positive: Normal Speech, Cranial Nerves 3-12 NL Psych Exam: Positive: Mood NL; Negative: Oriented x 3 LABORATORY DATA: Please see below. IMAGING: Chest, 1 view IMPRESSION: Cardiac enlargement. Engorged vasculature suggesting mild pulmonary vascular congestion. CT ANGIO CHEST Impression: Significant atherosclerotic disease without aneurysm or dissection. Cardiomegaly and early pulmonary vascular congestion cannot be excluded. CT ANGIO ABD/PEL Impression: 1. Marked atherosclerotic changes to the abdominal aorta and branch vessels without evidence for aneurysm or dissection. 2. Chronic findings involving the bilateral kidneys. Complex cyst versus mass involving the right kidney cannot be properly evaluated and non emergent renal ultrasound may be considered. 3. No ascites. No free air. No adenopathy. No focal inflammatory changes. Chest, 1 view Impression: Chronic stable changes. No focal consolidation or effusion. ACTIVITY: [As tolerated]. DIET: Regular DISCHARGE PLAN: Discharge to [facility] with PO antibiotics DISPOSITION: [facility]. DISCHARGE INSTRUCTIONS: 1. see below ITEMS TO FOLLOWUP ON ON OUTPATIENT: Follow Up Appt: [place] physician/PCP Activity: As Tolerated Diet: As Tolerated Other Instruction: PFS will coordinate with family - outpt Renal USG for questionable mass vs complex cyst per CT in ED Follow up/Referrals Medical Follow up/Referral Ordered by: LEIGHA BRITT MD Referred To: Jr Maycol,Nate [phone] [id number] DISCHARGE CONDITION: [Stable]. TIME SPENT ON DISCHARGE: 33 minutes Vital Signs/I&Os Vital Signs Date Time Temp Pulse Resp B/P (MAP) Pulse Ox O2 Delivery O2 Flow Rate FiO2 10/04/19 12:30 96 Room Air 10/04/19 08:16 98 126/58 10/04/19 08:00 2.0 10/04/19 07:58 98.5 18 I&O- Last 24 Hours up to 6 AM 10/04/19 06:00 Intake Total 1260 ml Output Total 425 ml Balance 835 ml Laboratory Data Labs 24H Laboratory Tests 2 10/03/19 16:50: Bedside Glucose (Misc Panel) 238H 10/03/19 19:54: Bedside Glucose (Misc Panel) 223H 10/04/19 04:55: Immature Granulocyte % (Auto) 0.7, Neutrophils (%) (Auto) 63.5, Lymphocytes (%) (Auto) 22.1L, Monocytes (%) (Auto) 11.7H, Eosinophils (%) (Auto) 1.6, Basophils (%) (Auto) 0.4, Neutrophils # (Auto) 4.4, Lymphocytes # (Auto) 1.5, Monocytes # (Auto) 0.8, Eosinophils # (Auto) 0.1, Basophils # (Auto) 0.0, Nucleated Red Blood Cells % (auto) 0.0, Anion Gap 3L, Glomerular Filtration Rate > 60.0, Calcium Level 8.8 10/04/19 11:32: Bedside Glucose (Misc Panel) 234H CBC/BMP Laboratory Tests 10/04/19 04:55 FSBS Laboratory Tests Test 10/03/19 16:50 10/03/19 19:54 10/04/19 11:32 Range/Units Bedside Glucose (Misc Panel) 238 223 234 83-110 MG/DL Microbiology Microbiology 10/01/19 Blood Culture - Preliminary, Resulted No Growth after 72 hours. All specime... 09/29/19 Blood Culture - Final, Complete Escherichia Coli 09/29/19 Urine Culture - Final, Complete Escherichia Coli 09/29/19 Blood Culture - Final, Complete Escherichia Coli Discharge Medications Scheduled Acetaminophen (Acetaminophen) 325 Mg Tablet, 650 MG PO TID, (Reported) 0800/1200/1900 Aspirin (Aspirin EC) 81 Mg Tablet.dr, 162 MG PO DAILY, (Reported) Atorvastatin Calcium (Atorvastatin Calcium) 20 Mg Tablet, 20 MG PO QPM, (Reported) Budesonide/Formoterol (Symbicort 160-4.5 Mcg Inhaler) 6 Gm Hfa.aer.ad, 2 PUFF I NH BID, (Reported) Cholecalciferol (Vitamin D3) (Vitamin D3) 1,000 Unit Tablet, 7,000 UNITS PO DAILY, (Reported) TAKES AT NOON Duloxetine Hcl (Cymbalta) 30 Mg Capsule.dr, 30 MG PO BID, (Reported) Furosemide (Furosemide) 40 Mg Tablet, 40 MG PO BID, (Reported) Gabapentin (Gabapentin) 800 Mg Tablet, 800 MG PO DAILY, (Reported) TAKES AT NOON Gabapentin (Neurontin) 100 Mg Capsule, 1,000 MG PO QPM, (Reported) Gabapentin (Gabapentin) 600 Mg Tablet, 1,200 MG PO QAM, (Reported) Glycerin/Propylene Glycol (Artificial Tears Drops) 15 Ml Drops, 1 DROP OU QID, (Reported) Guaifenesin (Mucus ER) 600 Mg Tab.er.12h, 600 MG PO BID, (Reported) Hydroxychloroquine Sulfate (Plaquenil) 200 Mg Tablet, 200 MG PO BID, (Reported) Insulin Detemir (Levemir) 100 Unit/1 Ml Vial, 22 UNITS SC QAM, (Reported) Insulin Detemir (Levemir) 100 Unit/1 Ml Vial, 15 UNITS SC QPM, (Reported) Insulin Lispro (Humalog Kwikpen U-100) 100 Unit/1 Ml Insuln.pen, 1 DOSE SC AC, (Reported) PER SLIDING SCALE Ipratropium/Albuterol Sulfate (Iprat-Albut 0.5-3(2.5) mg/3 ml) 3 Ml Ampul.neb, 1 TONA INH Q6H, (Reported) FOR 3 DAYS STARTING 09/29/19 Lanolin Alcohol/Mo/W.pet/[place] (Eucerin Creme) 454 Gm Cream..g., 1 DOSE TOP BID, (Reported) APPLY TO ENTIRE BODY Levofloxacin (Levaquin) 750 Mg Tablet, 750 MG PO DAILY@06 Lisinopril (Lisinopril) 40 Mg Tablet, 40 MG PO DAILY, (Reported) Metoprolol Tartrate (Metoprolol Tartrate) 25 Mg Tablet, 25 MG PO TID Potassium Chloride (Potassium Chloride) 20 Meq Tab.er.prt, 20 MEQ PO DAILY, (Reported) Prednisone (Prednisone) 5 Mg Tablet, 5 MG PO DAILY, (Reported) TAKES AT 1100 Prednisone (Prednisone) 10 Mg Tablet, 30 MG PO ONCE, (Reported) Sennosides/Docusate Sodium (Senokot-S Tablet) 1 Each Tablet, 1 TAB PO BID, (Reported) Tiotropium Fries Monohydrate (Spiriva) 18 Mcg Cap.w.dev, 18 MCG INH DAILY, (Reported) fentaNYL (fentaNYL) 50 Mcg Patch.td72, 50 MCG TD Q3D, (Reported) AT 1600 Scheduled PRN Acetaminophen (Acetaminophen) 325 Mg Tablet, 650 MG PO Q4H PRN for PAIN, (Reported) Albuterol Sulf (Albuterol Sulfate) 2.5 Mg/3 Ml Vial.neb, 2.5 MG INH Q2H PRN for SOB/WHEEZING, (Reported) Bisacodyl (Dulcolax) 10 Mg Supp.rect, 10 MG WI DAILY PRN for CONSTIPATION, (Reported) Clonidine Hcl (Clonidine HCl) 0.1 Mg Tablet, 0.1 MG PO DAILY PRN for HYPERTENSION, (Reported) GIVE IF SBP IS ABOVE 190 OR HR ABOVE 90 Glucagon,Human Recombinant (Glucagon Emergency Kit) 1 Mg Vial, 1 MG IM ASDIREC ARNOLD PRN for LOW BLOOD SUGAR, (Reported) Lidocaine (Anecream) 4% Cream..g., 1 APLCT TOP Q2H PRN for PAIN, (Reported) APPLY TO PAINFUL JOINTS Magnesium Hydroxide (Milk of Magnesia) 400 Mg/5 Ml Oral.susp, 30 ML PO DAILY PRN for CONSTIPATION, (Reported) Sodium Phosphate,[place]-Dibasic (Enema) 133 Ml Enema, 1 PRIMO WI DAILY PRN for CONSTIPATION, (Reported) Tramadol HCl (Tramadol HCl) 50 Mg Tablet, 25 MG PO Q8H PRN for PAIN, (Reported) Allergies Coded Allergies: hydroxyzine (Verified Allergy, Unknown, 07/18/19) GINA BAZAN PA-C Oct 04, 2019 14:41
== END 2019-10-04 13:11 | DRG 871 ==
LOC: EDBD 12:15 → M ED 12:15 → M ED INP 15:50 → ENRESERV 16:20 → M PCU 17:31 → M MS5PR 09-30 14:45 → M PCU 10-02 20:30
PROVIDERS: ADMIT Internal Medicine Nephrology; ATTEND Internal Medicine
PROC: 05HC33Z Insertion of Infusion Device into Left Basilic Vein, Percutaneous Approach (ICD-10-PCS; principal; 2019-09-30)
DX: A41.51 Sepsis due to Escherichia coli [E. coli] (principal); G93.41 Metabolic encephalopathy; J96.11 Chronic respiratory failure with hypoxia; E87.2 Acidosis; N39.0 Urinary tract infection, site not specified; I50.32 Chronic diastolic (congestive) heart failure; F03.90 Unspecified dementia, unspecified severity, without behavioral disturbance, psychotic disturbance, mood disturbance, and anxiety; Z79.82 Long term (current) use of aspirin; Z79.899 Other long term (current) drug therapy; Z79.4 Long term (current) use of insulin; Z88.8 Allergy status to other drugs, medicaments and biological substances; Z86.19 Personal history of other infectious and parasitic diseases; I11.0 Hypertensive heart disease with heart failure; E78.5 Hyperlipidemia, unspecified; E11.65 Type 2 diabetes mellitus with hyperglycemia; E11.42 Type 2 diabetes mellitus with diabetic polyneuropathy; J44.9 Chronic obstructive pulmonary disease, unspecified; I25.10 Atherosclerotic heart disease of native coronary artery without angina pectoris; Z85.3 Personal history of malignant neoplasm of breast; M81.0 Age-related osteoporosis without current pathological fracture; I16.0 Hypertensive urgency; L40.50 Arthropathic psoriasis, unspecified; B96.20 Unspecified Escherichia coli [E. coli] as the cause of diseases classified elsewhere; Z86.14 Personal history of Methicillin resistant Staphylococcus aureus infection; N31.2 Flaccid neuropathic bladder, not elsewhere classified; L27.1 Localized skin eruption due to drugs and medicaments taken internally; T46.5X5A Adverse effect of other antihypertensive drugs, initial encounter

== ENCOUNTER → 2019-10-18 | Outpatient (REF) | payer MEDICARE, MEDICAID ==
[~2019-10-18] MED LIST changes: +CEFT1INJ5 ID; +ENEMENE PR; +EUCECRE8 TOP; +IPRA0.00 INH; +LEVA750T7 PO; +PLAQ200T4 PO; +PRED5TA PO; +VITAD1000T PO
[2019-10-18 09:55] LABS: BASO # 0.1 10^3/uL (0.0-0.2); BASO % 0.7 % (0.0-1.0); EOS # 0.1 10^3/uL (0.0-0.5); EOS % 0.7 % (0.0-3.0); HEMATOCRIT 39.4 % (36.0-47.0); HEMOGLOBIN 12.2 g/dl (12.0-15.5); LYMPH # 1.7 10^3/uL (1.5-5.0); LYMPH % 20.6 % (24.0-44.0); MEAN CORPUSCULAR HEMOGLOBIN 27.7 pg (27.0-33.0); MEAN CORPUSCULAR VOLUME 89.3 fl (80.0-96.0); MONO # 0.6 10^3/uL (0.0-0.8); MONO % 7.5 % (0.0-5.0); NEUTROPHILS # 5.8 10^3/uL (1.5-8.5); NEUTROPHILS % 70.1 % (36.0-66.0); PLATELET COUNT, AUTOMATED 327 10^3/uL (150-450); RED BLOOD COUNT 4.41 10^6/uL (4.00-5.40); WHITE BLOOD COUNT 8.3 10^3/uL (4.0-10.0)
[2019-10-18 10:36] LABS: ALBUMIN 3.2 GM/DL (3.2-5.2); ALT/SGPT 19 U/L (12-78); BILIRUBIN,TOTAL 0.5 MG/DL (0.2-1.0); BLOOD UREA NITROGEN 7 MG/DL (7-18); C REACTIVE PROTEIN QUANTITATIV 0.76 MG/DL (0.00-0.30); CALCIUM LEVEL 8.9 MG/DL (8.8-10.2); CARBON DIOXIDE LEVEL 33 MEQ/L (21-32); CHLORIDE LEVEL 98 MEQ/L (98-107); CREATININE FOR GFR 0.59 MG/DL (0.55-1.30); GLOMERULAR FILTRATION RATE > 60.0 (>32); GLUCOSE, FASTING 211 MG/DL (70-100); NT-PRO BNP 398 PG/ML (<450); POTASSIUM SERUM 3.8 MEQ/L (3.5-5.1); SODIUM LEVEL 138 MEQ/L (136-145); TOTAL PROTEIN 7.3 GM/DL (6.4-8.2)
[2019-10-18 10:37] LABS: ERYTHROCYTE SEDIMENTATION RATE 50 mm/hr (0-30)
--- NOTE | 2019-10-18 11:08 | REPPI ---
PORTABLE CHEST X-RAY: Single view. HISTORY: COPD. COMPARISON STUDY: September 24, 2019. FINDINGS: Exam quality is inhibited by patient body habitus. Patient is rotated somewhat to the left. The heart appears mildly enlarged and pulmonary vessels are centrally prominent and cephalized. There is no evidence of pleural effusion, infiltrate, or pulmonary edema. IMPRESSION: Mild cardiomegaly. Vascular congestion and cephalization. No other abnormality. Exam quality inhibited by patient body habitus. Electronically Signed by Olaf Ward MD 10/18/2019 06:38 P
== END ==
PROVIDERS: ATTEND Internal Medicine
DX: E11.9 Type 2 diabetes mellitus without complications (principal)

== ENCOUNTER → 2019-12-09 | Outpatient (REF) | payer MEDICARE, MEDICAID ==
[2019-12-09 11:46] LABS: HEMATOCRIT 39.9 % (36.0-47.0); HEMOGLOBIN 12.2 g/dl (12.0-15.5); MEAN CORPUSCULAR HEMOGLOBIN 27.7 pg (27.0-33.0); MEAN CORPUSCULAR HGB CONC 30.6 g/dl (32.0-36.5); MEAN CORPUSCULAR VOLUME 90.7 fl (80.0-96.0); PLATELET COUNT, AUTOMATED 262 10^3/uL (150-450); WHITE BLOOD COUNT 11.3 10^3/uL (4.0-10.0)
[2019-12-09 12:18] LABS: ALBUMIN 3.3 GM/DL (3.2-5.2); ALT/SGPT 18 U/L (12-78); BILIRUBIN,TOTAL 0.4 MG/DL (0.2-1.0); BLOOD UREA NITROGEN 13 MG/DL (7-18); CALCIUM LEVEL 9.2 MG/DL (8.8-10.2); CARBON DIOXIDE LEVEL 37 MEQ/L (21-32); CHLORIDE LEVEL 95 MEQ/L (98-107); CREATININE FOR GFR 0.75 MG/DL (0.55-1.30); GLOMERULAR FILTRATION RATE > 60.0 (>32); GLUCOSE, FASTING 210 MG/DL (70-100); POTASSIUM SERUM 3.8 MEQ/L (3.5-5.1); SODIUM LEVEL 135 MEQ/L (136-145); TOTAL PROTEIN 6.8 GM/DL (6.4-8.2)
== END ==
PROVIDERS: ATTEND Internal Medicine
DX: E11.9 Type 2 diabetes mellitus without complications (principal)
CPT/HCPCS: 36415; 80053; 85027; G0463

== ENCOUNTER → 2019-12-20 | Outpatient (REF) ==
[2019-12-20 11:47] LABS: HEMOGLOBIN A1c 8.4 %
== END ==
PROVIDERS: ATTEND Internal Medicine
DX: E11.9 Type 2 diabetes mellitus without complications (principal)

== ENCOUNTER → 2019-12-24 | Outpatient (CLI) | payer MEDICARE, MEDICAID ==
[~2019-12-24] MED LIST changes: -AMIT25TA PO; +AMIT25TA17 PO; +AMIT50TA PO; -AMLO10TA5 PO; +AMLO1TAB24 PO; +AMLO1TAB25 PO; -AMLO5TAB6 PO; -ASPI81TA85 PO; +ASPI81TA86 PO; +BENA25CA4 PO; +D31000TA2 PO; +ELIQ5TAB PO; +ERTA1INJ3 IJ; +LISI40TA4 PO; -MECL12.589 PO; +MECL12.590 PO; +MORP30TASA PO; +REST0.057 OU; +TRUL10IN SC; -VITAD1000T PO; +VOLT1GEL15 TOP
--- NOTE | 2019-12-24 13:56 | REP ---
Lower extremity duplex venous ultrasound: History: Left leg swelling. Rule out DVT. Findings: There is nonocclusive echogenic material in the popliteal vein consistent with deep vein thrombosis. Question chronic. The fifth femoral vein, common femoral vein segment are clear on two-dimensional scanning with full compressibility. Color flow and spectral Doppler interrogation are intact. May augmentation of flow and respiratory variation of flow are intact. Study is otherwise negative. Impression: There is nonocclusive thrombus visible in the left popliteal vein consistent with deep vein thrombosis, question chronic. Electronically Signed by Olaf Ward MD 12/24/2019 01:47 P
== END ==
LOC: M RAD 12:47
PROVIDERS: ATTEND Nurse Practitioner Adult Health
DX: I82.432 Acute embolism and thrombosis of left popliteal vein (principal); R60.0 Localized edema

== ENCOUNTER → 2019-12-26 | Outpatient (REF) | payer MEDICARE, MEDICAID ==
[~2019-12-26] MED LIST changes: +AMIT25TA PO; -AMIT25TA17 PO; -AMIT50TA PO; +AMLO10TA5 PO; -AMLO1TAB24 PO; -AMLO1TAB25 PO; +AMLO5TAB6 PO; +ASPI81TA85 PO; -ASPI81TA86 PO; -BENA25CA4 PO; -D31000TA2 PO; -ELIQ5TAB PO; -ERTA1INJ3 IJ; -LISI40TA4 PO; +MECL12.589 PO; -MECL12.590 PO; -MORP30TASA PO; -REST0.057 OU; -TRUL10IN SC; +VITAD1000T PO; -VOLT1GEL15 TOP
[2019-12-26 08:22] LABS: HEMATOCRIT 36.8 % (36.0-47.0); HEMOGLOBIN 11.7 g/dl (12.0-15.5); MEAN CORPUSCULAR HEMOGLOBIN 28.3 pg (27.0-33.0); MEAN CORPUSCULAR HGB CONC 31.8 g/dl (32.0-36.5); MEAN CORPUSCULAR VOLUME 89.1 fl (80.0-96.0); PLATELET COUNT, AUTOMATED 275 10^3/uL (150-450); RED BLOOD COUNT 4.13 10^6/uL (4.00-5.40); WHITE BLOOD COUNT 7.4 10^3/uL (4.0-10.0)
== END ==
PROVIDERS: ATTEND Nurse Practitioner Adult Health
DX: Z79.01 Long term (current) use of anticoagulants (principal)

== ENCOUNTER → 2019-12-30 | Outpatient (REF) | PROVIDERS: ATTEND Internal Medicine | DX: Z03.818 Encounter for observation for suspected exposure to other biological agents ruled out (principal) ==

== ENCOUNTER → 2019-12-31 | Outpatient (CLI) | payer MEDICARE, MEDICAID ==
--- NOTE | 2020-01-01 03:22 | REP ---
Clinical: History of nonocclusive thrombus in the left popliteal vein . Technique: Aggarwal scale and color Doppler evaluation left lower extremity using linear high frequency transducer. Findings: Ultrasound examination of the left lower extremity deep venous structures from the common femoral vein to the popliteal vein again demonstrates nonocclusive thrombus within the left popliteal vein similar to prior examination. The remainder of the left lower extremity deep venous structures appear patent and normal. Impression: Continued evidence for nonocclusive thrombus in the left popliteal vein similar to prior examination. No evidence for progression of disease. Electronically Signed by Drew Cunha MD 01/01/2020 03:13 A
== END ==
LOC: M RAD 11:21
PROVIDERS: ATTEND Nurse Practitioner Adult Health
DX: I82.432 Acute embolism and thrombosis of left popliteal vein (principal)

== ENCOUNTER → 2020-01-01 | Outpatient (REF) ==
[~2020-01-01] MED LIST changes: -AMIT25TA PO; +AMIT25TA17 PO; +AMIT50TA PO; -AMLO10TA5 PO; +AMLO1TAB24 PO; +AMLO1TAB25 PO; -AMLO5TAB6 PO; -ASPI81TA85 PO; +ASPI81TA86 PO; +BENA25CA4 PO; +D31000TA2 PO; +ELIQ5TAB PO; +ERTA1INJ3 IJ; +LISI40TA4 PO; -MECL12.589 PO; +MECL12.590 PO; +MORP30TASA PO; +REST0.057 OU; +TRUL10IN SC; -VITAD1000T PO; +VOLT1GEL15 TOP
[2020-01-01 11:35] LABS: HEMATOCRIT 37.5 % (36.0-47.0); HEMOGLOBIN 11.8 g/dl (12.0-15.5); MEAN CORPUSCULAR HGB CONC 31.5 g/dl (32.0-36.5); MEAN CORPUSCULAR VOLUME 89.1 fl (80.0-96.0); PLATELET COUNT, AUTOMATED 265 10^3/uL (150-450); RED BLOOD COUNT 4.21 10^6/uL (4.00-5.40); WHITE BLOOD COUNT 9.4 10^3/uL (4.0-10.0)
== END ==
PROVIDERS: ATTEND Internal Medicine
DX: E11.40 Type 2 diabetes mellitus with diabetic neuropathy, unspecified (principal)

== ENCOUNTER → 2020-01-09 | Outpatient (REF) | payer MEDICARE, MEDICAID ==
[~2020-01-09] MED LIST changes: +AMIT25TA PO; -AMIT25TA17 PO; -AMIT50TA PO; +AMLO10TA5 PO; -AMLO1TAB24 PO; -AMLO1TAB25 PO; +AMLO5TAB6 PO; +ASPI81TA85 PO; -ASPI81TA86 PO; -BENA25CA4 PO; -D31000TA2 PO; -ELIQ5TAB PO; -ERTA1INJ3 IJ; -LISI40TA4 PO; +MECL12.589 PO; -MECL12.590 PO; -MORP30TASA PO; -REST0.057 OU; -TRUL10IN SC; +VITAD1000T PO; -VOLT1GEL15 TOP
[2020-01-09 10:14] LABS: HEMATOCRIT 37.5 % (36.0-47.0); HEMOGLOBIN 11.8 g/dl (12.0-15.5); MEAN CORPUSCULAR HGB CONC 31.5 g/dl (32.0-36.5); MEAN CORPUSCULAR VOLUME 89.1 fl (80.0-96.0); PLATELET COUNT, AUTOMATED 296 10^3/uL (150-450); RED BLOOD COUNT 4.21 10^6/uL (4.00-5.40); WHITE BLOOD COUNT 10.6 10^3/uL (4.0-10.0)
== END ==
PROVIDERS: ATTEND Internal Medicine
DX: Z79.01 Long term (current) use of anticoagulants (principal)

== ENCOUNTER → 2020-01-16 | Outpatient (REF) | payer MEDICARE, MEDICAID ==
[2020-01-16 10:20] LABS: HEMATOCRIT 38.9 % (36.0-47.0); HEMOGLOBIN 12.4 g/dl (12.0-15.5); MEAN CORPUSCULAR HEMOGLOBIN 28.2 pg (27.0-33.0); MEAN CORPUSCULAR HGB CONC 31.9 g/dl (32.0-36.5); MEAN CORPUSCULAR VOLUME 88.4 fl (80.0-96.0); PLATELET COUNT, AUTOMATED 312 10^3/uL (150-450); WHITE BLOOD COUNT 11.2 10^3/uL (4.0-10.0)
== END ==
PROVIDERS: ATTEND Internal Medicine
DX: Z79.01 Long term (current) use of anticoagulants (principal)

== ENCOUNTER → 2020-02-05 | Outpatient (REF) ==
[~2020-02-05] MED LIST changes: -AMIT25TA PO; +AMIT25TA17 PO; +AMIT50TA PO; -AMLO10TA5 PO; +AMLO1TAB24 PO; +AMLO1TAB25 PO; -AMLO5TAB6 PO; -ASPI81TA85 PO; +ASPI81TA86 PO; +BENA25CA4 PO; +D31000TA2 PO; +ELIQ5TAB PO; +ERTA1INJ3 IJ; +LISI40TA4 PO; -MECL12.589 PO; +MECL12.590 PO; +MORP30TASA PO; +REST0.057 OU; +TRUL10IN SC; -VITAD1000T PO; +VOLT1GEL15 TOP
[2020-02-05 10:25] LABS: HEMATOCRIT 38.2 % (36.0-47.0); HEMOGLOBIN 12.1 g/dl (12.0-15.5); MEAN CORPUSCULAR HEMOGLOBIN 27.8 pg (27.0-33.0); MEAN CORPUSCULAR HGB CONC 31.7 g/dl (32.0-36.5); MEAN CORPUSCULAR VOLUME 87.6 fl (80.0-96.0); PLATELET COUNT, AUTOMATED 276 10^3/uL (150-450); RED BLOOD COUNT 4.36 10^6/uL (4.00-5.40)
[2020-02-05 10:45] LABS: AMORPHOUS SEDIMENT MODERATE (NEGATIVE); APPEARANCE, URINE CLOUDY (CLEAR); BACTERIA, URINE AUTO 1+ (NEGATIVE); BILIRUBIN, URINE AUTO NEGATIVE (NEGATIVE); BLOOD, URINE BLOOD 1+ (NEGATIVE); COLOR, URINE YELLOW (YELLOW); GLUCOSE, URINE (UA) AUTO 3+ mg/dL (NEGATIVE); KETONE, URINE AUTO NEGATIVE (NEGATIVE); LEUKOCYTE ESTERASE, URINE AUTO 3+ (NEGATIVE); NITRITE, URINE AUTO NEGATIVE (NEGATIVE); PROTEIN, URINE AUTO NEGATIVE (NEGATIVE); RBC, URINE AUTO 10 /HPF (0-3); SPECIFIC GRAVITY URINE AUTO 1.005 (1.002-1.035); SQUAMOUS EPITHELIAL CELL UR AU 0 /HPF (0-6); UROBILINOGEN, URINE AUTO 0.2 mg/dL (0.0-2.0); WBC, URINE AUTO TNTC /HPF (0-3)
[2020-02-05 10:54] LABS: ALBUMIN 3.1 GM/DL (3.2-5.2); ALT/SGPT 15 U/L (12-78); BILIRUBIN,TOTAL 0.5 MG/DL (0.2-1.0); BLOOD UREA NITROGEN 7 MG/DL (7-18); CALCIUM LEVEL 8.7 MG/DL (8.8-10.2); CARBON DIOXIDE LEVEL 31 MEQ/L (21-32); CHLORIDE LEVEL 96 MEQ/L (98-107); CREATININE FOR GFR 0.67 MG/DL (0.55-1.30); GLOMERULAR FILTRATION RATE > 60.0 (>32); GLUCOSE, FASTING 205 MG/DL (70-100); SODIUM LEVEL 137 MEQ/L (136-145); TOTAL PROTEIN 7.3 GM/DL (6.4-8.2)
--- NOTE | 2020-02-05 12:40 | REPPI ---
CHEST, SINGLE VIEW: Single view of the chest is performed. COMPARISON: 10/18/2019. There is cardiomegaly and mild vascular congestion unchanged. No new infiltrate is seen. Mediastinal silhouette is unchanged. There is mild calcification of the thoracic aorta. IMPRESSION: Cardiomegaly and mild vascular congestion. No acute infiltrate. Electronically Signed by Fuad Aggarwal MD 02/05/2020 07:34 P
== END ==
PROVIDERS: ATTEND Nurse Practitioner Adult Health
DX: R50.9 Fever, unspecified (principal)

== ENCOUNTER → 2020-02-06 | Outpatient (REF) ==
[2020-02-06 10:34] LABS: HEMATOCRIT 36.6 % (36.0-47.0); HEMOGLOBIN 11.3 g/dl (12.0-15.5); MEAN CORPUSCULAR HEMOGLOBIN 27.4 pg (27.0-33.0); MEAN CORPUSCULAR HGB CONC 30.9 g/dl (32.0-36.5); MEAN CORPUSCULAR VOLUME 88.6 fl (80.0-96.0); PLATELET COUNT, AUTOMATED 309 10^3/uL (150-450); RED BLOOD COUNT 4.13 10^6/uL (4.00-5.40); WHITE BLOOD COUNT 15.9 10^3/uL (4.0-10.0)
[2020-02-06 10:54] LABS: CALCIUM LEVEL 9.1 MG/DL (8.8-10.2); GLOMERULAR FILTRATION RATE 56.8 (>32); POTASSIUM SERUM 3.7 MEQ/L (3.5-5.1)
== END ==
PROVIDERS: ATTEND Internal Medicine
DX: D72.819 Decreased white blood cell count, unspecified (principal)

== ENCOUNTER → 2020-02-07 | Outpatient (REF) ==
[2020-02-07 14:17] LABS: HEMATOCRIT 35.3 % (36.0-47.0); HEMOGLOBIN 10.9 g/dl (12.0-15.5); MEAN CORPUSCULAR HEMOGLOBIN 27.5 pg (27.0-33.0); MEAN CORPUSCULAR HGB CONC 30.9 g/dl (32.0-36.5); MEAN CORPUSCULAR VOLUME 88.9 fl (80.0-96.0); PLATELET COUNT, AUTOMATED 318 10^3/uL (150-450); RED BLOOD COUNT 3.97 10^6/uL (4.00-5.40); WHITE BLOOD COUNT 13.5 10^3/uL (4.0-10.0)
[2020-02-07 14:46] LABS: CALCIUM LEVEL 9.2 MG/DL (8.8-10.2); CREATININE FOR GFR 1.02 MG/DL (0.55-1.30); GLOMERULAR FILTRATION RATE 55.5 (>32); POTASSIUM SERUM 4.6 MEQ/L (3.5-5.1)
== END ==
PROVIDERS: ATTEND Internal Medicine
DX: D72.819 Decreased white blood cell count, unspecified (principal)

== ENCOUNTER → 2020-02-10 | Outpatient (REF) ==
[~2020-02-10] MED LIST changes: +AMIT25TA PO; -AMIT25TA17 PO; -AMIT50TA PO; +AMLO10TA5 PO; -AMLO1TAB24 PO; -AMLO1TAB25 PO; +AMLO5TAB6 PO; +ASPI81TA85 PO; -ASPI81TA86 PO; -BENA25CA4 PO; -D31000TA2 PO; -ELIQ5TAB PO; -ERTA1INJ3 IJ; -LISI40TA4 PO; +MECL12.589 PO; -MECL12.590 PO; -MORP30TASA PO; -REST0.057 OU; -TRUL10IN SC; +VITAD1000T PO; -VOLT1GEL15 TOP
[2020-02-10 10:28] LABS: HEMATOCRIT 38.6 % (36.0-47.0); HEMOGLOBIN 11.8 g/dl (12.0-15.5); MEAN CORPUSCULAR HEMOGLOBIN 27.1 pg (27.0-33.0); MEAN CORPUSCULAR HGB CONC 30.6 g/dl (32.0-36.5); MEAN CORPUSCULAR VOLUME 88.7 fl (80.0-96.0); PLATELET COUNT, AUTOMATED 301 10^3/uL (150-450); RED BLOOD COUNT 4.35 10^6/uL (4.00-5.40); WHITE BLOOD COUNT 10.6 10^3/uL (4.0-10.0)
[2020-02-10 11:00] LABS: BLOOD UREA NITROGEN 15 MG/DL (7-18); CALCIUM LEVEL 9.4 MG/DL (8.8-10.2); CARBON DIOXIDE LEVEL 37 MEQ/L (21-32); CHLORIDE LEVEL 92 MEQ/L (98-107); CREATININE FOR GFR 0.78 MG/DL (0.55-1.30); GLOMERULAR FILTRATION RATE > 60.0 (>32); GLUCOSE, FASTING 140 MG/DL (70-100); POTASSIUM SERUM 3.5 MEQ/L (3.5-5.1); SODIUM LEVEL 135 MEQ/L (136-145)
== END ==
PROVIDERS: ATTEND Nurse Practitioner Adult Health
DX: E11.9 Type 2 diabetes mellitus without complications (principal)

== ENCOUNTER → 2020-02-18 | Outpatient (REF) | payer MEDICARE, MEDICAID ==
[~2020-02-18] MED LIST changes: +AMIT50TA PO; -AMLO10TA5 PO; +AMLO1TAB24 PO; +AMLO1TAB25 PO; -AMLO5TAB6 PO; -ASPI81TA85 PO; +ASPI81TA86 PO; +BENA25CA4 PO; +D31000TA2 PO; +ELIQ5TAB PO; +ERTA1INJ3 IJ; +MORP30TASA PO; +TRUL10IN SC; -VITAD1000T PO
[2020-02-18 20:06] LABS: HEMATOCRIT 34.3 % (36.0-47.0); HEMOGLOBIN 10.3 g/dl (12.0-15.5); MEAN CORPUSCULAR HEMOGLOBIN 27.3 pg (27.0-33.0); PLATELET COUNT, AUTOMATED 261 10^3/uL (150-450); RED BLOOD COUNT 3.77 10^6/uL (4.00-5.40); WHITE BLOOD COUNT 17.3 10^3/uL (4.0-10.0)
[2020-02-18 20:24] LABS: BLOOD UREA NITROGEN 20 MG/DL (7-18); CALCIUM LEVEL 8.2 MG/DL (8.8-10.2); CARBON DIOXIDE LEVEL 32 MEQ/L (21-32); CHLORIDE LEVEL 97 MEQ/L (98-107); CREATININE FOR GFR 0.92 MG/DL (0.55-1.30); GLOMERULAR FILTRATION RATE > 60.0 (>32); GLUCOSE, FASTING 151 MG/DL (70-100); POTASSIUM SERUM 3.9 MEQ/L (3.5-5.1); SODIUM LEVEL 138 MEQ/L (136-145)
[2020-02-18 20:32] LABS: APPEARANCE, URINE CLEAR (CLEAR); BACTERIA, URINE AUTO NEGATIVE (NEGATIVE); BILIRUBIN, URINE AUTO NEGATIVE (NEGATIVE); BLOOD, URINE BLOOD 1+ (NEGATIVE); COLOR, URINE YELLOW (YELLOW); GLUCOSE, URINE (UA) AUTO 2+ mg/dL (NEGATIVE); KETONE, URINE AUTO NEGATIVE (NEGATIVE); LEUKOCYTE ESTERASE, URINE AUTO NEGATIVE (NEGATIVE); NITRITE, URINE AUTO NEGATIVE (NEGATIVE); PROTEIN, URINE AUTO NEGATIVE (NEGATIVE); RBC, URINE AUTO 5 /HPF (0-3); SPECIFIC GRAVITY URINE AUTO 1.013 (1.002-1.035); SQUAMOUS EPITHELIAL CELL UR AU 0 /HPF (0-6); UROBILINOGEN, URINE AUTO 0.2 mg/dL (0.0-2.0); WBC, URINE AUTO 1 /HPF (0-3)
== END ==
PROVIDERS: ATTEND Internal Medicine
DX: R50.9 Fever, unspecified (principal); R10.84 Generalized abdominal pain

== ENCOUNTER → 2020-02-20 | Outpatient (REF) | payer MEDICARE, MEDICAID ==
[~2020-02-20] MED LIST changes: -AMIT50TA PO; +AMLO10TA5 PO; -AMLO1TAB24 PO; -AMLO1TAB25 PO; +AMLO5TAB6 PO; +ASPI81TA85 PO; -ASPI81TA86 PO; -BENA25CA4 PO; -D31000TA2 PO; -ELIQ5TAB PO; -ERTA1INJ3 IJ; -MORP30TASA PO; -TRUL10IN SC; +VITAD1000T PO
--- NOTE | 2020-02-21 00:33 | REPPI ---
KUB ABDOMEN AND PELVIS: Three KUB films of abdomen and pelvis performed. I see no evidence of significant small bowel distention, with no radiographic evidence of small bowel obstruction. Multiple metallic clips are seen in the upper abdomen. Metallic internal fixation is seen in the proximal left femur. There are degenerative changes of the spine. Electronically Signed by Fuad Aggarwal MD 02/23/2020 10:43 P
== END ==
PROVIDERS: ATTEND Internal Medicine
DX: R10.9 Unspecified abdominal pain (principal)

== ENCOUNTER → 2020-02-21 | Outpatient (REF) | payer MEDICARE, MEDICAID ==
[2020-02-21 13:19] LABS: HEMOGLOBIN 10.2 g/dl (12.0-15.5); MEAN CORPUSCULAR VOLUME 93.4 fl (80.0-96.0); PLATELET COUNT, AUTOMATED 242 10^3/uL (150-450); RED BLOOD COUNT 3.64 10^6/uL (4.00-5.40); WHITE BLOOD COUNT 8.9 10^3/uL (4.0-10.0)
[2020-02-21 13:52] LABS: ALBUMIN 2.6 GM/DL (3.2-5.2); BILIRUBIN,TOTAL 0.2 MG/DL (0.2-1.0); CALCIUM LEVEL 8.7 MG/DL (8.8-10.2); CREATININE FOR GFR 1.46 MG/DL (0.55-1.30); GLOMERULAR FILTRATION RATE 36.7 (>32); POTASSIUM SERUM 4.5 MEQ/L (3.5-5.1); TOTAL PROTEIN 6.3 GM/DL (6.4-8.2)
--- NOTE | 2020-02-22 11:30 | REPPI ---
CHEST: Single view. There is no evidence of acute infiltrate. No pleural effusion is seen. The heart is normal in size. The mediastinal silhouette is unremarkable. The visualized osseous structures are intact. IMPRESSION: No acute pulmonary disease. Electronically Signed by Fuad Aggarwal MD 02/23/2020 11:26 P
== END ==
PROVIDERS: ATTEND Internal Medicine
DX: R53.83 Other fatigue (principal)

== ENCOUNTER → 2020-02-24 | Outpatient (REF) | payer MEDICARE, MEDICAID ==
[2020-02-24 14:14] LABS: HEMATOCRIT 34.6 % (36.0-47.0); HEMOGLOBIN 10.5 g/dl (12.0-15.5); MEAN CORPUSCULAR HEMOGLOBIN 27.1 pg (27.0-33.0); MEAN CORPUSCULAR HGB CONC 30.3 g/dl (32.0-36.5); MEAN CORPUSCULAR VOLUME 89.4 fl (80.0-96.0); PLATELET COUNT, AUTOMATED 236 10^3/uL (150-450); RED BLOOD COUNT 3.87 10^6/uL (4.00-5.40); WHITE BLOOD COUNT 7.2 10^3/uL (4.0-10.0)
[2020-02-24 15:06] LABS: BLOOD UREA NITROGEN 11 MG/DL (7-18); CALCIUM LEVEL 8.5 MG/DL (8.8-10.2); CARBON DIOXIDE LEVEL 30 MEQ/L (21-32); CHLORIDE LEVEL 98 MEQ/L (98-107); GLOMERULAR FILTRATION RATE > 60.0 (>32); GLUCOSE, FASTING 163 MG/DL (70-100); POTASSIUM SERUM 3.6 MEQ/L (3.5-5.1); SODIUM LEVEL 137 MEQ/L (136-145)
== END ==
PROVIDERS: ATTEND Internal Medicine
DX: D72.829 Elevated white blood cell count, unspecified (principal)

== ENCOUNTER → 2020-02-25 | Outpatient (CLI) | payer MEDICARE, MEDICAID ==
[~2020-02-25] MED LIST changes: +AMIT50TA PO; -AMLO10TA5 PO; +AMLO1TAB24 PO; +AMLO1TAB25 PO; -AMLO5TAB6 PO; -ASPI81TA85 PO; +ASPI81TA86 PO; +BENA25CA4 PO; +D31000TA2 PO; +ELIQ5TAB PO; +ERTA1INJ3 IJ; +ISOVUE-370 76% 100ML VIAL As Ordered ONE; +MORP30TASA PO; +TRUL10IN SC; -VITAD1000T PO
--- NOTE | 2020-02-25 11:33 | REPVR ---
PROCEDURE INFORMATION: Exam: CT Head Without And With Contrast Exam date and time: 02/25/2020 11:15 AM Age: 79 years old Clinical indication: Altered mental status/memory loss; Additional info: Confusion TECHNIQUE: Imaging protocol: Computed tomography of the head without and with intravenous contrast. Radiation optimization: All CT scans at this facility use at least one of these dose optimization techniques: automated exposure control; mA and/or kV adjustment per patient size (includes targeted exams where dose is matched to clinical indication); or iterative reconstruction. Contrast material: ISOVUE 370; Contrast volume: 75 ml; Contrast route: INTRAVENOUS (IV); COMPARISON: CT Head without contrast 07/20/2019 6:50 PM FINDINGS: Brain: There is no acute intracranial hemorrhage or mass effect. Moderate diffuse volume loss is within the range of normal for patient age. There are small vessel ischemic changes within the periventricular and subcortical white matter, but the normal mercado-white matter delineation is maintained. There is no abnormal enhancement. Ventricles: Diffuse prominence of the ventricular system is likely commensurate with volume loss. This appears unchanged. Bones/joints: Unremarkable. No acute fracture. Sinuses: Visualized sinuses are unremarkable. No fluid levels. Mastoid air cells: Visualized mastoid air cells are well aerated. Soft tissues: Unremarkable. IMPRESSION: No acute intracranial abnormality. Chronic changes. Electronically signed by: Liliana Fabian On 02/25/2020 11:32:43 AM
== END ==
LOC: M RAD 10:20
PROVIDERS: ATTEND Nurse Practitioner Adult Health
DX: R41.0 Disorientation, unspecified (principal)
CPT/HCPCS: 70470; Q9967

== ENCOUNTER → 2020-03-26 | Outpatient (REF) | payer MEDICARE, MEDICAID ==
[~2020-03-26] MED LIST changes: -ISOVUE-370 76% 100ML VIAL As Ordered ONE
[2020-06-06 10:38] LABS: HEMATOCRIT 38.7 % (36.0-47.0); MEAN CORPUSCULAR VOLUME 87.2 fl (80.0-96.0); PLATELET COUNT, AUTOMATED 290 10^3/uL (150-450); RED BLOOD COUNT 4.44 10^6/uL (4.00-5.40); WHITE BLOOD COUNT 17.9 10^3/uL (4.0-10.0)
[2020-06-20 12:10] LABS: BLOOD UREA NITROGEN 10 MG/DL (7-18); CALCIUM LEVEL 8.9 MG/DL (8.8-10.2); CARBON DIOXIDE LEVEL 35 MEQ/L (21-32); CHLORIDE LEVEL 98 MEQ/L (98-107); CREATININE FOR GFR 0.69 MG/DL (0.55-1.30); GLOMERULAR FILTRATION RATE > 60.0 (>32); GLUCOSE, FASTING 159 MG/DL (70-100); POTASSIUM SERUM 3.2 MEQ/L (3.5-5.1); SODIUM LEVEL 139 MEQ/L (136-145)
== END ==
PROVIDERS: ATTEND Nurse Practitioner Adult Health
DX: R50.9 Fever, unspecified (principal); R10.9 Unspecified abdominal pain

== ENCOUNTER → 2020-03-27 | Outpatient (REF) | payer MEDICARE, MEDICAID ==
[2020-06-06 10:27] LABS: HEMATOCRIT 37.5 % (36.0-47.0); HEMOGLOBIN 11.5 g/dl (12.0-15.5); MEAN CORPUSCULAR HEMOGLOBIN 27.1 pg (27.0-33.0); MEAN CORPUSCULAR HGB CONC 30.7 g/dl (32.0-36.5); MEAN CORPUSCULAR VOLUME 88.4 fl (80.0-96.0); PLATELET COUNT, AUTOMATED 279 10^3/uL (150-450); RED BLOOD COUNT 4.24 10^6/uL (4.00-5.40); WHITE BLOOD COUNT 14.5 10^3/uL (4.0-10.0)
[2020-06-20 06:46] LABS: BLOOD UREA NITROGEN 10 MG/DL (7-18); CALCIUM LEVEL 8.8 MG/DL (8.8-10.2); CARBON DIOXIDE LEVEL 33 MEQ/L (21-32); CHLORIDE LEVEL 96 MEQ/L (98-107); CREATININE FOR GFR 0.74 MG/DL (0.55-1.30); GLOMERULAR FILTRATION RATE > 60.0 (>32); GLUCOSE, FASTING 175 MG/DL (70-100); POTASSIUM SERUM 3.2 MEQ/L (3.5-5.1); SODIUM LEVEL 137 MEQ/L (136-145)
== END ==
PROVIDERS: ATTEND Nurse Practitioner Adult Health
DX: D72.829 Elevated white blood cell count, unspecified (principal)

== ENCOUNTER → 2020-03-30 | Outpatient (REF) | payer MEDICARE, MEDICAID ==
[2020-06-06 11:41] LABS: HEMATOCRIT 38.4 % (36.0-47.0); HEMOGLOBIN 11.6 g/dl (12.0-15.5); MEAN CORPUSCULAR HEMOGLOBIN 26.9 pg (27.0-33.0); MEAN CORPUSCULAR HGB CONC 30.2 g/dl (32.0-36.5); MEAN CORPUSCULAR VOLUME 89.1 fl (80.0-96.0); PLATELET COUNT, AUTOMATED 278 10^3/uL (150-450); RED BLOOD COUNT 4.31 10^6/uL (4.00-5.40); WHITE BLOOD COUNT 7.5 10^3/uL (4.0-10.0)
[2020-06-20 12:46] LABS: BLOOD UREA NITROGEN 11 MG/DL (7-18); CALCIUM LEVEL 9.2 MG/DL (8.8-10.2); CARBON DIOXIDE LEVEL 35 MEQ/L (21-32); CHLORIDE LEVEL 99 MEQ/L (98-107); CREATININE FOR GFR 0.65 MG/DL (0.55-1.30); GLOMERULAR FILTRATION RATE > 60.0 (>32); GLUCOSE, FASTING 137 MG/DL (70-100); POTASSIUM SERUM 3.5 MEQ/L (3.5-5.1); SODIUM LEVEL 139 MEQ/L (136-145)
== END ==
PROVIDERS: ATTEND Internal Medicine
DX: E11.9 Type 2 diabetes mellitus without complications (principal); R10.9 Unspecified abdominal pain

== ENCOUNTER → 2020-04-29 | Outpatient (CLI) | payer MEDICARE, MEDICAID ==
--- NOTE | 2020-05-01 15:17 | REP ---
BILATERAL LOWER EXTREMITY ARTERIAL DOPPLER ULTRASOUND HISTORY: Unspecified atherosclerotic change of the [place] arteries. FINDINGS: The patient was not able to tolerate blood pressure cuff inflation sufficient to achieve ankle brachial indices determination in either lower extremity. Monophasic arterial waveforms are noted throughout the right lower extremity arteries distal to the common femoral artery. Monophasic and biphasic waveforms are seen throughout the left lower extremity arteries. There is multifactorial plaquing. Multiple areas of stenotic flow are observed in the left. These include proximal and mid superficial femoral artery and distal superficial femoral artery, as well as popliteal. BILATERAL LOWER EXTREMITY VELOCITY CHART PSV RIGHT (cm/s) PSV LEFT (cm/s) CHILD CARE CENTER ASSISTANT DIRECTOR [phone] Profunda 67 88 Proximal SFA 111 183 Mid-SFA 107 232 Distal SFA 221 216 Popliteal 69 141 Proximal ROSEANN 39 124 Tibioperoneal trunk 60 94 Proximal ANALYTICS LEADER 46 71 Distal ANALYTICS LEADER 26 54 Distal ROSEANN 46 27 MTDD
--- NOTE | 2020-05-01 15:24 | REP ---
BILATERAL LOWER EXTREMITY DUPLEX VENOUS ULTRASOUND HISTORY: Chronic deep vein thrombosis (DVT). Venous insufficiency. FINDINGS: The deep veins are anechoic and fully compressible from the groin to the popliteal fossa in both lower extremities on two-dimensional scanning. Color flow imaging is homogeneous. Spectral Doppler interrogation demonstrates intact respiratory variation in flow and normal manual augmentation of flow. There is no evidence of deep vein thrombosis on either side. IMPRESSION: Negative bilateral lower extremity duplex venous ultrasound. No evidence of deep vein thrombosis. MTDD
== END ==
LOC: M RAD 12:59
PROVIDERS: ATTEND Physician Assistant
DX: I70.203 Unspecified atherosclerosis of native arteries of extremities, bilateral legs (principal); I87.2 Venous insufficiency (chronic) (peripheral); Z86.718 Personal history of other venous thrombosis and embolism

== ENCOUNTER 2020-05-20 04:42 | Inpatient (IN) | payer MEDICARE, MEDICAID ==
[~2020-05-20] VITALS: Ht 170.2 cm; Wt 107.4 kg
[~2020-05-20 04:42] MED LIST changes: -AMIT50TA PO; -BENA25CA4 PO; -ELIQ5TAB PO; -ERTA1INJ3 IJ; -MORP30TASA PO; -TRUL10IN SC
--- NOTE | 2020-05-20 05:24 | REPVR ---
PROCEDURE INFORMATION: Exam: XR Chest, 1 View Exam date and time: 05/20/2020 5:14 AM Age: 80 years old Clinical indication: Other: Cough; Additional info: Dyspnea/cough TECHNIQUE: Imaging protocol: XR of the chest Views: 1 view. COMPARISON: CR PORTABLE CHEST 02/21/2020 3:55 PM FINDINGS: Lungs: There is increased retrocardiac density suggestive of atelectasis versus infiltrates. Pleural space: Unremarkable. No pleural effusion. No pneumothorax. Heart/Mediastinum: Unremarkable. No cardiomegaly. Bones/joints: Unremarkable. Other findings: Small left-sided effusion cannot be excluded. IMPRESSION: Likely retrocardiac atelectasis and/or infiltrates with or without small effusion. This could be partly due to positioning and technique. If indicated PA and lateral views of the chest may be obtained for further evaluation. Electronically signed by: Zion Whaley On 05/20/2020 05:24:07 AM
[2020-05-20 08:14] LABS: BASO # 0.1 10^3/uL (0.0-0.2); BASO % 0.3 % (0.0-1.0); EOS # 0.1 10^3/uL (0.0-0.5); EOS % 0.5 % (0.0-3.0); HEMATOCRIT 33.5 % (36.0-47.0); HEMOGLOBIN 10.1 g/dl (12.0-15.5); LYMPH # 1.5 10^3/uL (1.5-5.0); LYMPH % 7.8 % (24.0-44.0); MEAN CORPUSCULAR HEMOGLOBIN 26.1 pg (27.0-33.0); MEAN CORPUSCULAR HGB CONC 30.1 g/dl (32.0-36.5); MEAN CORPUSCULAR VOLUME 86.6 fl (80.0-96.0); MONO # 1.4 10^3/uL (0.0-0.8); MONO % 7.1 % (0.0-5.0); NEUTROPHILS # 16.4 10^3/uL (1.5-8.5); NEUTROPHILS % 83.7 % (36.0-66.0); PLATELET COUNT, AUTOMATED 262 10^3/uL (150-450); RED BLOOD COUNT 3.87 10^6/uL (4.00-5.40); WHITE BLOOD COUNT 19.6 10^3/uL (4.0-10.0)
[2020-05-20 08:40] LABS: ALBUMIN 2.9 GM/DL (3.2-5.2); BILIRUBIN,DIRECT 0.2 MG/DL (0.0-0.2); BILIRUBIN,TOTAL 0.5 MG/DL (0.2-1.0); TOTAL PROTEIN 6.8 GM/DL (6.4-8.2)
[2020-05-20 08:53] LABS: CREATININE FOR GFR 1.01 MG/DL (0.55-1.30); MB/CK RELATIVE INDEX 1.56 (< OR =4); POTASSIUM SERUM 2.6 MEQ/L (3.5-5.1); TROPONIN I 0.07 NG/ML (< 0.10)
[2020-05-20] MEDS ORDERED: predniSONE 5 MG TAB PO SCH (09:00)
[2020-05-20] MEDS ORDERED: cefTRIAXone SOD 2 GM in D5W MINI-BAG PLUS 50 ML IV ONE (09:00)
[2020-05-20] MEDS: lisinopriL 40 MG TAB PO SCH (09:00)
--- NOTE | 2020-05-20 10:09 | REPVR ---
PROCEDURE INFORMATION: Exam: CT Chest Without Contrast Exam date and time: 05/20/2020 9:34 AM Age: 80 years old Clinical indication: Shortness of breath TECHNIQUE: Imaging protocol: Computed tomography of the chest without contrast. 3D rendering (Not supervised by radiologist): MIP and/or 3D reconstructed images were created by the technologist. Radiation optimization: All CT scans at this facility use at least one of these dose optimization techniques: automated exposure control; mA and/or kV adjustment per patient size (includes targeted exams where dose is matched to clinical indication); or iterative reconstruction. COMPARISON: CT Chest without contrast 07/18/2019 8:26 AM FINDINGS: Lungs: There is bronchiectasis at the left lung base. There is moderate left lower lobe consolidation, similar to prior study. This could represent pneumonia in the appropriate clinical setting. Pleural space: Unremarkable. No pneumothorax. No pleural effusion. Heart: There is cardiomegaly. There are atherosclerotic changes of the coronary arteries. Aorta: There are calcified atherosclerotic changes of the aorta. Lymph nodes: There are several enlarged prevascular lymph nodes, similar to prior study. Gallbladder and bile ducts: The patient is status post cholecystectomy. Kidneys and ureters: Moderate left-sided hydronephrosis is suspected but not imaged in its entirety on this exam. Bones/joints: Unremarkable. No acute fracture. Soft tissues: Unremarkable. IMPRESSION: 1. There is bronchiectasis at the left lung base. There is moderate left lower lobe consolidation, similar to prior study. This could represent pneumonia in the appropriate clinical setting. 2. There is cardiomegaly. 3. There are atherosclerotic changes of the coronary arteries. 4. There are several enlarged prevascular lymph nodes, similar to prior study. 5. Moderate left-sided hydronephrosis is suspected but not imaged in its entirety on this exam. Followup renal ultrasound is recommended. Electronically signed by: Sinan Mejia On 05/20/2020 10:09:04 AM
--- NOTE | 2020-05-20 11:52 | REPVR ---
PROCEDURE INFORMATION: Exam: CT Abdomen And Pelvis Without Contrast Exam date and time: 05/20/2020 11:07 AM Age: 80 years old Clinical indication: Abdominal pain; Additional info: Hydronephrosis TECHNIQUE: Imaging protocol: Computed tomography of the abdomen and pelvis without contrast. Radiation optimization: All CT scans at this facility use at least one of these dose optimization techniques: automated exposure control; mA and/or kV adjustment per patient size (includes targeted exams where dose is matched to clinical indication); or iterative reconstruction. COMPARISON: CT ABD PELVIS W/O CONTRAST 07/18/2019 10:30 AM FINDINGS: Lungs: There is consolidation at the left lung base. Heart: There is cardiomegaly. Mediastinal space: There is a hiatal hernia. Liver: Normal. No mass. Gallbladder and bile ducts: The patient is status post cholecystectomy. Pancreas: Normal. No ductal dilation. Spleen: There is splenomegaly. Adrenals: Normal. No mass. Kidneys and ureters: There is mild fullness of the left renal pelvis and ureter, new compared to prior study. The cause for this is not determined on this exam. There is a large left parapelvic cyst, not fully characterized on this noncontrast exam but having a similar appearance to prior study. Stomach and bowel: There is a large amount of dense stool in the rectosigmoid colon. Appendix: No evidence of appendicitis. Intraperitoneal space: Unremarkable. No free air. No significant fluid collection. Vasculature: There are atherosclerotic changes of the coronary arteries. There are calcified atherosclerotic changes of the aorta. There is extensive intra-abdominal vascular calcification. Lymph nodes: Unremarkable. No enlarged lymph nodes. Urinary bladder: There is urinary bladder wall thickening. This is nonspecific but can be seen in the setting of cystitis. Reproductive: The patient is status post hysterectomy. Bones/joints: Postsurgical changes are noted involving the left femur. Soft tissues: There is anasarca. IMPRESSION: 1. There is mild fullness of the left renal pelvis and ureter consistent with mild hydronephrosis, new compared to prior study. The cause for this is not determined on this exam. Consider postcontrast imaging for further evaluation. There is a large left parapelvic cyst, not fully characterized on this noncontrast exam but having a similar appearance to prior study. 2. There is consolidation at the left lung base. Please refer to contemporaneous CT report of the chest for additional details. 3. There is cardiomegaly. 4. There is a hiatal hernia. 5. There is splenomegaly. 6. There is urinary bladder wall thickening. This is nonspecific but can be seen in the setting of cystitis. 7. There is anasarca. Electronically signed by: Sinan Mejia On 05/20/2020 11:51:51 AM
[2020-05-20] MEDS ORDERED: TRUL10IN SC (12:34)
[2020-05-20] MEDS ORDERED: METO25TA4 PO (12:34)
[2020-05-20] MEDS ORDERED: ARTIDRO OU (12:34)
[2020-05-20] MEDS ORDERED: MORP30TASA PO (12:34)
[2020-05-20] MEDS ORDERED: BENA25CA4 PO (12:34)
[2020-05-20] MEDS ORDERED: ELIQ5TAB PO (12:34)
[2020-05-20] MEDS ORDERED: AMIT50TA PO (12:34)
[2020-05-20] MEDS ORDERED: ACETAMINOPHEN TAB 650MG DOSE (2X325MG) PO PRN (13:45)
[2020-05-20] MEDS ORDERED: POTASSIUM CHLORIDE 10 MEQ SR TABLET PO ONE (14:00)
[2020-05-20] MEDS ORDERED: ALBUTEROL SULFATE 2.5 MG/0.5 ML INH NEB SOLN NEB PRN ×2 (14:00→18:00)
[2020-05-20] MEDS ORDERED: PILL CUTTER 1 EACH XX PRN (14:30)
[2020-05-20] MEDS ORDERED: DOXYCYCLINE HYCLATE 100 MG in D5W MINI-BAG PLUS 100 ML IV SCH (15:00)
[2020-05-20] MEDS ORDERED: LIDOCAINE 1% MDV 20ML VIAL As Ordered ONE (15:18)
[2020-05-20 16:55] VITALS: BP 122/78
[2020-05-20] MEDS ORDERED: GLUCAGON INJ 1MG VIAL SC PRN (17:15)
[2020-05-20] MEDS ORDERED: BISACODYL 10 MG SUPP PR PRN (17:15)
[2020-05-20] MEDS ORDERED: GLUCOSE 4GM CHEW TABLET PO PRN (17:15)
[2020-05-20] MEDS ORDERED: DEXTROSE 50% 50 ML SYRINGE IV PRN (17:15)
--- NOTE | 2020-05-20 17:28 | HPEPDOC ---
General Date of Admission May 20, 2020 at 13:45 Date of Service: May 20, 2020 Chief Complaint The patient is a 80-year-old female admitted with a reason for visit of Hydronephrosis Pneumonia. Source: RN/MD, intermediate records History of Present Illness 80 year old female with Dementia, resident of [facility], hypertension, DM, HLD, was sent to the ED for cough and SOB. the Coughing started yesterday with greenish phlegm production and this am noted to be short of breath so was sent to the ED. Here she complained of just malaise and just not feeling well. She also complained of a headache about 5/10 dull aching in nature in the forehead and top of the head. CT chest showed Pneumonia othe left lower lobe. CT abd/ pelvis showed left mild hydronephrosis and thickening of bladder wall. She is incontinent. She has h/o atonic bladder. A cath sample to U/A was collected which was thick pus like in color and showed WBCs too numeroud to be counted. She was admitted for Pneumonia and Left hypronephrosis, UTi, obstructive uropathy, hypokalemia. Home Medications Scheduled Acetaminophen (Acetaminophen) 325 Mg Tablet, 650 MG PO TID, (Reported) 0800/1200/1900 Amitriptyline HCl (Amitriptyline HCl) 50 Mg Tablet, 50 MG PO QHS, (Reported) Apixaban (Eliquis) 5 Mg Tablet, 5 MG PO BID, (Reported) Aspirin (Aspirin EC) 81 Mg Tablet.dr, 162 MG PO DAILY, (Reported) Atorvastatin Calcium (Atorvastatin Calcium) 20 Mg Tablet, 20 MG PO QHS, (Reported) Budesonide/Formoterol (Symbicort 160-4.5 Mcg Inhaler) 6 Gm Hfa.aer.ad, 2 PUFF INH BID, (Reported) Cholecalciferol (Vitamin D3) (Vitamin D3) 1,000 Unit Tablet, 7,000 UNITS PO DAILY, (Reported) TAKES AT NOON Dulaglutide (Trulicity) 0.75 Mg/0.5 Ml Pen.injctr, 0.75 MG SC QWEEK, (Reported) FRIDAYS Duloxetine Hcl (Cymbalta) 30 Mg Capsule.dr, 30 MG PO 5XW, (Reported) BID ON MON, MON, , THURS, FRI Furosemide (Furosemide) 40 Mg Tablet, 40 MG PO BID, (Reported) 0800 & 1330 Gabapentin (Gabapentin) 800 Mg Tablet, 800 MG PO TID, (Reported) Gabapentin (Neurontin) 100 Mg Capsule, 200 MG PO QHS, (Reported) TAKE WITH 800MG TABLET FOR TOTAL OF 1000MG Glycerin/Propylene Glycol (Artificial Tears Drops) 15 Ml Drops, 1 DROP OU QID, (Reported) Insulin Detemir (Levemir) 100 Unit/1 Ml Vial, 22 UNITS SC QAM, (Reported) Insulin Detemir (Levemir) 100 Unit/1 Ml Vial, 15 UNITS SC QHS, (Reported) Lisinopril (Lisinopril) 40 Mg Tablet, 40 MG PO DAILY, (Reported) Metoprolol Tartrate (Metoprolol Tartrate) 25 Mg Tablet, 25 MG PO TID, (Reported) Morphine Sulfate (Morphine Sulfate ER) 30 Mg Tablet.er, 30 MG PO BID, (Reported) Potassium Chloride (Potassium Chloride) 20 Meq Tab.er.prt, 20 MEQ PO BID, (Reported) 0800 & 1300 Prednisone (Prednisone) 5 Mg Tablet, 7.5 MG PO DAILY, (Reported) TAKES AT 1100 Sennosides/Docusate Sodium (Senokot-S Tablet) 1 Each Tablet, 1 TAB PO BID, (Reported) Tiotropium [place] Monohydrate (Spiriva) 18 Mcg Cap.w.dev, 18 MCG INH DAILY, (Reported) Scheduled PRN Acetaminophen (Acetaminophen) 325 Mg Tablet, 650 MG PO Q4H PRN for PAIN, (Reported) Albuterol Sulf (Albuterol Sulfate) 2.5 Mg/3 Ml Vial.neb, 2.5 MG INH Q2H PRN for SOB/WHEEZING, (Reported) Bisacodyl (Dulcolax) 10 Mg Supp.rect, 10 MG DC DAILY PRN for CONSTIPATION, (Reported) Clonidine Hcl (Clonidine HCl) 0.1 Mg Tablet, 0.1 MG PO DAILY PRN for HYPERTENSION, (Reported) GIVE IF SBP IS ABOVE 190 OR HR ABOVE 90 Diphenhydramine HCl (Benadryl) 25 Mg Capsule, 25 MG PO Q6H PRN for URTICARIA, (Reported) Glucagon,Human Recombinant (Glucagon Emergency Kit) 1 Mg Vial, 1 MG IM ASDIRECTED PRN for LOW BLOOD SUGAR, (Reported) Magnesium Hydroxide (Milk of Magnesia) 400 Mg/5 Ml Oral.susp, 30 ML PO DAILY PRN for CONSTIPATION, (Reported) Sodium Phosphate,Kings-Dibasic (Enema) 133 Ml Enema, 1 PRIMO DC DAILY PRN for CONSTIPATION, (Reported) Allergies Coded Allergies: hydroxyzine (Verified Allergy, Unknown, 05/20/20) Past Medical History Medical History Dementia, Aib/ a flutter, hypertension, diastolic CHF, dyslipidemia, insulin dependent diabetes, diabetic neuropathy, Bronchiectasis, 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 Surgical History Breast surgery is 2008, right breast lumpectomy and sentinel lymph node biopsy right axillary area, hysterectomy, repair of ankle fracture, bilateral knee arthroscopy, incision and drainage of the left knee due to infection, bladder mesh, D C, cholecystectomy. Family History FATHER: 95 YRS, OLD AGE MOTHER: 80 YRS, OLD AGE SISTER OF STOKE BROTHER OF COLON CANCER OLDEST SON HAD CANCER, DOESN'T REMEMBER KIND 1 SON HAS CONVULSIONS 1 DAUGHTER CANCER OVARIAN A-FIB/CHADSVASC A-FIB History Current/History of A-Fib/PAF?: Yes Current PO Anticoag Therapy: Yes Review of Systems Constitutional: Reports: Malaise, Weakness, Fatigue Eyes: Denies: Pain, Vision change ENT: Reports: Head Aches Skin: Reports: Lesions, Itching Pulmonary: Reports: Dyspnea, Cough Cardiovascular: Denies: Chest Pain, Palpitations, Orthopnea, Paroxysmal Noc. Dyspnea Gastrointestinal: Denies: Nausea, Vomiting, Abdominal Pain, Diarrhea Genitourinary: Reports: Incontinence Hematologic: Denies: Bruising, Bleeding Excessively Musculoskeletal: Reports: Neck Pain, Back Pain, Leg Pain, Foot Pain, Joint Pain, Muscle Pain Physical Examination General Exam: Positive: Alert, Cooperative, No Acute Distress Eye Exam: Positive: PERRLA, Conjunctiva & lids normal, EOMI; Negative: Sclera icteric ENT Exam: Positive: Atraumatic, Mucous membr. moist/pink, Pharynx Normal Neck Exam: Positive: Supple; Negative: JVD, thyromegaly Chest Exam: Positive: Rales (at the left base. ), Diminished (at the bases.), Other (consucted sound from the throught.) Heart Exam: Positive: Rate Normal, Regular Rhythm, Normal S1, Normal S2; Negative: Murmurs, Rubs Telemetry: Positive: PVCs Abdomen Exam: Positive: Normal bowel sounds, Soft; Negative: Tenderness, Hepatospenomegaly Extremity Exam: Negative: Clubbing, Cyanosis, Edema Skin Exam: Positive: Nl turgor and temperature; Negative: Breakdown, Lesion Vital Signs Vital Signs Date Time Temp Pulse Resp B/P (MAP) Pulse Ox O2 Delivery O2 Flow Rate FiO2 05/20/20 15:16 99.6 86 20 93 Nasal Cannula 4.0 05/20/20 14:38 123/55 (77) Laboratory Data Labs 24H Laboratory Tests 2 05/20/20 05:46: POC pH (Misc Panel) 7.491H, POC Base Excess (Misc Panel) 8.0H, POC Saturated Percent O2 (Misc) 91L, POC pO2 (Misc Panel) 56.0L, POC pCO2 (Misc Panel) 41.2, POC HCO3 (Misc Panel) 31.5H, POC Total CO2 (Misc Panel) 33.0H 05/20/20 07:58: Immature Granulocyte % (Auto) 0.6, Neutrophils (%) (Auto) 83.7H, Lymphocytes (%) (Auto) 7.8L, Monocytes (%) (Auto) 7.1H, Eosinophils (%) (Auto) 0.5, Basophils (%) (Auto) 0.3, Neutrophils # (Auto) 16.4H, Lymphocytes # (Auto) 1.5, Monocytes # (Auto) 1.4H, Eosinophils # (Auto) 0.1, Basophils # (Auto) 0.1, Nucleated Red Blood Cells % (auto) 0.3H, Anion Gap 8, Glomerular Filtration Rate 56.0, Lactic Acid Level 2.9*H, Calcium Level 9.0, Total Bilirubin 0.5, Direct Bilirubin 0.2, Aspartate Amino Transf (AST/SGOT) 9, Alanine Aminotransferase (ALT/SGPT) 14, Al kaline Phosphatase 84, Total Creatine Kinase 64, Creatine Kinase MB 1.0, Creatine Kinase MB Relative Index 1.56, Troponin I 0.07, XD-Rrw-F-Type Natriuretic Peptide 900H, Total Protein 6.8, Albumin 2.9L, Albumin/Globulin Ratio 0.7L 05/20/20 09:19: Urine Color YELLOW, Urine Appearance TURBIDH, Urine pH 6.0, Urine Specific [place] 1.011, Urine Protein 2+H, Urine Glucose (UA) 2+H, Urine Ketones TRACEH, Urine Blood 2+H, Urine Nitrite NEGATIVE, Urine Bilirubin NEGATIVE, Urine Urob ilinogen 0.2, Urine Leukocyte Esterase 3+H, Urine WBC (Auto) TNTCH, Urine RBC (Auto) 11H, Urine Hyaline Casts (Auto) 0, Urine Bacteria (Auto) 3+H, Urine Squamous Epithelial Cells 10, Urine Sperm (Auto) 05/20/20 14:31: Lactic Acid Followup at 4 Hours 2.1*H CBC/BMP Laboratory Tests 05/20/20 07:58 Microbiology Microbiology 05/20/20 Urine Culture, Received Pending 05/20/20 Blood Culture, Received Pending 05/20/20 Blood Culture, Received Pending 05/20/20 Respiratory Virus Panel (PCR) (JACINDA) - Final, Complete Assessment/Plan 80 year old female with Dementia, resident of [facility], hypertension, DM, HLD, was sent to the ED for cough and SOB. the Coughing started yesterday with greenish phlegm production and this am noted to be short of breath so was sent to the ED. Here she complained of just malaise and just not feeling well. She also complained of a headache about 5/10 dull aching in nature in the forehead and top of the head. CT chest showed Pneumonia othe left lower lobe. CT abd/ pelvis showed left mild hydronephrosis and thickening of bladder wall. She is incontinent. She has h/o atonic bladder. A cath sample to U/A was collected which was thick pus like in color and showed WBCs too numeroud to be counted. She was admitted for Pneumonia and Left hydronephrosis, UTI, obstructive uropathy, hypokalemia. Pneumonia with sepsis HR > 90, WBC> 12 Lactate> 1, RR > 20 blood cultures sent. cannot bring u phlegm will give zosyn. UTI/Cystitis/ Left hydronephrosis/ atonic bladder/ obstructive uropathy with sepsis. zosyn, urine culture sent. Bladder scan bid , st cath if > 300 cc. Hypokalemia will replace Hypertension continue lisinopril and metoprolol with hold parameters. Diabetes levemir and lispro. Paroxysmal Afib/ aflutter eliquis, metoprolol COPD with Chronic respiratory faokire with hypoxia symbicort, spiriva, albuterol prn Chronic diastolic CHF not fluid overloaded will hold lasix. HLD statin Psoriasis/Psoriatic arthritis prednisone Chronic pain syndrome gabapentin, cymbalta, morphine Depression/ Neurotic excoriations amitryptilline Plan / VTE VTE Prophylaxis Ordered?: Yes LEIGHA BRITT MD May 20, 2020 17:24
[2020-05-20] MEDS: HumaLOG INSULIN (NovoLOG) PER UNIT SC SCH ×2 (17:30→20:31)
[2020-05-20] MEDS: GABAPENTIN 400 MG CAP PO SCH ×2 (17:35→20:20)
[2020-05-20] MEDS: METOPROLOL TART 25 MG TABLET PO SCH ×2 (17:38→20:29)
[2020-05-20] MEDS: KCL 10MEQ/100ML SWI (KRUN) 10 MEQ in IV 1 EA IV SCH ×2 (17:39→18:48)
[2020-05-20] MEDS: PIPERACILLIN/TAZOBACTAM SOD 3.375 GM in D5W MINI-BAG PLUS 50 ML IV SCH ×2 (17:39→23:42)
[2020-05-20 18:00] VITALS: O2SAT 91
--- NOTE | 2020-05-20 18:31 | ECGEPIP ---
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
--- NOTE | 2020-05-20 18:31 | ECGEPIP ---
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
[2020-05-20] MEDS: methylPREDNISolone 40MG 1ML VIAL IV SCH (18:47)
[2020-05-20] MEDS: SODIUM CHLORIDE 0.9% INJ 10 ML SYR IV SCH (18:48)
[2020-05-20 18:49] VITALS: BP 113/72
[2020-05-20] MEDS: SYMBICORT 160/4.5MCG INHALER 6GM INH SCH (19:25)
[2020-05-20] MEDS: ALBUTEROL SULFATE 2.5 MG/0.5 ML INH NEB SOLN NEB SCH ×2 (19:25→22:56)
[2020-05-20] MEDS: GABAPENTIN 100 MG CAP PO SCH (20:20)
[2020-05-20] MEDS: POTASSIUM CHLORIDE 10 MEQ SR TABLET PO SCH (20:21)
[2020-05-20] MEDS: AMITRIPTYLINE 50 MG TAB PO SCH (20:23)
[2020-05-20] MEDS: ACETAMINOPHEN 500 MG TAB PO SCH (20:23)
[2020-05-20] MEDS: APIXABAN 5 MG TAB (ELIQUIS) PO SCH (20:24)
[2020-05-20] MEDS: MORPHINE 30 MG SA TAB PO SCH (20:27)
[2020-05-20] MEDS: SENOKOT S TAB PO SCH (20:28)
[2020-05-20] MEDS: ATORVASTATIN 20 MG TAB PO SCH (20:28)
[2020-05-20 21:00] VITALS: O2SAT 95
[2020-05-20] MEDS: LEVEMIR (INSULIN DETEMIR) 1 UNITS/0.01ML SC SCH (21:00)
[2020-05-20] MEDS ORDERED: LEVEMIR (INSULIN DETEMIR) 1 UNITS/0.01ML SC SCH (21:00)
[2020-05-20 22:00] VITALS: BP 180/66
[2020-05-20] MEDS ORDERED: ACETAMINOPHEN TAB 650MG DOSE (2X325MG) PO ONE (23:30)
[2020-05-21] VITALS (10 sets, daily range): BP systolic 119–194; BP diastolic 56–88; O2SAT 90–95
[2020-05-21 00:49] LABS: BLOOD UREA NITROGEN 11 MG/DL (7-18); CALCIUM LEVEL 8.5 MG/DL (8.8-10.2); CARBON DIOXIDE LEVEL 32 MEQ/L (21-32); CHLORIDE LEVEL 101 MEQ/L (98-107); CREATININE FOR GFR 0.71 MG/DL (0.55-1.30); GLOMERULAR FILTRATION RATE > 60.0 (>32); GLUCOSE, FASTING 290 MG/DL (70-100); POTASSIUM SERUM 3.5 MEQ/L (3.5-5.1); SODIUM LEVEL 138 MEQ/L (136-145)
[2020-05-21] MEDS: SODIUM CHLORIDE 0.9% INJ 10 ML SYR IV PRN ×2 (01:19→06:30)
[2020-05-21] MEDS: methylPREDNISolone 40MG 1ML VIAL IV SCH ×3 (02:04→18:40)
[2020-05-21] MEDS: ALBUTEROL SULFATE 2.5 MG/0.5 ML INH NEB SOLN NEB SCH ×5 (03:46→20:00)
[2020-05-21] MEDS: PIPERACILLIN/TAZOBACTAM SOD 3.375 GM in D5W MINI-BAG PLUS 50 ML IV SCH ×3 (05:20→17:24)
[2020-05-21 06:44] LABS: BASO % 0.1 % (0.0-1.0); HEMATOCRIT 31.2 % (36.0-47.0); HEMOGLOBIN 9.2 g/dl (12.0-15.5); LYMPH # 0.5 10^3/uL (1.5-5.0); LYMPH % 3.9 % (24.0-44.0); MEAN CORPUSCULAR HEMOGLOBIN 25.5 pg (27.0-33.0); MEAN CORPUSCULAR HGB CONC 29.5 g/dl (32.0-36.5); MEAN CORPUSCULAR VOLUME 86.4 fl (80.0-96.0); MONO # 0.1 10^3/uL (0.0-0.8); MONO % 0.9 % (0.0-5.0); NEUTROPHILS # 11.5 10^3/uL (1.5-8.5); NEUTROPHILS % 94.4 % (36.0-66.0); PLATELET COUNT, AUTOMATED 236 10^3/uL (150-450); RED BLOOD COUNT 3.61 10^6/uL (4.00-5.40); WHITE BLOOD COUNT 12.2 10^3/uL (4.0-10.0)
[2020-05-21 07:10] LABS: BLOOD UREA NITROGEN 12 MG/DL (7-18); CALCIUM LEVEL 8.4 MG/DL (8.8-10.2); CARBON DIOXIDE LEVEL 33 MEQ/L (21-32); CHLORIDE LEVEL 102 MEQ/L (98-107); CREATININE FOR GFR 0.78 MG/DL (0.55-1.30); GLOMERULAR FILTRATION RATE > 60.0 (>32); GLUCOSE, FASTING 303 MG/DL (70-100); POTASSIUM SERUM 3.6 MEQ/L (3.5-5.1); SODIUM LEVEL 138 MEQ/L (136-145)
[2020-05-21] MEDS: TIOTROPIUM INHALER/CAPSULE (SPIRIVA) INH SCH (07:44)
[2020-05-21] MEDS: SYMBICORT 160/4.5MCG INHALER 6GM INH SCH ×2 (07:44→20:04)
[2020-05-21] MEDS: HumaLOG INSULIN (NovoLOG) PER UNIT SC SCH ×4 (08:02→21:00)
[2020-05-21] MEDS: LEVEMIR (INSULIN DETEMIR) 1 UNITS/0.01ML SC SCH ×2 (08:02→22:00)
[2020-05-21] MEDS: SENOKOT S TAB PO SCH ×2 (08:03→22:04)
[2020-05-21] MEDS: APIXABAN 5 MG TAB (ELIQUIS) PO SCH ×2 (08:04→22:07)
[2020-05-21] MEDS: lisinopriL 40 MG TAB PO SCH (08:04)
[2020-05-21] MEDS: ACETAMINOPHEN 500 MG TAB PO SCH ×3 (08:04→22:05)
[2020-05-21] MEDS: GABAPENTIN 400 MG CAP PO SCH ×3 (08:04→22:05)
[2020-05-21] MEDS: ASPIRIN 81 MG ENTERIC TAB PO SCH (08:04)
[2020-05-21] MEDS: MORPHINE 30 MG SA TAB PO SCH ×2 (08:04→22:04)
[2020-05-21] MEDS: METOPROLOL TART 25 MG TABLET PO SCH ×3 (08:05→22:06)
[2020-05-21] MEDS: DULoxetine 30 MG CAP (CYMBALTA) PO SCH ×2 (08:05→22:04)
[2020-05-21] MEDS: POTASSIUM CHLORIDE 10 MEQ SR TABLET PO SCH ×2 (08:06→22:02)
[2020-05-21] MEDS ORDERED: cefTRIAXone SOD 2 GM in D5W MINI-BAG PLUS 50 ML IV SCH (09:00)
--- NOTE | 2020-05-21 11:21 | IPNPDOC ---
Text Note Date of Service The patient was seen on 05/21/20. NOTE Subjective: Continues to have fever overnight. Requiring 4 liters of oxygen. Awake , alert very pleasant. Does not know where she is. Denies any urinary complaints, Says still coughing up green phlegm, denies any SOB. Physical Exam: Vitals : as below General: Laying in bed in no acute distress. HEENT: NC/AT, MMM, anicteric eyes Neck: Supple, no JVD, no thyromegaly Resp: chest bilateral wheezing and ronchi and conducted sounds from the throat, crackles at the bases L> R CVS: rate normal, S1, S2 normal , No murmur/ rub/gallop Abd: Soft, nontender, bowel sounds normal. Extremities: No edema, pulses OK. Labs and Radiology: reviewed. Assessment and Plan: 80 year old female with Dementia, resident of [facility], hypertension, DM, HLD, was sent to the ED for cough and SOB. the Coughing started yesterday with greenish phlegm production and this am noted to be short of breath so was sent to the ED. Here she complained of just malaise and just not feeling well. She also complained of a headache about 5/10 dull aching in nature in the forehead and top of the head. CT chest showed Pneumonia othe left lower lobe. CT abd/ pelvis showed left mild hydronephrosis and thickening of bladder wall. She is incontinent. She has h/o atonic bladder. A cath sample to U/A was collected which was thick pus like in color and showed WBCs too numeroud to be counted. She was admitted for Pneumonia and Left hydronephrosis, UTI, obstructive uropathy, hypokalemia. Pneumonia with sepsis HR > 90, WBC> 12 Lactate> 1, RR > 20 blood cultures sent. cannot bring u phlegm will give zosyn. UTI with sepsis due to atonic bladder with chronic urinary retention with mild left hydronephrosis overflow incontinence. Bladder scan alway 450 to 600 cc tena cath zosyn, urine culture sent. Hypokalemia replaced Hypertension continue lisinopril and metoprolol with hold parameters. Diabetes levemir and lispro. Paroxysmal Afib/ aflutter eliquis, metoprolol COPD with Chronic respiratory faokire with hypoxia symbicort, spiriva, albuterol prn Chronic diastolic CHF not fluid overloaded will hold lasix. HLD statin Psoriasis/Psoriatic arthritis prednisone Chronic pain syndrome gabapentin, cymbalta, morphine Depression/ Neurotic excoriations amitriptyline DVT prophylaxis: Eliquis VS,Fishbone, I+O VS, Fishbone, I+O Laboratory Tests 05/21/20 00:10 05/21/20 06:15 Vital Signs Date Time Temp Pulse Resp B/P (MAP) Pulse Ox O2 Delivery O2 Flow Rate FiO2 05/21/20 06:00 99.1 78 18 130/76 (94) 92 Nasal Cannula 4.0 I&O- Last 24 Hours up to 6 AM 05/21/20 07:00 Intake Total 400 ml Output Total 900 ml Balance -500 ml LEIGHA BRITT MD May 21, 2020 08:11
[2020-05-21] MEDS: SODIUM CHLORIDE 0.9% INJ 10 ML SYR IV SCH (18:40)
[2020-05-21] MEDS ORDERED: HumaLOG INSULIN (NovoLOG) PER UNIT SC ONE (22:00)
[2020-05-21] MEDS: ATORVASTATIN 20 MG TAB PO SCH (22:04)
[2020-05-21] MEDS: GABAPENTIN 100 MG CAP PO SCH (22:06)
[2020-05-21] MEDS: AMITRIPTYLINE 50 MG TAB PO SCH (22:07)
[2020-05-22] MEDS: PIPERACILLIN/TAZOBACTAM SOD 3.375 GM in D5W MINI-BAG PLUS 50 ML IV SCH ×2 (00:01→05:04)
[2020-05-22] MEDS: ALBUTEROL SULFATE 2.5 MG/0.5 ML INH NEB SOLN NEB SCH ×7 (00:07→23:32)
[2020-05-22] MEDS: SODIUM CHLORIDE 0.9% INJ 10 ML SYR IV PRN ×3 (01:46→13:54)
[2020-05-22] MEDS: methylPREDNISolone 40MG 1ML VIAL IV SCH ×2 (02:28→15:22)
[2020-05-22 05:56] LABS: HEMATOCRIT 31.8 % (36.0-47.0); HEMOGLOBIN 9.4 g/dl (12.0-15.5); LYMPH # 0.6 10^3/uL (1.5-5.0); LYMPH % 4.5 % (24.0-44.0); MEAN CORPUSCULAR HEMOGLOBIN 25.8 pg (27.0-33.0); MEAN CORPUSCULAR HGB CONC 29.6 g/dl (32.0-36.5); MEAN CORPUSCULAR VOLUME 87.1 fl (80.0-96.0); MONO # 0.4 10^3/uL (0.0-0.8); MONO % 2.5 % (0.0-5.0); NEUTROPHILS # 12.9 10^3/uL (1.5-8.5); NEUTROPHILS % 92.4 % (36.0-66.0); PLATELET COUNT, AUTOMATED 257 10^3/uL (150-450); RED BLOOD COUNT 3.65 10^6/uL (4.00-5.40)
[2020-05-22 06:00] VITALS: BP 114/69
[2020-05-22 06:22] LABS: CALCIUM LEVEL 8.7 MG/DL (8.8-10.2); CREATININE FOR GFR 0.99 MG/DL (0.55-1.30); GLOMERULAR FILTRATION RATE 57.3 (>32); POTASSIUM SERUM 4.4 MEQ/L (3.5-5.1)
[2020-05-22] MEDS: TIOTROPIUM INHALER/CAPSULE (SPIRIVA) INH SCH (07:28)
[2020-05-22] MEDS: SYMBICORT 160/4.5MCG INHALER 6GM INH SCH ×2 (07:28→20:19)
[2020-05-22] MEDS: HumaLOG INSULIN (NovoLOG) PER UNIT SC SCH ×4 (08:18→21:46)
[2020-05-22] MEDS: POTASSIUM CHLORIDE 10 MEQ SR TABLET PO SCH ×2 (08:19→21:41)
[2020-05-22] MEDS: APIXABAN 5 MG TAB (ELIQUIS) PO SCH ×2 (08:19→21:46)
[2020-05-22] MEDS: LEVEMIR (INSULIN DETEMIR) 1 UNITS/0.01ML SC SCH ×2 (08:19→21:47)
[2020-05-22] MEDS: GABAPENTIN 400 MG CAP PO SCH ×3 (08:19→21:41)
[2020-05-22] MEDS: SENOKOT S TAB PO SCH ×2 (08:20→21:42)
[2020-05-22] MEDS: lisinopriL 40 MG TAB PO SCH (08:20)
[2020-05-22] MEDS: DULoxetine 30 MG CAP (CYMBALTA) PO SCH ×2 (08:20→21:42)
[2020-05-22] MEDS: ACETAMINOPHEN 500 MG TAB PO SCH ×3 (08:20→21:43)
[2020-05-22] MEDS: ASPIRIN 81 MG ENTERIC TAB PO SCH (08:26)
[2020-05-22] MEDS: METOPROLOL TART 25 MG TABLET PO SCH ×3 (08:26→21:45)
[2020-05-22] MEDS: MORPHINE 30 MG SA TAB PO SCH ×2 (08:33→21:58)
--- NOTE | 2020-05-22 09:53 | IPNPDOC ---
Text Note Date of Service The patient was seen on 05/22/20. NOTE Subjective: No further fever overnight. Requiring 4 liters of oxygen. Awake , alert very pleasant. Having breakfast, good appetite finishes 100% of her meals. Denies any urinary complaints, Says still coughing up green phlegm, denies any SOB. Has Tena. Physical Exam: Vitals : as below General: Laying in bed in no acute distress. HEENT: NC/AT, MMM, anicteric eyes Neck: Supple, no JVD, no thyromegaly Resp: chest bilateral wheezing and ronchi and conducted sounds from the throat, crackles at the bases L> R CVS: rate normal, S1, S2 normal , No murmur/ rub/gallop Abd: Soft, nontender, bowel sounds normal. Extremities: No edema, pulses OK. Labs and Radiology: reviewed. Assessment and Plan: 80 year old female with Dementia, resident of [facility], hypertension, DM, HLD, was sent to the ED for cough and SOB. the Coughing started yesterday with greenish phlegm production and this am noted to be short of breath so was sent to the ED. Here she complained of just malaise and just not feeling well. She also complained of a headache about 5/10 dull aching in nature in the forehead and top of the head. CT chest showed Pneumonia othe left lower lobe. CT abd/ pelvis showed left mild hydronephrosis and thickening of bladder wall. She is incontinent. She has h/o atonic bladder. A cath sample to U/A was collected which was thick pus like in color and showed WBCs too numeroud to be counted. She was admitted for Pneumonia and Left hydronephrosis, UTI, obstructive uropathy, hypokalemia. Pneumonia with sepsis HR > 90, WBC> 12 Lactate> 1, RR > 20 blood cultures neg till date cannot bring up phlegm zosyn changed to Ertapenem as UC growing ESBL UTI with sepsis due to atonic bladder with chronic urinary retention with mild left hydronephrosis overflow incontinence. Bladder scan alway 450 to 600 cc tena cath UC : ESBL> 100K Ertapenem. Hypokalemia replaced Hypertension continue lisinopril and metoprolol with hold parameters. Diabetes Uncontrolled due to methyl prednisone. levemir and lispro. Paroxysmal Afib/ aflutter eliquis, metoprolol COPD with Chronic respiratory faokire with hypoxia symbicort, spiriva, albuterol prn Chronic diastolic CHF not fluid overloaded will hold lasix. HLD statin Psoriasis/Psoriatic arthritis prednisone at home now on methyl pred. Chronic pain syndrome gabapentin, cymbalta, morphine Depression/ Neurotic excoriations amitriptyline DVT prophylaxis: Eliquis VS,Fishbone, I+O VS, Fishbone, I+O Laboratory Tests 05/22/20 05:12 Vital Signs Date Time Temp Pulse Resp B/P (MAP) Pulse Ox O2 Delivery O2 Flow Rate FiO2 05/22/20 08:33 22 Nasal Cannula 4.0 05/22/20 08:26 168/78 05/22/20 06:00 98.7 70 96 I&O- Last 24 Hours up to 6 AM 05/22/20 05:59 Intake Total 1610 ml Output Total 1775 ml Balance -165 ml LEIGHA BRITT MD May 22, 2020 09:52
[2020-05-22] MEDS: ERTAPENEM SODIUM 1 GM in NS MINI-BAG PLUS 50 ML IV SCH (12:46)
[2020-05-22 14:00] VITALS: BP 178/56
[2020-05-22] MEDS: SODIUM CHLORIDE 0.9% INJ 10 ML SYR IV SCH (18:54)
[2020-05-22] MEDS: AMITRIPTYLINE 50 MG TAB PO SCH (21:40)
[2020-05-22] MEDS: GABAPENTIN 100 MG CAP PO SCH (21:42)
[2020-05-22] MEDS: ATORVASTATIN 20 MG TAB PO SCH (21:43)
[2020-05-22 22:00] VITALS: BP 161/57
[2020-05-23] MEDS: methylPREDNISolone 40MG 1ML VIAL IV SCH ×2 (03:33→15:57)
[2020-05-23] MEDS: ALBUTEROL SULFATE 2.5 MG/0.5 ML INH NEB SOLN NEB SCH ×6 (03:57→23:55)
[2020-05-23 06:00] VITALS: BP 137/62
[2020-05-23 06:17] LABS: BASO % 0.1 % (0.0-1.0); HEMATOCRIT 30.2 % (36.0-47.0); HEMOGLOBIN 8.7 g/dl (12.0-15.5); LYMPH # 0.7 10^3/uL (1.5-5.0); MEAN CORPUSCULAR HEMOGLOBIN 25.4 pg (27.0-33.0); MEAN CORPUSCULAR HGB CONC 28.8 g/dl (32.0-36.5); MEAN CORPUSCULAR VOLUME 88.3 fl (80.0-96.0); MONO # 0.4 10^3/uL (0.0-0.8); MONO % 3.9 % (0.0-5.0); NEUTROPHILS # 8.8 10^3/uL (1.5-8.5); NEUTROPHILS % 88.1 % (36.0-66.0); PLATELET COUNT, AUTOMATED 217 10^3/uL (150-450); RED BLOOD COUNT 3.42 10^6/uL (4.00-5.40)
[2020-05-23 06:26] LABS: BLOOD UREA NITROGEN 17 MG/DL (7-18); CALCIUM LEVEL 8.7 MG/DL (8.8-10.2); CARBON DIOXIDE LEVEL 28 MEQ/L (21-32); CHLORIDE LEVEL 100 MEQ/L (98-107); CREATININE FOR GFR 0.82 MG/DL (0.55-1.30); GLOMERULAR FILTRATION RATE > 60.0 (>32); GLUCOSE, FASTING 323 MG/DL (70-100); SODIUM LEVEL 133 MEQ/L (136-145)
[2020-05-23] MEDS: TIOTROPIUM INHALER/CAPSULE (SPIRIVA) INH SCH (07:58)
[2020-05-23] MEDS: SYMBICORT 160/4.5MCG INHALER 6GM INH SCH ×2 (07:58→19:51)
[2020-05-23 09:00] VITALS: O2SAT 97
[2020-05-23] MEDS: lisinopriL 40 MG TAB PO SCH (09:00)
[2020-05-23] MEDS: ASPIRIN 81 MG ENTERIC TAB PO SCH (09:07)
[2020-05-23] MEDS: APIXABAN 5 MG TAB (ELIQUIS) PO SCH ×2 (09:07→22:50)
[2020-05-23] MEDS: SENOKOT S TAB PO SCH ×2 (09:07→22:49)
[2020-05-23] MEDS: MORPHINE 30 MG SA TAB PO SCH ×2 (09:08→22:55)
[2020-05-23] MEDS: ACETAMINOPHEN 500 MG TAB PO SCH ×3 (09:09→22:54)
[2020-05-23] MEDS: GABAPENTIN 400 MG CAP PO SCH ×3 (09:09→22:49)
[2020-05-23] MEDS: POTASSIUM CHLORIDE 10 MEQ SR TABLET PO SCH (09:09)
[2020-05-23] MEDS: LEVEMIR (INSULIN DETEMIR) 1 UNITS/0.01ML SC SCH ×2 (09:10→22:57)
[2020-05-23] MEDS: HumaLOG INSULIN (NovoLOG) PER UNIT SC SCH ×4 (09:10→22:57)
[2020-05-23] MEDS: METOPROLOL TART 25 MG TABLET PO SCH ×3 (09:14→22:54)
[2020-05-23] MEDS: ERTAPENEM SODIUM 1 GM in NS MINI-BAG PLUS 50 ML IV SCH (12:51)
[2020-05-23 14:00] VITALS: BP 163/59
[2020-05-23 14:46] VITALS: BP 142/68
[2020-05-23] MEDS: SODIUM CHLORIDE 0.9% INJ 10 ML SYR IV PRN (16:04)
[2020-05-23] MEDS: SODIUM CHLORIDE 0.9% INJ 10 ML SYR IV SCH (18:07)
[2020-05-23 21:00] VITALS: O2SAT 98
[2020-05-23 22:00] VITALS: BP 169/67
[2020-05-23] MEDS: GABAPENTIN 100 MG CAP PO SCH (22:50)
[2020-05-23] MEDS: ATORVASTATIN 20 MG TAB PO SCH (22:50)
[2020-05-23] MEDS: AMITRIPTYLINE 50 MG TAB PO SCH (22:50)
[2020-05-24] MEDS: methylPREDNISolone 40MG 1ML VIAL IV SCH (03:43)
[2020-05-24] MEDS: ALBUTEROL SULFATE 2.5 MG/0.5 ML INH NEB SOLN NEB SCH ×6 (03:52→23:44)
[2020-05-24 06:00] VITALS: BP 147/69
[2020-05-24 06:35] LABS: BASO % 0.3 % (0.0-1.0); EOS % 0.3 % (0.0-3.0); HEMATOCRIT 32.1 % (36.0-47.0); HEMOGLOBIN 9.3 g/dl (12.0-15.5); LYMPH # 0.7 10^3/uL (1.5-5.0); LYMPH % 9.3 % (24.0-44.0); MEAN CORPUSCULAR HEMOGLOBIN 24.9 pg (27.0-33.0); MEAN CORPUSCULAR VOLUME 85.8 fl (80.0-96.0); MONO # 0.5 10^3/uL (0.0-0.8); NEUTROPHILS # 6.1 10^3/uL (1.5-8.5); NEUTROPHILS % 81.2 % (36.0-66.0); PLATELET COUNT, AUTOMATED 233 10^3/uL (150-450); RED BLOOD COUNT 3.74 10^6/uL (4.00-5.40); WHITE BLOOD COUNT 7.5 10^3/uL (4.0-10.0)
[2020-05-24 07:01] LABS: BLOOD UREA NITROGEN 19 MG/DL (7-18); CALCIUM LEVEL 8.8 MG/DL (8.8-10.2); CARBON DIOXIDE LEVEL 31 MEQ/L (21-32); CHLORIDE LEVEL 96 MEQ/L (98-107); CREATININE FOR GFR 0.78 MG/DL (0.55-1.30); GLOMERULAR FILTRATION RATE > 60.0 (>32); GLUCOSE, FASTING 312 MG/DL (70-100); POTASSIUM SERUM 4.6 MEQ/L (3.5-5.1); SODIUM LEVEL 133 MEQ/L (136-145)
[2020-05-24] MEDS: TIOTROPIUM INHALER/CAPSULE (SPIRIVA) INH SCH (07:50)
[2020-05-24] MEDS: SYMBICORT 160/4.5MCG INHALER 6GM INH SCH ×2 (07:50→20:18)
[2020-05-24] MEDS: LEVEMIR (INSULIN DETEMIR) 1 UNITS/0.01ML SC SCH ×2 (08:15→20:11)
[2020-05-24] MEDS: HumaLOG INSULIN (NovoLOG) PER UNIT SC SCH ×4 (08:15→20:19)
[2020-05-24] MEDS: DULoxetine 30 MG CAP (CYMBALTA) PO SCH ×2 (08:17→20:08)
[2020-05-24] MEDS: ASPIRIN 81 MG ENTERIC TAB PO SCH (08:18)
[2020-05-24] MEDS: lisinopriL 40 MG TAB PO SCH (08:18)
[2020-05-24] MEDS: APIXABAN 5 MG TAB (ELIQUIS) PO SCH ×2 (08:18→20:08)
[2020-05-24] MEDS: GABAPENTIN 400 MG CAP PO SCH ×3 (08:18→20:09)
[2020-05-24] MEDS: SENOKOT S TAB PO SCH ×2 (08:18→20:08)
[2020-05-24] MEDS: ACETAMINOPHEN 500 MG TAB PO SCH ×3 (08:19→20:10)
[2020-05-24] MEDS: METOPROLOL TART 25 MG TABLET PO SCH ×3 (08:19→20:10)
[2020-05-24] MEDS: MORPHINE 30 MG SA TAB PO SCH ×2 (08:20→20:11)
[2020-05-24] MEDS: SODIUM CHLORIDE 0.9% INJ 10 ML SYR IV PRN (08:20)
[2020-05-24 09:00] VITALS: O2SAT 94
[2020-05-24] MEDS ORDERED: NS 1,000 ML IV ONE (09:15)
--- NOTE | 2020-05-24 11:20 | IPNPDOC ---
Text Note Date of Service The patient was seen on 05/24/20. NOTE Subjective: No further fever overnight. Requiring 4 liters of oxygen. Awake , alert very pleasant. Having breakfast, good appetite finishes 100% of her meals. Denies any urinary complaints, Says still coughing up green phlegm, denies any SOB. Has Tena. Large amount of urine output. Physical Exam: Vitals : as below General: Laying in bed in no acute distress. HEENT: NC/AT, MMM, anicteric eyes Neck: Supple, no JVD, no thyromegaly Resp: chest bilateral wheezing and ronchi and conducted sounds from the throat, crackles at the bases L> R CVS: rate normal, S1, S2 normal , No murmur/ rub/gallop Abd: Soft, nontender, bowel sounds normal. Extremities: No edema, pulses OK. Labs and Radiology: reviewed. Assessment and Plan: 80 year old female with Dementia, resident of [facility], hypertension, DM, HLD, was sent to the ED for cough and SOB. the Coughing started yesterday with greenish phlegm production and this am noted to be short of breath so was sent to the ED. Here she complained of just malaise and just not feeling well. She also complained of a headache about 5/10 dull aching in nature in the forehead and top of the head. CT chest showed Pneumonia othe left lower lobe. CT abd/ pelvis showed left mild hydronephrosis and thickening of bladder wall. She is incontinent. She has h/o atonic bladder. A cath sample to U/A was collected which was thick pus like in color and showed WBCs too numeroud to be counted. She was admitted for Pneumonia and Left hydronephrosis, UTI, obstructive uropathy, hypokalemia. Polyuria possibly due to post obstructive diuresis after placemetn of tena and relief of obstruction and high sugars Will give normal saline 1 L bolus And monitor electrolytes Pneumonia with sepsis HR > 90, WBC> 12 Lactate> 1, RR > 20 blood cultures neg till date cannot bring up phlegm zosyn changed to Ertapenem as UC growing ESBL UTI with sepsis due to atonic bladder with chronic urinary retention with mild left hydronephrosis overflow incontinence. Bladder scan always 450 to 600 cc tena cath. Will have to be discharged with Tena in place UC : ESBL> 100K Ertapenem. Hypokalemia replaced Hypertension continue lisinopril and metoprolol with hold parameters. Diabetes Uncontrolled due to methyl prednisone. levemir and lispro. Paroxysmal Afib/ aflutter eliquis, metoprolol COPD with Chronic respiratory faokire with hypoxia symbicort, spiriva, albuterol prn Chronic diastolic CHF not fluid overloaded will hold lasix. HLD statin Psoriasis/Psoriatic arthritis prednisone at home now on methyl pred. Chronic pain syndrome gabapentin, cymbalta, morphine Depression/ Neurotic excoriations amitriptyline DVT prophylaxis: Eliquis VS,Fishbone, I+O VS, Fishbone, I+O Laboratory Tests 05/24/20 05:20 Vital Signs Date Time Temp Pulse Resp B/P (MAP) Pulse Ox O2 Delivery O2 Flow Rate FiO2 05/24/20 08:20 18 Nasal Cannula 05/24/20 08:19 77 146/86 05/24/20 06:00 97.8 96 2.0 I&O- Last 24 Hours up to 6 AM 05/24/20 05:59 Intake Total 2320 ml Output Total 5800 ml Balance -3480 ml LEIGHA BRITT MD May 24, 2020 11:20
[2020-05-24 11:54] LABS: MAGNESIUM LEVEL 2.2 MG/DL (1.8-2.4)
[2020-05-24] MEDS: ERTAPENEM SODIUM 1 GM in NS MINI-BAG PLUS 50 ML IV SCH (12:24)
[2020-05-24 14:00] VITALS: BP 174/72
[2020-05-24 17:24] LABS: BLOOD UREA NITROGEN 21 MG/DL (7-18); CARBON DIOXIDE LEVEL 30 MEQ/L (21-32); CHLORIDE LEVEL 95 MEQ/L (98-107); CREATININE FOR GFR 0.86 MG/DL (0.55-1.30); GLOMERULAR FILTRATION RATE > 60.0 (>32); GLUCOSE, FASTING 303 MG/DL (70-100); POTASSIUM SERUM 4.4 MEQ/L (3.5-5.1); SODIUM LEVEL 132 MEQ/L (136-145)
[2020-05-24] MEDS: SODIUM CHLORIDE 0.9% INJ 10 ML SYR IV SCH (18:42)
[2020-05-24] MEDS: AMITRIPTYLINE 50 MG TAB PO SCH (20:08)
[2020-05-24] MEDS: ATORVASTATIN 20 MG TAB PO SCH (20:08)
[2020-05-24] MEDS: GABAPENTIN 100 MG CAP PO SCH (20:08)
[2020-05-24 21:00] VITALS: O2SAT 96
[2020-05-24 22:00] VITALS: BP 140/90
[2020-05-25] MEDS: ALBUTEROL SULFATE 2.5 MG/0.5 ML INH NEB SOLN NEB SCH ×6 (03:46→23:12)
[2020-05-25] MEDS ORDERED: methylPREDNISolone 40MG 1ML VIAL IV SCH (04:00)
[2020-05-25 06:00] VITALS: BP 154/76
[2020-05-25 06:47] LABS: BASO % 0.2 % (0.0-1.0); EOS % 0.5 % (0.0-3.0); HEMATOCRIT 32.9 % (36.0-47.0); HEMOGLOBIN 9.7 g/dl (12.0-15.5); LYMPH # 1.5 10^3/uL (1.5-5.0); LYMPH % 18.2 % (24.0-44.0); MEAN CORPUSCULAR HEMOGLOBIN 25.3 pg (27.0-33.0); MEAN CORPUSCULAR HGB CONC 29.5 g/dl (32.0-36.5); MEAN CORPUSCULAR VOLUME 85.9 fl (80.0-96.0); MONO # 0.8 10^3/uL (0.0-0.8); MONO % 10.4 % (0.0-5.0); NEUTROPHILS # 5.5 10^3/uL (1.5-8.5); PLATELET COUNT, AUTOMATED 221 10^3/uL (150-450); RED BLOOD COUNT 3.83 10^6/uL (4.00-5.40); WHITE BLOOD COUNT 8.1 10^3/uL (4.0-10.0)
[2020-05-25 07:14] LABS: BLOOD UREA NITROGEN 18 MG/DL (7-18); CALCIUM LEVEL 8.4 MG/DL (8.8-10.2); CARBON DIOXIDE LEVEL 32 MEQ/L (21-32); CHLORIDE LEVEL 99 MEQ/L (98-107); CREATININE FOR GFR 0.75 MG/DL (0.55-1.30); GLOMERULAR FILTRATION RATE > 60.0 (>32); GLUCOSE, FASTING 257 MG/DL (70-100); POTASSIUM SERUM 3.9 MEQ/L (3.5-5.1); SODIUM LEVEL 135 MEQ/L (136-145)
[2020-05-25] MEDS: TIOTROPIUM INHALER/CAPSULE (SPIRIVA) INH SCH (07:14)
[2020-05-25] MEDS: SYMBICORT 160/4.5MCG INHALER 6GM INH SCH ×2 (07:14→19:25)
[2020-05-25] MEDS: LEVEMIR (INSULIN DETEMIR) 1 UNITS/0.01ML SC SCH ×2 (08:21→21:21)
[2020-05-25] MEDS: HumaLOG INSULIN (NovoLOG) PER UNIT SC SCH ×4 (08:22→21:22)
[2020-05-25] MEDS: ASPIRIN 81 MG ENTERIC TAB PO SCH (08:22)
[2020-05-25] MEDS: ACETAMINOPHEN 500 MG TAB PO SCH ×3 (08:23→21:19)
[2020-05-25] MEDS: MORPHINE 30 MG SA TAB PO SCH ×2 (08:23→21:19)
[2020-05-25] MEDS: DULoxetine 30 MG CAP (CYMBALTA) PO SCH ×2 (08:23→21:19)
[2020-05-25] MEDS: SENOKOT S TAB PO SCH ×2 (08:23→21:19)
[2020-05-25] MEDS: GABAPENTIN 400 MG CAP PO SCH ×3 (08:24→21:18)
[2020-05-25] MEDS: METOPROLOL TART 25 MG TABLET PO SCH ×3 (08:31→21:20)
[2020-05-25] MEDS: APIXABAN 5 MG TAB (ELIQUIS) PO SCH ×2 (08:31→21:21)
[2020-05-25] MEDS: lisinopriL 40 MG TAB PO SCH (08:31)
[2020-05-25 08:32] VITALS: BP 144/72
--- NOTE | 2020-05-25 10:21 | DS.PDOC ---
Discharge Summary General Date of Admission May 20, 2020 at 13:45 Date of Discharge 05/25/20 Discharge Summary PROCEDURES PERFORMED DURING STAY: [None]. DISCHARGE DIAGNOSES: Sepsis. Pneumonia. ESBL Escherichia coli Complicated UTI Obstructive uropathy with Left hydronephrosis due to atonic bladder with chronic urinary retention now has Tena COPD, exacerbation Polyuria Secondary diagnoses Dementia, Aib/ a flutter, hypertension, diastolic CHF, dyslipidemia, insulin dependent diabetes, diabetic neuropathy, Bronchiectasis, COPD with chronic respiratory failure with hypoxia, Coronary artery disease, right breast cancer 2008 s/p Breast surgery is 2008, right breast lumpectomy and sentinel lymph node biopsy right axillary area, gout, osteoporosis, psoriasis, psoriatic arthritis, neurodermatitis, hypotonic bladder, JOHN, Allergic urticaria, Neurotic excoriations, Morbid obesity, Major depression, Chronic pain syndrome opiate dependent, h/o Digna-orbicular shingles, h/o MRSA left ear, left toe, le ft thigh, H/o multiple open wounds non pressure on both legs and abdominal wall, non-ambulatory wheelchair bound COMPLICATIONS/CHIEF COMPLAINT: Hydronephrosis Pneumonia. HOSPITAL COURSE: 80 year old female with Dementia, resident of [facility], hypertension, DM, HLD, was sent to the ED for cough and SOB. the Coughing started yesterday with greenish phlegm production and this am noted to be short of breath so was sent to the ED. Here she complained of just malaise and just not feeling well. She also complained of a headache about 5/10 dull aching in nature in the forehead and top of the head. CT chest showed Pneumonia othe left lower lobe. CT abd/ pelvis showed left mild hydronephrosis and thickening of bladder wall. She is incontinent. She has h/o atonic bladder. A cath sample to U/A was collected which was thick pus like in color and showed WBCs too numeroud to be counted. She was admitted for Pneumonia and Left hydronephrosis, UTI, obstructive uropathy, hypokalemia. Polyuria possibly due to post obstructive diuresis after placement of tena and relief of obstruction and high sugars Pneumonia with sepsis HR > 90, WBC> 12 Lactate> 1, RR > 20 blood cultures neg till date cannot bring up phlegm zosyn changed to Ertapenem as UC growing ESBL UTI with sepsis due to atonic bladder with chronic urinary retention with mild left hydronephrosis overflow incontinence. Bladder scan always 450 to 600 cc tena cath. Will have to be discharged with Tena in place UC : ESBL> 100K Ertapenem. Hypokalemia replaced Hypertension continue lisinopril and metoprolol Diabetes Uncontrolled due to methyl prednisone. levemir and lispro. Paroxysmal Afib/ aflutter eliquis, metoprolol COPD with Chronic respiratory failure with hypoxia symbicort, spiriva, albuterol prn Chronic diastolic CHF not fluid overloaded, now with polyuria will hold lasix. HLD statin Psoriasis/Psoriatic arthritis Cont prednisone Chronic pain syndrome gabapentin, cymbalta, morphine Depression/ Neurotic excoriations amitriptyline DISCHARGE MEDICATIONS: Please see below. ALLERGIES: Please see below. PHYSICAL EXAMINATION ON DISCHARGE: VITAL SIGNS: Please see below. General: Laying in bed in no acute distress. HEENT: NC/AT, MMM, anicteric eyes Neck: Supple, no JVD, no thyromegaly Resp: chest bilateral wheezing and ronchi and conducted sounds from the throat, crackles at the bases L> R CVS: rate normal, S1, S2 normal , No murmur/ rub/gallop Abd: Soft, nontender, bowel sounds normal. Extremities: No edema, pulses OK. LABORATORY DATA: Please see below. ACTIVITY: [As tolerated]. DIET: Carb consistent DISPOSITION: SSV DISCHARGE INSTRUCTIONS: Referral to urology for Tena management DISCHARGE CONDITION: [Stable]. TIME SPENT ON DISCHARGE: 35 minutes. Vital Signs/I&Os Vital Signs Date Time Temp Pulse Resp B/P (MAP) Pulse Ox O2 Delivery O2 Flow Rate FiO2 05/25/20 08:32 71 144/72 (96) 05/25/20 08:23 19 05/25/20 06:00 97.7 98 Nasal Cannula 2.0 I&O- Last 24 Hours up to 6 AM 05/25/20 06:00 Intake Total 3880 ml Output Total 2775 ml Balance 1105 ml Laboratory Data Labs 24H Laboratory Tests 2 05/24/20 11:44: Bedside Glucose (Misc Panel) 444H 05/24/20 16:30: Bedside Glucose (Misc Panel) 291H 05/24/20 16:50: Anion Gap 7L, Glomerular Filtration Rate > 60.0, Calcium Level 9.0 05/24/20 20:16: Bedside Glucose (Misc Panel) 307H 05/25/20 06:37: Immature Granulocyte % (Auto) 2.7, Neutrophils (%) (Auto) 68.0H, Lymphocytes (%) (Auto) 18.2L, Monocytes (%) (Auto) 10.4H, Eosinophils (%) (Auto) 0.5, Basophils (%) (Auto) 0.2, Neutrophils # (Auto) 5.5, Lymphocytes # (Auto) 1.5, Monocytes # (Auto) 0.8, Eosinophils # (Auto) 0.0, Basophils # (Auto) 0.0, Nucleated Red Blood Cells % (auto) 0.7H, Anion Gap 4L, Glomerular Filtration Rate > 60.0, Jd cium Level 8.4L CBC/BMP Laboratory Tests 05/24/20 16:50 05/25/20 06:37 FSBS Laboratory Tests Test 05/24/20 11:44 05/24/20 16:30 05/24/20 20:16 Range/Units Bedside Glucose (Misc Panel) 444 291 307 83-110 MG/DL Microbiology Microbiology 05/20/20 Urine Culture - Final, Complete E.coli Esbl 05/20/20 Blood Culture - Final, Complete NO GROWTH AFTER 5 DAYS 05/20/20 Blood Culture - Final, Complete NO GROWTH AFTER 5 DAYS 05/20/20 Respiratory Virus Panel (PCR) (JACINDA) - Final, Complete Discharge Medications Scheduled Acetaminophen (Acetaminophen) 325 Mg Tablet, 650 MG PO TID, (Reported) 0800/1200/1900 Amitriptyline HCl (Amitriptyline HCl) 50 Mg Tablet, 50 MG PO QHS, (Reported) Apixaban (Eliquis) 5 Mg Tablet, 5 MG PO BID, (Reported) Aspirin (Aspirin EC) 81 Mg Tablet.dr, 162 MG PO DAILY, (Reported) Atorvastatin Calcium (Atorvastatin Calcium) 20 Mg Tablet, 20 MG PO QHS, (Reported) Budesonide/Formoterol (Symbicort 160-4.5 Mcg Inhaler) 6 Gm Hfa.aer.ad, 2 PUFF INH BID, (Reported) Cholecalciferol (Vitamin D3) (Vitamin D3) 1,000 Unit Tablet, 7,000 UNITS PO DAILY, (Reported) TAKES AT NOON Dulaglutide (Trulicity) 0.75 Mg/0.5 Ml Pen.injctr, 0.75 MG SC QWEEK, (Reported) FRIDAYS Duloxetine Hcl (Cymbalta) 30 Mg Capsule.dr, 30 MG PO 5XW, (Reported) BID ON MON, MON, , , MON Furosemide (Furosemide) 40 Mg Tablet, 40 MG PO BID, (Reported) 0800 & 1330 Gabapentin (Gabapentin) 800 Mg Tablet, 800 MG PO TID, (Reported) Gabapentin (Neurontin) 100 Mg Capsule, 200 MG PO QHS, (Reported) TAKE WITH 800MG TABLET FOR TOTAL OF 1000MG Glycerin/Propylene Glycol (Artificial Tears Drops) 15 Ml Drops, 1 DROP OU QID, (Reported) Insulin Detemir (Levemir) 100 Unit/1 Ml Vial, 22 UNITS SC QAM, (Reported) Insulin Detemir (Levemir) 100 Unit/1 Ml Vial, 15 UNITS SC QHS, (Reported) Lisinopril (Lisinopril) 40 Mg Tablet, 40 MG PO DAILY, (Reported) Metoprolol Tartrate (Metoprolol Tartrate) 25 Mg Tablet, 25 MG PO TID, (Reported) Morphine Sulfate (Morphine Sulfate ER) 30 Mg Tablet.er, 30 MG PO BID, (Reported) Potassium Chloride (Potassium Chloride) 20 Meq Tab.er.prt, 20 MEQ PO BID, (Reported) 0800 & 1300 Prednisone (Prednisone) 5 Mg Tablet, 7.5 MG PO DAILY, (Reported) TAKES AT 1100 Sennosides/Docusate Sodium (Senokot-S Tablet) 1 Each Tablet, 1 TAB PO BID, (Reported) Tiotropium [place] Monohydrate (Spiriva) 18 Mcg Cap.w.dev, 18 MCG INH DAILY, (Re ported) Scheduled PRN Acetaminophen (Acetaminophen) 325 Mg Tablet, 650 MG PO Q4H PRN for PAIN, (Reported) Albuterol Sulf (Albuterol Sulfate) 2.5 Mg/3 Ml Vial.neb, 2.5 MG INH Q2H PRN for SOB/WHEEZING, (Reported) Bisacodyl (Dulcolax) 10 Mg Supp.rect, 10 MG MS DAILY PRN for CONSTIPATION, (Reported) Clonidine Hcl (Clonidine HCl) 0.1 Mg Tablet, 0.1 MG PO DAILY PRN for HYPER TENSION, (Reported) GIVE IF SBP IS ABOVE 190 OR HR ABOVE 90 Diphenhydramine HCl (Benadryl) 25 Mg Capsule, 25 MG PO Q6H PRN for URTICARIA, (Reported) Glucagon,Human Recombinant (Glucagon Emergency Kit) 1 Mg Vial, 1 MG IM ASDIRECTED PRN for LOW BLOOD SUGAR, (Reported) Magnesium Hydroxide (Milk of Magnesia) 400 Mg/5 Ml Oral.susp, 30 ML PO DAILY PRN for CONSTIPATION, (Reported) Sodium Phosphate,Hamlin-Dibasic (Enema) 133 Ml Enema, 1 PRIMO MS DAILY PRN for CONSTIPATION, (Reported) Allergies Coded Allergies: hydroxyzine (Verified Allergy, Unknown, 05/20/20) LEIGHA BRITT MD May 25, 2020 10:21
[2020-05-25 10:50] VITALS: O2SAT 98
[2020-05-25] MEDS: ERTAPENEM SODIUM 1 GM in NS MINI-BAG PLUS 50 ML IV SCH (12:45)
[2020-05-25 14:00] VITALS: BP 169/73
--- NOTE | 2020-05-25 14:37 | REP ---
MIDLINE CATHETER INSERTION WITH SITE-RITE The procedure was performed by DANNY Frederick, under the direct supervision of Dr. Aggarwal. The risks and benefits of the procedure were explained to the patients health care proxy, and an informed consent was obtained over the phone. Directly prior to the start of the procedure, a formal time-out was done in the procedure room. The right medial branchial vein was localized using ultrasound guidance. The skin was prepped and draped in a sterile fashion. Approximately 3 mL of 1% Lidocaine 10 mg/mL was used as a local anesthetic. Using ultrasound guidance, the right medial branchial vein was cannulated and a 0.018 guidewire was inserted. The needle was removed and a 5.5 Andorran dilator and Peel-Away sheath was inserted over the guidewire. A 5.5 Andorran dual-lumen catheter was cut to a length of 16.5 cm. The dilator was removed and the catheter was inserted over the guidewire. The Peel-Away sheath was removed, and the catheter was flushed with heparinized saline as per hospital protocol. The catheter was affixed to the skin and a sterile dressing was applied. The patient tolerated the procedure well, and there were no immediate complications. JAMESON
[2020-05-25] MEDS: SODIUM CHLORIDE 0.9% INJ 10 ML SYR IV SCH (17:42)
[2020-05-25] MEDS: ATORVASTATIN 20 MG TAB PO SCH (21:20)
[2020-05-25] MEDS: AMITRIPTYLINE 50 MG TAB PO SCH (21:20)
[2020-05-25] MEDS: GABAPENTIN 100 MG CAP PO SCH (21:21)
[2020-05-25 22:00] VITALS: BP 136/46
[2020-05-25 23:46] VITALS: O2SAT 99
[2020-05-26] MEDS: ALBUTEROL SULFATE 2.5 MG/0.5 ML INH NEB SOLN NEB SCH ×6 (03:09→22:53)
[2020-05-26 05:37] LABS: BASO % 0.3 % (0.0-1.0); EOS # 0.5 10^3/uL (0.0-0.5); EOS % 4.9 % (0.0-3.0); HEMATOCRIT 32.8 % (36.0-47.0); HEMOGLOBIN 9.8 g/dl (12.0-15.5); LYMPH # 1.6 10^3/uL (1.5-5.0); LYMPH % 17.7 % (24.0-44.0); MEAN CORPUSCULAR HEMOGLOBIN 25.7 pg (27.0-33.0); MEAN CORPUSCULAR HGB CONC 29.9 g/dl (32.0-36.5); MEAN CORPUSCULAR VOLUME 85.9 fl (80.0-96.0); MONO # 0.7 10^3/uL (0.0-0.8); MONO % 7.8 % (0.0-5.0); NEUTROPHILS # 6.1 10^3/uL (1.5-8.5); NEUTROPHILS % 65.8 % (36.0-66.0); PLATELET COUNT, AUTOMATED 237 10^3/uL (150-450); RED BLOOD COUNT 3.82 10^6/uL (4.00-5.40); WHITE BLOOD COUNT 9.2 10^3/uL (4.0-10.0)
[2020-05-26 05:56] LABS: BLOOD UREA NITROGEN 16 MG/DL (7-18); CALCIUM LEVEL 7.9 MG/DL (8.8-10.2); CARBON DIOXIDE LEVEL 32 MEQ/L (21-32); CHLORIDE LEVEL 100 MEQ/L (98-107); CREATININE FOR GFR 0.71 MG/DL (0.55-1.30); GLOMERULAR FILTRATION RATE > 60.0 (>32); GLUCOSE, FASTING 220 MG/DL (70-100); POTASSIUM SERUM 3.9 MEQ/L (3.5-5.1); SODIUM LEVEL 138 MEQ/L (136-145)
[2020-05-26 06:00] VITALS: BP 117/67
[2020-05-26] MEDS: SYMBICORT 160/4.5MCG INHALER 6GM INH SCH ×2 (07:31→19:28)
[2020-05-26] MEDS: TIOTROPIUM INHALER/CAPSULE (SPIRIVA) INH SCH (07:31)
--- NOTE | 2020-05-26 07:52 | IPNPDOC ---
Date Seen The patient was seen on 05/26/20. Progress Note SUBJECTIVE: Patient was seen and examined at bedside. Afebrile overnight. Good appetite. No complaints at this time. Still requires 4 liters of oxygen. OBJECTIVE PHYSICAL EXAMINATION: VITAL SIGNS: please see below General: NAD, comfortable HEENT: PERRLA, EOMI, sclerae clear Neck: supple, normal ROM, no JVD Respiratory: Bilateral wheezing and rhonchi noted. Auscultation of the chest. Upper respiratory breath sounds. Crackles at the lung bases, left worse than right. CVS: RRR, normal S1, S2, no murmurs Abdo: soft, no masses, no hepatosplenomegaly, BS+, no rebound tenderness Extremities: no edema, pulses 2+ MSK: no joint deformities, normal ROM Neuro: no focal neuro deficits, moving all 4 extremities, CN2-12 intact. Strength 5/5 in all 4 extremities. No nystagmus. Psych: calm, cooperative, AAO x 3 LABORATORY DATA, IMAGING STUDIES, MICROBIOLOGY: Please see below. 80 year old female with Dementia, resident of [facility], hypertension, DM, HLD, was sent to the ED for cough and SOB. the Coughing started yesterday with greenish phlegm production and this am noted to be short of breath so was sent to the ED. Here she complained of just malaise and just not feeling well. She also complain ed of a headache about 5/10 dull aching in nature in the forehead and top of the head. CT chest showed Pneumonia othe left lower lobe. CT abd/ pelvis showed left mild hydronephrosis and thickening of bladder wall. She is incontinent. She has h/o atonic bladder. A cath sample to U/A was collected which was thick pus like in color and showed WBCs too numeroud to be counted. She was admitted for Pne umonia and Left hydronephrosis, UTI, obstructive uropathy, hypokalemia. Polyuria possibly due to post obstructive diuresis after placement of tena and relief of obstruction and high sugars Pneumonia with sepsis HR > 90, WBC> 12 Lactate> 1, RR > 20 blood cultures neg till date cannot bring up phlegm zosyn changed to Ertapenem as UC growing ESBL UTI with sepsis due to atonic bladder with chronic urinary retention with mild left hydronephrosis overflow incontinence. Bladder scan always 450 to 600 cc tena cath. Will have to be discharged with Tena in place UC : ESBL> 100K Ertapenem. Hypokalemia replaced Hypertension continue lisinopril and metoprolol Diabetes Uncontrolled due to methyl prednisone. levemir and lispro. Paroxysmal Afib/ aflutter eliquis, metoprolol COPD with Chronic respiratory failure with hypoxia symbicort, spiriva, albuterol prn Chronic diastolic CHF not fluid overloaded, now with polyuria will hold lasix. HLD statin Psoriasis/Psoriatic arthritis Cont prednisone Chronic pain syndrome gabapentin, cymbalta, morphine Depression/ Neurotic excoriations amitriptyline Please refer to DC summary on 05/25/20 VS, I&O, 24H, Fishbone Vital Signs/I&O Vital Signs Date Time Temp Pulse Resp B/P (MAP) Pulse Ox O2 Delivery O2 Flow Rate FiO2 05/26/20 06:00 97.2 72 18 117/67 (84) 98 Nasal Cannula 2.0 I&O- Last 24 Hours up to 6 AM 05/26/20 06:00 Intake Total 1050 ml Output Total 1026 ml Balance 24 ml Laboratory Data 24H LABS Laboratory Tests 2 05/25/20 11:54: Bedside Glucose (Misc Panel) 236H 05/25/20 16:34: Bedside Glucose (Misc Panel) 213H 05/25/20 18:32: Coronavirus (COVID-19)(PCR) NEGATIVE 05/25/20 20:17: Bedside Glucose (Misc Panel) 300H 05/26/20 05:07: Immature Granulocyte % (Auto) 3.5H, Neutrophils (%) (Auto) 65.8, Lymphocytes (%) (Auto) 17.7L, Monocytes (%) (Auto) 7.8H, Eosinophils (%) (Auto) 4.9H, Basophils (%) (Auto) 0.3, Neutrophils # (Auto) 6.1, Lymphocytes # (Auto) 1.6, Monocytes # (Auto) 0.7, Eosinophils # (Auto) 0.5, Basophils # (Auto) 0.0, Nucleated Red Blood Cells % (auto) 0.7H, Anion Gap 6L, Glomerular Filtration Rate > 60.0, Calcium Level 7.9L CBC/BMP Laboratory Tests 05/26/20 05:07 Microbiology Microbiology 05/20/20 Urine Culture - Final, Complete E.coli Esbl 05/20/20 Blood Culture - Final, Complete NO GROWTH AFTER 5 DAYS 05/20/20 Blood Culture - Final, Complete NO GROWTH AFTER 5 DAYS 05/20/20 Respiratory Virus Panel (PCR) (JACINDA) - Final, Complete LILI ALDANA MD May 26, 2020 07:52
[2020-05-26] MEDS: HumaLOG INSULIN (NovoLOG) PER UNIT SC SCH ×4 (07:54→21:00)
[2020-05-26] MEDS: LEVEMIR (INSULIN DETEMIR) 1 UNITS/0.01ML SC SCH ×2 (07:55→22:01)
[2020-05-26] MEDS: APIXABAN 5 MG TAB (ELIQUIS) PO SCH ×2 (07:56→21:59)
[2020-05-26] MEDS: MORPHINE 30 MG SA TAB PO SCH ×2 (07:56→21:00)
[2020-05-26] MEDS: GABAPENTIN 400 MG CAP PO SCH ×3 (07:56→21:59)
[2020-05-26] MEDS: ASPIRIN 81 MG ENTERIC TAB PO SCH (07:56)
[2020-05-26] MEDS: METOPROLOL TART 25 MG TABLET PO SCH ×3 (07:57→21:59)
[2020-05-26] MEDS: SENOKOT S TAB PO SCH ×2 (07:57→21:58)
[2020-05-26] MEDS: ACETAMINOPHEN 500 MG TAB PO SCH ×3 (07:57→22:00)
[2020-05-26] MEDS: lisinopriL 40 MG TAB PO SCH (07:57)
[2020-05-26] MEDS: DULoxetine 30 MG CAP (CYMBALTA) PO SCH ×2 (07:57→21:59)
[2020-05-26] MEDS ORDERED: ERTA1INJ3 IJ (08:13)
[2020-05-26] MEDS: ERTAPENEM SODIUM 1 GM in NS MINI-BAG PLUS 50 ML IV SCH (13:00)
[2020-05-26 13:44] VITALS: BP 161/65
[2020-05-26] MEDS: SODIUM CHLORIDE 0.9% INJ 10 ML SYR IV SCH (17:45)
[2020-05-26 17:59] VITALS: BP 170/67
[2020-05-26] MEDS: AMITRIPTYLINE 50 MG TAB PO SCH (21:59)
[2020-05-26] MEDS: ATORVASTATIN 20 MG TAB PO SCH (21:59)
[2020-05-26] MEDS: GABAPENTIN 100 MG CAP PO SCH (21:59)
[2020-05-26 22:00] VITALS: BP 148/60
[2020-05-27] MEDS: ALBUTEROL SULFATE 2.5 MG/0.5 ML INH NEB SOLN NEB SCH ×2 (02:52→07:44)
[2020-05-27 06:00] VITALS: BP 154/68
[2020-05-27 06:19] LABS: BASO % 0.2 % (0.0-1.0); EOS # 0.6 10^3/uL (0.0-0.5); EOS % 6.3 % (0.0-3.0); HEMATOCRIT 32.5 % (36.0-47.0); HEMOGLOBIN 9.7 g/dl (12.0-15.5); LYMPH # 1.6 10^3/uL (1.5-5.0); LYMPH % 18.3 % (24.0-44.0); MEAN CORPUSCULAR HEMOGLOBIN 25.7 pg (27.0-33.0); MEAN CORPUSCULAR HGB CONC 29.8 g/dl (32.0-36.5); MONO # 0.6 10^3/uL (0.0-0.8); MONO % 6.4 % (0.0-5.0); NEUTROPHILS # 5.8 10^3/uL (1.5-8.5); NEUTROPHILS % 66.3 % (36.0-66.0); PLATELET COUNT, AUTOMATED 256 10^3/uL (150-450); RED BLOOD COUNT 3.78 10^6/uL (4.00-5.40); WHITE BLOOD COUNT 8.8 10^3/uL (4.0-10.0)
[2020-05-27 06:46] LABS: BLOOD UREA NITROGEN 13 MG/DL (7-18); CARBON DIOXIDE LEVEL 34 MEQ/L (21-32); CHLORIDE LEVEL 102 MEQ/L (98-107); CREATININE FOR GFR 0.56 MG/DL (0.55-1.30); GLOMERULAR FILTRATION RATE > 60.0 (>32); GLUCOSE, FASTING 123 MG/DL (70-100); POTASSIUM SERUM 3.7 MEQ/L (3.5-5.1); SODIUM LEVEL 138 MEQ/L (136-145)
[2020-05-27] MEDS: TIOTROPIUM INHALER/CAPSULE (SPIRIVA) INH SCH (07:44)
[2020-05-27] MEDS: SYMBICORT 160/4.5MCG INHALER 6GM INH SCH (07:44)
[2020-05-27] MEDS: SENOKOT S TAB PO SCH (09:00)
[2020-05-27] MEDS: APIXABAN 5 MG TAB (ELIQUIS) PO SCH (09:27)
[2020-05-27] MEDS: GABAPENTIN 400 MG CAP PO SCH (09:27)
[2020-05-27 09:28] VITALS: BP 172/73
[2020-05-27] MEDS: lisinopriL 40 MG TAB PO SCH (09:28)
[2020-05-27] MEDS: ASPIRIN 81 MG ENTERIC TAB PO SCH (09:28)
[2020-05-27] MEDS: METOPROLOL TART 25 MG TABLET PO SCH (09:28)
[2020-05-27] MEDS: ACETAMINOPHEN 500 MG TAB PO SCH (09:29)
[2020-05-27] MEDS: HumaLOG INSULIN (NovoLOG) PER UNIT SC SCH (09:30)
[2020-05-27] MEDS: LEVEMIR (INSULIN DETEMIR) 1 UNITS/0.01ML SC SCH (09:30)
[2020-05-27] MEDS: MORPHINE 30 MG SA TAB PO SCH (09:33)
[2020-05-27] MEDS: SODIUM CHLORIDE 0.9% INJ 10 ML SYR IV PRN (09:36)
[2020-05-27] MEDS: ERTAPENEM SODIUM 1 GM in NS MINI-BAG PLUS 50 ML IV SCH (10:43)
--- NOTE | 2020-06-05 09:37 | IPNPDOC ---
Date Seen The patient was seen on 05/27/20. Progress Note SUBJECTIVE: Patient was seen and examined at bedside. Afebrile overnight. Good appetite. No complaints at this time. Still requires 4 liters of oxygen. OBJECTIVE PHYSICAL EXAMINATION: VITAL SIGNS: please see below General: NAD, comfortable HEENT: PERRLA, EOMI, sclerae clear Neck: supple, normal ROM, no JVD Respiratory: Bilateral wheezing and rhonchi noted. Auscultation of the chest. Upper respiratory breath sounds. Crackles at the lung bases, left worse than right. CVS: RRR, normal S1, S2, no murmurs Abdo: soft, no masses, no hepatosplenomegaly, BS+, no rebound tenderness Extremities: no edema, pulses 2+ MSK: no joint deformities, normal ROM Neuro: no focal neuro deficits, moving all 4 extremities, CN2-12 intact. Strength 5/5 in all 4 extremities. No nystagmus. Psych: calm, cooperative, AAO x 3 LABORATORY DATA, IMAGING STUDIES, MICROBIOLOGY: Please see below. 80 year old female with Dementia, resident of [facility], hypertension, DM, HLD, was sent to the ED for cough and SOB. the Coughing started yesterday with greenish phlegm production and this am noted to be short of breath so was sent to the ED. Here she complained of just malaise and just not feeling well. She also complain ed of a headache about 5/10 dull aching in nature in the forehead and top of the head. CT chest showed Pneumonia othe left lower lobe. CT abd/ pelvis showed left mild hydronephrosis and thickening of bladder wall. She is incontinent. She has h/o atonic bladder. A cath sample to U/A was collected which was thick pus like in color and showed WBCs too numeroud to be counted. She was admitted for Pne umonia and Left hydronephrosis, UTI, obstructive uropathy, hypokalemia. Polyuria possibly due to post obstructive diuresis after placement of tena and relief of obstruction and high sugars Pneumonia with sepsis HR > 90, WBC> 12 Lactate> 1, RR > 20 blood cultures neg till date cannot bring up phlegm zosyn changed to Ertapenem as UC growing ESBL UTI with sepsis due to atonic bladder with chronic urinary retention with mild left hydronephrosis overflow incontinence. Bladder scan always 450 to 600 cc tena cath. Will have to be discharged with Tena in place UC : ESBL> 100K Ertapenem. Hypokalemia replaced Hypertension continue lisinopril and metoprolol Diabetes Uncontrolled due to methyl prednisone. levemir and lispro. Paroxysmal Afib/ aflutter eliquis, metoprolol COPD with Chronic respiratory failure with hypoxia symbicort, spiriva, albuterol prn Chronic diastolic CHF not fluid overloaded, now with polyuria will hold lasix. HLD statin Psoriasis/Psoriatic arthritis Cont prednisone Chronic pain syndrome gabapentin, cymbalta, morphine Depression/ Neurotic excoriations amitriptyline Plan for DC today. Please refer to DC summary on 05/25/20 VS, I&O, 24H, Fishbone Vital Signs/I&O Vital Signs Date Time Temp Pulse Resp B/P (MAP) Pulse Ox O2 Delivery O2 Flow Rate FiO2 05/27/20 09:33 18 Room Air 05/27/20 09:28 91 172/73 05/27/20 06:00 98.1 97 2.0 I&O- Last 24 Hours up to 6 AM 05/27/20 06:00 Intake Total 990 ml Output Total 575 ml Balance 415 ml Laboratory Data 24H LABS Laboratory Tests 2 05/26/20 11:53: Bedside Glucose (Misc Panel) 188H 05/26/20 16:45: Bedside Glucose (Misc Panel) 159H 05/26/20 20:41: Bedside Glucose (Misc Panel) 178H 05/27/20 05:55: Immature Granulocyte % (Auto) 2.5, Neutrophils (%) (Auto) 66.3H, Lymphocytes (%) (Auto) 18.3L, Monocytes (%) (Auto) 6.4H, Eosinophils (%) (Auto) 6.3H, Basophils (%) (Auto) 0.2, Neutrophils # (Auto) 5.8, Lymphocytes # (Auto) 1.6, Monocytes # (Auto) 0.6, Eosinophils # (Auto) 0.6H, Basophils # (Auto) 0.0, Nucleated Red Blood Cells % (auto) 0.3H, Anion Gap 2L, Glomerular Filtration Rate > 60.0, Calcium Level 8.0L CBC/BMP Laboratory Tests 05/27/20 05:55 Microbiology Microbiology 05/20/20 Urine Culture - Final, Complete E.coli Esbl 05/20/20 Blood Culture - Final, Complete NO GROWTH AFTER 5 DAYS 05/20/20 Blood Culture - Final, Complete NO GROWTH AFTER 5 DAYS 05/20/20 Respiratory Virus Panel (PCR) (JACINDA) - Final, Complete LILI ALDANA MD May 27, 2020 11:05
== END 2020-05-27 11:25 | DRG 871 ==
LOC: M ED 04:42 → M ED INP 13:45 → ENRESERV 15:05 → M MSPAV 16:56
PROVIDERS: ADMIT Internal Medicine Nephrology; ATTEND Internal Medicine Nephrology
PROC: 05H933Z Insertion of Infusion Device into Right Brachial Vein, Percutaneous Approach (ICD-10-PCS; principal; 2020-05-20 15:57)
DX: A41.9 Sepsis, unspecified organism (principal); J18.9 Pneumonia, unspecified organism; N13.30 Unspecified hydronephrosis; I50.32 Chronic diastolic (congestive) heart failure; J96.11 Chronic respiratory failure with hypoxia; N39.0 Urinary tract infection, site not specified; I48.92 Unspecified atrial flutter; F03.90 Unspecified dementia, unspecified severity, without behavioral disturbance, psychotic disturbance, mood disturbance, and anxiety; M10.9 Gout, unspecified; Z66 Do not resuscitate; I11.0 Hypertensive heart disease with heart failure; E11.40 Type 2 diabetes mellitus with diabetic neuropathy, unspecified; E87.6 Hypokalemia; I25.10 Atherosclerotic heart disease of native coronary artery without angina pectoris; G47.33 Obstructive sleep apnea (adult) (pediatric); E66.01 Morbid (severe) obesity due to excess calories; F32.9 Major depressive disorder, single episode, unspecified; M81.0 Age-related osteoporosis without current pathological fracture; E78.5 Hyperlipidemia, unspecified; I48.0 Paroxysmal atrial fibrillation; G89.4 Chronic pain syndrome; R32 Unspecified urinary incontinence; E11.65 Type 2 diabetes mellitus with hyperglycemia; J44.9 Chronic obstructive pulmonary disease, unspecified; N31.2 Flaccid neuropathic bladder, not elsewhere classified; L98.1 Factitial dermatitis; B96.20 Unspecified Escherichia coli [E. coli] as the cause of diseases classified elsewhere; R33.9 Retention of urine, unspecified; Z79.01 Long term (current) use of anticoagulants; Z79.82 Long term (current) use of aspirin; Z79.4 Long term (current) use of insulin; Z79.52 Long term (current) use of systemic steroids; Z79.899 Other long term (current) drug therapy; Z88.8 Allergy status to other drugs, medicaments and biological substances; Z85.3 Personal history of malignant neoplasm of breast; Z79.891 Long term (current) use of opiate analgesic; Z86.14 Personal history of Methicillin resistant Staphylococcus aureus infection; Z87.81 Personal history of (healed) traumatic fracture; Z90.49 Acquired absence of other specified parts of digestive tract; Z68.36 Body mass index [BMI] 36.0-36.9, adult

== ENCOUNTER → 2020-06-01 | Outpatient (REF) | payer MEDICARE, MEDICAID ==
[~2020-06-01] MED LIST changes: +AMIT50TA PO; +BENA25CA4 PO; +ELIQ5TAB PO; +ERTA1INJ3 IJ; +MORP30TASA PO; +TRUL10IN SC
[2020-06-01 13:32] LABS: HEMATOCRIT 32.3 % (36.0-47.0); HEMOGLOBIN 9.2 g/dl (12.0-15.5); MEAN CORPUSCULAR HEMOGLOBIN 24.6 pg (27.0-33.0); MEAN CORPUSCULAR HGB CONC 28.5 g/dl (32.0-36.5); MEAN CORPUSCULAR VOLUME 86.4 fl (80.0-96.0); PLATELET COUNT, AUTOMATED 305 10^3/uL (150-450); RED BLOOD COUNT 3.74 10^6/uL (4.00-5.40); WHITE BLOOD COUNT 10.7 10^3/uL (4.0-10.0)
[2020-06-01 13:41] LABS: ALBUMIN 2.9 GM/DL (3.2-5.2); ALT/SGPT 19 U/L (12-78); BILIRUBIN,TOTAL 0.4 MG/DL (0.2-1.0); BLOOD UREA NITROGEN 12 MG/DL (7-18); CALCIUM LEVEL 8.5 MG/DL (8.8-10.2); CARBON DIOXIDE LEVEL 32 MEQ/L (21-32); CHLORIDE LEVEL 97 MEQ/L (98-107); CHOLESTEROL LEVEL 153 MG/DL (<200); CHOLESTEROL RISK RATIO 4.026 (<5); CREATININE FOR GFR 0.84 MG/DL (0.55-1.30); GLOMERULAR FILTRATION RATE > 60.0 (>32); GLUCOSE, FASTING 177 MG/DL (70-100); HDL CHOLESTEROL 38 MG/DL (>40); LDL CHOLESTEROL 57 MG/DL (<100); NON-HDL-C 115 MG/DL; POTASSIUM SERUM 4.1 MEQ/L (3.5-5.1); SODIUM LEVEL 136 MEQ/L (136-145); TOTAL PROTEIN 6.3 GM/DL (6.4-8.2); TRIGLYCERIDES LEVEL 289 MG/DL (<150)
[2020-06-01 13:52] LABS: HEMOGLOBIN A1c 8.9 %
== END ==
PROVIDERS: ATTEND Nurse Practitioner Adult Health
DX: E11.9 Type 2 diabetes mellitus without complications (principal); I10 Essential (primary) hypertension; J44.9 Chronic obstructive pulmonary disease, unspecified; Z79.4 Long term (current) use of insulin

== ENCOUNTER → 2020-06-02 | Outpatient (REF) | payer MEDICARE, MEDICAID ==
[2020-06-02 18:56] LABS: APPEARANCE, URINE CLOUDY (CLEAR); BACTERIA, URINE AUTO 1+ (NEGATIVE); BILIRUBIN, URINE AUTO NEGATIVE (NEGATIVE); BLOOD, URINE BLOOD NEGATIVE (NEGATIVE); CALCIUM OXALATE CRYSTALS MODERATE; COLOR, URINE AMBER (YELLOW); GLUCOSE, URINE (UA) AUTO NEGATIVE (NEGATIVE); KETONE, URINE AUTO TRACE mg/dL (NEGATIVE); LEUKOCYTE ESTERASE, URINE AUTO 3+ (NEGATIVE); MUCUS, URINE SMALL (NEGATIVE); NITRITE, URINE AUTO NEGATIVE (NEGATIVE); PROTEIN, URINE AUTO 1+ mg/dL (NEGATIVE); RBC, URINE AUTO 17 /HPF (0-3); SPECIFIC GRAVITY URINE AUTO 1.017 (1.002-1.035); SQUAMOUS EPITHELIAL CELL UR AU 1 /HPF (0-6); UROBILINOGEN, URINE AUTO 0.2 mg/dL (0.0-2.0); WBC, URINE AUTO 61 /HPF (0-3)
== END ==
PROVIDERS: ATTEND Internal Medicine
DX: Z11.9 Encounter for screening for infectious and parasitic diseases, unspecified (principal)

== ENCOUNTER → 2020-06-05 | Outpatient (REF) | payer MEDICARE, MEDICAID ==
[2020-06-05 09:28] LABS: HEMOGLOBIN 9.4 g/dl (12.0-15.5); MEAN CORPUSCULAR HEMOGLOBIN 25.3 pg (27.0-33.0); MEAN CORPUSCULAR HGB CONC 29.4 g/dl (32.0-36.5); PLATELET COUNT, AUTOMATED 254 10^3/uL (150-450); RED BLOOD COUNT 3.72 10^6/uL (4.00-5.40); WHITE BLOOD COUNT 8.6 10^3/uL (4.0-10.0)
== END ==
PROVIDERS: ATTEND Internal Medicine
DX: D72.819 Decreased white blood cell count, unspecified (principal)

== ENCOUNTER → 2020-06-07 | Outpatient (CLI) | payer MEDICARE, MEDICAID ==
--- NOTE | 2020-06-07 14:55 | REP ---
INDICATION: LEFT HIP PAIN COMPARISON: None. TECHNIQUE: AP and frog-lateral views of the left hip FINDINGS: Prior orthopedic fixation for intertrochanteric femur fracture. Hip joint demonstrates mild/moderate degenerative changes with narrowing. No acute fracture or dislocation.. IMPRESSION: Mild/moderate generalized degenerative changes. <Electronically signed by Drew Cunha > 06/07/20 [id number]
== END ==
LOC: M RAD 14:23
DX: M16.12 Unilateral primary osteoarthritis, left hip (principal); Z87.81 Personal history of (healed) traumatic fracture

== ENCOUNTER → 2020-06-09 | Outpatient (REF) | payer MEDICARE, MEDICAID ==
[2020-06-09 13:33] LABS: APPEARANCE, URINE CLEAR (CLEAR); BACTERIA, URINE AUTO NEGATIVE (NEGATIVE); BILIRUBIN, URINE AUTO NEGATIVE (NEGATIVE); BLOOD, URINE BLOOD NEGATIVE (NEGATIVE); COLOR, URINE STRAW (YELLOW); GLUCOSE, URINE (UA) AUTO 1+ mg/dL (NEGATIVE); KETONE, URINE AUTO NEGATIVE (NEGATIVE); LEUKOCYTE ESTERASE, URINE AUTO NEGATIVE (NEGATIVE); NITRITE, URINE AUTO NEGATIVE (NEGATIVE); PROTEIN, URINE AUTO NEGATIVE (NEGATIVE); RBC, URINE AUTO 0 /HPF (0-3); SPECIFIC GRAVITY URINE AUTO 1.005 (1.002-1.035); SQUAMOUS EPITHELIAL CELL UR AU 0 /HPF (0-6); UROBILINOGEN, URINE AUTO 0.2 mg/dL (0.0-2.0); WBC, URINE AUTO 2 /HPF (0-3)
== END ==
PROVIDERS: ATTEND Internal Medicine
DX: Z11.9 Encounter for screening for infectious and parasitic diseases, unspecified (principal); R30.0 Dysuria

== ENCOUNTER → 2020-06-16 | Outpatient (REF) | payer MEDICARE, MEDICAID ==
[2020-06-16 13:40] LABS: APPEARANCE, URINE TURBID (CLEAR); BACTERIA, URINE AUTO 3+ (NEGATIVE); BILIRUBIN, URINE AUTO NEGATIVE (NEGATIVE); BLOOD, URINE BLOOD 2+ (NEGATIVE); COLOR, URINE YELLOW (YELLOW); GLUCOSE, URINE (UA) AUTO NEGATIVE (NEGATIVE); KETONE, URINE AUTO NEGATIVE (NEGATIVE); LEUKOCYTE ESTERASE, URINE AUTO 3+ (NEGATIVE); NITRITE, URINE AUTO NEGATIVE (NEGATIVE); PROTEIN, URINE AUTO 1+ mg/dL (NEGATIVE); RBC, URINE AUTO 58 /HPF (0-3); SPECIFIC GRAVITY URINE AUTO 1.008 (1.002-1.035); SQUAMOUS EPITHELIAL CELL UR AU 0 /HPF (0-6); URIC ACID CRYSTALS MODERATE; UROBILINOGEN, URINE AUTO 0.2 mg/dL (0.0-2.0); WBC, URINE AUTO 36 /HPF (0-3)
== END ==
LOC: EEVIPCON
PROVIDERS: ATTEND Internal Medicine
DX: Z11.9 Encounter for screening for infectious and parasitic diseases, unspecified (principal)

== ENCOUNTER → 2020-06-26 | Outpatient (REF) | PROVIDERS: ATTEND Internal Medicine | DX: Z20.828 Contact with and (suspected) exposure to other viral communicable diseases (principal) ==

== ENCOUNTER → 2020-06-29 | Outpatient (REF) | payer MEDICARE, MEDICAID ==
[2020-06-29 10:20] LABS: BASO # 0.1 10^3/uL (0.0-0.2); BASO % 0.4 % (0.0-1.0); EOS % 0.1 % (0.0-3.0); HEMATOCRIT 34.6 % (36.0-47.0); LYMPH # 2.4 10^3/uL (1.5-5.0); LYMPH % 14.3 % (24.0-44.0); MEAN CORPUSCULAR HEMOGLOBIN 24.1 pg (27.0-33.0); MEAN CORPUSCULAR HGB CONC 28.9 g/dl (32.0-36.5); MEAN CORPUSCULAR VOLUME 83.4 fl (80.0-96.0); MONO # 1.5 10^3/uL (0.0-0.8); NEUTROPHILS # 12.7 10^3/uL (1.5-8.5); NEUTROPHILS % 75.7 % (36.0-66.0); PLATELET COUNT, AUTOMATED 328 10^3/uL (150-450); RED BLOOD COUNT 4.15 10^6/uL (4.00-5.40); WHITE BLOOD COUNT 16.7 10^3/uL (4.0-10.0)
[2020-06-29 10:58] LABS: ALBUMIN 2.9 GM/DL (3.2-5.2); ALT/SGPT < 6 U/L (12-78); BILIRUBIN,TOTAL 0.7 MG/DL (0.2-1.0); BLOOD UREA NITROGEN 7 MG/DL (7-18); CALCIUM LEVEL 8.5 MG/DL (8.8-10.2); CARBON DIOXIDE LEVEL 33 MEQ/L (21-32); CHLORIDE LEVEL 97 MEQ/L (98-107); CREATININE FOR GFR 0.67 MG/DL (0.55-1.30); GLOMERULAR FILTRATION RATE > 60.0 (>32); GLUCOSE, FASTING 186 MG/DL (70-100); NT-PRO BNP 1427 PG/ML (<450); POTASSIUM SERUM 2.8 MEQ/L (3.5-5.1); SODIUM LEVEL 138 MEQ/L (136-145); TOTAL PROTEIN 6.7 GM/DL (6.4-8.2)
--- NOTE | 2020-06-29 15:25 | REPPI ---
INDICATION: ELEVATED TEMP AND CONGESTION 342-1. COMPARISON: 05/20/2020. TECHNIQUE: SINGLE PORTABLE AP VIEW OF THE CHEST WAS PERFORMED. FINDINGS: Cardiomegaly is again noted with chronic pulmonary venous hypertension. Chronically increased interstitial markings are stable. No new infiltrate is seen. There is mild calcification of the thoracic aorta. IMPRESSION: Stable chronic findings and cardiomegaly. No definite acute infiltrate. <Electronically signed by Fuad Aggarwal > 06/29/20 [id number]
== END ==
PROVIDERS: ATTEND Internal Medicine
DX: I51.7 Cardiomegaly (principal); R50.9 Fever, unspecified; R09.89 Other specified symptoms and signs involving the circulatory and respiratory systems

== ENCOUNTER → 2020-06-30 | Outpatient (CLI) | payer MEDICARE, MEDICAID ==
--- NOTE | 2020-06-30 13:37 | REP ---
INDICATION: PNEUMONIA. COMPARISON: 05/20/2020. TECHNIQUE: CT chest performed without the use of intravenous contrast. Sagittal and coronal reconstruction images are performed. FINDINGS: Lungs: Previously noted dense infiltrate in the left lower lobe has resolved. Once again there is moderate interstitial fibrotic change in both lower lobes with moderate bronchiectasis. Mediastinum: No gross adenopathy. Jessi: No gross adenopathy. Axilla: No gross adenopathy. Pleura: No effusion. Heart: Mildly enlarged. There is mild anterior pericardial fluid or thickening. Thoracic aorta: No aneurysm. Upper abdominal structures: There is evidence of prior cholecystectomy. Visualized osseous structures: There are degenerative changes of the spine without compression deformity IMPRESSION: Resolution of left lower lobe consolidation. No acute infiltrate at this time. Bilateral interstitial fibrosis and bronchiectasis. <Electronically signed by Fuad Aggarwal > 06/30/20 [id number]
== END ==
LOC: M RAD 12:24
PROVIDERS: ATTEND Nurse Practitioner Adult Health
DX: J47.9 Bronchiectasis, uncomplicated (principal); J18.9 Pneumonia, unspecified organism

== ENCOUNTER → 2020-06-30 | Outpatient (REF) | payer MEDICARE, MEDICAID ==
[2020-06-30 11:54] LABS: HEMATOCRIT 32.1 % (36.0-47.0); HEMOGLOBIN 9.1 g/dl (12.0-15.5); MEAN CORPUSCULAR HEMOGLOBIN 23.6 pg (27.0-33.0); MEAN CORPUSCULAR HGB CONC 28.3 g/dl (32.0-36.5); MEAN CORPUSCULAR VOLUME 83.4 fl (80.0-96.0); PLATELET COUNT, AUTOMATED 347 10^3/uL (150-450); RED BLOOD COUNT 3.85 10^6/uL (4.00-5.40); WHITE BLOOD COUNT 14.2 10^3/uL (4.0-10.0)
[2020-06-30 12:55] LABS: CALCIUM LEVEL 8.8 MG/DL (8.8-10.2); CREATININE FOR GFR 1.08 MG/DL (0.55-1.30); GLOMERULAR FILTRATION RATE 51.8 (>32); POTASSIUM SERUM 3.7 MEQ/L (3.5-5.1)
== END ==
PROVIDERS: ATTEND Internal Medicine
DX: J18.9 Pneumonia, unspecified organism (principal)

== ENCOUNTER → 2020-07-01 | Outpatient (REF) | payer MEDICARE, MEDICAID ==
[2020-07-01 11:28] LABS: HEMATOCRIT 29.4 % (36.0-47.0); HEMOGLOBIN 8.4 g/dl (12.0-15.5); MEAN CORPUSCULAR HEMOGLOBIN 23.3 pg (27.0-33.0); MEAN CORPUSCULAR HGB CONC 28.6 g/dl (32.0-36.5); MEAN CORPUSCULAR VOLUME 81.7 fl (80.0-96.0); PLATELET COUNT, AUTOMATED 305 10^3/uL (150-450); WHITE BLOOD COUNT 12.4 10^3/uL (4.0-10.0)
[2020-07-01 12:00] LABS: CALCIUM LEVEL 9.1 MG/DL (8.8-10.2); CREATININE FOR GFR 1.28 MG/DL (0.55-1.30); GLOMERULAR FILTRATION RATE 42.6 (>32); POTASSIUM SERUM 4.1 MEQ/L (3.5-5.1)
== END ==
PROVIDERS: ATTEND Internal Medicine
DX: J44.9 Chronic obstructive pulmonary disease, unspecified (principal)

== ENCOUNTER → 2020-07-02 | Outpatient (REF) | payer MEDICARE, MEDICAID ==
[~2020-07-02] MED LIST changes: -AMIT25TA PO; +AMIT25TA17 PO; +LISI40TA4 PO; -MECL12.589 PO; +MECL12.590 PO; +REST0.057 OU; +VOLT1GEL15 TOP
== END ==
LOC: EDSTATUS 08-11 11:53
PROVIDERS: ATTEND Internal Medicine
DX: Z20.828 Contact with and (suspected) exposure to other viral communicable diseases (principal)

== ENCOUNTER → 2020-07-03 | Outpatient (REF) | payer MEDICARE, MEDICAID ==
[2020-07-03 09:57] LABS: HEMATOCRIT 31.8 % (36.0-47.0); HEMOGLOBIN 9.1 g/dl (12.0-15.5); MEAN CORPUSCULAR HEMOGLOBIN 23.5 pg (27.0-33.0); MEAN CORPUSCULAR HGB CONC 28.6 g/dl (32.0-36.5); PLATELET COUNT, AUTOMATED 300 10^3/uL (150-450); RED BLOOD COUNT 3.88 10^6/uL (4.00-5.40); WHITE BLOOD COUNT 8.5 10^3/uL (4.0-10.0)
[2020-07-03 10:21] LABS: BLOOD UREA NITROGEN 23 MG/DL (7-18); CALCIUM LEVEL 9.1 MG/DL (8.8-10.2); CARBON DIOXIDE LEVEL 30 MEQ/L (21-32); CHLORIDE LEVEL 95 MEQ/L (98-107); GLOMERULAR FILTRATION RATE > 60.0 (>32); GLUCOSE, FASTING 264 MG/DL (70-100); POTASSIUM SERUM 4.2 MEQ/L (3.5-5.1); SODIUM LEVEL 134 MEQ/L (136-145)
== END ==
LOC: EDSTATUS 13:03
PROVIDERS: ATTEND Internal Medicine
DX: J18.9 Pneumonia, unspecified organism (principal)

== ENCOUNTER → 2020-07-08 | Outpatient (REF) | payer MEDICARE, MEDICAID | PROVIDERS: ATTEND Internal Medicine | DX: Z20.828 Contact with and (suspected) exposure to other viral communicable diseases (principal) ==

== ENCOUNTER → 2020-07-17 | Outpatient (REF) ==
[~2020-07-17] MED LIST changes: +AMIT25TA PO; -AMIT25TA17 PO; -LISI40TA4 PO; -REST0.057 OU; -VOLT1GEL15 TOP
[2020-07-17 10:54] LABS: HEMATOCRIT 34.3 % (36.0-47.0); HEMOGLOBIN 9.7 g/dl (12.0-15.5); MEAN CORPUSCULAR HEMOGLOBIN 23.4 pg (27.0-33.0); MEAN CORPUSCULAR HGB CONC 28.3 g/dl (32.0-36.5); MEAN CORPUSCULAR VOLUME 82.7 fl (80.0-96.0); PLATELET COUNT, AUTOMATED 255 10^3/uL (150-450); RED BLOOD COUNT 4.15 10^6/uL (4.00-5.40); WHITE BLOOD COUNT 11.7 10^3/uL (4.0-10.0)
[2020-07-17 11:19] LABS: BLOOD UREA NITROGEN 16 MG/DL (7-18); CALCIUM LEVEL 9.1 MG/DL (8.8-10.2); CARBON DIOXIDE LEVEL 33 MEQ/L (21-32); CHLORIDE LEVEL 96 MEQ/L (98-107); GLOMERULAR FILTRATION RATE > 60.0 (>32); GLUCOSE, FASTING 181 MG/DL (70-100); POTASSIUM SERUM 3.5 MEQ/L (3.5-5.1); SODIUM LEVEL 136 MEQ/L (136-145)
== END ==
PROVIDERS: ATTEND Nurse Practitioner Adult Health
DX: R23.8 Other skin changes (principal)

== ENCOUNTER → 2020-07-26 | Outpatient (REF) | PROVIDERS: ATTEND Internal Medicine | DX: Z20.828 Contact with and (suspected) exposure to other viral communicable diseases (principal) ==

== ENCOUNTER → 2020-08-03 | Outpatient (REF) ==
[2020-08-03 11:05] LABS: RSV AMPLIFICATION NEGATIVE (NEGATIVE)
[2020-08-03 15:02] LABS: BASO # 0.1 10^3/uL (0.0-0.2); BASO % 0.4 % (0.0-1.0); EOS # 0.1 10^3/uL (0.0-0.5); EOS % 0.9 % (0.0-3.0); HEMATOCRIT 32.5 % (36.0-47.0); HEMOGLOBIN 9.2 g/dl (12.0-15.5); LYMPH # 1.6 10^3/uL (1.5-5.0); MEAN CORPUSCULAR HEMOGLOBIN 22.8 pg (27.0-33.0); MEAN CORPUSCULAR HGB CONC 28.3 g/dl (32.0-36.5); MEAN CORPUSCULAR VOLUME 80.4 fl (80.0-96.0); MONO % 8.4 % (0.0-5.0); NEUTROPHILS # 8.9 10^3/uL (1.5-8.5); PLATELET COUNT, AUTOMATED 311 10^3/uL (150-450); RED BLOOD COUNT 4.04 10^6/uL (4.00-5.40); WHITE BLOOD COUNT 11.7 10^3/uL (4.0-10.0)
[2020-08-03 15:25] LABS: ALBUMIN 2.9 GM/DL (3.2-5.2); ALT/SGPT 14 U/L (12-78); BILIRUBIN,TOTAL 0.4 MG/DL (0.2-1.0); BLOOD UREA NITROGEN 7 MG/DL (7-18); CALCIUM LEVEL 8.9 MG/DL (8.8-10.2); CARBON DIOXIDE LEVEL 33 MEQ/L (21-32); CHLORIDE LEVEL 99 MEQ/L (98-107); GLOMERULAR FILTRATION RATE > 60.0 (>32); GLUCOSE, FASTING 176 MG/DL (70-100); POTASSIUM SERUM 3.6 MEQ/L (3.5-5.1); SODIUM LEVEL 138 MEQ/L (136-145); TOTAL PROTEIN 6.5 GM/DL (6.4-8.2)
[2020-08-03 18:04] LABS: APPEARANCE, URINE HAZY (CLEAR); BACTERIA, URINE AUTO NEGATIVE (NEGATIVE); BILIRUBIN, URINE AUTO NEGATIVE (NEGATIVE); BLOOD, URINE BLOOD 1+ (NEGATIVE); COLOR, URINE YELLOW (YELLOW); GLUCOSE, URINE (UA) AUTO NEGATIVE (NEGATIVE); KETONE, URINE AUTO NEGATIVE (NEGATIVE); LEUKOCYTE ESTERASE, URINE AUTO 3+ (NEGATIVE); MUCUS, URINE SMALL (NEGATIVE); NITRITE, URINE AUTO POSITIVE (NEGATIVE); PROTEIN, URINE AUTO NEGATIVE (NEGATIVE); RBC, URINE AUTO 20 /HPF (0-3); SPECIFIC GRAVITY URINE AUTO 1.008 (1.002-1.035); SQUAMOUS EPITHELIAL CELL UR AU 0 /HPF (0-6); UROBILINOGEN, URINE AUTO 0.2 mg/dL (0.0-2.0); WBC, URINE AUTO 51 /HPF (0-3)
== END ==
PROVIDERS: ATTEND Internal Medicine
DX: R06.02 Shortness of breath (principal); Z20.828 Contact with and (suspected) exposure to other viral communicable diseases

== ENCOUNTER → 2020-08-05 | Outpatient (REF) | PROVIDERS: ATTEND Internal Medicine | DX: Z20.828 Contact with and (suspected) exposure to other viral communicable diseases (principal) ==

== ENCOUNTER → 2020-08-15 | Outpatient (REF) | payer MEDICARE, MEDICAID ==
[2020-08-15 13:39] LABS: BASO # 0.1 10^3/uL (0.0-0.2); BASO % 0.4 % (0.0-1.0); EOS # 0.1 10^3/uL (0.0-0.5); EOS % 0.4 % (0.0-3.0); HEMATOCRIT 29.7 % (36.0-47.0); HEMOGLOBIN 8.3 g/dl (12.0-15.5); LYMPH # 1.6 10^3/uL (1.5-5.0); LYMPH % 9.5 % (24.0-44.0); MEAN CORPUSCULAR HEMOGLOBIN 22.4 pg (27.0-33.0); MEAN CORPUSCULAR HGB CONC 27.9 g/dl (32.0-36.5); MEAN CORPUSCULAR VOLUME 80.3 fl (80.0-96.0); MONO # 1.2 10^3/uL (0.0-0.8); MONO % 7.1 % (0.0-5.0); NEUTROPHILS # 13.9 10^3/uL (1.5-8.5); NEUTROPHILS % 82.2 % (36.0-66.0); PLATELET COUNT, AUTOMATED 258 10^3/uL (150-450); WHITE BLOOD COUNT 16.9 10^3/uL (4.0-10.0)
[2020-08-15 13:41] LABS: APPEARANCE, URINE HAZY (CLEAR); BACTERIA, URINE AUTO NEGATIVE (NEGATIVE); BILIRUBIN, URINE AUTO NEGATIVE (NEGATIVE); BLOOD, URINE BLOOD 2+ (NEGATIVE); COLOR, URINE YELLOW (YELLOW); GLUCOSE, URINE (UA) AUTO NEGATIVE (NEGATIVE); KETONE, URINE AUTO NEGATIVE (NEGATIVE); LEUKOCYTE ESTERASE, URINE AUTO 3+ (NEGATIVE); MUCUS, URINE SMALL (NEGATIVE); NITRITE, URINE AUTO NEGATIVE (NEGATIVE); PROTEIN, URINE AUTO NEGATIVE (NEGATIVE); RBC, URINE AUTO 64 /HPF (0-3); SQUAMOUS EPITHELIAL CELL UR AU 0 /HPF (0-6); UROBILINOGEN, URINE AUTO 0.2 mg/dL (0.0-2.0); WBC, URINE AUTO 71 /HPF (0-3)
[2020-08-15 14:01] LABS: ALBUMIN 2.6 GM/DL (3.2-5.2); ALT/SGPT 8 U/L (12-78); BILIRUBIN,TOTAL 0.5 MG/DL (0.2-1.0); BLOOD UREA NITROGEN 12 MG/DL (7-18); CALCIUM LEVEL 8.4 MG/DL (8.8-10.2); CARBON DIOXIDE LEVEL 32 MEQ/L (21-32); CHLORIDE LEVEL 99 MEQ/L (98-107); CREATININE FOR GFR 0.75 MG/DL (0.55-1.30); GLOMERULAR FILTRATION RATE > 60.0 (>32); GLUCOSE, FASTING 177 MG/DL (70-100); POTASSIUM SERUM 3.8 MEQ/L (3.5-5.1); SODIUM LEVEL 139 MEQ/L (136-145); TOTAL PROTEIN 6.4 GM/DL (6.4-8.2)
[2020-08-15 14:13] LABS: RSV AMPLIFICATION NEGATIVE (NEGATIVE)
== END ==
PROVIDERS: ATTEND Nurse Practitioner Acute Care
DX: R53.83 Other fatigue (principal)

== ENCOUNTER → 2020-08-17 | Outpatient (REF) | payer MEDICARE, MEDICAID ==
[~2020-08-17] MED LIST changes: -AMIT25TA PO; +AMIT25TA17 PO; +REST0.057 OU; +VOLT1GEL15 TOP
[2020-08-17 10:25] LABS: BASO % 0.2 % (0.0-1.0); HEMATOCRIT 33.1 % (36.0-47.0); HEMOGLOBIN 9.2 g/dl (12.0-15.5); LYMPH # 0.8 10^3/uL (1.5-5.0); LYMPH % 6.8 % (24.0-44.0); MEAN CORPUSCULAR HGB CONC 27.8 g/dl (32.0-36.5); MEAN CORPUSCULAR VOLUME 79.2 fl (80.0-96.0); MONO # 0.7 10^3/uL (0.0-0.8); MONO % 5.5 % (0.0-5.0); NEUTROPHILS # 10.5 10^3/uL (1.5-8.5); NEUTROPHILS % 87.1 % (36.0-66.0); PLATELET COUNT, AUTOMATED 272 10^3/uL (150-450); RED BLOOD COUNT 4.18 10^6/uL (4.00-5.40)
[2020-08-17 11:28] LABS: ALBUMIN 2.3 GM/DL (3.2-5.2); ALT/SGPT 10 U/L (12-78); BILIRUBIN,TOTAL 0.7 MG/DL (0.2-1.0); BLOOD UREA NITROGEN 9 MG/DL (7-18); CALCIUM LEVEL 8.3 MG/DL (8.8-10.2); CARBON DIOXIDE LEVEL 30 MEQ/L (21-32); CHLORIDE LEVEL 100 MEQ/L (98-107); CREATININE FOR GFR 0.62 MG/DL (0.55-1.30); GLOMERULAR FILTRATION RATE > 60.0 (>32); GLUCOSE, FASTING 254 MG/DL (70-100); POTASSIUM SERUM 2.9 MEQ/L (3.5-5.1); SODIUM LEVEL 138 MEQ/L (136-145); TOTAL PROTEIN 6.6 GM/DL (6.4-8.2)
--- NOTE | 2020-08-17 15:56 | REPPI ---
INDICATION: LETHARGY/SOB 342. COMPARISON: Comparison chest x-ray June 29, 2020.. TECHNIQUE: Semi-erect AP chest radiograph obtained portably. FINDINGS: Patient is rotated slightly to the left. The heart is enlarged unchanged. Pulmonary vasculature is prominent centrally also unchanged. No acute infiltrate is seen. Pleural angles are sharp. There is no evidence of pleural effusion or pulmonary edema. IMPRESSION: No acute infiltrate seen. Cardiomegaly. Unchanged. <Electronically signed by Gordy Ward > 08/17/20 [id number]
== END ==
PROVIDERS: ATTEND Internal Medicine
DX: Z20.822 Contact with and (suspected) exposure to COVID-19 (principal); E86.0 Dehydration
CPT/HCPCS: 71045; 80053; 85025; U0003

== ENCOUNTER → 2020-08-18 | Outpatient (REF) | payer MEDICARE, MEDICAID ==
[~2020-08-18] MED LIST changes: +AMIT25TA PO; -AMIT25TA17 PO; -REST0.057 OU; -VOLT1GEL15 TOP
== END ==
PROVIDERS: ATTEND Internal Medicine
DX: E87.6 Hypokalemia (principal)

== ENCOUNTER → 2020-08-20 | Outpatient (REF) ==
[2020-08-20 19:29] LABS: BASO % 0.4 % (0.0-1.0); EOS # 0.2 10^3/uL (0.0-0.5); HEMOGLOBIN 9.2 g/dl (12.0-15.5); LYMPH % 13.2 % (24.0-44.0); MEAN CORPUSCULAR HEMOGLOBIN 21.9 pg (27.0-33.0); MEAN CORPUSCULAR HGB CONC 27.9 g/dl (32.0-36.5); MEAN CORPUSCULAR VOLUME 78.6 fl (80.0-96.0); MONO # 0.4 10^3/uL (0.0-0.8); MONO % 5.1 % (0.0-5.0); NEUTROPHILS % 77.9 % (36.0-66.0); PLATELET COUNT, AUTOMATED 314 10^3/uL (150-450); WHITE BLOOD COUNT 7.7 10^3/uL (4.0-10.0)
[2020-08-20 19:51] LABS: ALBUMIN 2.7 GM/DL (3.2-5.2); ALT/SGPT 18 U/L (12-78); BILIRUBIN,TOTAL 0.2 MG/DL (0.2-1.0); BLOOD UREA NITROGEN 13 MG/DL (7-18); CALCIUM LEVEL 8.3 MG/DL (8.8-10.2); CARBON DIOXIDE LEVEL 34 MEQ/L (21-32); CHLORIDE LEVEL 96 MEQ/L (98-107); CREATININE FOR GFR 0.68 MG/DL (0.55-1.30); GLOMERULAR FILTRATION RATE > 60.0 (>32); GLUCOSE, FASTING 179 MG/DL (70-100); POTASSIUM SERUM 4.4 MEQ/L (3.5-5.1); SODIUM LEVEL 136 MEQ/L (136-145); TOTAL PROTEIN 6.9 GM/DL (6.4-8.2)
[2020-08-20 20:08] LABS: ERYTHROCYTE SEDIMENTATION RATE 82 mm/hr (0-30)
== END ==
PROVIDERS: ATTEND Internal Medicine
DX: R10.9 Unspecified abdominal pain (principal)

== ENCOUNTER → 2020-08-21 | Outpatient (CLI) | payer MEDICARE, MEDICAID ==
[~2020-08-21] MED LIST changes: -AMIT25TA PO; +AMIT25TA17 PO; +GASTROGRAFIN SOLUTION 30ML (Q9963) As Ordered ONE; +ISOVUE-370 76% 100ML VIAL As Ordered ONE
--- NOTE | 2020-08-21 12:15 | REP ---
INDICATION: ABD PAIN. COMPARISON: 05/20/2020 TECHNIQUE: Axial contrast-enhanced images from the lung bases to the pubic symphysis using oral and 100 cc Isovue 370 intravenous contrast material. Coronal and sagittal reformations obtained. This CT examination was performed using the following dose reduction techniques: Automated exposure control, adjustment of mA and/or kv according to the patient's size, and the use of iterative reconstruction technique. FINDINGS: Lung bases demonstrate cardiomegaly with mild early posterior basilar dependent changes and atelectasis. Liver, spleen, pancreas, and bilateral adrenal glands are normal. Evidence for prior cholecystectomy. Right kidney demonstrates few small hypodensities measuring up to 1 cm and consistent with cysts. Left kidney demonstrates chronic hydronephrosis and or peripelvic cysts along with cortical cysts up to 1.3 cm. No evidence for hydroureter or obstructing ureteral calculus. The enteric system is without obstruction or acute inflammatory process. Scattered sigmoid diverticula noted without acute diverticulitis. Pelvis demonstrates Hudson catheter in collapsed bladder and evidence for prior hysterectomy. No pelvic fluid or ascites. No free air. No adenopathy. Atherosclerotic changes to the aorta and vasculature noted without aneurysm. Musculoskeletal structures demonstrate degenerative changes without acute osseous abnormality. IMPRESSION: No obvious acute abdominopelvic pathology appreciated. Chronic relatively stable appearance of the bilateral kidneys. <Electronically signed by Drew Cunha > 08/21/20 [id number]
== END ==
LOC: M RAD 10:13
PROVIDERS: ATTEND Nurse Practitioner Adult Health
DX: R10.9 Unspecified abdominal pain (principal); K44.9 Diaphragmatic hernia without obstruction or gangrene
CPT/HCPCS: 74177; Q9963; Q9967

== ENCOUNTER → 2020-08-21 | Outpatient (REF) | payer MEDICARE, MEDICAID ==
[~2020-08-21] MED LIST changes: -GASTROGRAFIN SOLUTION 30ML (Q9963) As Ordered ONE; -ISOVUE-370 76% 100ML VIAL As Ordered ONE; +REST0.057 OU; +VOLT1GEL15 TOP
== END ==
PROVIDERS: ATTEND Internal Medicine
DX: Z20.822 Contact with and (suspected) exposure to COVID-19 (principal); R10.9 Unspecified abdominal pain; K44.9 Diaphragmatic hernia without obstruction or gangrene
CPT/HCPCS: 36415; 87040; U0003

== ENCOUNTER → 2020-08-25 | Outpatient (REF) | payer MEDICARE, MEDICAID ==
[~2020-08-25] MED LIST changes: -REST0.057 OU; -VOLT1GEL15 TOP
[2020-08-25 10:28] LABS: HEMATOCRIT 33.5 % (36.0-47.0); HEMOGLOBIN 9.5 g/dl (12.0-15.5); MEAN CORPUSCULAR HEMOGLOBIN 22.8 pg (27.0-33.0); MEAN CORPUSCULAR HGB CONC 28.4 g/dl (32.0-36.5); MEAN CORPUSCULAR VOLUME 80.3 fl (80.0-96.0); PLATELET COUNT, AUTOMATED 380 10^3/uL (150-450); RED BLOOD COUNT 4.17 10^6/uL (4.00-5.40); WHITE BLOOD COUNT 9.6 10^3/uL (4.0-10.0)
[2020-08-25 10:52] LABS: BLOOD UREA NITROGEN 13 MG/DL (7-18); CALCIUM LEVEL 8.6 MG/DL (8.8-10.2); CARBON DIOXIDE LEVEL 30 MEQ/L (21-32); CHLORIDE LEVEL 97 MEQ/L (98-107); CREATININE FOR GFR 0.86 MG/DL (0.55-1.30); GLOMERULAR FILTRATION RATE > 60.0 (>32); GLUCOSE, FASTING 187 MG/DL (70-100); POTASSIUM SERUM 4.2 MEQ/L (3.5-5.1); SODIUM LEVEL 134 MEQ/L (136-145)
== END ==
PROVIDERS: ATTEND Nurse Practitioner Adult Health
DX: I50.9 Heart failure, unspecified (principal)

== ENCOUNTER → 2020-08-26 | Outpatient (REF) | payer MEDICARE, MEDICAID ==
[~2020-08-26] MED LIST changes: +REST0.057 OU; +VOLT1GEL15 TOP
== END ==
PROVIDERS: ATTEND Internal Medicine
DX: Z20.822 Contact with and (suspected) exposure to COVID-19 (principal)

== ENCOUNTER 2020-09-01 11:05 | Inpatient (IN) | payer MEDICARE, MEDICAID ==
[~2020-09-01] VITALS: Ht 162.6 cm; Wt 98.9 kg
[~2020-09-01 11:05] MED LIST changes: -REST0.057 OU; -VOLT1GEL15 TOP
[2020-09-01] MEDS ORDERED: POTA20TA6 PO (11:50)
[2020-09-01] MEDS ORDERED: VOLT1GEL15 TOP ×2 (11:50)
[2020-09-01] MEDS ORDERED: REST0.057 OU (11:50)
[2020-09-01] MEDS ORDERED: PRED5TA PO (11:50)
[2020-09-01 12:00] LABS: BASO # 0.1 10^3/uL (0.0-0.2); BASO % 0.3 % (0.0-1.0); HEMATOCRIT 32.6 % (36.0-47.0); HEMOGLOBIN 9.6 g/dl (12.0-15.5); LYMPH # 1.2 10^3/uL (1.5-5.0); MEAN CORPUSCULAR HEMOGLOBIN 23.1 pg (27.0-33.0); MEAN CORPUSCULAR HGB CONC 29.4 g/dl (32.0-36.5); MEAN CORPUSCULAR VOLUME 78.4 fl (80.0-96.0); MONO # 1.6 10^3/uL (0.0-0.8); MONO % 5.2 % (0.0-5.0); NEUTROPHILS # 27.6 10^3/uL (1.5-8.5); NEUTROPHILS % 89.5 % (36.0-66.0); PLATELET COUNT, AUTOMATED 345 10^3/uL (150-450); RED BLOOD COUNT 4.16 10^6/uL (4.00-5.40)
[2020-09-01 12:07] LABS: WHITE BLOOD COUNT 30.8 10^3/uL (4.0-10.0)
[2020-09-01 12:14] LABS: ALBUMIN 2.7 GM/DL (3.2-5.2); ALT/SGPT 13 U/L (12-78); BILIRUBIN,TOTAL 0.6 MG/DL (0.2-1.0); BLOOD UREA NITROGEN 14 MG/DL (7-18); CALCIUM LEVEL 9.2 MG/DL (8.8-10.2); CARBON DIOXIDE LEVEL 31 MEQ/L (21-32); CHLORIDE LEVEL 94 MEQ/L (98-107); CREATININE FOR GFR 0.93 MG/DL (0.55-1.30); GLOMERULAR FILTRATION RATE > 60.0 (>32); GLUCOSE, FASTING 190 MG/DL (70-100); POTASSIUM SERUM 3.5 MEQ/L (3.5-5.1); SODIUM LEVEL 133 MEQ/L (136-145); TOTAL PROTEIN 6.7 GM/DL (6.4-8.2)
--- NOTE | 2020-09-01 12:58 | REP ---
INDICATION: SEPSIS/SHOCK. COMPARISON: 08/17/2020. TECHNIQUE: SINGLE PORTABLE AP VIEW OF THE CHEST WAS PERFORMED. FINDINGS: There is moderate cardiomegaly. There is pulmonary venous hypertension. There is no infiltrate identified. The patient's chin overlies the lung apices. There is mild calcification of the thoracic aorta. The mediastinal silhouette appears unchanged. IMPRESSION: Moderate cardiomegaly and pulmonary venous hypertension. No infiltrate seen. <Electronically signed by Fuad Aggarwal > 09/01/20 [id number]
[2020-09-01 13:13] LABS: CK-MB VALUE MASS < 1.0 NG/ML (<3.6); CPK CREATINE PHOSPHOKINASE 46 U/L (26-192); MB/CK RELATIVE INDEX 2.17 (< OR =4); TROPONIN I 0.11 NG/ML (< 0.10)
[2020-09-01 13:14] LABS: INR 1.49; PROTHROMBIN TIME 18.3 SECONDS (12.5-14.3)
[2020-09-01] MEDS ORDERED: IBUPROFEN 600MG TAB PO ONE (13:15)
[2020-09-01] MEDS ORDERED: cefTRIAXone SOD 2 GM in D5W MINI-BAG PLUS 50 ML IV ONE (13:30)
[2020-09-01] MEDS ORDERED: BISACODYL 10 MG SUPP PR PRN (14:00)
[2020-09-01] MEDS ORDERED: ALBUTEROL SULFATE 2.5 MG/0.5 ML INH NEB SOLN INH PRN (14:00)
[2020-09-01] MEDS ORDERED: GLUCAGON INJ 1MG VIAL SC PRN (14:00)
[2020-09-01] MEDS ORDERED: GLUCOSE 4GM CHEW TABLET PO PRN (14:00)
[2020-09-01] MEDS ORDERED: MOM 30ML SUSPENSION UDC PO PRN (14:00)
[2020-09-01] MEDS ORDERED: cloNIDine 0.1MG TABLET PO PRN (14:00)
[2020-09-01] MEDS ORDERED: DEXTROSE 50% 50 ML SYRINGE IV PRN (14:00)
[2020-09-01] MEDS ORDERED: METOPROLOL TART 25 MG TABLET PO SCH (16:00)
[2020-09-01] MEDS: PIPERACILLIN/TAZOBACTAM SOD 4.5 GM in D5W MINI-BAG PLUS 50 ML IV SCH (16:27)
[2020-09-01] MEDS ORDERED: ACETAMINOPHEN 325 MG SUPP PR ONE (16:30)
[2020-09-01] MEDS: NS 1,000 ML IV SCH (16:42)
--- NOTE | 2020-09-01 17:19 | HPEPDOC ---
[facility] Medical History & Physical Date of Admission Sep 01, 2020 Date of Service: Sep 01, 2020 Attending Physician: ZOHREH HAYWARD MD History and Physical CHIEF COMPLAINT: Fever at [facility] HISTORY OF PRESENT ILLNESS: 80 year old W with Dementia, resident of [facility], with a history of hypertension, IDDM, HLD and chronic tena catheter who was brought into the ED for noted fever at [facility] with recent CBC earlier today showing leukocytosis to WBC 26. In the ED, she was febrile to 103.2, and otherwise hypertensive to SBP 180s, and breathing comfortably on room air. Unfortunately I was not able to get a clear history of illness from the patient due to her advanced dementia and her answering no to all questions but she did appear surprisingly comfortably in the ED. Work up in the ED was notable for leukocytosis to 30.8, stable anemia to hgb 9.6 per her recent baseline, platelets 345, Na 133, K 3.5, Cr 0.93, lactic acidosis to 2.8 that resolved on repeat, troponin leak to 0.11 with NSR on EKG without ischemic signs and CXR was without any noted acute pathology. She was given 2g of ceftriaxone and is now being admitted to medicine for sepsis 2/2 a urinary tract infection likely CAUTI. PAST MEDICAL HISTORY: Dementia, Aib/ a flutter, hypertension, diastolic CHF, dyslipidemia, insulin de pendent diabetes, diabetic neuropathy, Bronchiectasis, COPD with chronic respiratory failure with hypoxia, Coronary artery disease, right breast cancer 2008, gout, osteoporosis, psoriasis, psoriatic arthritis ,neurodermatitis, hypotonic bladder, JOHN, Allergic urticaria, Neurotic excoriations, Morbid obesity, Major depression, Chronic pain syndrome opiate dependent, h/o Digna- orbital shingles, h/o MRSA left ear, left toe, left thigh, H/o multiple open wounds non pressure on both legs and abdominal wall. Surgical History: Breast surgery is 2009, right breast lumpectomy and sentinel lymph node biopsy right axillary area, hysterectomy, repair of ankle fracture, bilateral knee arthroscopy, incision and drainage of the left knee due to infection, bladder mesh, D C, cholecystectomy. Family History: FATHER: 95 YRS, OLD AGE MOTHER: 80 YRS, OLD AGE SISTER OF STOKE BROTHER OF COLON CANCER OLDEST SON HAD CANCER, DOESN'T REMEMBER KIND 1 SON HAS CONVULSIONS 1 DAUGHTER CANCER OVARIAN Review of Systems: Unable to complete due to altered mentation Physical Examination General: Somnolent, lethargic, open eyes when speaking with her but not saying much except for nodding, ill appearing, obese Eyes: PERRLA, Conjunctiva & lids normal, EOMI, anicteric ENT: Atraumatic, very dry MM, Pharynx Normal, poor dentition Neck: Supple, no JVD Chest: CTAB, diminished but otherwise clear Heart: Rate Normal, Regular Rhythm, Normal S1, Normal S2, no noted m/r/g Abdomen: Normal bowel sounds, soft, NTND Extremities: no LE edema, WWP Neuro: no facial droops, moving all extremities Psych: AOx1 to self, responds to her name Labs and Imaging: summarized above, see below for details Assessment: 80 year old W with Dementia, resident of [facility], with a history of hypertension, IDDM, HLD and chronic tena catheter who was brought into the ED for noted fever at [facility] with recent CBC earlier today showing leukocytosis to WBC 26 and now admitted for sepsis 2/2 ongoing CAUTI. CAUTI with sepsis HR > 90, WBC> 12 Lactate> 1 -blood cultures sent. -will switch from ceftriaxone to zosyn given recent pseudomonas in urine -thus far hypertensive, MAP goal >65 -exchange for new tena catheter Hypertension: BP relatively soft compared to baseline at this point -hold lisinopril, clonidine and metoprolol -hold loop diuretics Diabetes -continue levemir and add lispro SSI AC/HS -FSBG AC/HS -hypoglycemia protocol Paroxysmal Afib/ aflutter -continue home eliquis and metoprolol COPD -continue home symbicort, spiriva, albuterol prn mdis Chronic diastolic CHF -not fluid overloaded -will hold lasix i/s/o sepsis HLD -continue home lipitor Psoriasis/Psoriatic arthritis -cont home prednisone Chronic pain syndrome -continue home gabapentin, cymbalta, morphine Depression/ Neurotic excoriations -continue amitriptyline DVT ppx: eliquis Dispo: expect her to be hospitalized for >48h Vital Signs Vital Signs Date Time Temp Pulse Resp B/P (MAP) Pulse Ox O2 Delivery O2 Flow Rate FiO2 09/01/20 13:05 88 09/01/20 12:50 92 Room Air 09/01/20 12:45 166/70 (102) 09/01/20 11:19 103.2 24 Laboratory Data Labs 24H Laboratory Tests 2 09/01/20 11:35: Immature Granulocyte % (Auto) 1.0, Neutrophils (%) (Auto) 89.5H, Lymphocytes (%) (Auto) 4.0L, Monocytes (%) (Auto) 5.2H, Eosinophils (%) (Auto) 0.0, Basophils (%) (Auto) 0.3, Neutrophils # (Auto) 27.6H, Lymphocytes # (Auto) 1.2L, Monocytes # (Auto) 1.6H, Eosinophils # (Auto) 0.0, Basophils # (Auto) 0.1, Nucleated Red Blood Cells % (auto) 0.0, Prothrombin Time 18.3H, Prothromb Time International Ratio 1.49, Activated Partial Thromboplast Time 48.0H, Anion Gap 8, Glomerular Filtration Rate > 60.0, Lactic Acid Level 2.8*H, Calcium Level 9.2, Total Bilirubin 0.6, Aspartate Amino Transf (AST/SGOT) 8, Alanine Aminotransferase (ALT/SGPT) 13, Alkaline Phosphatase 84, Total Creatine Kinase 46, Creatine Kinase MB < 1.0, Creatine Kinase MB Relative Index 2.17, Troponin I 0.11H, Total Protein 6.7, Albumin 2.7L, Albumin/Globulin Ratio 0.7L 09/01/20 12:17: Urine Color YELLOW, Urine Appearance CLOUDYH, Urine pH 5.0, Urine Specific [place] 1.015, Urine Protein 1+H, Urine Glucose (UA) NEGATIVE, Urine Ketones NEGATIVE, Urine Blood 3+H, Urine Nitrite POSITIVEH, Urine Bilirubin NEGATIVE, Urine Urobilinogen 0.2, Urine Leukocyte Esterase 3+H, Urine WBC (Auto) TNTCH, Urine RBC (Auto) TNTCH, Urine Hyaline Casts (Auto) 0, Urine Bacteria (Auto) 3+H, Urine Squamous Epithelial Cells 1, Urine Transitional Epithelial Cells 1, Urine Mucus (Auto) SMALL, Urine Yeast-Like Cells (Auto) SMALLH, Urine Sperm (Auto) CBC/BMP Laboratory Tests 09/01/20 11:35 Microbiology Microbiology 09/01/20 Urine Culture, Received Pending 09/01/20 Respiratory Virus Panel (PCR) (JACINDA) - Final, Complete 09/01/20 Blood Culture, Received Pending 09/01/20 Blood Culture, Received Pending Home Medications Scheduled Amitriptyline HCl (Amitriptyline HCl) 50 Mg Tablet, 50 MG PO QHS Apixaban (Eliquis) 5 Mg Tablet, 5 MG PO BID Aspirin (Aspirin EC) 81 Mg Tablet.dr, 162 MG PO DAILY Atorvastatin Calcium (Atorvastatin Calcium) 20 Mg Tablet, 20 MG PO QHS Budesonide/Formoterol (Symbicort 160-4.5 Mcg Inhaler) 6 Gm Hfa.aer.ad, 2 PUFF INH BID Cyclosporine (Restasis Multidose) 5.5 Ml Drops, 1 DROP OU BID Diclofenac Sodium (Voltaren) 100 Gm Gel..gram., 1 GRAM TOP BID APPLY TO BILATERAL KNEES Dulaglutide (Trulicity) 0.75 Mg/0.5 Ml Pen.injctr, 0.75 MG SC QWEEK FR[place] Duloxetine Hcl (Cymbalta) 30 Mg Capsule.dr, 30 MG PO 5XW BID ON MON, MON, , , MON Furosemide (Furosemide) 40 Mg Tablet, 40 MG PO BID 0800 & 1330 Gabapentin (Gabapentin) 800 Mg Tablet, 800 MG PO BID Insulin Detemir (Levemir) 100 Unit/1 Ml Vial, 22 UNITS SC QAM Insulin Detemir (Levemir) 100 Unit/1 Ml Vial, 15 UNITS SC QHS Lisinopril (Lisinopril) 40 Mg Tablet, 40 MG PO DAILY Metoprolol Tartrate (Metoprolol Tartrate) 25 Mg Tablet, 25 MG PO TID HOLD FOR AP<60, SBP<130 Morphine Sulfate (Morphine Sulfate ER) 30 Mg Tablet.er, 30 MG PO BID Potassium Chloride (Potassium Chloride) 20 Meq Tab.er.prt, 40 MEQ PO QAM Potassium Chloride (Potassium Chloride) 20 Meq Tab.er.prt, 20 MEQ PO DAILY TAKES AT 1300 Prednisone (Prednisone) 5 Mg Tablet, 7.5 MG PO Q2D TAKES AT 1300 Prednisone (Prednisone) 5 Mg Tablet, 5 MG PO Q2D TAKES AT 1300 Sennosides/Docusate Sodium (Senokot-S Tablet) 1 Each Tablet, 1 TAB PO BID Tiotropium [place] Monohydrate (Spiriva) 18 Mcg Cap.w.dev, 18 MCG INH DAILY Scheduled PRN Acetaminophen (Acetaminophen) 325 Mg Tablet, 650 MG PO Q4H PRN for PAIN Albuterol Sulf (Albuterol Sulfate) 2.5 Mg/3 Ml Vial.neb, 2.5 MG INH Q2H PRN for SOB/WHEEZING Bisacodyl (Dulcolax) 10 Mg Supp.rect, 10 MG IA DAILY PRN for CONSTIPATION Clonidine Hcl (Clonidine HCl) 0.1 Mg Tablet, 0.1 MG PO DAILY PRN for HYPERTENSION GIVE IF SBP IS ABOVE 190 OR HR ABOVE 90 Diclofenac Sodium (Voltaren) 100 Gm Gel..gram., 1 GRAM TOP Q4H PRN for PAIN APPLY TO BILATERAL KNEES Magnesium Hydroxide (Milk of Magnesia) 400 Mg/5 Ml Oral.susp, 30 ML PO DAILY PRN for CONSTIPATION Sodium Phosphate,Coos-Dibasic (Enema) 133 Ml Enema, 1 PRIMO IA DAILY PRN for CONSTIPATION Allergies Coded Allergies: hydroxyzine (Verified Allergy, Unknown, 05/20/20) A-FIB/CHADSVASC A-FIB History Current/History of A-Fib/PAF?: Yes Current PO Anticoag Therapy: Yes Treatment Treatment ordered: Apixaban ZOHREH HAYWARD MD Sep 01, 2020 14:38
[2020-09-01] MEDS ORDERED: NS 1,000 ML IV ONE ×2 (17:45→18:30)
[2020-09-01] MEDS: SYMBICORT 160/4.5MCG INHALER 6GM INH SCH (19:43)
[2020-09-01] MEDS: MORPHINE 30 MG SA TAB PO SCH (20:45)
[2020-09-02 03:34] VITALS: BP 118/58
[2020-09-02] MEDS: APIXABAN 5 MG TAB (ELIQUIS) PO SCH ×3 (03:34→21:52)
[2020-09-02] MEDS: SENOKOT S TAB PO SCH ×3 (03:34→21:51)
[2020-09-02] MEDS: LEVEMIR (INSULIN DETEMIR) 1 UNITS/0.01ML SC SCH ×3 (03:34→21:51)
[2020-09-02] MEDS: GABAPENTIN 400MG CAP PO SCH ×3 (03:34→21:52)
[2020-09-02] MEDS: HumaLOG INSULIN (NovoLOG) PER UNIT SC SCH ×6 (03:34→21:00)
[2020-09-02] MEDS: AMITRIPTYLINE 50 MG TAB PO SCH ×2 (03:34→21:51)
[2020-09-02] MEDS: DULoxetine 30 MG CAP (CYMBALTA) PO SCH (03:34)
[2020-09-02] MEDS: ATORVASTATIN 20 MG TAB PO SCH ×2 (03:34→21:51)
[2020-09-02] MEDS: PIPERACILLIN/TAZOBACTAM SOD 4.5 GM in D5W MINI-BAG PLUS 50 ML IV SCH ×5 (03:34→21:50)
[2020-09-02] MEDS: NS 1,000 ML IV SCH ×3 (03:59→21:50)
--- NOTE | 2020-09-02 05:40 | ECGEPIP ---
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
[2020-09-02 06:53] LABS: ALBUMIN 1.9 GM/DL (3.2-5.2); BILIRUBIN,TOTAL 0.3 MG/DL (0.2-1.0); CALCIUM LEVEL 8.6 MG/DL (8.8-10.2); CREATININE FOR GFR 1.3 MG/DL (0.55-1.30); GLOMERULAR FILTRATION RATE 41.9 (>32); MAGNESIUM LEVEL 0.3 MG/DL (1.8-2.4); POTASSIUM SERUM 3.8 MEQ/L (3.5-5.1); TOTAL PROTEIN 6.5 GM/DL (6.4-8.2)
[2020-09-02] MEDS ORDERED: MAGNESIUM *L&D* 4GM/100ML BAG (40MG/ML) IV ONE (07:45)
[2020-09-02] MEDS: predniSONE 2.5 MG TAB PO SCH (07:49)
[2020-09-02] MEDS: ASPIRIN 81 MG ENTERIC TAB PO SCH ×2 (07:49→09:00)
[2020-09-02 07:55] LABS: HEMATOCRIT 32.8 % (36.0-47.0); MEAN CORPUSCULAR HEMOGLOBIN 23.3 pg (27.0-33.0); MEAN CORPUSCULAR VOLUME 80.4 fl (80.0-96.0); PLATELET COUNT, AUTOMATED 236 10^3/uL (150-450); RED BLOOD COUNT 4.08 10^6/uL (4.00-5.40)
[2020-09-02] MEDS: MAG SULF 1GM/100ML (MAG RUN) 1 GM in IV 1 EA IV SCH ×3 (07:55→10:09)
[2020-09-02 08:00] VITALS: BP 148/73
[2020-09-02 08:03] LABS: HEMOGLOBIN 9.5 g/dl (12.0-15.5)
[2020-09-02] MEDS ORDERED: lisinopriL 40 MG TAB PO SCH (09:00)
[2020-09-02] MEDS: predniSONE 5 MG TAB PO SCH (09:00)
[2020-09-02] MEDS: ACETAMINOPHEN TAB 650MG DOSE (2X325MG) PO PRN (09:01)
[2020-09-02] MEDS: MORPHINE 30 MG SA TAB PO SCH ×2 (09:05→21:51)
[2020-09-02] MEDS: SYMBICORT 160/4.5MCG INHALER 6GM INH SCH ×2 (10:00→20:00)
[2020-09-02] MEDS: TIOTROPIUM INHALER/CAPSULE (SPIRIVA) INH SCH (10:00)
[2020-09-02 12:00] VITALS: BP 144/72
[2020-09-02 13:04] LABS: BLOOD UREA NITROGEN 20 MG/DL (7-18); CALCIUM LEVEL 8.5 MG/DL (8.8-10.2); CARBON DIOXIDE LEVEL 29 MEQ/L (21-32); CHLORIDE LEVEL 101 MEQ/L (98-107); CREATININE FOR GFR 0.91 MG/DL (0.55-1.30); GLOMERULAR FILTRATION RATE > 60.0 (>32); GLUCOSE, FASTING 232 MG/DL (70-100); MAGNESIUM LEVEL 2.4 MG/DL (1.8-2.4); POTASSIUM SERUM 3.3 MEQ/L (3.5-5.1); SODIUM LEVEL 137 MEQ/L (136-145)
--- NOTE | 2020-09-02 14:27 | IPNPDOC ---
Text Note Date of Service The patient was seen on 09/02/20. NOTE SUBJECTIVE: -Still remains lethargic, denies any pain, minimally verbal, now on 2L NC OBJECTIVE: General: Ill appearing, lethargic, obese Eyes: Conjunctiva & lids normal, EOMI, anicteric ENT: Atraumatic, continues to have dry MM, Pharynx Normal, poor dentition Neck: Supple, no JVD Chest: diminished with bibasilar crackles this morning, on 2L NC Heart: Rate Normal, Regular Rhythm, Normal S1, Normal S2, no noted m/r/g Abdomen: Normal bowel sounds, soft, NTND Extremities: no LE edema, WWP Neuro: no facial droops, moving all extremities Psych: AOx1 to self Labs: Reviewed. AM CBC pending Cr 1.3 Na 131 K 3.8 Mag 0.3 (repleted) Assessment: 80 year old W with Dementia, resident of [facility], with a history of hypertension, IDDM, HLD and chronic tena catheter who was brought into the ED for noted fever at [facility] with recent CBC earlier today showing leukocytosis to WBC 26 and now admitted for sepsis 2/2 ongoing CAUTI. CAUTI with severe sepsis HR > 90, WBC> 12 Lactate> 1 -blood cultures sent, f/u -Day 2 of zosyn given recent pseudomonas in urine -MAP goal >65 -exchanged tena catheter in the ED Hypertension: was hypotensive yesterday i/s/o severe sepsis, holding all BP meds -hold lisinopril, clonidine and metoprolol -hold loop diuretics Hypoxemia i/s/o fluid resuscitation for severe sepsis -on 2L NC, will tolerate until sepsis resolves and will resume diuretics ther eafter Diabetes -continue levemir and add lispro SSI AC/HS -FSBG AC/HS -hypoglycemia protocol Paroxysmal Afib/ aflutter -continue home eliquis and metoprolol COPD -continue home symbicort, spiriva, albuterol prn mdis Acute on chronic diastolic CHF -mild fluid overloaded i/s/o fluid rescuscitation for severe sepsis while holding baseline diuretics -will hold lasix i/s/o sepsis, and resume diuretics when sepsis resolves HLD -continue home lipitor Psoriasis/Psoriatic arthritis -cont home prednisone Chronic pain syndrome -continue home gabapentin, cymbalta, morphine Depression/ Neurotic excoriations -continue amitriptyline DVT ppx: eliquis Dispo: expect her to be hospitalized for >48h VSCj, I+O VSCj, I+O Laboratory Tests 09/01/20 11:35 09/02/20 06:02 Vital Signs Date Time Temp Pulse Resp B/P (MAP) Pulse Ox O2 Delivery O2 Flow Rate FiO2 09/02/20 03:46 95 09/02/20 03:34 98.2 20 118/58 (78) 100 Nasal Cannula 2.0 I&O- Last 24 Hours up to 6 AM 09/02/20 06:00 Intake Total 2000 ml Balance 2000 ml ZOHREH HAYWARD MD Sep 02, 2020 07:54
[2020-09-02] MEDS: KCL 10MEQ/100ML SWI (KRUN) 10 MEQ in IV 1 EA IV SCH ×4 (15:52→19:43)
[2020-09-02 16:00] VITALS: BP 131/60
[2020-09-02 20:00] VITALS: BP 146/67
[2020-09-03] VITALS: BP 135/63
[2020-09-03 04:00] VITALS: BP 140/64
[2020-09-03] MEDS: PIPERACILLIN/TAZOBACTAM SOD 4.5 GM in D5W MINI-BAG PLUS 50 ML IV SCH ×4 (04:29→21:49)
[2020-09-03 06:52] LABS: HEMOGLOBIN 8.5 g/dl (12.0-15.5); MEAN CORPUSCULAR HGB CONC 28.3 g/dl (32.0-36.5); MEAN CORPUSCULAR VOLUME 81.1 fl (80.0-96.0); PLATELET COUNT, AUTOMATED 229 10^3/uL (150-450); WHITE BLOOD COUNT 9.7 10^3/uL (4.0-10.0)
[2020-09-03 07:23] LABS: ALT/SGPT 15 U/L (12-78); BILIRUBIN,TOTAL 0.2 MG/DL (0.2-1.0); BLOOD UREA NITROGEN 17 MG/DL (7-18); CALCIUM LEVEL 8.3 MG/DL (8.8-10.2); CARBON DIOXIDE LEVEL 30 MEQ/L (21-32); CHLORIDE LEVEL 103 MEQ/L (98-107); CREATININE FOR GFR 0.75 MG/DL (0.55-1.30); GLOMERULAR FILTRATION RATE > 60.0 (>32); GLUCOSE, FASTING 161 MG/DL (70-100); POTASSIUM SERUM 3.6 MEQ/L (3.5-5.1); SODIUM LEVEL 140 MEQ/L (136-145); TOTAL PROTEIN 5.5 GM/DL (6.4-8.2)
[2020-09-03 08:00] VITALS: BP 148/62
[2020-09-03] MEDS: SYMBICORT 160/4.5MCG INHALER 6GM INH SCH ×2 (08:14→20:00)
[2020-09-03] MEDS: TIOTROPIUM INHALER/CAPSULE (SPIRIVA) INH SCH (08:14)
[2020-09-03] MEDS: LEVEMIR (INSULIN DETEMIR) 1 UNITS/0.01ML SC SCH ×2 (09:31→21:00)
[2020-09-03] MEDS: DULoxetine 30 MG CAP (CYMBALTA) PO SCH ×2 (09:32→21:48)
[2020-09-03] MEDS: HumaLOG INSULIN (NovoLOG) PER UNIT SC SCH ×4 (09:32→21:00)
[2020-09-03] MEDS: GABAPENTIN 400MG CAP PO SCH ×2 (09:33→21:48)
[2020-09-03] MEDS: SENOKOT S TAB PO SCH ×2 (09:33→21:47)
[2020-09-03] MEDS: predniSONE 2.5 MG TAB PO SCH (09:33)
[2020-09-03] MEDS: APIXABAN 5 MG TAB (ELIQUIS) PO SCH ×2 (09:33→21:48)
[2020-09-03] MEDS: MORPHINE 30 MG SA TAB PO SCH ×2 (09:35→21:00)
[2020-09-03] MEDS: ASPIRIN 81 MG ENTERIC TAB PO SCH (09:41)
--- NOTE | 2020-09-03 12:42 | IPNPDOC ---
Text Note Date of Service The patient was seen on 09/03/20. NOTE SUBJECTIVE: -Much more awake this morning OBJECTIVE: General: Ill appearing, lethargic, obese Eyes: Conjunctiva & lids normal, EOMI, anicteric ENT: Atraumatic, continues to have dry MM, Pharynx Normal, poor dentition Neck: Supple, no JVD Chest: diminished with bibasilar crackles this morning, on 2L NC Heart: Rate Normal, Regular Rhythm, Normal S1, Normal S2, no noted m/r/g Abdomen: Normal bowel sounds, soft, NTND Extremities: no LE edema, WWP Neuro: no facial droops, moving all extremities Psych: AOx1 to self Labs: Reviewed. WBC downtrended to 9.76 hgb 8.5 Cr 0.75 Na 140 K 3.6 Assessment: 80 year old W with Dementia, resident of [facility], with a history of hypertension, IDDM, HLD and chronic tena catheter who was brought into the ED for noted fever at [facility] with recent CBC earlier today showing leukocytosis to WBC 26 and now admitted for sepsis 2/2 ongoing CAUTI. CAUTI with severe sepsis HR > 90, WBC> 12 Lactate> 1 -blood cultures sent -growing ESBL and E.fecalis -Day 3 of zosyn -MAP goal >65 -exchanged tena catheter in the ED Hypertension: was hypotensive yesterday i/s/o severe sepsis, holding all BP meds -hold lisinopril, clonidine and metoprolol -hold loop diuretics Hypoxemia i/s/o fluid resuscitation for severe sepsis -on 2L NC, will tolerate for now until sepsis resolves and will resume diuretics thereafter Diabetes -continue levemir and add lispro SSI AC/HS -FSBG AC/HS -hypoglycemia protocol Paroxysmal Afib/ aflutter -continue home eliquis and metoprolol COPD -continue home symbicort, spiriva, albuterol prn mdis Acute on chronic diastolic CHF -mild fluid overloaded i/s/o fluid rescuscitation for severe sepsis while holding baseline diuretics -will hold lasix i/s/o sepsis, and resume diuretics when sepsis resolves HLD -continue home lipitor Psoriasis/Psoriatic arthritis -cont home prednisone Chronic pain syndrome -continue home gabapentin, cymbalta, morphine Depression/ Neurotic excoriations -continue amitriptyline DVT ppx: eliquis Dispo: expect her to be hospitalized for >48h VS,Fishbone, I+O VS, Fishbone, I+O Laboratory Tests 09/03/20 06:25 Vital Signs Date Time Temp Pulse Resp B/P (MAP) Pulse Ox O2 Delivery O2 Flow Rate FiO2 09/03/20 09:35 18 09/03/20 08:00 97.8 93 148/62 (90) 97 Room Air 09/02/20 20:00 2.0 I&O- Last 24 Hours up to 6 AM 09/03/20 06:00 Intake Total 710 ml Output Total 1650 ml Balance -940 ml ZOHREH HAYWARD MD Sep 03, 2020 12:42
[2020-09-03] MEDS: POTASSIUM CHLORIDE 10 MEQ SR TABLET PO SCH (12:43)
[2020-09-03 16:18] VITALS: BP 156/68
--- NOTE | 2020-09-03 18:55 | REP ---
INDICATION: swelling and pain. COMPARISON: None. TECHNIQUE: Left lower extremity duplex venous ultrasound. FINDINGS: The deep veins are anechoic and fully compressible from the groin to the popliteal fossa in the left lower extremity. Color flow imaging is homogeneous. Spectral Doppler interrogation demonstrates intact respiratory variation in flow and normal manual augmentation of flow. There is no evidence of deep vein thrombosis. IMPRESSION: Negative left lower extremity duplex venous ultrasound. No evidence of deep vein thrombosis. <Electronically signed by Gordy Ward > 09/03/20 [id number]
[2020-09-03] MEDS: AMITRIPTYLINE 50 MG TAB PO SCH (21:47)
[2020-09-03] MEDS: ATORVASTATIN 20 MG TAB PO SCH (21:48)
[2020-09-03] MEDS: ACETAMINOPHEN TAB 650MG DOSE (2X325MG) PO PRN (21:53)
[2020-09-03 22:00] VITALS: BP 154/70
[2020-09-04] MEDS: PIPERACILLIN/TAZOBACTAM SOD 4.5 GM in D5W MINI-BAG PLUS 50 ML IV SCH ×4 (04:47→22:05)
[2020-09-04 06:00] VITALS: BP 148/78
[2020-09-04 07:07] LABS: HEMATOCRIT 28.7 % (36.0-47.0); MEAN CORPUSCULAR HEMOGLOBIN 22.8 pg (27.0-33.0); MEAN CORPUSCULAR HGB CONC 27.9 g/dl (32.0-36.5); MEAN CORPUSCULAR VOLUME 81.8 fl (80.0-96.0); PLATELET COUNT, AUTOMATED 200 10^3/uL (150-450); RED BLOOD COUNT 3.51 10^6/uL (4.00-5.40)
[2020-09-04] MEDS: SYMBICORT 160/4.5MCG INHALER 6GM INH SCH ×2 (07:29→20:00)
[2020-09-04] MEDS: TIOTROPIUM INHALER/CAPSULE (SPIRIVA) INH SCH (07:29)
[2020-09-04 07:33] LABS: ALBUMIN 2.1 GM/DL (3.2-5.2); ALT/SGPT 15 U/L (12-78); BILIRUBIN,TOTAL 0.3 MG/DL (0.2-1.0); BLOOD UREA NITROGEN 10 MG/DL (7-18); CALCIUM LEVEL 8.2 MG/DL (8.8-10.2); CARBON DIOXIDE LEVEL 30 MEQ/L (21-32); CHLORIDE LEVEL 103 MEQ/L (98-107); CREATININE FOR GFR 0.65 MG/DL (0.55-1.30); GLOMERULAR FILTRATION RATE > 60.0 (>32); GLUCOSE, FASTING 106 MG/DL (70-100); POTASSIUM SERUM 3.6 MEQ/L (3.5-5.1); SODIUM LEVEL 141 MEQ/L (136-145); TOTAL PROTEIN 5.7 GM/DL (6.4-8.2)
[2020-09-04] MEDS: LEVEMIR (INSULIN DETEMIR) 1 UNITS/0.01ML SC SCH ×2 (08:48→21:00)
[2020-09-04] MEDS: HumaLOG INSULIN (NovoLOG) PER UNIT SC SCH ×4 (08:49→21:00)
[2020-09-04] MEDS: MORPHINE 30 MG SA TAB PO SCH ×2 (08:49→22:07)
[2020-09-04] MEDS: POTASSIUM CHLORIDE 10 MEQ SR TABLET PO SCH (08:50)
[2020-09-04] MEDS: SENOKOT S TAB PO SCH ×2 (08:50→22:05)
[2020-09-04] MEDS: GABAPENTIN 400MG CAP PO SCH ×2 (08:50→22:05)
[2020-09-04] MEDS: predniSONE 5 MG TAB PO SCH (08:50)
[2020-09-04] MEDS: APIXABAN 5 MG TAB (ELIQUIS) PO SCH ×2 (08:50→22:05)
[2020-09-04] MEDS: DULoxetine 30 MG CAP (CYMBALTA) PO SCH ×2 (08:50→22:05)
[2020-09-04] MEDS: ASPIRIN 81 MG ENTERIC TAB PO SCH (08:50)
[2020-09-04 14:00] VITALS: BP 161/64
--- NOTE | 2020-09-04 14:12 | IPNPDOC ---
Text Note Date of Service The patient was seen on 09/04/20. NOTE SUBJECTIVE: -Awake, conversational, reports that her legs hurt. OBJECTIVE: General: NAD, obese, awake, alert Eyes: Conjunctiva & lids normal, EOMI, anicteric ENT: Atraumatic, continues to have dry MM, Pharynx Normal, poor dentition Neck: Supple, no JVD Chest: Much improved air movement with bibasilar crackles this morning, on room air Heart: Rate Normal, Regular Rhythm, Normal S1, Normal S2, no noted m/r/g Abdomen: Normal bowel sounds, soft, NTND Extremities: no LE edema, WWP Neuro: no facial droops, moving all extremities Psych: AOx1 to self Labs: Reviewed. Assessment: 80 year old W with Dementia, resident of [facility], with a history of hypertension, IDDM, HLD and chronic tena catheter who was brought into the ED for noted fever at [facility] with recent CBC earlier today showing leukocytosis to WBC 26 and now admitted for sepsis 2/2 ongoing CAUTI. CAUTI with severe sepsis HR > 90, WBC> 12 Lactate> 1 -blood cultures sent -growing ESBL and E.fecalis -Day 5 of zosyn -MAP goal >65 -exchanged tena catheter in the ED LLE cellulits: -MRSA negative -On zosyn, improved erythema Hypertension: was hypotensive yesterday i/s/o severe sepsis, holding all BP meds -hold lisinopril, clonidine and metoprolol -hold loop diuretics Hypoxemia i/s/o fluid resuscitation for severe sepsis: resolved Diabetes -continue levemir and add lispro SSI AC/HS -FSBG AC/HS -hypoglycemia protocol Paroxysmal Afib/ aflutter -continue home eliquis and metoprolol COPD -continue home symbicort, spiriva, albuterol prn mdis Acute on chronic diastolic CHF -mild fluid overloaded i/s/o fluid rescuscitation for severe sepsis while holding baseline diuretics -will hold lasix i/s/o sepsis, and resume diuretics when sepsis resolves HLD -continue home lipitor Psoriasis/Psoriatic arthritis -cont home prednisone Chronic pain syndrome -continue home gabapentin, cymbalta, morphine Depression/ Neurotic excoriations -continue amitriptyline DVT ppx: eliquis Dispo: expect her to be hospitalized for >48h VSCj, I+O VS, Fishbone, I+O Laboratory Tests 09/04/20 06:45 Vital Signs Date Time Temp Pulse Resp B/P (MAP) Pulse Ox O2 Delivery O2 Flow Rate FiO2 09/04/20 08:49 20 09/04/20 06:00 97.7 96 148/78 (101) 95 Room Air 09/02/20 20:00 2.0 I&O- Last 24 Hours up to 6 AM 09/04/20 06:00 Intake Total 1960 ml Output Total 1025 ml Balance 935 ml ZOHREH HAYWARD MD Sep 04, 2020 14:12
[2020-09-04] MEDS: NYSTATIN 100,000 UNITS/GM TOPICAL PWD 15 GM TOP SCH ×2 (16:11→22:04)
[2020-09-04 22:00] VITALS: BP 167/79
[2020-09-04] MEDS: AMITRIPTYLINE 50 MG TAB PO SCH (22:05)
[2020-09-04] MEDS: ATORVASTATIN 20 MG TAB PO SCH (22:05)
[2020-09-05] MEDS: PIPERACILLIN/TAZOBACTAM SOD 4.5 GM in D5W MINI-BAG PLUS 50 ML IV SCH ×3 (04:43→16:00)
[2020-09-05 06:00] VITALS: BP 158/81
[2020-09-05 06:53] LABS: HEMATOCRIT 28.6 % (36.0-47.0); MEAN CORPUSCULAR HEMOGLOBIN 22.7 pg (27.0-33.0); MEAN CORPUSCULAR VOLUME 81.3 fl (80.0-96.0); PLATELET COUNT, AUTOMATED 185 10^3/uL (150-450); RED BLOOD COUNT 3.52 10^6/uL (4.00-5.40); WHITE BLOOD COUNT 5.2 10^3/uL (4.0-10.0)
[2020-09-05 07:22] LABS: ALT/SGPT 14 U/L (12-78); BILIRUBIN,TOTAL 0.2 MG/DL (0.2-1.0); BLOOD UREA NITROGEN 7 MG/DL (7-18); CALCIUM LEVEL 8.2 MG/DL (8.8-10.2); CARBON DIOXIDE LEVEL 31 MEQ/L (21-32); CHLORIDE LEVEL 103 MEQ/L (98-107); CREATININE FOR GFR 0.49 MG/DL (0.55-1.30); GLOMERULAR FILTRATION RATE > 60.0 (>32); GLUCOSE, FASTING 83 MG/DL (70-100); POTASSIUM SERUM 3.5 MEQ/L (3.5-5.1); SODIUM LEVEL 140 MEQ/L (136-145); TOTAL PROTEIN 5.7 GM/DL (6.4-8.2)
[2020-09-05] MEDS: TIOTROPIUM INHALER/CAPSULE (SPIRIVA) INH SCH (07:30)
[2020-09-05] MEDS: SYMBICORT 160/4.5MCG INHALER 6GM INH SCH ×2 (07:30→20:23)
[2020-09-05] MEDS: HumaLOG INSULIN (NovoLOG) PER UNIT SC SCH ×4 (07:30→20:49)
[2020-09-05] MEDS: ASPIRIN 81 MG ENTERIC TAB PO SCH (09:38)
[2020-09-05] MEDS: predniSONE 2.5 MG TAB PO SCH (09:38)
[2020-09-05] MEDS: SENOKOT S TAB PO SCH ×2 (09:38→21:15)
[2020-09-05] MEDS: GABAPENTIN 400MG CAP PO SCH ×2 (09:38→21:15)
[2020-09-05] MEDS: APIXABAN 5 MG TAB (ELIQUIS) PO SCH ×2 (09:38→21:15)
[2020-09-05] MEDS: LEVEMIR (INSULIN DETEMIR) 1 UNITS/0.01ML SC SCH ×2 (09:39→21:16)
[2020-09-05] MEDS: NYSTATIN 100,000 UNITS/GM TOPICAL PWD 15 GM TOP SCH ×2 (09:39→21:16)
[2020-09-05] MEDS: MORPHINE 30 MG SA TAB PO SCH ×2 (09:45→21:15)
[2020-09-05] MEDS: FUROSEMIDE 40 MG TAB PO SCH ×2 (09:46→16:56)
--- NOTE | 2020-09-05 11:53 | IPNPDOC ---
Text Note Date of Service The patient was seen on 09/05/20. NOTE SUBJECTIVE: -Awake, conversational OBJECTIVE: General: NAD, obese, awake, alert Eyes: Conjunctiva & lids normal, EOMI, anicteric ENT: Atraumatic, continues to have dry MM, Pharynx Normal, poor dentition Neck: Supple, no JVD Chest: Much improved air movement with bibasilar crackles this morning, on room air Heart: Rate Normal, Regular Rhythm, Normal S1, Normal S2, no noted m/r/g Abdomen: Normal bowel sounds, soft, NTND Extremities: 2+ LE edema, WWP, with some scabby wounds and a large R heel discolored likely pressure ulcer, in boots. LLE erythematous border has receded well. Neuro: no facial droops, moving all extremities Psych: AOx3 Labs: Reviewed. Assessment: 80 year old W with Dementia, resident of [facility], with a history of hypertension, IDDM, HLD and chronic tena catheter who was brought into the ED for noted fever at [facility] with recent CBC earlier today showing leukocytosis to WBC 26 and now admitted for sepsis 2/2 ongoing CAUTI. CAUTI with severe sepsis HR > 90, WBC> 12 Lactate> 1 -blood cultures sent -growing ESBL and E.fecalis -Day 6 of zosyn -MAP goal >65 -exchanged tena catheter in the ED LLE cellulits: resolving -MRSA negative -On zosyn, improved erythema Hypertension: was hypotensive yesterday i/s/o severe sepsis, holding all BP meds -restart metoprolol -restart loop diuretics Hypoxemia i/s/o fluid resuscitation for severe sepsis: resolved Diabetes -continue levemir and add lispro SSI AC/HS -FSBG AC/HS -hypoglycemia protocol Paroxysmal Afib/ aflutter -continue home eliquis and metoprolol COPD -continue home symbicort, spiriva, albuterol prn mdis Acute on chronic diastolic CHF -mild fluid overloaded i/s/o fluid rescuscitation for severe sepsis while holding baseline diuretics -will resume home lasix now that sepsis has resolved HLD -continue home lipitor Psoriasis/Psoriatic arthritis -cont home prednisone Chronic pain syndrome -continue home gabapentin, cymbalta, morphine Depression/ Neurotic excoriations -continue amitriptyline DVT ppx: eliquis Dispo: expect her to be hospitalized for >48h VS,Fishbone, I+O VS, Fishbone, I+O Laboratory Tests 09/05/20 06:23 Vital Signs Date Time Temp Pulse Resp B/P (MAP) Pulse Ox O2 Delivery O2 Flow Rate FiO2 09/05/20 06:00 98.0 76 18 158/81 (106) 95 Room Air 09/02/20 20:00 2.0 I&O- Last 24 Hours up to 6 AM 09/05/20 06:00 Intake Total 1520 ml Output Total 475 ml Balance 1045 ml ZOHREH HAYWARD MD Sep 05, 2020 09:31
[2020-09-05] MEDS: POTASSIUM CHLORIDE 10 MEQ SR TABLET PO SCH (12:54)
[2020-09-05] MEDS: METOPROLOL TART 25 MG TABLET PO SCH ×2 (12:56→21:20)
[2020-09-05 14:00] VITALS: BP 127/98
[2020-09-05] MEDS: ACETAMINOPHEN TAB 650MG DOSE (2X325MG) PO PRN (18:15)
[2020-09-05] MEDS: AMITRIPTYLINE 50 MG TAB PO SCH (21:15)
[2020-09-05] MEDS: ATORVASTATIN 20 MG TAB PO SCH (21:15)
[2020-09-05 22:00] VITALS: BP 151/81
[2020-09-06] MEDS: METOPROLOL TART 25 MG TABLET PO SCH ×3 (05:38→22:17)
[2020-09-06 06:00] VITALS: BP 168/89
[2020-09-06 07:18] LABS: HEMATOCRIT 30.6 % (36.0-47.0); HEMOGLOBIN 8.8 g/dl (12.0-15.5); MEAN CORPUSCULAR HEMOGLOBIN 22.8 pg (27.0-33.0); MEAN CORPUSCULAR HGB CONC 28.8 g/dl (32.0-36.5); MEAN CORPUSCULAR VOLUME 79.3 fl (80.0-96.0); PLATELET COUNT, AUTOMATED 223 10^3/uL (150-450); RED BLOOD COUNT 3.86 10^6/uL (4.00-5.40); WHITE BLOOD COUNT 6.9 10^3/uL (4.0-10.0)
[2020-09-06] MEDS: HumaLOG INSULIN (NovoLOG) PER UNIT SC SCH ×4 (07:30→22:17)
[2020-09-06] MEDS: TIOTROPIUM INHALER/CAPSULE (SPIRIVA) INH SCH (07:54)
[2020-09-06] MEDS: SYMBICORT 160/4.5MCG INHALER 6GM INH SCH ×2 (07:54→20:17)
[2020-09-06 08:02] LABS: ALBUMIN 2.5 GM/DL (3.2-5.2); ALT/SGPT 16 U/L (12-78); BILIRUBIN,TOTAL 0.4 MG/DL (0.2-1.0); BLOOD UREA NITROGEN 7 MG/DL (7-18); CALCIUM LEVEL 8.5 MG/DL (8.8-10.2); CARBON DIOXIDE LEVEL 33 MEQ/L (21-32); CHLORIDE LEVEL 98 MEQ/L (98-107); CREATININE FOR GFR 0.54 MG/DL (0.55-1.30); GLOMERULAR FILTRATION RATE > 60.0 (>32); GLUCOSE, FASTING 69 MG/DL (70-100); POTASSIUM SERUM 3.3 MEQ/L (3.5-5.1); SODIUM LEVEL 136 MEQ/L (136-145); TOTAL PROTEIN 6.6 GM/DL (6.4-8.2)
[2020-09-06] MEDS: LEVEMIR (INSULIN DETEMIR) 1 UNITS/0.01ML SC SCH ×2 (08:45→22:17)
[2020-09-06] MEDS: MORPHINE 30 MG SA TAB PO SCH ×2 (08:45→22:18)
[2020-09-06] MEDS: DULoxetine 30 MG CAP (CYMBALTA) PO SCH ×2 (08:49→22:16)
[2020-09-06] MEDS: FUROSEMIDE 40 MG TAB PO SCH ×2 (08:49→17:12)
[2020-09-06] MEDS: APIXABAN 5 MG TAB (ELIQUIS) PO SCH ×2 (08:49→22:16)
[2020-09-06] MEDS: SENOKOT S TAB PO SCH ×2 (08:49→22:16)
[2020-09-06] MEDS: GABAPENTIN 400MG CAP PO SCH ×2 (08:49→22:16)
[2020-09-06] MEDS: ASPIRIN 81 MG ENTERIC TAB PO SCH (08:49)
[2020-09-06] MEDS: POTASSIUM CHLORIDE 10 MEQ SR TABLET PO SCH ×2 (08:50→12:24)
[2020-09-06] MEDS: NYSTATIN 100,000 UNITS/GM TOPICAL PWD 15 GM TOP SCH ×2 (08:50→22:19)
[2020-09-06] MEDS: predniSONE 5 MG TAB PO SCH (08:56)
[2020-09-06] MEDS: oxyCODONE 5MG TAB PO PRN (10:30)
--- NOTE | 2020-09-06 11:04 | IPNPDOC ---
Text Note Date of Service The patient was seen on 09/06/20. NOTE SUBJECTIVE: -Awake, conversational, doing well this morning. OBJECTIVE: General: NAD, obese, awake, alert Eyes: Conjunctiva & lids normal, EOMI, anicteric ENT: Atraumatic, continues to have dry MM, Pharynx Normal, poor dentition Neck: Supple, no JVD Chest: Much improved air movement with bibasilar crackles this morning, on room air Heart: Rate Normal, Regular Rhythm, Normal S1, Normal S2, no noted m/r/g Abdomen: Normal bowel sounds, soft, NTND Extremities: 2+ LE edema, WWP, with some scabby wounds and a large R heel discolored likely pressure ulcer, in boots. LLE erythematous border has receded well. Neuro: no facial droops, moving all extremities Psych: AOx3 Labs: Reviewed. Assessment: 80 year old W with Dementia, resident of [facility], with a history of hypertension, IDDM, HLD and chronic tena catheter who was brought into the ED for noted fever at [facility] with recent CBC earlier today showing leukocytosis to WBC 26 and now admitted for sepsis 2/2 ongoing CAUTI. CAUTI with severe sepsis HR > 90, WBC> 12 Lactate> 1 -blood cultures sent -growing ESBL and E.fecalis -Day completed 7d of zosyn on 09/05 -MAP goal >65 -exchanged tena catheter in the ED LLE cellulits: resolving -MRSA negative -s/p 7d of zosyn, much improved erythema Hypertension: was hypotensive yesterday i/s/o severe sepsis, holding all BP meds -restarted metoprolol -restarted loop diuretics Hypoxemia i/s/o fluid resuscitation for severe sepsis: resolved Diabetes -continue levemir and add lispro SSI AC/HS -FSBG AC/HS -hypoglycemia protocol Paroxysmal Afib/ aflutter -continue home eliquis and metoprolol COPD -continue home symbicort, spiriva, albuterol prn mdis Acute on chronic diastolic CHF -mild fluid overloaded i/s/o fluid rescuscitation for severe sepsis while holding baseline diuretics -will resume home lasix now that sepsis has resolved HLD -continue home lipitor Psoriasis/Psoriatic arthritis -cont home prednisone Chronic pain syndrome -continue home gabapentin, cymbalta, morphine Depression/ Neurotic excoriations -continue amitriptyline DVT ppx: eliquis Dispo: Likely to discharged tomorrow back to SNF VS,Fishbone, I+O VS, Fishbone, I+O Laboratory Tests 09/06/20 07:03 Vital Signs Date Time Temp Pulse Resp B/P (MAP) Pulse Ox O2 Delivery O2 Flow Rate FiO2 09/06/20 10:30 16 09/06/20 06:00 98.4 68 168/89 (115) 96 09/05/20 14:00 Room Air 09/02/20 20:00 2.0 I&O- Last 24 Hours up to 6 AM 09/06/20 06:00 Intake Total 1400 ml Output Total 2600 ml Balance -1200 ml ZOHREH HAYWARD MD Sep 06, 2020 11:04
[2020-09-06 14:00] VITALS: BP 171/71
[2020-09-06 22:00] VITALS: BP 161/90
[2020-09-06] MEDS: ATORVASTATIN 20 MG TAB PO SCH (22:16)
[2020-09-06] MEDS: AMITRIPTYLINE 50 MG TAB PO SCH (22:16)
[2020-09-07] MEDS: ACETAMINOPHEN TAB 650MG DOSE (2X325MG) PO PRN (04:31)
[2020-09-07 06:00] VITALS: BP 166/97
[2020-09-07 06:15] VITALS: BP 166/97
[2020-09-07] MEDS: METOPROLOL TART 25 MG TABLET PO SCH (06:15)
[2020-09-07] MEDS: oxyCODONE 5MG TAB PO PRN (06:18)
[2020-09-07] MEDS: TIOTROPIUM INHALER/CAPSULE (SPIRIVA) INH SCH (07:46)
[2020-09-07] MEDS: SYMBICORT 160/4.5MCG INHALER 6GM INH SCH (07:47)
[2020-09-07] MEDS: SENOKOT S TAB PO SCH (09:00)
[2020-09-07] MEDS: MORPHINE 30 MG SA TAB PO SCH (09:44)
[2020-09-07] MEDS: FUROSEMIDE 40 MG TAB PO SCH (09:45)
[2020-09-07] MEDS: HumaLOG INSULIN (NovoLOG) PER UNIT SC SCH ×2 (09:45→11:41)
[2020-09-07] MEDS: GABAPENTIN 400MG CAP PO SCH (09:46)
[2020-09-07] MEDS: LEVEMIR (INSULIN DETEMIR) 1 UNITS/0.01ML SC SCH (09:46)
[2020-09-07] MEDS: APIXABAN 5 MG TAB (ELIQUIS) PO SCH (09:46)
[2020-09-07] MEDS: predniSONE 2.5 MG TAB PO SCH (09:47)
[2020-09-07] MEDS: POTASSIUM CHLORIDE 10 MEQ SR TABLET PO SCH (09:47)
[2020-09-07] MEDS: NYSTATIN 100,000 UNITS/GM TOPICAL PWD 15 GM TOP SCH (09:48)
[2020-09-07] MEDS: ASPIRIN 81 MG ENTERIC TAB PO SCH (09:48)
[2020-09-07] MEDS: DULoxetine 30 MG CAP (CYMBALTA) PO SCH (09:48)
--- NOTE | 2020-09-07 18:39 | DS.PDOC ---
Discharge Summary General Date of Admission Sep 01, 2020 at 14:00 Date of Discharge 09/07/2020 Attending Physician: ZOHREH HAYWARD MD Discharge Summary PROCEDURES PERFORMED DURING STAY: None ADMITTING DIAGNOSES: Sepsis CAUTI DISCHARGE DIAGNOSES: Severe sepsis CAUTI Dementia A fib/flutter on NoAC Hypertension Diastolic CHF Dyslipidemia Insulin dependent diabetes Diabetic neuropathy Bronchiectasis COPD with chronic respiratory failure with hypoxia Coronary artery disease Gout Osteoporosis Psoriasis with psoriatic arthritis Neurodermatitis JOHN Morbid obesity Major depression Chronic pain syndrome opiate dependent, Multiple open wounds, pressure on R heel noted on admission COMPLICATIONS/CHIEF COMPLAINT: Sepsis/Uti. HISTORY OF PRESENT ILLNESS: 80 year old W with Dementia, resident of [facility], with a history of hypertension, IDDM, HLD and chronic tena catheter who was brought into the ED for noted fever at [facility] with recent CBC earlier that day having shown a leukocytosis to WBC 26. HOSPITAL COURSE: In the ED, she was febrile to 103.2, and otherwise hypertensive to SBP 180s, and breathing comfortably on room air. Work up in the ED was notable for leukocytosis to 30.8, stable anemia to hgb 9.6 per her recent baseline, platelets 345, Na 133, K 3.5, Cr 0.93, lactic acidosis to 2.8 that resolved on repeat, troponin leak to 0.11 with NSR on EKG without ischemic signs and CXR was without any noted acute pathology. She was given 2g of ceftriaxone and admitted to medicine for sepsis 2/2 a CAUTI. Her urine culture eventually grew ESBL Ecoli and she was treated with 7d of zosyn with good effect. She is now being discharged back to [facility]. DISCHARGE MEDICATIONS: Please see below. ALLERGIES: Please see below. PHYSICAL EXAMINATION ON DISCHARGE: VITAL SIGNS: Please see below. General: NAD, obese, awake, alert Eyes: Conjunctiva & lids normal, EOMI, anicteric ENT: Atraumatic, continues to have dry MM, Pharynx Normal, poor dentition Neck: Supple, no JVD Chest: Much improved air movement with bibasilar crackles this morning, on room air Heart: Rate Normal, Regular Rhythm, Normal S1, Normal S2, no noted m/r/g Abdomen: Normal bowel sounds, soft, NTND Extremities: 2+ LE edema, WWP, with some scabby wounds and a large R heel discolored likely pressure ulcer, in boots. LLE erythematous border has receded well. Neuro: no facial droops, moving all extremities Psych: AOx3 LABORATORY DATA: Please see below. IMAGING: CXR: Moderate cardiomegaly and pulmonary venous hypertension. No infiltrate seen. Doppler US venous, Left: The deep veins are anechoic and fully compressible from the groin to the popliteal fossa in the left lower extremity. Color flow imaging is homogeneous. Spectral Doppler interrogation demonstrates intact respiratory variation in flow and normal manual augmentation of flow. There is no evidence of deep vein thrombosis. IMPRESSION: Negative left lower extremity duplex venous ultrasound. No evidence of deep vein thrombosis. PROGNOSIS: Good ACTIVITY: As tolerated DIET: consistent carb, 2g sodium DISCHARGE PLAN: [facility] DISPOSITION: [facility]. DISCHARGE INSTRUCTIONS: PCP/GP f/u within 7d ITEMS TO FOLLOWUP ON ON OUTPATIENT: Q2w exchange of tena to prevent CAUTIs DISCHARGE CONDITION: Stable TIME SPENT ON DISCHARGE: 46 minutes. Vital Signs/I&Os Vital Signs Date Time Temp Pulse Resp B/P (MAP) Pulse Ox O2 Delivery O2 Flow Rate FiO2 09/07/20 09:44 20 09/07/20 06:48 Room Air 09/07/20 06:15 84 166/97 09/07/20 06:00 98.6 97 09/02/20 20:00 2.0 I&O- Last 24 Hours up to 6 AM 09/07/20 06:00 Intake Total 2020 ml Output Total 5750 ml Balance -3730 ml Laboratory Data Labs 24H Laboratory Tests 2 09/06/20 20:47: Bedside Glucose (Misc Panel) 165H 09/07/20 06:40: Bedside Glucose (Misc Panel) 134H 09/07/20 10:06: Coronavirus (COVID-19)(PCR) NEGATIVE 09/07/20 11:13: Bedside Glucose (Misc Panel) 185H FSBS Laboratory Tests Test 09/06/20 20:47 09/07/20 06:40 09/07/20 11:13 Range/Units Bedside Glucose (Misc Panel) 165 134 185 83-110 MG/DL Microbiology Microbiology 09/01/20 Urine Culture - Final, Complete E.coli Esbl Enterococcus Faecalis 09/01/20 Respiratory Virus Panel (PCR) (JACIDNA) - Final, Complete 09/01/20 Blood Culture - Final, Complete NO GROWTH AFTER 5 DAYS 09/01/20 Blood Culture - Final, Complete NO GROWTH AFTER 5 DAYS Discharge Medications Scheduled Amitriptyline HCl (Amitriptyline HCl) 50 Mg Tablet, 50 MG PO QHS, (Reported) Apixaban (Eliquis) 5 Mg Tablet, 5 MG PO BID, (Reported) Aspirin (Aspirin EC) 81 Mg Tablet.dr, 162 MG PO DAILY, (Reported) Atorvastatin Calcium (Atorvastatin Calcium) 20 Mg Tablet, 20 MG PO QHS, (Reported) Budesonide/Formoterol (Symbicort 160-4.5 Mcg Inhaler) 6 Gm Hfa.aer.ad, 2 PUFF INH BID, (Reported) Cyclosporine (Restasis Multidose) 5.5 Ml Drops, 1 DROP OU BID, (Reported) Diclofenac Sodium (Voltaren) 100 Gm Gel..gram., 1 GRAM TOP BID, (Reported) APPLY TO BILATERAL KNEES Dulaglutide (Trulicity) 0.75 Mg/0.5 Ml Pen.injctr, 0.75 MG SC QWEEK, (Reported) FRIDAYS Duloxetine Hcl (Cymbalta) 30 Mg Capsule.dr, 30 MG PO 5XW, (Reported) BID ON MON, MON, , , MON Furosemide (Furosemide) 40 Mg Tablet, 40 MG PO BID, (Reported) 0800 & 1330 Gabapentin (Gabapentin) 800 Mg Tablet, 800 MG PO BID, (Reported) Insulin Detemir (Levemir) 100 Unit/1 Ml Vial, 22 UNITS SC QAM, (Reported) Insulin Detemir (Levemir) 100 Unit/1 Ml Vial, 15 UNITS SC QHS, (Reported) Lisinopril (Lisinopril) 40 Mg Tablet, 40 MG PO DAILY, (Reported) Metoprolol Tartrate (Metoprolol Tartrate) 25 Mg Tablet, 25 MG PO TID, (Reported) HOLD FOR AP<60, SBP<130 Morphine Sulfate (Morphine Sulfate ER) 30 Mg Tablet.er, 30 MG PO BID, (Reported) Potassium Chloride (Potassium Chloride) 20 Meq Tab.er.prt, 40 MEQ PO QAM, (Repo rted) Potassium Chloride (Potassium Chloride) 20 Meq Tab.er.prt, 20 MEQ PO DAILY, (Reported) TAKES AT 1300 Prednisone (Prednisone) 5 Mg Tablet, 7.5 MG PO Q2D, (Reported) TAKES AT 1300 Prednisone (Prednisone) 5 Mg Tablet, 5 MG PO Q2D, (Reported) TAKES AT 1300 Sennosides/Docusate Sodium (Senokot-S Tablet) 1 Each Tablet, 1 TAB PO BID, (Reported) Tiotropium [place] Monohydrate (Spiriva) 18 Mcg Cap.w.dev, 18 MCG INH DAILY, (Reported) Scheduled PRN Acetaminophen (Acetaminophen) 325 Mg Tablet, 650 MG PO Q4H PRN for PAIN, (Reported) Albuterol Sulf (Albuterol Sulfate) 2.5 Mg/3 Ml Vial.neb, 2.5 MG INH Q2H PRN for SOB/WHEEZING, (Reported) Bisacodyl (Dulcolax) 10 Mg Supp.rect, 10 MG MD DAILY PRN for CONSTIPATION, (Reported) Clonidine Hcl (Clonidine HCl) 0.1 Mg Tablet, 0.1 MG PO DAILY PRN for HYPERTENSION, (Reported) GIVE IF SBP IS ABOVE 190 OR HR ABOVE 90 Diclofenac Sodium (Voltaren) 100 Gm Gel..gram., 1 GRAM TOP Q4H PRN for PAIN, (Reported) APPLY TO BILATERAL KNEES Magnesium Hydroxide (Milk of Magnesia) 400 Mg/5 Ml Oral.susp, 30 ML PO DAILY PRN for CONSTIPATION, (Reported) Sodium Phosphate,[place]-Dibasic (Enema) 133 Ml Enema, 1 PRIMO MD DAILY PRN for CONSTIPATION, (Reported) Allergies Coded Allergies: hydroxyzine (Verified Allergy, Unknown, 05/20/20) ZOHREH HAYWARD MD Sep 07, 2020 18:39
== END 2020-09-07 14:15 | DRG 698 ==
LOC: EDBD 11:05 → M ED 11:05 → M ED INP 14:00 → M PCU 09-02 03:35 → M MSPAV 09-03 16:46
PROVIDERS: ADMIT Internal Medicine; ATTEND Internal Medicine
DX: T83.511A Infection and inflammatory reaction due to indwelling urethral catheter, initial encounter (principal); A41.9 Sepsis, unspecified organism; R65.20 Severe sepsis without septic shock; I50.33 Acute on chronic diastolic (congestive) heart failure; I48.92 Unspecified atrial flutter; J96.11 Chronic respiratory failure with hypoxia; L03.116 Cellulitis of left lower limb; F03.90 Unspecified dementia, unspecified severity, without behavioral disturbance, psychotic disturbance, mood disturbance, and anxiety; Z66 Do not resuscitate; I11.0 Hypertensive heart disease with heart failure; E11.40 Type 2 diabetes mellitus with diabetic neuropathy, unspecified; E78.5 Hyperlipidemia, unspecified; I48.0 Paroxysmal atrial fibrillation; J44.9 Chronic obstructive pulmonary disease, unspecified; L28.0 Lichen simplex chronicus; I25.10 Atherosclerotic heart disease of native coronary artery without angina pectoris; B96.20 Unspecified Escherichia coli [E. coli] as the cause of diseases classified elsewhere; M10.9 Gout, unspecified; L89.616 Pressure-induced deep tissue damage of right heel; L40.50 Arthropathic psoriasis, unspecified; E66.01 Morbid (severe) obesity due to excess calories; G47.33 Obstructive sleep apnea (adult) (pediatric); F32.9 Major depressive disorder, single episode, unspecified; G89.4 Chronic pain syndrome; Z79.01 Long term (current) use of anticoagulants; Z79.82 Long term (current) use of aspirin; Z79.4 Long term (current) use of insulin; Z79.891 Long term (current) use of opiate analgesic; Z79.52 Long term (current) use of systemic steroids; Z79.899 Other long term (current) drug therapy; Z88.8 Allergy status to other drugs, medicaments and biological substances; Z68.38 Body mass index [BMI] 38.0-38.9, adult; Y84.6 Urinary catheterization as the cause of abnormal reaction of the patient, or of later complication, without mention of misadventure at the time of the procedure

== ENCOUNTER → 2020-09-01 | Outpatient (REF) | payer MEDICARE, MEDICAID ==
[~2020-09-01] MED LIST changes: +LISI40TA4 PO
[2020-09-01 10:30] LABS: BASO # 0.1 10^3/uL (0.0-0.2); BASO % 0.2 % (0.0-1.0); EOS # 0.1 10^3/uL (0.0-0.5); EOS % 0.3 % (0.0-3.0); HEMATOCRIT 32.2 % (36.0-47.0); HEMOGLOBIN 9.3 g/dl (12.0-15.5); LYMPH # 1.4 10^3/uL (1.5-5.0); LYMPH % 5.4 % (24.0-44.0); MEAN CORPUSCULAR HEMOGLOBIN 22.6 pg (27.0-33.0); MEAN CORPUSCULAR HGB CONC 28.9 g/dl (32.0-36.5); MEAN CORPUSCULAR VOLUME 78.2 fl (80.0-96.0); MONO # 1.8 10^3/uL (0.0-0.8); MONO % 6.6 % (0.0-5.0); NEUTROPHILS # 23.1 10^3/uL (1.5-8.5); NEUTROPHILS % 86.7 % (36.0-66.0); PLATELET COUNT, AUTOMATED 322 10^3/uL (150-450); RED BLOOD COUNT 4.12 10^6/uL (4.00-5.40); WHITE BLOOD COUNT 26.6 10^3/uL (4.0-10.0)
[2020-09-01 10:56] LABS: BLOOD UREA NITROGEN 14 MG/DL (7-18); CALCIUM LEVEL 9.2 MG/DL (8.8-10.2); CARBON DIOXIDE LEVEL 33 MEQ/L (21-32); CHLORIDE LEVEL 93 MEQ/L (98-107); GLOMERULAR FILTRATION RATE > 60.0 (>32); GLUCOSE, FASTING 156 MG/DL (70-100); POTASSIUM SERUM 2.9 MEQ/L (3.5-5.1); SODIUM LEVEL 133 MEQ/L (136-145)
[2020-09-01 11:21] LABS: APPEARANCE, URINE HAZY (CLEAR); BACTERIA, URINE AUTO 1+ (NEGATIVE); BILIRUBIN, URINE AUTO NEGATIVE (NEGATIVE); BLOOD, URINE BLOOD 3+ (NEGATIVE); COLOR, URINE YELLOW (YELLOW); GLUCOSE, URINE (UA) AUTO NEGATIVE (NEGATIVE); KETONE, URINE AUTO NEGATIVE (NEGATIVE); LEUKOCYTE ESTERASE, URINE AUTO 2+ (NEGATIVE); NITRITE, URINE AUTO NEGATIVE (NEGATIVE); PROTEIN, URINE AUTO NEGATIVE (NEGATIVE); RBC, URINE AUTO TNTC /HPF (0-3); SQUAMOUS EPITHELIAL CELL UR AU 0 /HPF (0-6); UROBILINOGEN, URINE AUTO 0.2 mg/dL (0.0-2.0); WBC, URINE AUTO 60 /HPF (0-3)
[2020-09-01 15:10] LABS: RSV AMPLIFICATION NEGATIVE (NEGATIVE)
== END ==
PROVIDERS: ATTEND Internal Medicine
DX: R50.9 Fever, unspecified (principal)

== ENCOUNTER → 2020-09-02 | Outpatient (REF) | payer MEDICARE, MEDICAID ==
[~2020-09-02] MED LIST changes: +REST0.057 OU; +VOLT1GEL15 TOP
== END ==
LOC: EEVIPCON
PROVIDERS: ATTEND Internal Medicine
DX: Z20.822 Contact with and (suspected) exposure to COVID-19 (principal)

== ENCOUNTER → 2020-09-09 | Outpatient (REF) | payer MEDICARE, MEDICAID ==
[~2020-09-09] MED LIST changes: -LISI40TA4 PO
== END ==
PROVIDERS: ATTEND Internal Medicine
DX: Z20.822 Contact with and (suspected) exposure to COVID-19 (principal)

== ENCOUNTER → 2020-09-16 | Outpatient (REF) | payer MEDICARE, MEDICAID | PROVIDERS: ATTEND Internal Medicine | DX: Z20.822 Contact with and (suspected) exposure to COVID-19 (principal); Z79.899 Other long term (current) drug therapy | CPT/HCPCS: 87186; U0003 ==

== ENCOUNTER → 2020-09-20 | Outpatient (REF) | payer MEDICARE, MEDICAID ==
[~2020-09-20] MED LIST changes: +LISI40TA4 PO
[2020-09-20 12:05] LABS: HEMATOCRIT 34.7 % (36.0-47.0); HEMOGLOBIN 9.5 g/dl (12.0-15.5); MEAN CORPUSCULAR HEMOGLOBIN 22.4 pg (27.0-33.0); MEAN CORPUSCULAR HGB CONC 27.4 g/dl (32.0-36.5); MEAN CORPUSCULAR VOLUME 81.6 fl (80.0-96.0); PLATELET COUNT, AUTOMATED 333 10^3/uL (150-450); RED BLOOD COUNT 4.25 10^6/uL (4.00-5.40); WHITE BLOOD COUNT 8.4 10^3/uL (4.0-10.0)
[2020-09-20 12:14] LABS: BLOOD UREA NITROGEN 17 MG/DL (7-18); CALCIUM LEVEL 8.6 MG/DL (8.8-10.2); CARBON DIOXIDE LEVEL 28 MEQ/L (21-32); CHLORIDE LEVEL 97 MEQ/L (98-107); CREATININE FOR GFR 0.67 MG/DL (0.55-1.30); GLOMERULAR FILTRATION RATE > 60.0 (>32); GLUCOSE, FASTING 149 MG/DL (70-100); POTASSIUM SERUM 4.4 MEQ/L (3.5-5.1); SODIUM LEVEL 135 MEQ/L (136-145)
== END ==
PROVIDERS: ATTEND Internal Medicine
DX: I11.0 Hypertensive heart disease with heart failure (principal); I50.9 Heart failure, unspecified

== ENCOUNTER → 2020-09-21 | Outpatient (REF) | payer MEDICARE, MEDICAID ==
[2020-09-21 20:33] LABS: APPEARANCE, URINE HAZY (CLEAR); BACTERIA, URINE AUTO 1+ (NEGATIVE); BILIRUBIN, URINE AUTO NEGATIVE (NEGATIVE); BLOOD, URINE BLOOD 1+ (NEGATIVE); COLOR, URINE YELLOW (YELLOW); GLUCOSE, URINE (UA) AUTO NEGATIVE (NEGATIVE); KETONE, URINE AUTO NEGATIVE (NEGATIVE); LEUKOCYTE ESTERASE, URINE AUTO 3+ (NEGATIVE); MUCUS, URINE SMALL (NEGATIVE); NITRITE, URINE AUTO NEGATIVE (NEGATIVE); PROTEIN, URINE AUTO 1+ mg/dL (NEGATIVE); RBC, URINE AUTO 15 /HPF (0-3); SPECIFIC GRAVITY URINE AUTO 1.011 (1.002-1.035); SQUAMOUS EPITHELIAL CELL UR AU 0 /HPF (0-6); UROBILINOGEN, URINE AUTO 0.2 mg/dL (0.0-2.0); WBC, URINE AUTO 116 /HPF (0-3)
== END ==
PROVIDERS: ATTEND Internal Medicine
DX: R50.9 Fever, unspecified (principal); Z20.822 Contact with and (suspected) exposure to COVID-19
CPT/HCPCS: 81001; 87088; 87186; U0002

== ENCOUNTER → 2020-09-22 | Outpatient (REF) | payer MEDICARE, MEDICAID ==
--- NOTE | 2020-09-22 15:25 | REPPI ---
INDICATION: 342 FEVER. COMPARISON: 09/01/2020. TECHNIQUE: SINGLE PORTABLE AP VIEW OF THE CHEST WAS PERFORMED. FINDINGS: There is infiltrate in the right lung base. No infiltrate is seen on the left. There is cardiomegaly and pulmonary venous hypertension again noted. The mediastinal silhouette appears unchanged. IMPRESSION: Infiltrate right lung base. <Electronically signed by Fuad Aggarwal > 09/22/20 [id number]
== END ==
PROVIDERS: ATTEND Internal Medicine
DX: R91.8 Other nonspecific abnormal finding of lung field (principal); R50.9 Fever, unspecified

== ENCOUNTER → 2020-09-24 | Outpatient (REF) | payer MEDICARE, MEDICAID ==
[2020-09-24 09:55] LABS: HEMATOCRIT 31.5 % (36.0-47.0); HEMOGLOBIN 9.2 g/dl (12.0-15.5); MEAN CORPUSCULAR HEMOGLOBIN 22.8 pg (27.0-33.0); MEAN CORPUSCULAR HGB CONC 29.2 g/dl (32.0-36.5); MEAN CORPUSCULAR VOLUME 78.2 fl (80.0-96.0); PLATELET COUNT, AUTOMATED 263 10^3/uL (150-450); RED BLOOD COUNT 4.03 10^6/uL (4.00-5.40); WHITE BLOOD COUNT 16.6 10^3/uL (4.0-10.0)
[2020-09-24 10:21] LABS: BLOOD UREA NITROGEN 15 MG/DL (7-18); CALCIUM LEVEL 8.4 MG/DL (8.8-10.2); CARBON DIOXIDE LEVEL 31 MEQ/L (21-32); CHLORIDE LEVEL 99 MEQ/L (98-107); CREATININE FOR GFR 0.51 MG/DL (0.55-1.30); GLOMERULAR FILTRATION RATE > 60.0 (>32); GLUCOSE, FASTING 113 MG/DL (70-100); POTASSIUM SERUM 3.8 MEQ/L (3.5-5.1); SODIUM LEVEL 138 MEQ/L (136-145)
== END ==
PROVIDERS: ATTEND Internal Medicine
DX: J18.9 Pneumonia, unspecified organism (principal)

== ENCOUNTER → 2020-09-25 | Outpatient (REF) | payer MEDICARE, MEDICAID ==
[2020-09-25 09:23] LABS: HEMATOCRIT 32.9 % (36.0-47.0); HEMOGLOBIN 9.2 g/dl (12.0-15.5); MEAN CORPUSCULAR HEMOGLOBIN 22.1 pg (27.0-33.0); MEAN CORPUSCULAR VOLUME 78.9 fl (80.0-96.0); PLATELET COUNT, AUTOMATED 289 10^3/uL (150-450); RED BLOOD COUNT 4.17 10^6/uL (4.00-5.40); WHITE BLOOD COUNT 11.3 10^3/uL (4.0-10.0)
--- NOTE | 2020-09-25 15:33 | REPPI ---
INDICATION: PNEUMONIA 342. COMPARISON: 09/22/2020 as well as other prior exams. TECHNIQUE: SINGLE PORTABLE AP VIEW OF THE CHEST WAS PERFORMED. FINDINGS: Right base infiltrate has improved with mild residual. Left lung remains clear. Cardiomegaly and pulmonary venous hypertension persists unchanged. The mediastinal silhouette is unchanged. IMPRESSION: Improved right basilar infiltrate with mild residual. <Electronically signed by Fuad Aggarwal > 09/25/20 [id number]
== END ==
PROVIDERS: ATTEND Nurse Practitioner Adult Health
DX: J18.9 Pneumonia, unspecified organism (principal); I51.7 Cardiomegaly

== ENCOUNTER → 2020-09-28 | Outpatient (REF) | payer MEDICARE, MEDICAID ==
[2020-09-28 10:30] LABS: MEAN CORPUSCULAR HEMOGLOBIN 22.9 pg (27.0-33.0); MEAN CORPUSCULAR HGB CONC 29.4 g/dl (32.0-36.5); MEAN CORPUSCULAR VOLUME 77.8 fl (80.0-96.0); PLATELET COUNT, AUTOMATED 341 10^3/uL (150-450); RED BLOOD COUNT 4.37 10^6/uL (4.00-5.40); WHITE BLOOD COUNT 9.6 10^3/uL (4.0-10.0)
[2020-09-28 10:38] LABS: BLOOD UREA NITROGEN 22 MG/DL (7-18); CALCIUM LEVEL 8.8 MG/DL (8.8-10.2); CARBON DIOXIDE LEVEL 33 MEQ/L (21-32); CHLORIDE LEVEL 94 MEQ/L (98-107); CREATININE FOR GFR 0.59 MG/DL (0.55-1.30); GLOMERULAR FILTRATION RATE > 60.0 (>32); GLUCOSE, FASTING 94 MG/DL (70-100); POTASSIUM SERUM 3.7 MEQ/L (3.5-5.1); SODIUM LEVEL 134 MEQ/L (136-145)
== END ==
PROVIDERS: ATTEND Nurse Practitioner Adult Health
DX: J18.9 Pneumonia, unspecified organism (principal)

== ENCOUNTER → 2020-09-29 | Outpatient (REF) | payer MEDICARE, MEDICAID | PROVIDERS: ATTEND Nurse Practitioner Adult Health | DX: N28.1 Cyst of kidney, acquired (principal) ==

== ENCOUNTER → 2020-09-30 | Outpatient (REF) | payer MEDICARE, MEDICAID ==
[2020-09-30 13:51] LABS: APPEARANCE, URINE CLEAR (CLEAR); BACTERIA, URINE AUTO 1+ (NEGATIVE); BILIRUBIN, URINE AUTO NEGATIVE (NEGATIVE); BLOOD, URINE BLOOD NEGATIVE (NEGATIVE); COLOR, URINE YELLOW (YELLOW); GLUCOSE, URINE (UA) AUTO NEGATIVE (NEGATIVE); KETONE, URINE AUTO NEGATIVE (NEGATIVE); LEUKOCYTE ESTERASE, URINE AUTO 1+ (NEGATIVE); MUCUS, URINE SMALL (NEGATIVE); NITRITE, URINE AUTO POSITIVE (NEGATIVE); PROTEIN, URINE AUTO NEGATIVE (NEGATIVE); RBC, URINE AUTO 2 /HPF (0-3); SPECIFIC GRAVITY URINE AUTO 1.008 (1.002-1.035); SQUAMOUS EPITHELIAL CELL UR AU 0 /HPF (0-6); UROBILINOGEN, URINE AUTO 0.2 mg/dL (0.0-2.0); WBC, URINE AUTO 25 /HPF (0-3)
== END ==
PROVIDERS: ATTEND Nurse Practitioner Adult Health
DX: N28.1 Cyst of kidney, acquired (principal); Z20.822 Contact with and (suspected) exposure to COVID-19
CPT/HCPCS: 81001; 87088; 87186; 88108; U0003

== ENCOUNTER → 2020-10-06 | Outpatient (CLI) | payer MEDICARE, MEDICAID ==
--- NOTE | 2020-10-06 09:31 | REP ---
INDICATION: HYDRONEPHROSIS, RENAL CYST/ PT IN CT WAITING AREA. COMPARISON: CT 08/21/2020, 05/20/2020, 09/29/2019 TECHNIQUE: Standard renal sonography performed. Hudson catheter was in place. FINDINGS: Sonographic evaluation shows the right kidney to be 12.2 x 5.7 x 5.2 cm long. No solid mass. There is a 7 by 9 mm hypoechoic focus with through transmission in the upper pole cortex representing a cyst. No hydronephrosis or hydroureter identified. No solid mass. Some mild lobation noted. No echogenic foci to suggest calcification or stone. Left kidney is 13.4 x 6.4 x 6.5 cm. Parapelvic cyst again noted interpolar upper pole region 5.8 x 3.6 x 4.6 cm. There is at least 1 septation within it. No solid nodular component. The 1.6 x 1.5 x 1.3 cm peripheral cyst upper pole exophytic. Lower pole as a 1.2 by 0.7 cm cyst. Bladder cannot be evaluated as a Hudson catheter is in place and not clamped. IMPRESSION: 1. Parapelvic interpolar/upper pole cyst on the left with septation. This represents a Bosniak class 2 cyst. This is grossly stable over the last several CT scans for size and contour. 2. There are other smaller simple cysts involving the left and right kidney. No gross hydronephrosis, hydroureter, solid mass or nephrolithiasis. <Electronically signed by Sammy Ceron > 10/06/20 0927
== END ==
LOC: M RAD 08:33
PROVIDERS: ATTEND Nurse Practitioner Adult Health
DX: N28.1 Cyst of kidney, acquired (principal); N13.39 Other hydronephrosis

== ENCOUNTER → 2020-10-07 | Outpatient (REF) | payer MEDICARE, MEDICAID ==
[~2020-10-07] MED LIST changes: +MECL-136 PO; -MECL12.590 PO
== END ==
PROVIDERS: ATTEND Internal Medicine
DX: Z20.822 Contact with and (suspected) exposure to COVID-19 (principal)

== ENCOUNTER → 2020-10-14 | Outpatient (REF) | payer MEDICARE, MEDICAID | PROVIDERS: ATTEND Internal Medicine | DX: Z20.822 Contact with and (suspected) exposure to COVID-19 (principal) ==

== ENCOUNTER → 2020-10-20 | Outpatient (CLI) | payer MEDICARE, MEDICAID ==
--- NOTE | 2020-10-20 14:02 | REPMRS ---
Patient History The patient states she has not had a clinical breast exam in over a year. Patient is postmenopausal, has history of cancer in the right breast at age 68, had previous chest radiation therapy at age 68, and had previous chemotherapy at age 68. Family history of colorectal cancer in brother. Malignant lumpectomy of the right breast, 2009. Chemotherapy, 2009. Radiation therapy of the right breast, 2008. No Hormone Replacement Therapy Digital Woman Screen Mammo: October 20, 2020 - Exam #: [id number] Bilateral CC and MLO view(s) were taken. Technologist: Lyn Parekh, Technologist Prior study comparison: September 23, 2019, bilateral digital woman screen mammo performed at [facility]. September 10, 2018, bilateral digital woman screen mammo performed at [facility]. September 07, 2017, bilateral digital mammo screening bilat, performed at [facility]. FINDINGS: The breast tissue is heterogeneously dense. This may lower the sensitivity of mammography. The Volpara volumetric breast density category is: C. There are stable post treatment changes in the rght breast. There is a moderate amount of heterogeneously dense fibroglandular tissue which is fairly symmetric. There is no interval development of dominant mass, architectural distortion, or grouped microcalcification typical of malignancy. There has been no change in the appearance of the mammogram from the prior studies. 3-D tomosynthesis shows no additional findings. Assessment: BI-RADS/ACR category 2 mammogram. Benign Findings. Recommendation Routine screening mammogram of both breasts in 1 year (for women over age 40). This mammogram was interpreted with the aid of an FDA-approved computer-aided dectection system. Electronically Signed By: Gordy Ward MD 10/20/20 2340
== END ==
LOC: M WHC 12:42
PROVIDERS: ATTEND Nurse Practitioner Adult Health
DX: Z12.31 Encounter for screening mammogram for malignant neoplasm of breast (principal); Z85.3 Personal history of malignant neoplasm of breast; Z92.3 Personal history of irradiation; Z92.21 Personal history of antineoplastic chemotherapy; R92.2 Inconclusive mammogram

== ENCOUNTER → 2020-10-21 | Outpatient (REF) | payer MEDICARE, MEDICAID | PROVIDERS: ATTEND Internal Medicine | DX: Z11.52 Encounter for screening for COVID-19 (principal) ==

== ENCOUNTER → 2020-10-31 | Outpatient (REF) | payer MEDICARE, MEDICAID ==
[2020-10-31 17:55] LABS: HEMOGLOBIN 9.6 g/dl (12.0-15.5); MEAN CORPUSCULAR HEMOGLOBIN 23.3 pg (27.0-33.0); MEAN CORPUSCULAR HGB CONC 28.2 g/dl (32.0-36.5); MEAN CORPUSCULAR VOLUME 82.5 fl (80.0-96.0); PLATELET COUNT, AUTOMATED 285 10^3/uL (150-450); RED BLOOD COUNT 4.12 10^6/uL (4.00-5.40); WHITE BLOOD COUNT 11.5 10^3/uL (4.0-10.0)
[2020-10-31 17:59] LABS: APPEARANCE, URINE CLEAR (CLEAR); BACTERIA, URINE AUTO NEGATIVE (NEGATIVE); BILIRUBIN, URINE AUTO NEGATIVE (NEGATIVE); BLOOD, URINE BLOOD 1+ (NEGATIVE); COLOR, URINE STRAW (YELLOW); GLUCOSE, URINE (UA) AUTO NEGATIVE (NEGATIVE); KETONE, URINE AUTO NEGATIVE (NEGATIVE); LEUKOCYTE ESTERASE, URINE AUTO 1+ (NEGATIVE); NITRITE, URINE AUTO NEGATIVE (NEGATIVE); PROTEIN, URINE AUTO NEGATIVE (NEGATIVE); RBC, URINE AUTO 3 /HPF (0-3); SPECIFIC GRAVITY URINE AUTO 1.004 (1.002-1.035); SQUAMOUS EPITHELIAL CELL UR AU 0 /HPF (0-6); UROBILINOGEN, URINE AUTO 0.2 mg/dL (0.0-2.0); WBC, URINE AUTO 5 /HPF (0-3)
[2020-10-31 18:03] LABS: ALBUMIN 2.8 GM/DL (3.2-5.2); ALT/SGPT 14 U/L (12-78); BILIRUBIN,TOTAL 0.3 MG/DL (0.2-1.0); BLOOD UREA NITROGEN 14 MG/DL (7-18); CALCIUM LEVEL 8.2 MG/DL (8.8-10.2); CARBON DIOXIDE LEVEL 34 MEQ/L (21-32); CHLORIDE LEVEL 97 MEQ/L (98-107); CREATININE FOR GFR 0.55 MG/DL (0.55-1.30); GLOMERULAR FILTRATION RATE > 60.0 (>32); GLUCOSE, FASTING 125 MG/DL (70-100); POTASSIUM SERUM 3.3 MEQ/L (3.5-5.1); SODIUM LEVEL 138 MEQ/L (136-145); TOTAL PROTEIN 6.6 GM/DL (6.4-8.2)
== END ==
PROVIDERS: ATTEND Internal Medicine
DX: R10.9 Unspecified abdominal pain (principal); R50.9 Fever, unspecified

== ENCOUNTER → 2020-11-02 | Outpatient (REF) | payer MEDICARE, MEDICAID ==
[2020-11-02 10:39] LABS: HEMATOCRIT 37.2 % (36.0-47.0); HEMOGLOBIN 10.7 g/dl (12.0-15.5); MEAN CORPUSCULAR HEMOGLOBIN 23.4 pg (27.0-33.0); MEAN CORPUSCULAR HGB CONC 28.8 g/dl (32.0-36.5); MEAN CORPUSCULAR VOLUME 81.4 fl (80.0-96.0); PLATELET COUNT, AUTOMATED 312 10^3/uL (150-450); RED BLOOD COUNT 4.57 10^6/uL (4.00-5.40); WHITE BLOOD COUNT 12.9 10^3/uL (4.0-10.0)
[2020-11-02 11:36] LABS: ALBUMIN 2.9 GM/DL (3.2-5.2); ALT/SGPT 15 U/L (12-78); BILIRUBIN,TOTAL 0.3 MG/DL (0.2-1.0); BLOOD UREA NITROGEN 18 MG/DL (7-18); CALCIUM LEVEL 9.2 MG/DL (8.8-10.2); CARBON DIOXIDE LEVEL 29 MEQ/L (21-32); CHLORIDE LEVEL 98 MEQ/L (98-107); CHOLESTEROL LEVEL 150 MG/DL (<200); CHOLESTEROL RISK RATIO 3.488 (<5); CREATININE FOR GFR 0.69 MG/DL (0.55-1.30); GLOMERULAR FILTRATION RATE > 60.0 (>32); GLUCOSE, FASTING 130 MG/DL (70-100); HDL CHOLESTEROL 43 MG/DL (>40); LDL CHOLESTEROL 72 MG/DL (<100); NON-HDL-C 107 MG/DL; POTASSIUM SERUM 3.7 MEQ/L (3.5-5.1); SODIUM LEVEL 136 MEQ/L (136-145); TOTAL PROTEIN 7.1 GM/DL (6.4-8.2); TRIGLYCERIDES LEVEL 174 MG/DL (<150)
[2020-11-02 12:16] LABS: HEMOGLOBIN A1c 7.8 %
== END ==
PROVIDERS: ATTEND Internal Medicine
DX: I10 Essential (primary) hypertension (principal); Z79.899 Other long term (current) drug therapy

== ENCOUNTER → 2020-11-16 | Outpatient (REF) | payer MEDICARE, MEDICAID | PROVIDERS: ATTEND Internal Medicine | DX: Z53.8 Procedure and treatment not carried out for other reasons (principal) ==

== ENCOUNTER → 2020-11-16 | Outpatient (CLI) | payer MEDICARE, MEDICAID ==
--- NOTE | 2020-11-16 17:05 | REP ---
INDICATION: R/O FRACTURE. COMPARISON: None. TECHNIQUE: Multiple views of the left ribs are obtained. AP chest also obtained. FINDINGS: There is a questionable fracture, may be old, at the 11th rib laterally on the left, see series 4. This is not confirmed on the other images. Cardiovascular silhouette within normal limits. The lungs are clear. No pneumothorax identified. Heavy atherosclerotic calcifications seen of the vasculature below the left diaphragm, appears to be a left splenic artery. Also noted atherosclerotic calcification of the aorta at the aortic arch. IMPRESSION: No definite acute rib fractures. Questionable fracture, possibly old, as described, left 11th rib laterally. <Electronically signed by Rishi Davalos > 11/16/20 [id number]
== END ==
LOC: M RAD 13:28
PROVIDERS: ATTEND Nurse Practitioner Adult Health
DX: R07.81 Pleurodynia (principal)

== ENCOUNTER 2020-11-23 14:08 | Emergency (ER) | payer MEDICARE, MEDICAID ==
[~2020-11-23 14:08] MED LIST changes: -MACR100C43 PO; -ZOFR4TAB16 PO
[2020-11-23] MEDS ORDERED: NS 1,000 ML IV SCH (15:05)
[2020-11-23] MEDS ORDERED: PANTOPRAZOLE 40MG VIAL (C9113 PER 1) IV ONE (15:05)
[2020-11-23 15:50] LABS: BASO % 0.3 % (0.0-1.0); EOS % 0.2 % (0.0-3.0); HEMATOCRIT 38.7 % (36.0-47.0); HEMOGLOBIN 11.7 g/dl (12.0-15.5); LYMPH # 1.2 10^3/uL (1.5-5.0); LYMPH % 9.8 % (24.0-44.0); MEAN CORPUSCULAR HEMOGLOBIN 23.4 pg (27.0-33.0); MEAN CORPUSCULAR HGB CONC 30.2 g/dl (32.0-36.5); MEAN CORPUSCULAR VOLUME 77.4 fl (80.0-96.0); MONO # 0.7 10^3/uL (0.0-0.8); MONO % 5.7 % (2.0-8.0); NEUTROPHILS # 10.5 10^3/uL (1.5-8.5); NEUTROPHILS % 83.6 % (36.0-66.0); PLATELET COUNT, AUTOMATED 306 10^3/uL (150-450); WHITE BLOOD COUNT 12.5 10^3/uL (4.0-10.0)
--- NOTE | 2020-11-23 15:55 | REP ---
INDICATION: ABD PAIN DISTENTION. COMPARISON: 08/21/2020 TECHNIQUE: No intravenous or oral bowel preparatory contrast administration FINDINGS: Respiratory motion artifact obscures the detail of the lung bases. No gross pleural or pericardial effusions are present. Grossly, the liver, spleen, pancreas, adrenal glands, and kidneys are unchanged. There are bilateral renal cysts but difficult to evaluate without intravenous contrast administration. Grossly, the bowel loops and the mesenteries are within normal limits. There is no free fluid or free air. There is no significant change in appearance of the abdominal aorta or para-aortic regions. There is no evidence of a mass or adenopathy. There is a catheter in the urinary bladder with air densities in the urinary bladder status quo. There is no significant change in appearance of the imaged osseous structures. IMPRESSION: 1. Exam is limited as described above 2. 2. There is no evidence of acute disease or significant change compared to the prior exam as described above. <Electronically signed by Kaden Wellington > 11/23/20 [id number]
[2020-11-23] MEDS ORDERED: METOCLOPRAMIDE INJ 10MG/2ML VIAL (J2765 PER 1) IV ONE (16:00)
[2020-11-23 16:15] LABS: ALBUMIN 3.4 GM/DL (3.2-5.2); ALT/SGPT 17 U/L (12-78); AMYLASE 10 U/L (25-115); BILIRUBIN,DIRECT 0.1 MG/DL (0.0-0.2); BILIRUBIN,TOTAL 0.4 MG/DL (0.2-1.0); BLOOD UREA NITROGEN 8 MG/DL (7-18); CALCIUM LEVEL 9.1 MG/DL (8.8-10.2); CARBON DIOXIDE LEVEL 30 MEQ/L (21-32); CHLORIDE LEVEL 96 MEQ/L (98-107); CREATININE FOR GFR 0.65 MG/DL (0.55-1.30); GLOMERULAR FILTRATION RATE > 60.0 (>32); GLUCOSE, FASTING 259 MG/DL (70-100); LIPASE 38 U/L (73-393); SODIUM LEVEL 135 MEQ/L (136-145); TOTAL PROTEIN 8.3 GM/DL (6.4-8.2)
[2020-11-23] MEDS ORDERED: POTASSIUM CHLORIDE 10 MEQ SR TABLET PO ONE (16:20)
[2020-11-23] MEDS ORDERED: PROMETHAZINE INJ 25 MG/ML VIAL (J2550) IV ONE (16:35)
[2020-11-23] MEDS ORDERED: NITROFURANTOIN (MACROBID) 100 MG CAP PO ONE (16:55)
[2020-11-23] MEDS ORDERED: KCL 10MEQ/100ML SWI (KRUN) 10 MEQ in IV 1 EA IV ONE (17:00)
[2020-11-23 18:14] VITALS: BP 186/84
[2020-11-23] MEDS ORDERED: ZOFR4TAB16 PO (18:35)
[2020-11-23] MEDS ORDERED: MACR100C43 PO (18:35)
[2020-12-21] MEDS ORDERED: OXYC-517 PO (14:30)
== END 2020-11-23 20:01 | disposition home or self-care (01) ==
LOC: EDBD 14:08 → M ED 14:08
DX: N39.0 Urinary tract infection, site not specified (principal); E11.9 Type 2 diabetes mellitus without complications; I10 Essential (primary) hypertension; Z86.73 Personal history of transient ischemic attack (TIA), and cerebral infarction without residual deficits; Z87.448 Personal history of other diseases of urinary system; Z88.8 Allergy status to other drugs, medicaments and biological substances; Z79.899 Other long term (current) drug therapy; Z79.82 Long term (current) use of aspirin; Z79.01 Long term (current) use of anticoagulants; Z79.4 Long term (current) use of insulin
CPT/HCPCS: 74176; 80048; 80076; 81001; 82150; 83690; 85025; 85027; 87088; 87186; 93041; 96361; 96365; 96366; 96375; 99285; C9113; J2765

== ENCOUNTER → 2020-11-23 | Outpatient (REF) | payer MEDICARE, MEDICAID ==
[~2020-11-23] MED LIST changes: -ACET-908 PO; +ACET-910 PO; +MACR100C43 PO; +OXYC-517 PO; +ZOFR4TAB16 PO
[2020-11-23 10:47] LABS: HEMATOCRIT 39.9 % (36.0-47.0); HEMOGLOBIN 11.8 g/dl (12.0-15.5); MEAN CORPUSCULAR HEMOGLOBIN 23.3 pg (27.0-33.0); MEAN CORPUSCULAR HGB CONC 29.6 g/dl (32.0-36.5); MEAN CORPUSCULAR VOLUME 78.9 fl (80.0-96.0); PLATELET COUNT, AUTOMATED 313 10^3/uL (150-450); RED BLOOD COUNT 5.06 10^6/uL (4.00-5.40); WHITE BLOOD COUNT 11.6 10^3/uL (4.0-10.0)
[2020-11-23 11:26] LABS: BLOOD UREA NITROGEN 9 MG/DL (7-18); CALCIUM LEVEL 9.5 MG/DL (8.8-10.2); CARBON DIOXIDE LEVEL 30 MEQ/L (21-32); CHLORIDE LEVEL 95 MEQ/L (98-107); CREATININE FOR GFR 0.54 MG/DL (0.55-1.30); GLOMERULAR FILTRATION RATE > 60.0 (>32); GLUCOSE, FASTING 184 MG/DL (70-100); POTASSIUM SERUM 2.9 MEQ/L (3.5-5.1); SODIUM LEVEL 133 MEQ/L (136-145)
== END ==
PROVIDERS: ATTEND Internal Medicine
DX: R11.0 Nausea (principal)

== ENCOUNTER → 2020-11-23 | Outpatient (REF) | payer MEDICARE, MEDICAID ==
[~2020-11-23] MED LIST changes: -OXYC-517 PO
== END ==
PROVIDERS: ATTEND Internal Medicine
DX: R11.10 Vomiting, unspecified (principal); R52 Pain, unspecified

== ENCOUNTER → 2020-11-24 | Outpatient (REF) | payer MEDICARE, MEDICAID ==
[~2020-11-24] MED LIST changes: +MACR100C43 PO; +ZOFR4TAB16 PO
== END ==
PROVIDERS: ATTEND Internal Medicine
DX: Z20.822 Contact with and (suspected) exposure to COVID-19 (principal)

== ENCOUNTER → 2020-11-25 | Outpatient (REF) | payer MEDICARE, MEDICAID ==
[2020-11-26 06:15] LABS: BASO # 0.1 10^3/uL (0.0-0.2); BASO % 0.3 % (0.0-1.0); EOS # 0.3 10^3/uL (0.0-0.5); EOS % 1.6 % (0.0-3.0); HEMATOCRIT 32.3 % (36.0-47.0); HEMOGLOBIN 9.5 g/dl (12.0-15.5); LYMPH # 1.5 10^3/uL (1.5-5.0); LYMPH % 7.6 % (24.0-44.0); MEAN CORPUSCULAR HEMOGLOBIN 23.9 pg (27.0-33.0); MEAN CORPUSCULAR HGB CONC 29.4 g/dl (32.0-36.5); MEAN CORPUSCULAR VOLUME 81.4 fl (80.0-96.0); MONO # 1.1 10^3/uL (0.0-0.8); MONO % 5.8 % (2.0-8.0); NEUTROPHILS # 16.4 10^3/uL (1.5-8.5); NEUTROPHILS % 84.2 % (36.0-66.0); PLATELET COUNT, AUTOMATED 325 10^3/uL (150-450); RED BLOOD COUNT 3.97 10^6/uL (4.00-5.40); WHITE BLOOD COUNT 19.4 10^3/uL (4.0-10.0)
[2020-11-26 06:16] LABS: APPEARANCE, URINE CLOUDY (CLEAR); BACTERIA, URINE AUTO NEGATIVE (NEGATIVE); BILIRUBIN, URINE AUTO NEGATIVE (NEGATIVE); BLOOD, URINE BLOOD 3+ (NEGATIVE); COLOR, URINE YELLOW (YELLOW); GLUCOSE, URINE (UA) AUTO NEGATIVE (NEGATIVE); KETONE, URINE AUTO TRACE mg/dL (NEGATIVE); LEUKOCYTE ESTERASE, URINE AUTO 3+ (NEGATIVE); MUCUS, URINE SMALL (NEGATIVE); NITRITE, URINE AUTO NEGATIVE (NEGATIVE); PROTEIN, URINE AUTO 1+ mg/dL (NEGATIVE); RBC, URINE AUTO 101 /HPF (0-3); SPECIFIC GRAVITY URINE AUTO 1.015 (1.002-1.035); SQUAMOUS EPITHELIAL CELL UR AU 1 /HPF (0-6); UROBILINOGEN, URINE AUTO 0.2 mg/dL (0.0-2.0); WBC, URINE AUTO 175 /HPF (0-3)
[2020-11-26 06:36] LABS: CREATININE FOR GFR 1.89 MG/DL (0.55-1.30); GLOMERULAR FILTRATION RATE 27.2 (>32); POTASSIUM SERUM 4.9 MEQ/L (3.5-5.1)
== END ==
PROVIDERS: ATTEND Internal Medicine
DX: R50.9 Fever, unspecified (principal)

== ENCOUNTER → 2020-11-25 | Outpatient (REF) | payer MEDICARE, MEDICAID | PROVIDERS: ATTEND Nurse Practitioner Adult Health | DX: E87.6 Hypokalemia (principal) ==

== ENCOUNTER → 2020-11-26 | Outpatient (REF) | payer MEDICARE, MEDICAID ==
--- NOTE | 2020-11-26 15:23 | REPPI ---
INDICATION: FATEL/FEVER. COMPARISON: Comparison radiographs November 16, 2020.. TECHNIQUE: Erect AP view of the chest. FINDINGS: Today's radiograph is obtained in a somewhat lordotic angle. Heart is mildly enlarged unchanged. Pulmonary vasculature is cephalized as before. Pleural angles are sharp. No infiltrate is seen. No acute bony abnormality. IMPRESSION: Cardiomegaly with cephalization again noted. No acute infiltrate seen. <Electronically signed by Gordy Ward > 11/26/20 1998
== END ==
PROVIDERS: ATTEND Internal Medicine
DX: I51.7 Cardiomegaly (principal); R50.9 Fever, unspecified

== ENCOUNTER → 2020-11-27 | Outpatient (REF) | payer MEDICARE, MEDICAID ==
[2020-11-27 12:01] LABS: HEMATOCRIT 34.4 % (36.0-47.0); HEMOGLOBIN 9.8 g/dl (12.0-15.5); RED BLOOD COUNT 4.13 10^6/uL (4.00-5.40); WHITE BLOOD COUNT 12.1 10^3/uL (4.0-10.0)
[2020-11-27 12:02] LABS: BASO % 0.3 % (0.0-1.0); EOS # 0.2 10^3/uL (0.0-0.5); LYMPH # 1.3 10^3/uL (1.5-5.0); LYMPH % 10.7 % (24.0-44.0); MEAN CORPUSCULAR HEMOGLOBIN 23.7 pg (27.0-33.0); MEAN CORPUSCULAR HGB CONC 28.5 g/dl (32.0-36.5); MEAN CORPUSCULAR VOLUME 83.3 fl (80.0-96.0); MONO # 0.7 10^3/uL (0.0-0.8); MONO % 5.9 % (2.0-8.0); NEUTROPHILS # 9.8 10^3/uL (1.5-8.5); NEUTROPHILS % 80.6 % (36.0-66.0); PLATELET COUNT, AUTOMATED 307 10^3/uL (150-450)
[2020-11-27 12:29] LABS: BLOOD UREA NITROGEN 23 MG/DL (7-18); CALCIUM LEVEL 8.5 MG/DL (8.8-10.2); CARBON DIOXIDE LEVEL 31 MEQ/L (21-32); CHLORIDE LEVEL 101 MEQ/L (98-107); CREATININE FOR GFR 0.65 MG/DL (0.55-1.30); GLOMERULAR FILTRATION RATE > 60.0 (>32); GLUCOSE, FASTING 341 MG/DL (70-100); POTASSIUM SERUM 4.3 MEQ/L (3.5-5.1); SODIUM LEVEL 137 MEQ/L (136-145)
== END ==
PROVIDERS: ATTEND Internal Medicine
DX: E87.6 Hypokalemia (principal)

== ENCOUNTER → 2020-11-30 | Outpatient (REF) | payer MEDICARE, MEDICAID ==
[~2020-11-30] MED LIST changes: +OXYC-517 PO
[2020-11-30 08:59] LABS: HEMATOCRIT 35.1 % (36.0-47.0); HEMOGLOBIN 10.4 g/dl (12.0-15.5); MEAN CORPUSCULAR HEMOGLOBIN 23.6 pg (27.0-33.0); MEAN CORPUSCULAR HGB CONC 29.6 g/dl (32.0-36.5); MEAN CORPUSCULAR VOLUME 79.6 fl (80.0-96.0); PLATELET COUNT, AUTOMATED 323 10^3/uL (150-450); RED BLOOD COUNT 4.41 10^6/uL (4.00-5.40); WHITE BLOOD COUNT 9.2 10^3/uL (4.0-10.0)
[2020-11-30 11:55] LABS: BLOOD UREA NITROGEN 21 MG/DL (7-18); CALCIUM LEVEL 9.4 MG/DL (8.8-10.2); CARBON DIOXIDE LEVEL 34 MEQ/L (21-32); CHLORIDE LEVEL 94 MEQ/L (98-107); CREATININE FOR GFR 0.58 MG/DL (0.55-1.30); GLOMERULAR FILTRATION RATE > 60.0 (>32); GLUCOSE, FASTING 99 MG/DL (70-100); POTASSIUM SERUM 3.8 MEQ/L (3.5-5.1); SODIUM LEVEL 136 MEQ/L (136-145)
== END ==
PROVIDERS: ATTEND Internal Medicine
DX: E87.6 Hypokalemia (principal)

== ENCOUNTER → 2020-12-01 | Outpatient (REF) | payer MEDICAID ==
[~2020-12-01] MED LIST changes: -OXYC-517 PO
== END ==
PROVIDERS: ATTEND Internal Medicine
DX: Z20.822 Contact with and (suspected) exposure to COVID-19 (principal)

== ENCOUNTER → 2020-12-04 | Outpatient (REF) | payer MEDICARE, MEDICAID ==
[~2020-12-04] MED LIST changes: +OXYC-517 PO
== END ==
PROVIDERS: ATTEND Nurse Practitioner Adult Health
DX: N39.0 Urinary tract infection, site not specified (principal)
CPT/HCPCS: 11102; 87088; 87186; G0463

== ENCOUNTER → 2020-12-04 | Outpatient (REF) | payer MEDICARE, MEDICAID ==
[~2020-12-04] MED LIST changes: -OXYC-517 PO
== END ==
LOC: M LAB REF 14:04
PROVIDERS: ATTEND Physician Assistant
DX: L57.0 Actinic keratosis (principal)

== ENCOUNTER → 2020-12-05 | Outpatient (CLI) | payer MEDICARE, MEDICAID ==
[~2020-12-05] MED LIST changes: +OXYC-517 PO
== END ==
LOC: CANPRECLI → M LAB 01:53
PROVIDERS: ATTEND Internal Medicine
DX: Z53.8 Procedure and treatment not carried out for other reasons (principal)

== ENCOUNTER → 2020-12-08 | Outpatient (REF) | payer MEDICARE, MEDICAID | LOC: M LAB REF 15:54 | PROVIDERS: ATTEND Surgery | DX: L97.412 Non-pressure chronic ulcer of right heel and midfoot with fat layer exposed (principal); M86.171 Other acute osteomyelitis, right ankle and foot; M86.671 Other chronic osteomyelitis, right ankle and foot ==

== ENCOUNTER → 2020-12-09 | Outpatient (REF) | payer MEDICARE, MEDICAID ==
[~2020-12-09] MED LIST changes: -OXYC-517 PO
[2020-12-09 10:33] LABS: HEMATOCRIT 33.5 % (36.0-47.0); MEAN CORPUSCULAR HEMOGLOBIN 23.7 pg (27.0-33.0); MEAN CORPUSCULAR HGB CONC 29.9 g/dl (32.0-36.5); MEAN CORPUSCULAR VOLUME 79.4 fl (80.0-96.0); PLATELET COUNT, AUTOMATED 304 10^3/uL (150-450); RED BLOOD COUNT 4.22 10^6/uL (4.00-5.40); WHITE BLOOD COUNT 11.7 10^3/uL (4.0-10.0)
[2020-12-09 11:11] LABS: ALBUMIN 2.9 GM/DL (3.2-5.2); ALT/SGPT 12 U/L (12-78); BILIRUBIN,TOTAL 0.2 MG/DL (0.2-1.0); BLOOD UREA NITROGEN 19 MG/DL (7-18); CARBON DIOXIDE LEVEL 32 MEQ/L (21-32); CHLORIDE LEVEL 98 MEQ/L (98-107); CHOLESTEROL LEVEL 121 MG/DL (<200); CREATININE FOR GFR 0.56 MG/DL (0.55-1.30); GLOMERULAR FILTRATION RATE > 60.0 (>32); GLUCOSE, FASTING 204 MG/DL (70-100); HDL CHOLESTEROL 50 MG/DL (>40); LDL CHOLESTEROL 48 MG/DL (<100); NON-HDL-C 71 MG/DL; SODIUM LEVEL 136 MEQ/L (136-145); TOTAL PROTEIN 6.8 GM/DL (6.4-8.2); TRIGLYCERIDES LEVEL 117 MG/DL (<150)
[2020-12-09 12:00] LABS: HEMOGLOBIN A1c 8.3 %
== END ==
PROVIDERS: ATTEND Internal Medicine
DX: J44.9 Chronic obstructive pulmonary disease, unspecified (principal); I10 Essential (primary) hypertension; E11.9 Type 2 diabetes mellitus without complications

== ENCOUNTER 2020-12-18 08:47 | Outpatient (CLI) | payer MEDICARE, MEDICAID ==
[~2020-12-18] VITALS: Ht 162.6 cm; Wt 102.4 kg
[~2020-12-18 08:47] MED LIST changes: -OXYC-517 PO
[2020-12-18 09:00] VITALS: BP 187/79
[2020-12-18] MEDS ORDERED: ERTAPENEM SODIUM 1 GM in NS MINI-BAG PLUS 50 ML IV ONE (09:10)
[2020-12-18 11:00] VITALS: BP 186/89
--- NOTE | 2020-12-18 11:10 | REP ---
INDICATION: OSTEOMYELITIS r/O ABCESS COMPARISON: None. TECHNIQUE: Two views right calcaneus. FINDINGS: There is no evidence of acute fracture, dislocation, or intrinsic bone disease.There is no osseous destruction. Cortex appears intact. There is a large inferior calcaneal spur. Scattered vascular calcifications are present in the soft tissues. I suspect an ulceration in the skin of the plantar soft tissues of the hindfoot. There is a tiny amount of subcutaneous air at this location. IMPRESSION: No fracture or dislocation. No osseous destruction. Suspect skin ulceration of the plantar soft tissues of the hindfoot with a tiny amount of air in the superficial soft tissues. <Electronically signed by Fuad Aggarwal > 12/18/20 2413
[2020-12-21] MEDS ORDERED: OXYC-517 PO (14:30)
== END 2020-12-18 11:00 | disposition home or self-care (01) ==
LOC: M INFU 08:47
PROVIDERS: ATTEND Nurse Practitioner Adult Health
DX: M86.9 Osteomyelitis, unspecified (principal)
CPT/HCPCS: 36592; 73650; 85652; 86140; 96365; J1335

== ENCOUNTER → 2020-12-18 | Outpatient (REF) | payer MEDICARE, MEDICAID ==
[~2020-12-18] MED LIST changes: +OXYC-517 PO
== END ==
PROVIDERS: ATTEND Internal Medicine
DX: M86.9 Osteomyelitis, unspecified (principal)

== ENCOUNTER → 2020-12-21 | Outpatient (CLI) | payer MEDICARE, MEDICAID ==
[~2020-12-21] MED LIST changes: +LIDOCAINE 1% MDV 20ML VIAL As Ordered ONE; +OXYC-517 PO
[2020-12-21 14:10] VITALS: BP 195/79
--- NOTE | 2020-12-21 18:46 | REP ---
PROCEDURE NAME: PICC LINE INSERTION W/SITERITE CLINICAL INFORMATION: PICC LINE PLACEMENT. COMPARISON: None. PROCEDURE DESCRIPTION: The procedure was performed by DANNY Frederick, under the direct supervision of Dr. Aggarwal. The risks and benefits of the procedure were explained to the patient and an informed consent was obtained both verbally and written. Directly prior to the start of the procedure a formal time-out was completed in the procedure room. The right basilic vein was localized using ultrasound guidance. The skin was prepped and draped in sterile fashion. One mL of 1% lidocaine 10 mg/mL was used as a local anesthetic. Using ultrasound guidance the right basilic vein was cannulated, and a 0.018 guidewire was inserted and advanced to the level of SVC using fluoroscopic guidance. The needle was removed and a 4.5 Albanian dilator and peel-away sheath was inserted over the guidewire. A 4.5 [place] single lumen catheter was cut to a length of 40 cm. The dilator was removed and the catheter was inserted over the guidewire with the tip ending at the level of the SVC. The peel-away sheath was removed and the catheter was flushed with heparinized saline as per hospital protocol. The catheter was affixed to the skin and a sterile dressing was applied. The patient tolerated the procedure well and there were no immediate complications. CONCLUSION: PICC line insertion into the right basilic vein. 0.1 minutes of fluoroscopy time was utilized for this procedure. Some fluoroscopic images are performed with last image hold technology. These images require no additional radiation. <Electronically signed by Hanna Rees > 12/21/20 1533 <Electronically signed by Fuad Aggarwal > 12/21/20 0785
== END ==
LOC: M IRPRO 13:59
PROVIDERS: ATTEND Internal Medicine Infectious Disease
DX: M86.171 Other acute osteomyelitis, right ankle and foot (principal)
CPT/HCPCS: 36571; 76937; C1751; J1642; J1644

== ENCOUNTER → 2020-12-21 | Outpatient (CLI) | payer MEDICARE, MEDICAID ==
[~2020-12-21] MED LIST changes: -LIDOCAINE 1% MDV 20ML VIAL As Ordered ONE
== END ==
LOC: M RAD 13:44 → M IRPRO 13:44
PROVIDERS: ATTEND Nurse Practitioner Adult Health
DX: L89.614 Pressure ulcer of right heel, stage 4 (principal); Z53.8 Procedure and treatment not carried out for other reasons

== ENCOUNTER → 2020-12-21 | Outpatient (REF) | payer MEDICARE, MEDICAID ==
[2020-12-21 10:30] LABS: INR 1.12; PROTHROMBIN TIME 14.7 SECONDS (12.5-14.3)
== END ==
PROVIDERS: ATTEND Internal Medicine
DX: Z01.818 Encounter for other preprocedural examination (principal); Z79.01 Long term (current) use of anticoagulants

== ENCOUNTER → 2020-12-22 | Outpatient (REF) | payer MEDICARE, MEDICAID ==
--- NOTE | 2020-12-22 15:57 | REPPI ---
INDICATION: WHEEZING [id number]. COMPARISON: 11/26/2020 latest prior also portable TECHNIQUE: AP FINDINGS: Once again, there is cardiomegaly accentuated by technique. There is no change in appearance of the pulmonary vascularity. There is chronic central pulmonary venous engorgement. No acute patchy parenchymal opacities or pleural effusions have developed. There is no change in the osseous structures. IMPRESSION: No significant change from the prior exam. Findings as described above. No acute cardiopulmonary disease. <Electronically signed by Kaden Wellington > 12/22/20 [id number]
--- NOTE | 2020-12-22 15:59 | REPPI ---
INDICATION: [id number]. Atraumatic pain and swelling COMPARISON: None TECHNIQUE: 2 limited views FINDINGS: Moderate to severe degenerative change seen throughout the wrist. There is evidence of an old healed ulnar styloid fracture. This limited two view exam shows no acute fracture. If a fracture is of clinical concern then a four view series is recommended. IMPRESSION: As above <Electronically signed by Kaden Wellington > 12/22/20 [id number]
== END ==
PROVIDERS: ATTEND Internal Medicine
DX: M19.032 Primary osteoarthritis, left wrist (principal); I51.7 Cardiomegaly; R06.2 Wheezing; M25.532 Pain in left wrist

== ENCOUNTER → 2020-12-24 | Outpatient (REF) | payer MEDICARE, MEDICAID ==
[2020-12-23 09:54] LABS: HEMATOCRIT 30.8 % (36.0-47.0); HEMOGLOBIN 9.1 g/dl (12.0-15.5); MEAN CORPUSCULAR HEMOGLOBIN 23.3 pg (27.0-33.0); MEAN CORPUSCULAR HGB CONC 29.5 g/dl (32.0-36.5); MEAN CORPUSCULAR VOLUME 78.8 fl (80.0-96.0); PLATELET COUNT, AUTOMATED 316 10^3/uL (150-450); RED BLOOD COUNT 3.91 10^6/uL (4.00-5.40); WHITE BLOOD COUNT 9.6 10^3/uL (4.0-10.0)
[2020-12-23 10:24] LABS: ALBUMIN 2.5 GM/DL (3.2-5.2); ALT/SGPT 10 U/L (12-78); BILIRUBIN,TOTAL 0.3 MG/DL (0.2-1.0); BLOOD UREA NITROGEN 16 MG/DL (7-18); C REACTIVE PROTEIN QUANTITATIV 9.11 MG/DL (0.00-0.30); CALCIUM LEVEL 8.9 MG/DL (8.8-10.2); CARBON DIOXIDE LEVEL 33 MEQ/L (21-32); CHLORIDE LEVEL 98 MEQ/L (98-107); GLOMERULAR FILTRATION RATE > 60.0 (>32); GLUCOSE, FASTING 101 MG/DL (70-100); POTASSIUM SERUM 3.9 MEQ/L (3.5-5.1); SODIUM LEVEL 136 MEQ/L (136-145); TOTAL PROTEIN 6.9 GM/DL (6.4-8.2)
[2020-12-23 10:27] LABS: ERYTHROCYTE SEDIMENTATION RATE 95 mm/hr (0-30)
[2020-12-23 20:33] LABS: URIC ACID 4.2 MG/DL (2.6-6.0)
--- NOTE | 2020-12-24 15:27 | REPPI ---
INDICATION: PAIN WITH BRUISING. COMPARISON: None. FINDINGS: Degenerative changes seen throughout the hand. There is asymmetric intra digital joint space narrowing with mild to prominent marginal osteophytosis involving all DIP joints. There is no periarticular osteopenia. There is no fracture, dislocation, or significant subluxation. Mild lateral subluxation is seen involving the DIP joints of the 4th or 5th digits. Degenerative changes seen involving the wrist. IMPRESSION: Chronic changes as described above. <Electronically signed by Kaden Wellington > 12/24/20 1595
== END ==
PROVIDERS: ATTEND Internal Medicine
DX: M25.742 Osteophyte, left hand (principal); M19.032 Primary osteoarthritis, left wrist

== ENCOUNTER → 2020-12-30 | Outpatient (REF) | payer MEDICARE, MEDICAID ==
[2020-12-30 11:08] LABS: HEMATOCRIT 31.8 % (36.0-47.0); HEMOGLOBIN 8.9 g/dl (12.0-15.5); MEAN CORPUSCULAR HEMOGLOBIN 22.8 pg (27.0-33.0); MEAN CORPUSCULAR VOLUME 81.3 fl (80.0-96.0); PLATELET COUNT, AUTOMATED 362 10^3/uL (150-450); RED BLOOD COUNT 3.91 10^6/uL (4.00-5.40); WHITE BLOOD COUNT 9.2 10^3/uL (4.0-10.0)
[2020-12-30 11:38] LABS: ALBUMIN 2.5 GM/DL (3.2-5.2); ALT/SGPT 12 U/L (12-78); BILIRUBIN,TOTAL 0.2 MG/DL (0.2-1.0); BLOOD UREA NITROGEN 23 MG/DL (7-18); C REACTIVE PROTEIN QUANTITATIV 2.75 MG/DL (0.00-0.30); CALCIUM LEVEL 8.9 MG/DL (8.8-10.2); CARBON DIOXIDE LEVEL 34 MEQ/L (21-32); CHLORIDE LEVEL 96 MEQ/L (98-107); CREATININE FOR GFR 0.63 MG/DL (0.55-1.30); GLOMERULAR FILTRATION RATE > 60.0 (>32); GLUCOSE, FASTING 164 MG/DL (70-100); POTASSIUM SERUM 4.4 MEQ/L (3.5-5.1); SODIUM LEVEL 134 MEQ/L (136-145)
[2020-12-30 11:52] LABS: ERYTHROCYTE SEDIMENTATION RATE 77 mm/hr (0-30)
== END ==
PROVIDERS: ATTEND Internal Medicine
DX: M86.9 Osteomyelitis, unspecified (principal)

== ENCOUNTER → 2021-01-06 | Outpatient (REF) | payer MEDICARE ==
[2021-01-06 10:06] LABS: HEMATOCRIT 31.2 % (36.0-47.0); HEMOGLOBIN 8.9 g/dl (12.0-15.5); MEAN CORPUSCULAR HEMOGLOBIN 22.5 pg (27.0-33.0); MEAN CORPUSCULAR HGB CONC 28.5 g/dl (32.0-36.5); MEAN CORPUSCULAR VOLUME 78.8 fl (80.0-96.0); PLATELET COUNT, AUTOMATED 311 10^3/uL (150-450); RED BLOOD COUNT 3.96 10^6/uL (4.00-5.40); WHITE BLOOD COUNT 10.3 10^3/uL (4.0-10.0)
[2021-01-06 10:33] LABS: ALBUMIN 2.7 GM/DL (3.2-5.2); ALT/SGPT 13 U/L (12-78); BILIRUBIN,TOTAL 0.4 MG/DL (0.2-1.0); BLOOD UREA NITROGEN 16 MG/DL (7-18); C REACTIVE PROTEIN QUANTITATIV 2.79 MG/DL (0.00-0.30); CALCIUM LEVEL 9.1 MG/DL (8.8-10.2); CARBON DIOXIDE LEVEL 31 MEQ/L (21-32); CHLORIDE LEVEL 97 MEQ/L (98-107); GLOMERULAR FILTRATION RATE > 60.0 (>32); GLUCOSE, FASTING 164 MG/DL (70-100); LIPASE 26 U/L (73-393); POTASSIUM SERUM 3.9 MEQ/L (3.5-5.1); SODIUM LEVEL 136 MEQ/L (136-145); TOTAL PROTEIN 7.1 GM/DL (6.4-8.2)
[2021-01-06 11:11] LABS: ERYTHROCYTE SEDIMENTATION RATE 66 mm/hr (0-30)
[2021-01-06 15:01] LABS: HEMOGLOBIN A1c 8.8 %
== END ==
PROVIDERS: ATTEND Internal Medicine
DX: E11.9 Type 2 diabetes mellitus without complications (principal); I10 Essential (primary) hypertension; J44.9 Chronic obstructive pulmonary disease, unspecified

== ENCOUNTER → 2021-01-28 | Outpatient (REF) | payer MEDICARE, MEDICAID ==
[2021-01-28 13:48] LABS: HEMOGLOBIN 8.7 g/dl (12.0-15.5); MEAN CORPUSCULAR HGB CONC 28.1 g/dl (32.0-36.5); MEAN CORPUSCULAR VOLUME 78.5 fl (80.0-96.0); PLATELET COUNT, AUTOMATED 316 10^3/uL (150-450); RED BLOOD COUNT 3.95 10^6/uL (4.00-5.40); WHITE BLOOD COUNT 10.9 10^3/uL (4.0-10.0)
[2021-01-28 14:08] LABS: ALBUMIN 2.5 GM/DL (3.2-5.2); ALT/SGPT 14 U/L (12-78); BILIRUBIN,TOTAL 0.2 MG/DL (0.2-1.0); BLOOD UREA NITROGEN 27 MG/DL (7-18); C REACTIVE PROTEIN QUANTITATIV 5.34 MG/DL (0.00-0.30); CARBON DIOXIDE LEVEL 34 MEQ/L (21-32); CHLORIDE LEVEL 99 MEQ/L (98-107); CREATININE FOR GFR 0.62 MG/DL (0.55-1.30); GLOMERULAR FILTRATION RATE > 60.0 (>32); GLUCOSE, FASTING 209 MG/DL (70-100); POTASSIUM SERUM 4.3 MEQ/L (3.5-5.1); SODIUM LEVEL 135 MEQ/L (136-145); TOTAL PROTEIN 7.2 GM/DL (6.4-8.2)
[2021-01-28 14:22] LABS: ERYTHROCYTE SEDIMENTATION RATE 82 mm/hr (0-30)
== END ==
PROVIDERS: ATTEND Internal Medicine
DX: M86.9 Osteomyelitis, unspecified (principal)
CPT/HCPCS: 80053; 85027; 85652; 86140; G0463

== ENCOUNTER → 2021-01-29 | Outpatient (CLI) | payer MEDICARE, MEDICAID ==
--- NOTE | 2021-01-29 16:04 | REP ---
INDICATION: PAIN COMPARISON: 04/25/2019. TECHNIQUE: Three views left shoulder. FINDINGS: There is no evidence of acute fracture, dislocation, or intrinsic bone disease.There is no significant change compared to the prior exam. IMPRESSION: No significant radiographic abnormalities. <Electronically signed by Fuad Aggarwal > 01/29/21 1600
== END ==
LOC: M LAB 15:00
PROVIDERS: ATTEND Internal Medicine
DX: M25.512 Pain in left shoulder (principal)

== ENCOUNTER → 2021-02-01 | Outpatient (REF) | payer MEDICARE, MEDICAID ==
[2021-02-01 09:41] LABS: HEMATOCRIT 33.8 % (36.0-47.0); HEMOGLOBIN 9.7 g/dl (12.0-15.5); MEAN CORPUSCULAR HEMOGLOBIN 21.7 pg (27.0-33.0); MEAN CORPUSCULAR HGB CONC 28.7 g/dl (32.0-36.5); MEAN CORPUSCULAR VOLUME 75.6 fl (80.0-96.0); PLATELET COUNT, AUTOMATED 341 10^3/uL (150-450); RED BLOOD COUNT 4.47 10^6/uL (4.00-5.40); WHITE BLOOD COUNT 9.7 10^3/uL (4.0-10.0)
[2021-02-01 10:07] LABS: ERYTHROCYTE SEDIMENTATION RATE 70 mm/hr (0-30)
== END ==
PROVIDERS: ATTEND Internal Medicine
DX: M86.9 Osteomyelitis, unspecified (principal)

== ENCOUNTER → 2021-02-09 | Outpatient (REF) | payer MEDICARE, MEDICAID | PROVIDERS: ATTEND Internal Medicine | DX: Z79.899 Other long term (current) drug therapy (principal); Z16.12 Extended spectrum beta lactamase (ESBL) resistance | CPT/HCPCS: 15275; 15276; 87088; 87186; Q4121 ==

== ENCOUNTER → 2021-02-10 | Outpatient (REF) | payer MEDICARE, MEDICAID ==
[2021-02-10 10:50] LABS: HEMATOCRIT 35.2 % (36.0-47.0); HEMOGLOBIN 9.9 g/dl (12.0-15.5); MEAN CORPUSCULAR HGB CONC 28.1 g/dl (32.0-36.5); MEAN CORPUSCULAR VOLUME 78.2 fl (80.0-96.0); PLATELET COUNT, AUTOMATED 356 10^3/uL (150-450); WHITE BLOOD COUNT 16.4 10^3/uL (4.0-10.0)
[2021-02-10 11:25] LABS: ALBUMIN 2.7 GM/DL (3.2-5.2); ALT/SGPT 17 U/L (12-78); BILIRUBIN,TOTAL 0.5 MG/DL (0.2-1.0); BLOOD UREA NITROGEN 30 MG/DL (7-18); C REACTIVE PROTEIN QUANTITATIV 7.02 MG/DL (0.00-0.30); CALCIUM LEVEL 8.8 MG/DL (8.8-10.2); CARBON DIOXIDE LEVEL 31 MEQ/L (21-32); CHLORIDE LEVEL 95 MEQ/L (98-107); CREATININE FOR GFR 0.89 MG/DL (0.55-1.30); GLOMERULAR FILTRATION RATE > 60.0 (>32); GLUCOSE, FASTING 263 MG/DL (70-100); POTASSIUM SERUM 4.2 MEQ/L (3.5-5.1); SODIUM LEVEL 133 MEQ/L (136-145); TOTAL PROTEIN 7.3 GM/DL (6.4-8.2)
[2021-02-10 11:47] LABS: ERYTHROCYTE SEDIMENTATION RATE 63 mm/hr (0-30)
[2021-02-10 13:06] LABS: APPEARANCE, URINE CLOUDY (CLEAR); BACTERIA, URINE AUTO 1+ (NEGATIVE); BILIRUBIN, URINE AUTO NEGATIVE (NEGATIVE); BLOOD, URINE BLOOD 3+ (NEGATIVE); COLOR, URINE YELLOW (YELLOW); GLUCOSE, URINE (UA) AUTO NEGATIVE (NEGATIVE); KETONE, URINE AUTO NEGATIVE (NEGATIVE); LEUKOCYTE ESTERASE, URINE AUTO 3+ (NEGATIVE); MUCUS, URINE SMALL (NEGATIVE); NITRITE, URINE AUTO NEGATIVE (NEGATIVE); PROTEIN, URINE AUTO 2+ mg/dL (NEGATIVE); RBC, URINE AUTO TNTC /HPF (0-3); SPECIFIC GRAVITY URINE AUTO 1.012 (1.002-1.035); SQUAMOUS EPITHELIAL CELL UR AU 1 /HPF (0-6); UROBILINOGEN, URINE AUTO 0.2 mg/dL (0.0-2.0); WBC, URINE AUTO 99 /HPF (0-3)
== END ==
PROVIDERS: ATTEND Internal Medicine
DX: R50.9 Fever, unspecified (principal)

== ENCOUNTER → 2021-02-11 | Outpatient (REF) | payer MEDICARE, MEDICAID ==
[2021-02-11 10:53] LABS: HEMATOCRIT 34.3 % (36.0-47.0); HEMOGLOBIN 9.6 g/dl (12.0-15.5); MEAN CORPUSCULAR VOLUME 78.5 fl (80.0-96.0); PLATELET COUNT, AUTOMATED 283 10^3/uL (150-450); RED BLOOD COUNT 4.37 10^6/uL (4.00-5.40); WHITE BLOOD COUNT 12.4 10^3/uL (4.0-10.0)
[2021-02-11 11:00] LABS: ALBUMIN 2.6 GM/DL (3.2-5.2); ALT/SGPT 14 U/L (12-78); BILIRUBIN,TOTAL 0.4 MG/DL (0.2-1.0); BLOOD UREA NITROGEN 33 MG/DL (7-18); CALCIUM LEVEL 9.1 MG/DL (8.8-10.2); CARBON DIOXIDE LEVEL 34 MEQ/L (21-32); CHLORIDE LEVEL 99 MEQ/L (98-107); CREATININE FOR GFR 0.86 MG/DL (0.55-1.30); GLOMERULAR FILTRATION RATE > 60.0 (>32); GLUCOSE, FASTING 267 MG/DL (70-100); POTASSIUM SERUM 4.5 MEQ/L (3.5-5.1); SODIUM LEVEL 136 MEQ/L (136-145); TOTAL PROTEIN 7.1 GM/DL (6.4-8.2)
[2021-02-11 15:38] LABS: BASO # 0.1 10^3/uL (0.0-0.2); BASO % 0.4 % (0.0-1.0); EOS # 0.1 10^3/uL (0.0-0.5); LYMPH # 1.9 10^3/uL (1.5-5.0); LYMPH % 14.9 % (24.0-44.0); MONO # 1.2 10^3/uL (0.0-0.8); MONO % 9.7 % (2.0-8.0); NEUTROPHILS # 9.4 10^3/uL (1.5-8.5); NEUTROPHILS % 73.6 % (36.0-66.0)
[2021-02-11 15:53] LABS: THYROID STIMULATING HORMONE 0.864 uIU/ML (0.358-3.740)
[2021-02-11 17:24] LABS: ERYTHROCYTE SEDIMENTATION RATE 68 mm/hr (0-30)
[2021-02-11 18:08] LABS: NT-PRO BNP 168 PG/ML (<450)
[2021-02-11 19:21] LABS: PLATELET ESTIMATE NORMAL (NORMAL)
== END ==
PROVIDERS: ATTEND Nurse Practitioner Adult Health
DX: D72.829 Elevated white blood cell count, unspecified (principal); R50.9 Fever, unspecified; I51.7 Cardiomegaly; J98.4 Other disorders of lung

== ENCOUNTER → 2021-02-11 | Outpatient (REF) | payer MEDICARE, MEDICAID ==
--- NOTE | 2021-02-11 16:03 | REPPI ---
INDICATION: RHONCHI. COMPARISON: Multiple latest 12/22/2020 TECHNIQUE: Portable FINDINGS: The technique utilized in obtaining the radiograph has magnified the cardiac silhouette and accentuated the interstitial markings. There is cardiomegaly accentuated by technique status quo. Again, there is diffuse increase in the interstitial markings throughout the lung gonzalez status quo. Note is again made of chronic central pulmonary venous engorgement. No acute patchy parenchymal opacities or pleural effusions have developed. There is no significant change in appearance of the osseous structures. IMPRESSION: There is no evidence of acute cardiopulmonary disease. Stable chronic changes. <Electronically signed by Kaden Wellington > 02/11/21 [id number]
== END ==
PROVIDERS: ATTEND Internal Medicine
DX: I51.7 Cardiomegaly (principal); J98.4 Other disorders of lung

== ENCOUNTER → 2021-02-11 | Outpatient (REF) | payer MEDICARE, MEDICAID | PROVIDERS: ATTEND Internal Medicine | DX: Z53.8 Procedure and treatment not carried out for other reasons (principal) ==

== ENCOUNTER 2021-02-16 14:13 | Emergency (ER) | payer MEDICARE, MEDICAID ==
[~2021-02-16] VITALS: Ht 162.6 cm; Wt 98.6 kg
[2021-02-16] MEDS ORDERED: ISOVUE-370 76% 100ML VIAL As Ordered ONE (15:10)
[2021-02-16] MEDS ORDERED: ACETAMINOPHEN 325 MG TAB PO ONE (15:20)
[2021-02-16] MEDS ORDERED: ACETAMINOPHEN 650 MG SUPP PR ONE (16:35)
--- NOTE | 2021-02-16 16:35 | REP ---
INDICATION: abd pain fever. COMPARISON: Multiple latest 11/23/2020 noncontrast enhanced exam TECHNIQUE: Standard helical technique after the intravenous administration of 100 cc Isovue 370 FINDINGS: Significant respiratory motion artifact obscures the lung bases. They do not appear to be significantly changed compared to the prior exam. The liver and spleen are essentially unchanged. Surgical clips are again seen in the gallbladder fossa from previous cholecystectomy. There is no significant change in appearance of the pancreas, adrenal glands, or kidneys. Multiple bilateral renal cysts are again noted. There is no significant change in appearance of the abdominal aorta or para-regions. Heavy calcific atheromatous plaque formation is again seen in the aorta and common iliac arteries. There is no significant change in appearance of the bowel loops or the mesenteries. There is no evidence of a mass or adenopathy. There is no evidence of free fluid or free air. Bone window technique throughout the exam shows no evidence of significant change in appearance of the osseous structures. IMPRESSION: There is no evidence of acute disease or significant change compared to prior exams with findings as described above. <Electronically signed by Kaden Wellington > 02/16/21 8300
[2021-02-16] MEDS ORDERED: AMPICILLIN SOD 1 GM in D5W 50 ML IV ONE (16:50)
[2021-02-16 18:19] VITALS: BP 154/79
== END 2021-02-16 18:51 | disposition home or self-care (01) ==
LOC: EDBD 14:13 → M ED 14:13
DX: N39.0 Urinary tract infection, site not specified (principal); I11.0 Hypertensive heart disease with heart failure; I25.10 Atherosclerotic heart disease of native coronary artery without angina pectoris; I50.9 Heart failure, unspecified; E78.9 Disorder of lipoprotein metabolism, unspecified; G47.33 Obstructive sleep apnea (adult) (pediatric); G89.29 Other chronic pain; F33.9 Major depressive disorder, recurrent, unspecified; Z79.01 Long term (current) use of anticoagulants; Z79.899 Other long term (current) drug therapy; Z79.82 Long term (current) use of aspirin; Z79.4 Long term (current) use of insulin; Z88.8 Allergy status to other drugs, medicaments and biological substances
CPT/HCPCS: 36415; 74177; 80048; 85027; 96365; 99284; J0290; Q9967

== ENCOUNTER → 2021-02-16 | Outpatient (REF) | payer MEDICARE, MEDICAID ==
[2021-02-16 12:23] LABS: HEMATOCRIT 40.9 % (36.0-47.0); HEMOGLOBIN 11.1 g/dl (12.0-15.5); MEAN CORPUSCULAR HEMOGLOBIN 21.9 pg (27.0-33.0); MEAN CORPUSCULAR HGB CONC 27.1 g/dl (32.0-36.5); MEAN CORPUSCULAR VOLUME 80.7 fl (80.0-96.0); PLATELET COUNT, AUTOMATED 297 10^3/uL (150-450); RED BLOOD COUNT 5.07 10^6/uL (4.00-5.40); WHITE BLOOD COUNT 11.8 10^3/uL (4.0-10.0)
[2021-02-16 12:48] LABS: BLOOD UREA NITROGEN 24 MG/DL (7-18); CALCIUM LEVEL 9.6 MG/DL (8.8-10.2); CARBON DIOXIDE LEVEL 34 MEQ/L (21-32); CHLORIDE LEVEL 103 MEQ/L (98-107); CREATININE FOR GFR 0.67 MG/DL (0.55-1.30); GLOMERULAR FILTRATION RATE > 60.0 (>32); GLUCOSE, FASTING 313 MG/DL (70-100); POTASSIUM SERUM 3.5 MEQ/L (3.5-5.1); SODIUM LEVEL 145 MEQ/L (136-145)
== END ==
PROVIDERS: ATTEND Nurse Practitioner Adult Health
DX: N39.0 Urinary tract infection, site not specified (principal)

== ENCOUNTER → 2021-02-18 | Outpatient (REF) | payer MEDICARE, MEDICAID | PROVIDERS: ATTEND Nurse Practitioner Adult Health | DX: Z02.89 Encounter for other administrative examinations (principal) ==